=== PATIENT | male | born 1945 | race Caucasian/White ===

== ENCOUNTER 2020-08-01 10:22 | Outpatient (REF) | payer MEDICARE, SELFPAY ==
[2020-08-01 13:44] LABS: MANUAL DIFF FLAG NO
[2020-08-01 13:46] LABS: Basophils Percent Auto 0.2 % (0-2); Eosinophils Absolute Auto 0.1 X10*3/uL (0.0-0.4); Eosinophils Percent Auto 0.9 % (0-4); Hematocrit 42.2 % (42-52); Hemoglobin 13.5 g/dl (14.0-18.0); Imm Gran Abs Auto 0.03 X10*3/uL (0.00-0.03); Imm Gran Pct Auto 0.3 % (0.0-0.4); Lymphocytes Absolute Auto 1.3 X10*3/uL (1.2-4.9); Lymphocytes Percent Auto 12.7 % (20-40); Mean Corpuscular Hemoglobin 31.1 pg (27.0-33.0); Mean Corpuscular Volume 97.2 fL (80-98); Mean Platelet Volume 10.2 fL (9.4-12.4); Monocytes Absolute Auto 0.9 X10*3/uL (0.1-1.2); Monocytes Percent Auto 8.9 % (2-11); Neutrophils Absolute Auto 8.1 X10*3/uL (2.0-8.3); Platelet Count 266 X10*3/uL (160-400); Red Blood Count 4.34 X10*6/uL (4.60-5.80); Red Cell Distribution Width 13.9 % (11.0-16.0); White Blood Count 10.5 X10*3/uL (4.8-10.8)
[2020-08-01 14:50] LABS: Alanine Aminotransferase 21 U/L (0-40); Albumin Level 4.2 g/dL (3.5-5.0); Alkaline Phosphatase 142 U/L (39-117); Anion Gap 14 (12-20); Aspartate Amino Transferase 23 U/L (5-37); Bilirubin Total 0.4 mg/dL (0.0-1.0); Blood Urea Nitrogen 20 mg/dL (9-16); Calcium 9.2 mg/dL (8.4-10.2); Carbon Dioxide 30 mmol/L (22-29); Chloride 103 mmol/L (96-108); Estimated Glomerular Filt Rate > 60; Glucose Random 63 mg/dL (60-115); Magnesium 2.2 mg/dL (1.6-2.6); Sodium 142 mmol/L (135-145); Total Protein 6.8 g/dL (6.5-8.0)
[2020-08-01 15:18] LABS: Estimated Average Glucose 103 mg/dL; Hemoglobin A1c % 5.2 %
== END 2020-08-01 10:23 | disposition home or self-care (01) ==
LOC: HO.10HDLR 10:22
PROVIDERS: PCP Internal Medicine; Visit Provider Internal Medicine
DX: G40.909 Epilepsy, unspecified, not intractable, without status epilepticus (principal); I25.10 Atherosclerotic heart disease of native coronary artery without angina pectoris; K21.9 Gastro-esophageal reflux disease without esophagitis; R73.03 Prediabetes
CPT/HCPCS: 36415; 80053; 80185; 83036; 83735; 85025

== ENCOUNTER 2020-09-28 10:55 | Outpatient (REF) | payer MEDICARE, SELFPAY | END 2020-09-28 10:56 | disposition home or self-care (01) | LOC: HO.LAB 10:55 | PROVIDERS: PCP Internal Medicine; Visit Provider Internal Medicine | DX: Z20.828 Contact with and (suspected) exposure to other viral communicable diseases (principal) | CPT/HCPCS: C9803; U0003 ==

== ENCOUNTER 2020-10-03 11:01 | Emergency (ER) | payer MEDICARE, SELFPAY ==
--- NOTE | 2020-10-03 | XR_ITS ---
EXAMINATION: XR CHEST CLINICAL INFORMATION: Cough and weakness. COMPARISON: Chest 02/11/2019 TECHNIQUE: Frontal view of the chest was obtained. FINDINGS: The lungs are well-expanded and clear of acute pneumonic process. Heart size and pulmonary vascularity is normal. There is mild spondylosis of dorsal spine. No lytic process. XR/XR chest 1V IMPRESSION: No acute cardiopulmonary process seen.
--- NOTE | 2020-10-03 | ECG_ITS ---
Test Reason : WEAKNESS Blood Pressure : / mmHG Vent. Rate : 105 BPM Atrial Rate : 105 BPM P-R Int : 140 ms QRS Dur : 080 ms QT Int : 324 ms P-R-T Axes : 057 042 098 degrees QTc Int : 428 ms Sinus tachycardia Septal infarct (cited on or before 07-JAN-2019) Nonspecific ST and T wave abnormality Abnormal ECG When compared with ECG of 11-FEB-2019 11:43, Vent. rate has increased BY 45 BPM Referred By: Generic ED Physician Electronically Signed By:TRU DEXTER
[2020-10-03 11:27] VITALS: BP 159/86; PULSE 108; RESP 18; TEMP 37.3; O2SAT 96; BMI 22.8
[2020-10-03] MEDS: Acetaminophen 325 MG TABLET 650 MG PO (11:57)
[2020-10-03 13:33] LABS: Basophils Percent Auto 0.1 % (0-2); Hemoglobin 13.4 g/dl (14.0-18.0); Imm Gran Abs Auto 0.03 X10*3/uL (0.00-0.03); Imm Gran Pct Auto 0.3 % (0.0-0.4); Lymphocytes Absolute Auto 0.5 X10*3/uL (1.2-4.9); Lymphocytes Percent Auto 5.1 % (20-40); MANUAL DIFF FLAG SCAN; Mean Corpuscular HGB Conc 34.4 g/dl (31.0-36.0); Mean Corpuscular Hemoglobin 31.2 pg (27.0-33.0); Mean Corpuscular Volume 90.9 fL (80-98); Mean Platelet Volume 9.5 fL (9.4-12.4); Monocytes Absolute Auto 0.7 X10*3/uL (0.1-1.2); Monocytes Percent Auto 6.9 % (2-11); Neutrophils Absolute Auto 8.7 X10*3/uL (2.0-8.3); Neutrophils Percent Auto 87.6 % (45-73); Platelet Count 203 X10*3/uL (160-400); Red Blood Count 4.29 X10*6/uL (4.60-5.80); Red Cell Distribution Width 13.2 % (11.0-16.0); SCAN SMEAR FLAG 1
[2020-10-03 13:58] LABS: SLIDE REVIEW VERIFIED
[2020-10-03 14:05] LABS: Alanine Aminotransferase 95 U/L (0-40); Alkaline Phosphatase 148 U/L (39-117); Anion Gap 16 (12-20); Aspartate Amino Transferase 95 U/L (5-37); Bilirubin Direct 0.2 mg/dL (0.0-0.5); Bilirubin Total 0.4 mg/dL (0.0-1.0); Blood Urea Nitrogen 15 mg/dL (9-16); C Reactive Protein 20.86 mg/dL (< or = 0.50); Calcium 8.4 mg/dL (8.4-10.2); Carbon Dioxide 26 mmol/L (22-29); Chloride 97 mmol/L (96-108); Creatinine Clr Calc Pharmacy 73.1; Estimated Glomerular Filt Rate > 60; Glucose Random 97 mg/dL (60-115); Lactate Dehydrogenase 236 U/L (118-273); Magnesium 1.9 mg/dL (1.6-2.6); Potassium 4.5 mmol/l (3.3-5.1); Sodium 134 mmol/L (135-145); Total Protein 6.9 g/dL (6.5-8.0)
[2020-10-03 14:26] LABS: Ferritin 244 ng/mL (20-250)
[2020-10-03 14:31] LABS: Procalcitonin 0.16 ng/mL
--- NOTE | 2020-10-03 15:21 | PC.NURSE ---
ambulated the pt, sating at 94% on room air with hr ranging from 110-115
--- NOTE | 2020-10-03 15:22 | ED_ITS ---
HPI - URI/Sore Throat General Chief Complaint: Weakness Stated Complaint: dehydrated,fever +covid Time Seen by Provider: 10/03/20 13:05 Source: patient Mode of arrival: ambulatory History of Present Illness HPI Narrative: 75-year-old male with a past medical history of epilepsy, mi s/p stent, COVID-19 positive on 09/19, presenting to the ED complaining of continued COVID-19 symptoms including nausea, headache, chills, generalized fatigue /weakness, and decreased p.o. intake. Reports mild dry cough. Denies shortness of breath, chest pain, abdominal pain, diarrhea, recent travel, sick contacts, LE edema MD elicited complaint: cough Related Data Previous Rx's Medication Instructions Recorded albuterol sulfate 5 mg INHALATION Q4H PRN #30 ea 10/03/20 azithromycin See Rx Instructions .ROUTE 10/03/20 .COMPLEX #6 tab Allergies Allergy/AdvReac Type Severity Reaction Status Date / Time penicillin V [From Pen-Vee K] Allergy Mild HIVES Unverified 06/23/20 16:33 Review of Systems Review of Systems: Constitutional: No Weight loss, No Fever, + Chills, No Night Sweats, + Fatigue, + Malaise ENT/Mouth: No sore throat, No Rhinorrhea Cardiovascular: No Chest Pain, No SOB, No Dyspnea on Exertion, No Orthopnea, No Edema, No Palpitations Respiratory: + Cough, No Sputum, No Wheezing, No Smoke Exposure, No Dyspnea Gastrointestinal: + Nausea, No Vomiting, No Diarrhea, No Constipation, No Abdominal pain Musculoskeletal: No joint pain, + Myalgias, No Joint Swelling Skin: No Skin Lesions, No rash Neuro: +generalized weakness, No Numbness, No Paresthesias, + Headache Yes all other systems are reviewed and are negative [facility] Past Medical History Attestation statement: The following information was validated with the patient. Medical History (Updated 10/03/20 @ 15:33 by CÉSAR Sifuentes) Epilepsy H/O acute myocardial infarction Surgical History (Updated 10/03/20 @ 11:30 by Nano Rome RN) H/O heart artery stent Social History Social History Advance Directives: No Advance Directives Information Provided: Yes Physical Exam Vital Signs: Vital Signs: Last Vital Signs Temp 99.2 F 10/03/20 11:27 Pulse 108 H 10/03/20 11:27 Resp 18 10/03/20 11:27 BP 159/86 H 10/03/20 11:27 Pulse Ox 96 10/03/20 11:27 Body Mass Index 22.8 Const: General: cooperative and healthy appearing Robbin entation/consciousness: patient oriented x3 Limitations: no limitations HENMT: Head: Yes normal to inspection Ears: hearing grossly normal bilaterally General nose exam: Normal external nose present Face and sinus: Yes normal facial exam Eyes: General: appearance normal, both eyes and all related structures EOM: EOMs intact bilaterally Neck: Neck: Yes normal visual inspection and Yes no meningeal signs Resp: Effort & Inspection: normal respiratory effort Auscultation: clear to auscultation bilaterally, no rales, no rhonchi and no wheezes Cardio: Rate: regular rate Heart sounds: S1 normal heart sound present and S2 normal heart sound present GI: Inspection: Yes normal to inspection Palpation (GI): Soft to palpation, nontender, no guarding and not rigid Skin: Rashes: no rashes Wounds: no wounds Neuro: General: patient oriented x3 and no meningeal signs Gait exam (Neur o): Normal gait present Extrem: Other: no LE edema or calf ttp General: Yes normal to inspection Course Course Course Narrative: * AST/ALT Elevated, CRP elevated, labs otherwise unremarkable * Chest x-ray unremarkable * 1522- patient ambulated in the ED with pulse ox maintaining saturation >94% on RA > plan to DC home with Zithromax and close follow-up. Strict return pre cautions and worrisome signs and symptoms discussed. Patient feels safe for discharge home MDM - URI/Sore Throat MDM Narrative Medical decision making narrative: 75-year-old male with a past medical history of epilepsy, mi s/p stent, COVID-19 positive on 09/19, presenting to the ED complaining of continued COVID-19 symptoms including nausea, headache, chills, generalized fatigue/weakness, and decreased p.o. intake. On exam low-grade temp 99.2?, tachycardic likely from fever, NAD/nontoxic appearing, lungs CTA, satting 96% on RA in no respiratory distress. Likely continue COVID-19 symptoms. Rule out dehydration vs metabolic abnormalities. No concern for bacterial etiology Plan: EKG, labs, CXR, ambulation with pulse ox, reassess Lab Data Result diagrams: 10/03/20 13:06 10/03/20 13:06 Labs: Lab Results 10/03/20 10/03/20 10/03/20 Range/Units 13:06 13:06 13:25 WBC 10.0 (4.8-10.8) X10*3/uL RBC 4.29 L (4.60-5.80) X10*6/uL Hgb 13.4 L (14.0-18.0) g/dl Hct 39.0 L (42-52) % MCV 90.9 (80-98) fL MCH 31.2 (27.0-33.0) pg MCHC 34.4 (31.0-36.0) g/dl RDW 13.2 (11.0-16.0) % Plt Count 203 (160-400) X10*3/uL MPV 9.5 (9.4-12.4) fL Immature Gran % (Auto) 0.3 (0.0-0.4) % Neut % (Auto) 87.6 H (45-73) % Lymph % (Auto) 5.1 L (20-40) % [place] % (Auto) 6.9 (2-11) % Eos % (Auto) 0.0 (0-4) % Baso % (Auto) 0.1 (0-2) % Lymph # (Auto) 0.5 L (1.2-4.9) X10*3/uL [place] # (Auto) 0.7 (0.1-1.2) X10*3/uL Eos # (Auto) 0.0 (0.0-0.4) X10*3/uL Baso # (Auto) 0.0 (0.0-0.2) X10*3/uL Abs Immat Gran (auto) 0.03 (0.00-0.03) X10*3/uL Absolute Neuts (auto) 8.7 H (2.0-8.3) X10*3/uL Absolute Nucleated RBC 0.000 (0.0-0.012) X10*3/uL Nucleated RBC % (auto) 0.0 (0.0-0.2) /100WBC Smear Tech's Comments VERIFIED Sodium 134 L (135-145) mmol/L Potassium 4.5 (3.3-5.1) mmol/l Chloride 97 (96-108) mmol/L Carbon Dioxide 26 (22-29) mmol/L Anion Gap 16 (12-20) BUN 15 (9-16) mg/dL Creatinine 0.84 (0.5-1.4) mg/dL Estim Creat Clear Calc 73.1 Estimated GFR > 60 Random Glucose 97 D (60-115) mg/dL Calcium 8.4 D (8.4-10.2) mg/dL Magnesium 1.9 (1.6-2.6) mg/dL Ferritin 244 (20-250) ng/mL Total Bilirubin 0.4 (0.0-1.0) mg/dL Direct Bilirubin 0.2 (0.0-0.5) mg/dL AST 95 H (5-37) U/L ALT 95 H (0-40) U/L Alkaline Phosphatase 148 H (39-117) U/L Lactate Dehydrogenase 236 (118-273) U/L C-Reactive Protein 20.86 H (< or = 0.50) mg/dL Total Protein 6.9 (6.5-8.0) g/dL Albumin 4.0 (3.5-5.0) g/dL Procalcitonin 0.16 ng/mL Discharge Plan Discharge Clinical Impression: COVID-19 Patient Disposition: Home, Self-Care Instructions: COVID-19 (Coronavirus Disease 2019) (ED) Additional Instructions: YOU HAVE COVID-19 Make sure you are staying hydrated at home YOUR BLOOD WORK AND CHEST X-RAY WERE REASSURING TODAY IN THE ED ALBUTEROL INHALER WILL HELP WITH DIFFICULTY BREATHING, TAKE PRESCRIBED IN ADDITION TAKE AZITHROMYCIN WHICH IS AN ANTIBIOTIC CALL YOUR PRIMARY CARE DOCTOR IF HE DEVELOPS SHORTNESS OF BREATH THAT IS CONSTANT /WORSENING, OR CHEST PAIN OR FEVER UNRESOLVED BY TYLENOL/MOTRIN AT HOME RETURN TO THE ED Prescriptions: New azithromycin 250 mg tablet See Rx Instructions .ROUTE .COMPLEX Qty: 6 RF: 0 albuterol sulfate 2.5 mg/0.5 mL solution for nebulization 5 mg inhalation Q4H PRN (Reason: shortness of breath or wheezing) Qty: 30 RF: 0 Referrals: Jose Simon MD [Primary Care Provider] - 3 days (call)
== END 2020-10-03 15:54 | disposition home or self-care (01) ==
PROVIDERS: Physician Assistant; Emergency Provider Emergency Medicine Emergency Medical Services; PCP Internal Medicine
DX: U07.1 COVID-19 (principal); R50.9 Fever, unspecified; Z79.899 Other long term (current) drug therapy
CPT/HCPCS: 36415; 71045; 80048; 80076; 82728; 83615; 83735; 84145; 85025; 86140; 93005; 99283

== ENCOUNTER → 2020-10-31 08:20 | Outpatient (BNVA) | payer MEDICARE, SELFPAY | PROVIDERS: PCP Internal Medicine; Visit Provider Internal Medicine Cardiovascular Disease | DX: I25.10 Atherosclerotic heart disease of native coronary artery without angina pectoris (principal); I48.0 Paroxysmal atrial fibrillation | CPT/HCPCS: 99212 ==

== ENCOUNTER 2020-11-03 07:20 | Outpatient (REF) | payer MEDICARE, SELFPAY ==
[2020-11-03 08:21] LABS: Cholesterol 172 mg/dL; HDL Cholesterol 81 mg/dL; LDL Cholesterol Calculated 78 mg/dl; Triglycerides 67 mg/dL
== END 2020-11-03 07:21 | disposition home or self-care (01) ==
LOC: HO.LAB 07:20
PROVIDERS: PCP Internal Medicine; Visit Provider Internal Medicine Cardiovascular Disease
DX: I25.10 Atherosclerotic heart disease of native coronary artery without angina pectoris (principal)
CPT/HCPCS: 36415; 80061

== ENCOUNTER 2020-11-07 11:11 | Outpatient (REF) | payer MEDICARE, SELFPAY ==
[2020-11-07 13:59] LABS: MANUAL DIFF FLAG NO
[2020-11-07 14:09] LABS: Basophils Percent Auto 0.3 % (0-2); Eosinophils Absolute Auto 0.1 X10*3/uL (0.0-0.4); Eosinophils Percent Auto 1.2 % (0-4); Hematocrit 40.8 % (42-52); Imm Gran Abs Auto 0.02 X10*3/uL (0.00-0.03); Imm Gran Pct Auto 0.3 % (0.0-0.4); Lymphocytes Percent Auto 26.7 % (20-40); Mean Corpuscular HGB Conc 31.9 g/dl (31.0-36.0); Mean Corpuscular Hemoglobin 30.7 pg (27.0-33.0); Mean Corpuscular Volume 96.5 fL (80-98); Monocytes Absolute Auto 0.8 X10*3/uL (0.1-1.2); Neutrophils Absolute Auto 4.5 X10*3/uL (2.0-8.3); Neutrophils Percent Auto 60.5 % (45-73); Platelet Count 263 X10*3/uL (160-400); Red Blood Count 4.23 X10*6/uL (4.60-5.80); Red Cell Distribution Width 14.4 % (11.0-16.0); White Blood Count 7.4 X10*3/uL (4.8-10.8)
[2020-11-07 14:28] LABS: Alanine Aminotransferase 26 U/L (0-40); Alkaline Phosphatase 124 U/L (39-117); Anion Gap 13 (12-20); Aspartate Amino Transferase 31 U/L (5-37); Bilirubin Total 0.5 mg/dL (0.0-1.0); Blood Urea Nitrogen 16 mg/dL (9-16); Calcium 8.9 mg/dL (8.4-10.2); Carbon Dioxide 31 mmol/L (22-29); Chloride 104 mmol/L (96-108); Estimated Glomerular Filt Rate > 60; Glucose Random 74 mg/dL (60-115); Potassium 4.9 mmol/L (3.3-5.1); Sodium 143 mmol/L (135-145); Total Protein 6.8 g/dL (6.5-8.0)
== END 2020-11-07 11:12 | disposition home or self-care (01) ==
LOC: HO.10HDL 11:11
PROVIDERS: Visit Provider Internal Medicine
DX: D64.9 Anemia, unspecified (principal); R79.89 Other specified abnormal findings of blood chemistry; Z86.16 Personal history of COVID-19
CPT/HCPCS: 36415; 80053; 85025

== ENCOUNTER 2020-12-06 08:14 | Outpatient (REF) | payer MEDICARE, SELFPAY ==
[2020-12-06 09:56] LABS: Prothrombin Time 100.6 SEC (10.8-13.0)
[2020-12-06 09:57] LABS: Cholesterol 160 mg/dL; HDL Cholesterol 68 mg/dL; LDL Cholesterol Calculated 72 mg/dl; Triglycerides 103 mg/dL
[2020-12-06 10:08] LABS: INTERNATIONAL NORM RATIO 8.3 (0.9-1.1)
== END 2020-12-06 08:15 | disposition home or self-care (01) ==
LOC: HO.LAB 08:14
PROVIDERS: PCP Internal Medicine; Visit Provider Internal Medicine Cardiovascular Disease
DX: I25.10 Atherosclerotic heart disease of native coronary artery without angina pectoris (principal); I48.0 Paroxysmal atrial fibrillation
CPT/HCPCS: 36415; 80061; 85610

== ENCOUNTER 2020-12-08 09:21 | Outpatient (REF) | payer MEDICARE, SELFPAY ==
[2020-12-08 10:04] LABS: INTERNATIONAL NORM RATIO 2.7 (0.9-1.1); Prothrombin Time 31.9 SEC (10.8-13.0)
== END 2020-12-08 09:22 | disposition home or self-care (01) ==
LOC: HO.LAB 09:21
PROVIDERS: PCP Internal Medicine; Visit Provider Internal Medicine Cardiovascular Disease
DX: I48.0 Paroxysmal atrial fibrillation (principal)
CPT/HCPCS: 36415; 85610

== ENCOUNTER → 2020-12-12 13:03 | Outpatient (BNVA) | payer MEDICARE, SELFPAY | PROVIDERS: PCP Internal Medicine; Visit Provider Internal Medicine | DX: I48.0 Paroxysmal atrial fibrillation (principal); Z51.81 Encounter for therapeutic drug level monitoring; Z79.01 Long term (current) use of anticoagulants | CPT/HCPCS: 85610; 99201; 99202 ==

== ENCOUNTER → 2020-12-15 08:23 | Outpatient (BNVA) | payer MEDICARE, SELFPAY | PROVIDERS: PCP Internal Medicine; Visit Provider Internal Medicine | DX: I48.0 Paroxysmal atrial fibrillation (principal); Z51.81 Encounter for therapeutic drug level monitoring; Z79.01 Long term (current) use of anticoagulants | CPT/HCPCS: 85610; 99211 ==

== ENCOUNTER → 2020-12-19 08:11 | Outpatient (BNVA) | payer MEDICARE, SELFPAY | PROVIDERS: PCP Internal Medicine; Visit Provider Internal Medicine | DX: Z79.01 Long term (current) use of anticoagulants (principal) | CPT/HCPCS: 85610; 99211 ==

== ENCOUNTER → 2020-12-26 09:04 | Outpatient (BNVA) | payer MEDICARE, SELFPAY | PROVIDERS: PCP Internal Medicine; Visit Provider Internal Medicine | DX: I48.0 Paroxysmal atrial fibrillation (principal); Z51.81 Encounter for therapeutic drug level monitoring; Z79.01 Long term (current) use of anticoagulants | CPT/HCPCS: 85610; 99211 ==

== ENCOUNTER → 2021-01-09 13:54 | Outpatient (BNVA) | payer MEDICARE, SELFPAY | PROVIDERS: PCP Internal Medicine; Visit Provider Internal Medicine | DX: I48.0 Paroxysmal atrial fibrillation (principal); Z79.01 Long term (current) use of anticoagulants; Z51.81 Encounter for therapeutic drug level monitoring | CPT/HCPCS: 85610; 99211 ==

== ENCOUNTER → 2021-01-16 08:01 | Outpatient (BNVA) | payer MEDICARE, SELFPAY | PROVIDERS: PCP Internal Medicine; Visit Provider Internal Medicine | DX: I48.0 Paroxysmal atrial fibrillation (principal); Z79.01 Long term (current) use of anticoagulants; Z51.81 Encounter for therapeutic drug level monitoring | CPT/HCPCS: 85610; 99211 ==

== ENCOUNTER → 2021-01-30 08:19 | Outpatient (BNVA) | payer MEDICARE, SELFPAY | PROVIDERS: PCP Internal Medicine; Visit Provider Internal Medicine | DX: I48.0 Paroxysmal atrial fibrillation (principal); Z79.01 Long term (current) use of anticoagulants; Z51.81 Encounter for therapeutic drug level monitoring | CPT/HCPCS: 85610; 99211 ==

== ENCOUNTER → 2021-02-13 08:14 | Outpatient (BNVA) | payer MEDICARE, SELFPAY | PROVIDERS: PCP Internal Medicine; Visit Provider Internal Medicine | DX: I48.0 Paroxysmal atrial fibrillation (principal); Z51.81 Encounter for therapeutic drug level monitoring; Z79.01 Long term (current) use of anticoagulants | CPT/HCPCS: 85610; 99211 ==

== ENCOUNTER 2021-02-17 08:01 | Outpatient (REF) | payer MEDICARE, SELFPAY ==
--- NOTE | ~2021-02-17 | XR_ITS ---
EXAMINATION: XR HAND, RIGHT CLINICAL INFORMATION: Arthritis. COMPARISON: None TECHNIQUE: PA, lateral, and oblique views of the right hand. FINDINGS: There is loss of PIP and DIP joint space. The MCP joint space is preserved. No bony erosive changes seen. There is mild periarticular spurring DIP joint second and fifth digit. Minimal spur spurring is also visualized in the PIP joint fifth digit. No acute fracture or subluxation seen. The soft tissues are normal. XR/XR hand RT min 3V IMPRESSION: Mild loss of PIP and DIP joints question early osteoarthritic changes. No visible acute fracture or dislocation seen..
[2021-02-17 08:57] LABS: MANUAL DIFF FLAG NO
[2021-02-17 09:03] LABS: Basophils Percent Auto 0.3 % (0-2); Eosinophils Absolute Auto 0.1 X10*3/uL (0.0-0.4); Eosinophils Percent Auto 1.7 % (0-4); Hematocrit 39.6 % (42-52); Hemoglobin 12.9 g/dl (14.0-18.0); Imm Gran Abs Auto 0.02 X10*3/uL (0.00-0.03); Imm Gran Pct Auto 0.3 % (0.0-0.4); Lymphocytes Absolute Auto 1.7 X10*3/uL (1.2-4.9); Lymphocytes Percent Auto 23.8 % (20-40); Mean Corpuscular HGB Conc 32.6 g/dl (31.0-36.0); Mean Corpuscular Hemoglobin 30.6 pg (27.0-33.0); Mean Corpuscular Volume 94.1 fL (80-98); Mean Platelet Volume 9.8 fL (9.4-12.4); Monocytes Absolute Auto 0.8 X10*3/uL (0.1-1.2); Monocytes Percent Auto 10.6 % (2-11); Neutrophils Absolute Auto 4.5 X10*3/uL (2.0-8.3); Neutrophils Percent Auto 63.3 % (45-73); Platelet Count 243 X10*3/uL (160-400); Red Blood Count 4.21 X10*6/uL (4.60-5.80); Red Cell Distribution Width 13.8 % (11.0-16.0); White Blood Count 7.1 X10*3/uL (4.8-10.8)
[2021-02-17 09:22] LABS: Alanine Aminotransferase 36 U/L (0-40); Albumin Level 4.1 g/dL (3.5-5.0); Alkaline Phosphatase 132 U/L (39-117); Anion Gap 11 (12-20); Aspartate Amino Transferase 35 U/L (5-37); Bilirubin Total 0.3 mg/dL (0.0-1.0); Blood Urea Nitrogen 16 mg/dL (9-16); C Reactive Protein 1.22 mg/dL (< or = 0.50); Calcium 9.3 mg/dL (8.4-10.2); Carbon Dioxide 32 mmol/L (22-29); Chloride 104 mmol/L (96-108); Cholesterol 146 mg/dL; Estimated Glomerular Filt Rate > 60; Glucose Random 98 mg/dL (60-115); HDL Cholesterol 69 mg/dL; Iron 89 mcg/dL (45-160); LDL Cholesterol Calculated 66 mg/dl; Percent Iron Saturation 28 % (15-50); Sodium 142 mmol/L (135-145); Total Iron Binding Capacity 322 mcg/dL (228-428); Total Protein 6.7 g/dL (6.5-8.0); Triglycerides 59 mg/dL; Unsaturated Iron Binding 233 ug/dL
[2021-02-17 09:45] LABS: Prostate Specific Antigen 2.67 ng/mL (<0.05-4.0)
[2021-02-17 09:51] LABS: Phenytoin Dilantin 21.6 ug/mL (10.0-20.0)
== END 2021-02-17 08:02 | disposition home or self-care (01) ==
LOC: HO.LAB 08:01
PROVIDERS: Absent Provider Internal Medicine; PCP Internal Medicine; Visit Provider Internal Medicine
DX: Z12.5 Encounter for screening for malignant neoplasm of prostate (principal); I25.10 Atherosclerotic heart disease of native coronary artery without angina pectoris; I48.0 Paroxysmal atrial fibrillation; E78.00 Pure hypercholesterolemia, unspecified; K21.9 Gastro-esophageal reflux disease without esophagitis; R35.1 Nocturia; L40.50 Arthropathic psoriasis, unspecified; M19.90 Unspecified osteoarthritis, unspecified site
CPT/HCPCS: 36415; 73130; 80053; 80061; 80185; 83540; 84153; 85025; 85610; 86140; 99211

== ENCOUNTER → 2021-02-27 08:35 | Outpatient (BNVA) | payer MEDICARE, SELFPAY | PROVIDERS: PCP Internal Medicine; Visit Provider Internal Medicine | DX: I48.0 Paroxysmal atrial fibrillation (principal); Z51.81 Encounter for therapeutic drug level monitoring; Z79.01 Long term (current) use of anticoagulants | CPT/HCPCS: 85610; 99211 ==

== ENCOUNTER → 2021-03-13 08:20 | Outpatient (BNVA) | payer MEDICARE, SELFPAY | PROVIDERS: PCP Internal Medicine; Visit Provider Internal Medicine | DX: I48.0 Paroxysmal atrial fibrillation (principal); Z51.81 Encounter for therapeutic drug level monitoring; Z79.01 Long term (current) use of anticoagulants | CPT/HCPCS: 85610; 99211 ==

== ENCOUNTER → 2021-04-03 08:18 | Outpatient (BNVA) | payer MEDICARE, SELFPAY | PROVIDERS: PCP Internal Medicine; Visit Provider Internal Medicine | DX: I48.0 Paroxysmal atrial fibrillation (principal); Z51.81 Encounter for therapeutic drug level monitoring; Z79.01 Long term (current) use of anticoagulants | CPT/HCPCS: 85610; 99211 ==

== ENCOUNTER → 2021-05-01 08:16 | Outpatient (BNVA) | payer MEDICARE, SELFPAY | PROVIDERS: PCP Internal Medicine; Visit Provider Internal Medicine | DX: I48.0 Paroxysmal atrial fibrillation (principal); I25.10 Atherosclerotic heart disease of native coronary artery without angina pectoris; Z51.81 Encounter for therapeutic drug level monitoring; Z79.899 Other long term (current) drug therapy | CPT/HCPCS: 85610; 99211; 99212 ==

== ENCOUNTER → 2021-05-08 08:44 | Outpatient (BNVA) | payer MEDICARE, SELFPAY | PROVIDERS: PCP Internal Medicine; Visit Provider Internal Medicine | DX: I48.0 Paroxysmal atrial fibrillation (principal); Z51.81 Encounter for therapeutic drug level monitoring; Z79.01 Long term (current) use of anticoagulants | CPT/HCPCS: 85610; 99211 ==

== ENCOUNTER → 2021-05-22 08:37 | Outpatient (BNVA) | payer MEDICARE, SELFPAY | PROVIDERS: PCP Internal Medicine; Visit Provider Internal Medicine | DX: I48.0 Paroxysmal atrial fibrillation (principal); Z51.81 Encounter for therapeutic drug level monitoring; Z79.01 Long term (current) use of anticoagulants | CPT/HCPCS: 85610; 99211 ==

== ENCOUNTER → 2021-06-05 08:20 | Outpatient (BNVA) | payer MEDICARE, SELFPAY | PROVIDERS: PCP Internal Medicine; Visit Provider Internal Medicine | DX: I48.0 Paroxysmal atrial fibrillation (principal); Z51.81 Encounter for therapeutic drug level monitoring; Z79.01 Long term (current) use of anticoagulants | CPT/HCPCS: 85610; 99211 ==

== ENCOUNTER → 2021-06-16 08:21 | Outpatient (BNVA) | payer MEDICARE, SELFPAY | PROVIDERS: PCP Internal Medicine; Visit Provider Internal Medicine | DX: I48.0 Paroxysmal atrial fibrillation (principal); Z51.81 Encounter for therapeutic drug level monitoring; Z79.01 Long term (current) use of anticoagulants | CPT/HCPCS: 85610; 99211 ==

== ENCOUNTER → 2021-07-03 08:26 | Outpatient (BNVA) | payer MEDICARE, SELFPAY | PROVIDERS: PCP Internal Medicine; Visit Provider Internal Medicine | DX: I48.0 Paroxysmal atrial fibrillation (principal); Z51.81 Encounter for therapeutic drug level monitoring; Z79.01 Long term (current) use of anticoagulants | CPT/HCPCS: 85610; 99211 ==

== ENCOUNTER → 2021-07-18 08:15 | Outpatient (BNVA) | payer MEDICARE, SELFPAY | PROVIDERS: PCP Internal Medicine; Visit Provider Internal Medicine | DX: I48.0 Paroxysmal atrial fibrillation (principal); Z51.81 Encounter for therapeutic drug level monitoring; Z79.01 Long term (current) use of anticoagulants | CPT/HCPCS: 85610; 99211 ==

== ENCOUNTER → 2021-07-20 08:03 | Outpatient (BNVA) | payer MEDICARE, SELFPAY | PROVIDERS: PCP Internal Medicine; Visit Provider Internal Medicine | DX: I48.0 Paroxysmal atrial fibrillation (principal); Z51.81 Encounter for therapeutic drug level monitoring; Z79.01 Long term (current) use of anticoagulants | CPT/HCPCS: 85610; 99211 ==

== ENCOUNTER → 2021-07-31 08:13 | Outpatient (BNVA) | payer MEDICARE, SELFPAY | PROVIDERS: PCP Internal Medicine; Visit Provider Internal Medicine | DX: I48.0 Paroxysmal atrial fibrillation (principal); Z51.81 Encounter for therapeutic drug level monitoring; Z79.01 Long term (current) use of anticoagulants | CPT/HCPCS: 85610; 99211 ==

== ENCOUNTER 2021-08-11 06:59 | Outpatient (REF) | payer MEDICARE, SELFPAY ==
[2021-08-11 07:08] LABS: MANUAL DIFF FLAG NO
[2021-08-11 07:41] LABS: Basophils Percent Auto 0.3 % (0-2); Eosinophils Percent Auto 0.4 % (0-4); Hematocrit 40.6 % (42.0-52.0); Imm Gran Abs Auto 0.02 X10*3/uL (0.00-0.03); Imm Gran Pct Auto 0.3 % (0.0-0.4); Lymphocytes Percent Auto 24.8 % (20-40); Mean Corpuscular Volume 93.8 fL (80.0-98.0); Mean Platelet Volume 9.6 fL (9.4-12.4); Monocytes Absolute Auto 1.1 X10*3/uL (0.1-1.2); Monocytes Percent Auto 13.2 % (2-11); Neutrophils Absolute Auto 4.9 x10*3/uL (2.0-8.3); Platelet Count 265 X10*3/uL (160-400); Red Blood Count 4.33 X10*6/uL (4.60-5.80); Red Cell Distribution Width 14.2 % (11.0-16.0)
[2021-08-11 08:08] LABS: Alanine Aminotransferase 43 U/L (0-40); Alkaline Phosphatase 147 U/L (39-117); Anion Gap 11 (12-20); Aspartate Amino Transferase 52 U/L (5-37); Bilirubin Total 0.4 mg/dL (0.0-1.0); Blood Urea Nitrogen 18 mg/dL (9-16); Calcium 9.2 mg/dL (8.4-10.2); Carbon Dioxide 31 mmol/L (22-29); Chloride 106 mmol/L (96-108); Estimated Glomerular Filt Rate > 60; Glucose Random 102 mg/dL (60-115); Potassium 4.9 mmol/L (3.3-5.1); Sodium 143 mmol/L (135-145); Total Protein 6.8 g/dL (6.5-8.0)
[2021-08-11 08:53] LABS: Phenytoin Dilantin 18.5 ug/mL (10.0-20.0)
== END 2021-08-11 07:00 | disposition home or self-care (01) ==
LOC: HO.LAB 06:59
PROVIDERS: PCP Internal Medicine; Visit Provider Internal Medicine
DX: I48.0 Paroxysmal atrial fibrillation (principal); I25.10 Atherosclerotic heart disease of native coronary artery without angina pectoris; E78.00 Pure hypercholesterolemia, unspecified; K21.9 Gastro-esophageal reflux disease without esophagitis; Z79.899 Other long term (current) drug therapy
CPT/HCPCS: 36415; 80053; 80185; 85025

== ENCOUNTER → 2021-08-21 08:20 | Outpatient (BNVA) | payer MEDICARE, SELFPAY | PROVIDERS: PCP Internal Medicine; Visit Provider Internal Medicine | DX: I48.0 Paroxysmal atrial fibrillation (principal); Z51.81 Encounter for therapeutic drug level monitoring; Z79.01 Long term (current) use of anticoagulants | CPT/HCPCS: 85610; 99211 ==

== ENCOUNTER → 2021-09-04 07:59 | Outpatient (BNVA) | payer MEDICARE, SELFPAY | PROVIDERS: PCP Internal Medicine; Visit Provider Internal Medicine | DX: I48.0 Paroxysmal atrial fibrillation (principal); Z51.81 Encounter for therapeutic drug level monitoring; Z79.01 Long term (current) use of anticoagulants | CPT/HCPCS: 85610; 99211 ==

== ENCOUNTER → 2021-09-18 08:04 | Outpatient (BNVA) | payer MEDICARE, SELFPAY | PROVIDERS: PCP Internal Medicine; Visit Provider Internal Medicine | DX: I48.0 Paroxysmal atrial fibrillation (principal); Z51.81 Encounter for therapeutic drug level monitoring; Z79.01 Long term (current) use of anticoagulants | CPT/HCPCS: 85610; 99211 ==

== ENCOUNTER → 2021-10-02 08:21 | Outpatient (BNVA) | payer MEDICARE, SELFPAY | PROVIDERS: PCP Internal Medicine; Visit Provider Internal Medicine | DX: I48.0 Paroxysmal atrial fibrillation (principal); Z51.81 Encounter for therapeutic drug level monitoring; Z79.01 Long term (current) use of anticoagulants | CPT/HCPCS: 85610; 99211 ==

== ENCOUNTER → 2021-10-16 08:17 | Outpatient (BNVA) | payer MEDICARE, SELFPAY | PROVIDERS: PCP Internal Medicine; Visit Provider Internal Medicine | DX: I48.0 Paroxysmal atrial fibrillation (principal); Z51.81 Encounter for therapeutic drug level monitoring; Z79.01 Long term (current) use of anticoagulants | CPT/HCPCS: 85610; 99211 ==

== ENCOUNTER → 2021-10-20 13:37 | Outpatient (REF) | payer MEDICARE, SELFPAY ==
--- NOTE | 2021-10-20 13:40 | CA_ITS ---
Transthoracic Echocardiogram Patient (Last, First, Middle): Moris Jimenez A Gender: Male Date of : 1945 Age: 76 Procedure Date: 10/20/2021 Procedure Type: Transthoracic Echocardiogram Location: OP Height: 172.72 cm Weight: 68.95 kg BSA: 1.82 m2 Heart Rate: bpm BP: 128 / 66 mmHg Conference Services Director: NATE Referring MD: Lazarus Stewart MD Symptoms: I48.0 - Paroxysmal atrial fibrillation Study Quality: Fair ECG Rhythm: Sinus Conclusions: - The left ventricular systolic function is mildly decreased. The calculated ejection fraction is 48% by biplane method. - The apical septum, mid inferoseptal, and mid anteroseptal segments are akinetic. - There is moderate calcification of the aortic valve. There is mild aortic valve stenosis. - There is mild mitral annular calcification. Findings Left Ventricle Normal left ventricular cavity size. There is normal left ventricular wall thickness. The left ventricular systolic function is mildly decreased. The calculated ejection fraction is 48% by biplane method. There is evidence of regional wall motion abnormalities. Wall Motion Rest Echo Findings The apical septum, mid inferoseptal, and mid anteroseptal segments are akinetic. Atria The left atrium is mildly dilated. The right atrium is normal in size. Aortic Valve There is moderate calcification of the aortic valve. There is mild aortic valve stenosis. The mean gradient is 11 mmHg. The aortic valve area is 1.28 cm2. There is mild aortic valve regurgitation. Dimensionless index 0.6. Stroke volume index 37ml. Mitral Valve The mitral valve appears normal. There is mild mitral annular calcification. There is trace mitral valve regurgitation. There is no mitral valve stenosis. Pulmonic Valve The pulmonic valve was not well visualized. Tricuspid Valve There is mild tricuspid valve regurgitation. The pulmonary artery systolic pressure is normal. Great Vessels The aortic annulus, sinuses of valsalva, and asc aorta are normal in size. Venous The inferior vena cava was not well visualized. The inferior vena cava is normal in size. Pericardium/Pleural There is no evidence of pericardial effusion. Prior Study Comparison No significant change compared to prior study dated: 10/12/2019. Measurements 2D Linear Measurements IVSd: 0.76 0.6-0.9/0.6-1.0 cm LVIDd: 5.30 3.9-5.3/4.2-5.9 cm LVIDd Index: 2.91 2.4-3.2/2.2-3.1 cm/m2 LVIDs: 3.63 2.0-3.6 cm LVPWd: 0.80 0.7-1.1 cm Ao Root: 3.00 2.1-3.5 cm LA Diam: 3.60 2.7-3.8/3.0-4.0 cm LAIDs Index: 1.98 1.5-2.3 cm/m2 LV Mass: 180.32 67-162/88-224 g LV Mass Index: 99.08 43-95/49-115 g/m2 LVOT Diam: 1.70 3.0+(-)1.3 cm 2D Systolic Function EF 4C: 45.80 >55% EF 2C: 50.70 >55% EF BiP: 47.50 >55% Mitral Valve MV Pk E: 0.66 MV PK A: 0.94 MV Decel Time: 277.00 E/A: 0.70 E'Lateral: 8.59 E'Medial: 7.29 E/E' Med: 9.10 E/E' Lat: 7.70 PHT: 81.00 MVA PHT: 2.72 Decel [place]: 2.38 Aortic Valve AoV Pk Jasper: 2.08 AoV Mn [place]asper: 1.56 AoV VTI: 0.52 AoV Pk Grad: 17.00 Aov Mn Grad: 11.00 LEYDI Cont.VTI: 1.28 AI Pk [place]asper: 3.14 AI [place]: 1.54 LVOT LVOT Pk [place]asper: 1.24 LVOT Mn [place]: 0.84 LVOT VTI: 0.30 LVOT Pk Grad: 6.00 LVOT Mn Grad: 3.00 LVOT Diam: 1.70 LVOT Area: 2.27 Diastolic Function MV Pk E: 0.66 MV Pk A: 0.94 E/A: 0.70 E'Medial: 7.29 E/E' Med: 9.10 E' Laterial: 8.59 E/E' Lat: 7.70 Right Ventricle TAPSE (mm): 28.20 TVS' Jasper: 15.90 Tricuspid Valve TR Pk Jasper: 2.67 TR Pk Grad: 29.00 RA Press: 3.00 RVSP: 32.00 Great Vessels Aorta Ao Root-2D: 3.00 2.0-3.7 cm Ao Asc: 3.40 2.1-3.4 cm Ao Arch: 3.00 Updated in Other Vendor System with Status of Final Hernesto Costa MD electronically signed on 10/22/2021 12:29:32 PM with status of Final
== END ==
LOC: HO.CARD 13:37
PROVIDERS: PCP Internal Medicine; Visit Provider Internal Medicine Cardiovascular Disease
DX: I48.0 Paroxysmal atrial fibrillation (principal)
CPT/HCPCS: 93306

== ENCOUNTER → 2021-10-23 11:00 | Outpatient (BNVA) | payer MEDICARE, SELFPAY | PROVIDERS: PCP Internal Medicine; Referring Provider Internal Medicine; Visit Provider Internal Medicine Cardiovascular Disease | DX: I48.0 Paroxysmal atrial fibrillation (principal); I25.10 Atherosclerotic heart disease of native coronary artery without angina pectoris | CPT/HCPCS: 93005; 99212 ==

== ENCOUNTER → 2021-11-06 08:07 | Outpatient (BNVA) | payer MEDICARE, SELFPAY | PROVIDERS: PCP Internal Medicine; Visit Provider Internal Medicine | DX: I48.0 Paroxysmal atrial fibrillation (principal); Z51.81 Encounter for therapeutic drug level monitoring; Z79.01 Long term (current) use of anticoagulants | CPT/HCPCS: 85610; 99211 ==

== ENCOUNTER → 2021-11-13 07:43 | Outpatient (REF) | payer MEDICARE, SELFPAY ==
--- NOTE | 2021-11-13 08:08 | HM_ITS ---
Total monitoring time 2 days and 22 hours. Underlying rhythm is sinus. Minimum heart rate 55/Min. Maximum 101/min. Average 68/Min. About 20 short supraventricular episodes noted, that appear to be atrial fibrillation. Longest episode is 1 minute and 32 seconds. Fastest 184/Min. Otherwise, minimal supraventricular burden at less than 1%. No patient events. MTDD
== END ==
LOC: HO.CARD 07:43
PROVIDERS: PCP Internal Medicine; Visit Provider Internal Medicine Cardiovascular Disease
DX: I48.0 Paroxysmal atrial fibrillation (principal)
CPT/HCPCS: 93242

== ENCOUNTER 2021-11-20 10:00 | Outpatient (REF) | payer MEDICARE, SELFPAY ==
[2021-11-20 13:55] LABS: MANUAL DIFF FLAG NO
[2021-11-20 14:01] LABS: Basophils Percent Auto 0.2 % (0-2); Eosinophils Percent Auto 0.2 % (0-4); Hematocrit 38.6 % (42.0-52.0); Hemoglobin 12.4 g/dl (14.0-18.0); Imm Gran Abs Auto 0.03 X10*3/uL (0.00-0.03); Imm Gran Pct Auto 0.3 % (0.0-0.4); Lymphocytes Absolute Auto 1.7 X10*3/uL (1.2-4.9); Lymphocytes Percent Auto 18.1 % (20-40); Mean Corpuscular HGB Conc 32.1 g/dl (31.0-36.0); Mean Corpuscular Volume 93.2 fL (80.0-98.0); Mean Platelet Volume 10.3 fL (9.4-12.4); Monocytes Absolute Auto 0.9 X10*3/uL (0.1-1.2); Neutrophils Absolute Auto 6.6 x10*3/uL (2.0-8.3); Neutrophils Percent Auto 71.2 % (45-73); Platelet Count 246 X10*3/uL (160-400); Red Blood Count 4.14 X10*6/uL (4.60-5.80); White Blood Count 9.2 X10*3/uL (4.8-10.8)
[2021-11-20 14:14] LABS: Alanine Aminotransferase 57 U/L (0-40); Alkaline Phosphatase 142 U/L (39-117); Anion Gap 10 (12-20); Aspartate Amino Transferase 63 U/L (5-37); Bilirubin Total 0.3 mg/dL (0.0-1.0); Blood Urea Nitrogen 16 mg/dL (9-16); Carbon Dioxide 31 mmol/L (22-29); Chloride 105 mmol/L (96-108); Estimated Glomerular Filt Rate > 60; Glucose Random 91 mg/dL (60-115); Iron 51 mcg/dL (45-160); Percent Iron Saturation 15 % (15-50); Potassium 4.4 mmol/L (3.3-5.1); Sodium 142 mmol/L (135-145); Total Iron Binding Capacity 342 mcg/dL (228-428); Total Protein 6.7 g/dL (6.5-8.0); Unsaturated Iron Binding 291 ug/dL
[2021-11-20 14:34] LABS: INTERNATIONAL NORM RATIO 3.6 (0.9-1.1); Prothrombin Time 42.5 SEC (9.9-13.0)
== END 2021-11-20 10:01 | disposition home or self-care (01) ==
LOC: HO.10HDL 10:00
PROVIDERS: Visit Provider Internal Medicine
DX: I48.0 Paroxysmal atrial fibrillation (principal); N40.0 Benign prostatic hyperplasia without lower urinary tract symptoms; D64.9 Anemia, unspecified; R79.89 Other specified abnormal findings of blood chemistry
CPT/HCPCS: 36415; 80053; 83540; 85025; 85610

== ENCOUNTER → 2021-12-04 09:00 | Outpatient (BNVA) | payer MEDICARE, SELFPAY | PROVIDERS: PCP Internal Medicine; Visit Provider Internal Medicine | DX: I48.0 Paroxysmal atrial fibrillation (principal); I25.10 Atherosclerotic heart disease of native coronary artery without angina pectoris; I35.0 Nonrheumatic aortic (valve) stenosis; Z51.81 Encounter for therapeutic drug level monitoring; Z79.01 Long term (current) use of anticoagulants | CPT/HCPCS: 85610; 99211; 99212 ==

== ENCOUNTER → 2021-12-18 08:04 | Outpatient (BNVA) | payer MEDICARE, SELFPAY | PROVIDERS: PCP Internal Medicine; Visit Provider Internal Medicine | DX: I48.0 Paroxysmal atrial fibrillation (principal); Z51.81 Encounter for therapeutic drug level monitoring; Z79.01 Long term (current) use of anticoagulants | CPT/HCPCS: 85610; 99211 ==

== ENCOUNTER → 2022-01-15 08:02 | Outpatient (BNVA) | payer MEDICARE, SELFPAY | PROVIDERS: PCP Internal Medicine; Visit Provider Internal Medicine | DX: I48.0 Paroxysmal atrial fibrillation (principal); Z51.81 Encounter for therapeutic drug level monitoring; Z79.01 Long term (current) use of anticoagulants | CPT/HCPCS: 85610; 99211 ==

== ENCOUNTER → 2022-01-31 14:56 | Outpatient (BNVA) | payer MEDICARE, SELFPAY | PROVIDERS: PCP Internal Medicine; Visit Provider Internal Medicine | DX: I48.0 Paroxysmal atrial fibrillation (principal); Z79.01 Long term (current) use of anticoagulants; Z51.81 Encounter for therapeutic drug level monitoring | CPT/HCPCS: 85610; 99211 ==

== ENCOUNTER 2022-02-12 10:51 | Outpatient (REF) | payer MEDICARE, SELFPAY ==
[2022-02-12 13:12] LABS: MANUAL DIFF FLAG NO
[2022-02-12 13:19] LABS: Basophils Percent Auto 0.3 % (0-2); Eosinophils Percent Auto 0.2 % (0-4); Hematocrit 37.5 % (42.0-52.0); Hemoglobin 11.8 g/dl (14.0-18.0); Imm Gran Abs Auto 0.03 X10*3/uL (0.00-0.03); Imm Gran Pct Auto 0.3 % (0.0-0.4); Lymphocytes Absolute Auto 1.5 X10*3/uL (1.2-4.9); Lymphocytes Percent Auto 16.7 % (20-40); Mean Corpuscular HGB Conc 31.5 g/dl (31.0-36.0); Mean Corpuscular Hemoglobin 29.2 pg (27.0-33.0); Mean Corpuscular Volume 92.8 fL (80.0-98.0); Mean Platelet Volume 10.4 fL (9.4-12.4); Monocytes Absolute Auto 0.9 X10*3/uL (0.1-1.2); Monocytes Percent Auto 10.1 % (2-11); Neutrophils Absolute Auto 6.4 x10*3/uL (2.0-8.3); Neutrophils Percent Auto 72.4 % (45-73); Platelet Count 260 X10*3/uL (160-400); Red Blood Count 4.04 X10*6/uL (4.60-5.80); Red Cell Distribution Width 14.9 % (11.0-16.0); White Blood Count 8.9 X10*3/uL (4.8-10.8)
[2022-02-12 13:45] LABS: Alanine Aminotransferase 21 U/L (0-40); Albumin Level 3.8 g/dL (3.5-5.0); Alkaline Phosphatase 142 U/L (39-117); Anion Gap 9 (12-20); Aspartate Amino Transferase 27 U/L (5-37); Bilirubin Total 0.2 mg/dL (0.0-1.0); Blood Urea Nitrogen 20 mg/dL (9-16); Carbon Dioxide 30 mmol/L (22-29); Chloride 106 mmol/L (96-108); Estimated Glomerular Filt Rate > 60; Glucose Random 88 mg/dL (60-115); Sodium 140 mmol/L (135-145); Total Protein 6.5 g/dL (6.5-8.0)
[2022-02-12 14:01] LABS: Free T4 (Free Thyroxine) 0.83 ng/dL (0.71-1.85); Thyroid Stimulating Hormone 1.65 uIU/mL (0.32-4.0)
[2022-02-12 14:06] LABS: INTERNATIONAL NORM RATIO 2.3 (0.9-1.1)
[2022-02-12 14:13] LABS: Vitamin B12 337 pg/mL (200-900)
== END 2022-02-12 10:52 | disposition home or self-care (01) ==
LOC: HO.10HDL 10:51
PROVIDERS: Visit Provider Internal Medicine
DX: I48.0 Paroxysmal atrial fibrillation (principal); R53.83 Other fatigue; D64.9 Anemia, unspecified
CPT/HCPCS: 36415; 80053; 82607; 84439; 84443; 85025; 85610

== ENCOUNTER → 2022-02-14 15:28 | Outpatient (BNVA) | payer MEDICARE, SELFPAY | PROVIDERS: PCP Internal Medicine; Visit Provider Internal Medicine | DX: I48.0 Paroxysmal atrial fibrillation (principal); Z79.01 Long term (current) use of anticoagulants; Z51.81 Encounter for therapeutic drug level monitoring | CPT/HCPCS: 85610; 99211 ==

== ENCOUNTER → 2022-02-19 08:16 | Outpatient (BNVA) | payer MEDICARE, SELFPAY | PROVIDERS: PCP Internal Medicine; Visit Provider Internal Medicine | DX: I48.0 Paroxysmal atrial fibrillation (principal); Z79.01 Long term (current) use of anticoagulants; Z51.81 Encounter for therapeutic drug level monitoring | CPT/HCPCS: 85610; 99211 ==

== ENCOUNTER → 2022-03-12 08:21 | Outpatient (BNVA) | payer MEDICARE, SELFPAY | PROVIDERS: PCP Internal Medicine; Visit Provider Internal Medicine | DX: I48.0 Paroxysmal atrial fibrillation (principal); Z79.01 Long term (current) use of anticoagulants; Z51.81 Encounter for therapeutic drug level monitoring | CPT/HCPCS: 85610; 99211 ==

== ENCOUNTER → 2022-03-19 08:00 | Outpatient (BNVA) | payer MEDICARE, SELFPAY | PROVIDERS: PCP Internal Medicine; Visit Provider Internal Medicine | DX: I48.0 Paroxysmal atrial fibrillation (principal); Z79.01 Long term (current) use of anticoagulants; Z51.81 Encounter for therapeutic drug level monitoring | CPT/HCPCS: 85610; 99211 ==

== ENCOUNTER → 2022-03-26 09:37 | Outpatient (BNVA) | payer MEDICARE, SELFPAY | PROVIDERS: PCP Internal Medicine; Visit Provider Internal Medicine | DX: I48.0 Paroxysmal atrial fibrillation (principal); Z79.01 Long term (current) use of anticoagulants; Z51.81 Encounter for therapeutic drug level monitoring | CPT/HCPCS: 85610; 99211 ==

== ENCOUNTER → 2022-04-02 08:17 | Outpatient (BNVA) | payer MEDICARE, SELFPAY | PROVIDERS: PCP Internal Medicine; Visit Provider Internal Medicine | DX: I48.0 Paroxysmal atrial fibrillation (principal); Z79.01 Long term (current) use of anticoagulants; Z51.81 Encounter for therapeutic drug level monitoring | CPT/HCPCS: 85610; 99211 ==

== ENCOUNTER → 2022-04-16 08:17 | Outpatient (BNVA) | payer MEDICARE, SELFPAY | PROVIDERS: PCP Internal Medicine; Visit Provider Internal Medicine | DX: I48.0 Paroxysmal atrial fibrillation (principal); Z79.01 Long term (current) use of anticoagulants; Z51.81 Encounter for therapeutic drug level monitoring | CPT/HCPCS: 85610; 99211 ==

== ENCOUNTER 2022-04-23 13:55 | Outpatient (REF) | payer MEDICARE, SELFPAY ==
[2022-04-23 14:03] LABS: MANUAL DIFF FLAG NO
[2022-04-23 14:29] LABS: Basophils Percent Auto 0.2 % (0-2); Hematocrit 37.6 % (42.0-52.0); Hemoglobin 12.1 g/dl (14.0-18.0); Imm Gran Abs Auto 0.06 X10*3/uL (0.00-0.03); Imm Gran Pct Auto 0.6 % (0.0-0.4); Lymphocytes Absolute Auto 1.4 X10*3/uL (1.2-4.9); Lymphocytes Percent Auto 14.2 % (20-40); Mean Corpuscular HGB Conc 32.2 g/dl (31.0-36.0); Mean Corpuscular Hemoglobin 29.9 pg (27.0-33.0); Mean Corpuscular Volume 92.8 fL (80.0-98.0); Mean Platelet Volume 9.4 fL (9.4-12.4); Monocytes Absolute Auto 0.8 X10*3/uL (0.1-1.2); Monocytes Percent Auto 8.4 % (2-11); Neutrophils Absolute Auto 7.6 x10*3/uL (2.0-8.3); Neutrophils Percent Auto 76.6 % (45-73); Platelet Count 275 X10*3/uL (160-400); Red Blood Count 4.05 X10*6/uL (4.60-5.80); Red Cell Distribution Width 15.5 % (11.0-16.0); White Blood Count 9.9 X10*3/uL (4.8-10.8)
[2022-04-23 14:43] LABS: Anion Gap 11 (12-20); Blood Urea Nitrogen 18 mg/dL (9-16); Calcium 8.5 mg/dL (8.4-10.2); Carbon Dioxide 30 mmol/L (22-29); Chloride 107 mmol/L (96-108); Estimated Glomerular Filt Rate > 60; Glucose Random 105 mg/dL (60-115); Iron 133 mcg/dL (45-160); Percent Iron Saturation 49 % (15-50); Potassium 4.9 mmol/L (3.3-5.1); Sodium 143 mmol/L (135-145); Total Iron Binding Capacity 273 mcg/dL (228-428); Unsaturated Iron Binding 140 ug/dL
== END 2022-04-23 13:56 | disposition home or self-care (01) ==
LOC: HO.LAB 13:55
PROVIDERS: PCP Internal Medicine; Visit Provider Internal Medicine
DX: I48.0 Paroxysmal atrial fibrillation (principal); D64.9 Anemia, unspecified
CPT/HCPCS: 36415; 80048; 83540; 85025

== ENCOUNTER → 2022-04-30 08:03 | Outpatient (BNVA) | payer MEDICARE, SELFPAY | PROVIDERS: PCP Internal Medicine; Visit Provider Internal Medicine | DX: I48.0 Paroxysmal atrial fibrillation (principal); Z79.01 Long term (current) use of anticoagulants; Z51.81 Encounter for therapeutic drug level monitoring | CPT/HCPCS: 85610; 99211 ==

== ENCOUNTER → 2022-05-14 08:13 | Outpatient (BNVA) | payer MEDICARE, SELFPAY | PROVIDERS: PCP Internal Medicine; Visit Provider Internal Medicine | DX: I48.0 Paroxysmal atrial fibrillation (principal); Z79.01 Long term (current) use of anticoagulants; Z51.81 Encounter for therapeutic drug level monitoring | CPT/HCPCS: 85610; 99211 ==

== ENCOUNTER → 2022-05-28 08:01 | Outpatient (BNVA) | payer MEDICARE, SELFPAY | PROVIDERS: PCP Internal Medicine; Visit Provider Internal Medicine | DX: I48.0 Paroxysmal atrial fibrillation (principal); Z79.01 Long term (current) use of anticoagulants; Z51.81 Encounter for therapeutic drug level monitoring | CPT/HCPCS: 85610; 99211 ==

== ENCOUNTER 2022-05-28 08:19 | Outpatient (REF) | payer MEDICARE, SELFPAY ==
[2022-05-28 09:23] LABS: Alanine Aminotransferase 30 U/L (0-40); Alkaline Phosphatase 145 U/L (39-117); Aspartate Amino Transferase 33 U/L (5-37); Bilirubin Direct 0.2 mg/dL (0.0-0.5); Bilirubin Total 0.3 mg/dL (0.0-1.0); Cholesterol 131 mg/dL; HDL Cholesterol 62 mg/dL; LDL Cholesterol Calculated 57 mg/dl; Total Protein 6.6 g/dL (6.5-8.0); Triglycerides 61 mg/dL
== END 2022-05-28 08:20 | disposition home or self-care (01) ==
LOC: HO.LAB 08:19
PROVIDERS: PCP Internal Medicine; Visit Provider Internal Medicine
DX: Z12.5 Encounter for screening for malignant neoplasm of prostate (principal); E78.00 Pure hypercholesterolemia, unspecified; I25.10 Atherosclerotic heart disease of native coronary artery without angina pectoris; N40.0 Benign prostatic hyperplasia without lower urinary tract symptoms; D64.9 Anemia, unspecified; I48.0 Paroxysmal atrial fibrillation; Z51.81 Encounter for therapeutic drug level monitoring; Z79.01 Long term (current) use of anticoagulants
CPT/HCPCS: 36415; 80061; 80076; 84153; 84154

== ENCOUNTER → 2022-06-04 14:49 | Outpatient (BNVA) | payer MEDICARE, SELFPAY | PROVIDERS: PCP Internal Medicine; Referring Provider Internal Medicine; Visit Provider Internal Medicine Cardiovascular Disease | DX: I48.0 Paroxysmal atrial fibrillation (principal); I25.10 Atherosclerotic heart disease of native coronary artery without angina pectoris; I35.0 Nonrheumatic aortic (valve) stenosis; I25.2 Old myocardial infarction; Z95.5 Presence of coronary angioplasty implant and graft | CPT/HCPCS: 99212 ==

== ENCOUNTER → 2022-06-18 08:17 | Outpatient (BNVA) | payer MEDICARE, SELFPAY | PROVIDERS: PCP Internal Medicine; Visit Provider Internal Medicine | DX: I48.0 Paroxysmal atrial fibrillation (principal); Z79.01 Long term (current) use of anticoagulants; Z51.81 Encounter for therapeutic drug level monitoring | CPT/HCPCS: 85610; 99211 ==

== ENCOUNTER → 2022-07-10 08:01 | Outpatient (BNVA) | payer MEDICARE, SELFPAY | PROVIDERS: PCP Internal Medicine; Visit Provider Internal Medicine | DX: I48.0 Paroxysmal atrial fibrillation (principal); Z79.01 Long term (current) use of anticoagulants; Z51.81 Encounter for therapeutic drug level monitoring | CPT/HCPCS: 85610; 99211 ==

== ENCOUNTER → 2022-07-13 08:15 | Outpatient (BNVA) | payer MEDICARE, SELFPAY | PROVIDERS: PCP Internal Medicine; Visit Provider Internal Medicine | DX: I48.0 Paroxysmal atrial fibrillation (principal); Z79.01 Long term (current) use of anticoagulants; Z51.81 Encounter for therapeutic drug level monitoring | CPT/HCPCS: 85610; 99211 ==

== ENCOUNTER → 2022-07-23 08:28 | Outpatient (BNVA) | payer MEDICARE, SELFPAY | PROVIDERS: PCP Internal Medicine; Visit Provider Internal Medicine | DX: I48.0 Paroxysmal atrial fibrillation (principal); Z79.01 Long term (current) use of anticoagulants; Z51.81 Encounter for therapeutic drug level monitoring | CPT/HCPCS: 85610; 99211 ==

== ENCOUNTER → 2022-07-30 08:22 | Outpatient (BNVA) | payer MEDICARE, SELFPAY | PROVIDERS: PCP Internal Medicine; Visit Provider Internal Medicine | DX: I48.0 Paroxysmal atrial fibrillation (principal); Z79.01 Long term (current) use of anticoagulants; Z51.81 Encounter for therapeutic drug level monitoring | CPT/HCPCS: 85610; 99211 ==

== ENCOUNTER → 2022-08-10 10:21 | Outpatient (REF) | payer MEDICARE, SELFPAY ==
--- NOTE | 2022-08-10 10:26 | CA_ITS ---
Transthoracic Echocardiogram Patient (Last, First, Middle): Moris Jimenez A Gender: Male Date of : 1945 Age: 76 Procedure Date: 08/10/2022 Procedure Type: Transthoracic Echocardiogram Location: OP Height: 170.18 cm Weight: 68.95 kg BSA: 1.80 m2 Heart Rate: 68 bpm BP: 120 / 58 mmHg Value Stream Coach: DAYDAY Referring MD: Lazarus Stewart MD Symptoms: I35.0 - Nonrheumatic aortic (valve) stenosis Study Quality: Adequate w contrast ECG Rhythm: Sinus Conclusions: - The left ventricular systolic function is mildly decreased. The visually estimated ejection fraction is between 45-50%. - The apical septum, mid inferoseptal, and mid anteroseptal segments are akinetic. - Evidence suggests grade II (moderate) diastolic dysfunction. - The left atrium is moderately dilated. - There is mild aortic valve stenosis. - There is mild mitral annular calcification. Findings Procedure Information Contrast agent, definity, is being given per protocol without apparent complications. Left Ventricle Normal left ventricular cavity size. There is normal left ventricular wall thickness. The left ventricular systolic function is mildly decreased. The visually estimated ejection fraction is between 45-50%. E/E prime ratio is between 8 and 15 consistent with indeterminate filling pressures. Evidence suggests grade II (moderate) diastolic dysfunction. Wall Motion Rest Echo Findings The apical septum, mid inferoseptal, and mid anteroseptal segments are akinetic. Right Ventricle Normal right ventricular cavity size and systolic function. Atria The left atrium is moderately dilated. The right atrium is normal in size. Aortic Valve There is mild calcification of the aortic valve. There is mild aortic valve stenosis. There is mild aortic valve regurgitation. Mitral Valve There is mild mitral annular calcification. There is trace mitral valve regurgitation. There is no mitral valve stenosis. Pulmonic Valve The pulmonic valve is likely normal. Tricuspid Valve There is mild tricuspid valve regurgitation. There is no evidence of pulmonary hypertension. Great Vessels The asc aorta is normal in size. Venous The inferior vena cava is normal in size and collapses greater than 50% with inspiration. Pericardium/Pleural There is no evidence of pericardial effusion. Prior Study Comparison No significant change compared to prior study dated: 10/20/2021. Measurements 2D Linear Measurements IVSd: 0.84 0.6-0.9/0.6-1.0 cm LVIDd: 5.34 3.9-5.3/4.2-5.9 cm LVIDd Index: 2.97 2.4-3.2/2.2-3.1 cm/m2 LVIDs: 4.03 2.0-3.6 cm LVPWd: 0.97 0.7-1.1 cm LA Diam: 3.90 2.7-3.8/3.0-4.0 cm LAIDs Index: 2.17 1.5-2.3 cm/m2 LV Mass: 222.74 67-162/88-224 g LV Mass Index: 123.74 43-95/49-115 g/m2 LVOT Diam: 2.00 3.0+(-)1.3 cm 2D Systolic Function EF 4C: 55.90 >55% EF 2C: 47.30 >55% EF BiP: 51.20 >55% Mitral Valve MV Pk E: 0.88 MV PK A: 0.48 MV Decel Time: 182.00 E/A: 1.80 E'Lateral: 7.40 E'Medial: 7.07 E/E' Med: 12.50 E/E' Lat: 11.90 PHT: 53.00 MVA PHT: 4.15 Decel [place]: 4.85 Aortic Valve AoV Pk [place]asper: 2.26 AoV Mn [place]: 1.50 AoV VTI: 0.49 AoV Pk Grad: 20.00 Aov Mn Grad: 11.00 LEYDI Cont.VTI: 1.58 AI Pk [place]: 3.97 AI [place]: 2.52 LVOT LVOT Pk [place]: 1.11 LVOT Mn [place]: 0.71 LVOT VTI: 0.25 LVOT Pk Grad: 5.00 LVOT Mn Grad: 3.00 LVOT Diam: 2.00 LVOT Area: 3.14 Diastolic Function MV Pk E: 0.88 MV Pk A: 0.48 E/A: 1.80 E'Medial: 7.07 E/E' Med: 12.50 E' Laterial: 7.40 E/E' Lat: 11.90 Right Ventricle TAPSE (mm): 24.90 TVS' [place]asper: 10.70 Tricuspid Valve TR Pk [place]asper: 2.80 TR Pk Grad: 31.00 RA Press: 3.00 RVSP: 34.00 Great Vessels Aorta Sinus of Valsalva: 2.80 2.0-3.5 cm Ao Asc: 3.40 2.1-3.4 cm Pulmonary Veins Pulm Vein S/D 1.30 Pulmonary Valve PV Pk Jasper: 0.88 Peak PV Grad: 3.00 Updated in Other Vendor System with Status of Final Hernesto Costa MD electronically signed on 08/11/2022 2:24:49 PM with status of Final
== END ==
LOC: HO.CARD 10:21
PROVIDERS: PCP Internal Medicine; Visit Provider Internal Medicine Cardiovascular Disease
DX: I35.0 Nonrheumatic aortic (valve) stenosis (principal)
CPT/HCPCS: 93306; Q9957

== ENCOUNTER → 2022-08-13 08:05 | Outpatient (BNVA) | payer MEDICARE, SELFPAY | PROVIDERS: PCP Internal Medicine; Visit Provider Internal Medicine | DX: I48.0 Paroxysmal atrial fibrillation (principal); Z79.01 Long term (current) use of anticoagulants; Z51.81 Encounter for therapeutic drug level monitoring | CPT/HCPCS: 85610; 99211 ==

== ENCOUNTER 2022-08-20 10:15 | Outpatient (REF) | payer MEDICARE, SELFPAY ==
[2022-08-20 10:43] LABS: MANUAL DIFF FLAG NO
[2022-08-20 10:56] LABS: Basophils Percent Auto 0.2 % (0-2); Hematocrit 39.9 % (42.0-52.0); Imm Gran Abs Auto 0.03 X10*3/uL (0.00-0.03); Imm Gran Pct Auto 0.4 % (0.0-0.4); Lymphocytes Absolute Auto 1.3 X10*3/uL (1.2-4.9); Lymphocytes Percent Auto 15.3 % (20-40); Mean Corpuscular HGB Conc 32.6 g/dl (31.0-36.0); Mean Corpuscular Hemoglobin 30.6 pg (27.0-33.0); Mean Corpuscular Volume 93.9 fL (80.0-98.0); Mean Platelet Volume 9.4 fL (9.4-12.4); Monocytes Absolute Auto 0.7 X10*3/uL (0.1-1.2); Monocytes Percent Auto 7.9 % (2-11); Neutrophils Absolute Auto 6.4 x10*3/uL (2.0-8.3); Neutrophils Percent Auto 76.2 % (45-73); Platelet Count 270 X10*3/uL (160-400); Red Blood Count 4.25 X10*6/uL (4.60-5.80); Red Cell Distribution Width 13.9 % (11.0-16.0); White Blood Count 8.4 X10*3/uL (4.8-10.8)
[2022-08-20 11:41] LABS: Alanine Aminotransferase 38 U/L (0-40); Alkaline Phosphatase 168 U/L (39-117); Anion Gap 14 (12-20); Aspartate Amino Transferase 38 U/L (5-37); Bilirubin Total 0.2 mg/dL (0.0-1.0); Blood Urea Nitrogen 14 mg/dL (9-16); Calcium 8.9 mg/dL (8.4-10.2); Carbon Dioxide 29 mmol/L (22-29); Chloride 104 mmol/L (96-108); Estimated Glomerular Filt Rate > 60; Glucose Random 115 mg/dL (60-115); Iron 134 mcg/dL (45-160); Percent Iron Saturation 51 % (15-50); Potassium 4.6 mmol/L (3.3-5.1); Sodium 142 mmol/L (135-145); Total Iron Binding Capacity 261 mcg/dL (228-428); Total Protein 6.6 g/dL (6.5-8.0); Unsaturated Iron Binding 127 ug/dL
== END 2022-08-20 10:16 | disposition home or self-care (01) ==
LOC: HO.10HDL 10:15
PROVIDERS: Visit Provider Internal Medicine
DX: I48.0 Paroxysmal atrial fibrillation (principal); I25.10 Atherosclerotic heart disease of native coronary artery without angina pectoris; I10 Essential (primary) hypertension; D64.9 Anemia, unspecified
CPT/HCPCS: 36415; 80053; 83540; 85025

== ENCOUNTER → 2022-08-27 08:07 | Outpatient (BNVA) | payer MEDICARE, SELFPAY | PROVIDERS: PCP Internal Medicine; Visit Provider Internal Medicine | DX: I48.0 Paroxysmal atrial fibrillation (principal); Z79.01 Long term (current) use of anticoagulants; Z51.81 Encounter for therapeutic drug level monitoring | CPT/HCPCS: 85610; 99211 ==

== ENCOUNTER → 2022-09-17 08:06 | Outpatient (BNVA) | payer MEDICARE, SELFPAY | PROVIDERS: PCP Internal Medicine; Visit Provider Internal Medicine | DX: I48.0 Paroxysmal atrial fibrillation (principal); Z79.01 Long term (current) use of anticoagulants; Z51.81 Encounter for therapeutic drug level monitoring | CPT/HCPCS: 85610; 99211 ==

== ENCOUNTER 2022-10-02 09:35 | Outpatient (REF) | payer MEDICARE, SELFPAY ==
--- NOTE | ~2022-10-02 | US_ITS ---
EXAMINATION: US EXTRACRANIAL CAROTID DUPLEX, BILATERAL CLINICAL INFORMATION: Left bruit COMPARISON: None TECHNIQUE: Real-time ultrasound and Doppler techniques (integrating B-mode 2-D vascular images, Doppler spectral analysis and color-flow Doppler imaging) were utilized to interrogate the extracranial carotid arteries, the vertebral arteries and proximal subclavian arteries bilaterally. The degree of stenosis is determined by criteria similar to NASCET. FINDINGS: Right Side: 1. There is mild atherosclerotic plaque seen in the bifurcation/proximal ICA region. 2. The common carotid artery PSV proximally is 155 cm/s and distally 92 cm/s. 3. The proximal internal carotid artery velocities are 64 cm/s systolic and 12 cm/s diastolic. 4. The proximal external carotid artery PSV is 120 cm/s. 5. The vertebral artery shows antegrade flow. 6. The subclavian artery waveforms are normal. Left Side: 1. There is mild atherosclerotic plaque seen in the bifurcation/proximal ICA region. 2. The common carotid artery PSV proximally is 174 cm/s and distally 89 cm/s. 3. The proximal internal carotid artery velocities are 61 cm/s systolic and 16 cm/s diastolic. 4. The proximal external carotid artery PSV is 111 cm/s. 5. The vertebral artery shows antegrade flow. 6. The subclavian artery waveforms are normal. US/US carotid duplex BI IMPRESSION: 1. RIGHT: Minimal, non-hemodynamically significant stenosis of the proximal right internal carotid artery corresponding to a 0-49% stenosis by velocity criteria. 2. LEFT: Minimal, non-hemodynamically significant stenosis of the proximal left internal carotid artery corresponding to a 0-49% stenosis by velocity criteria.
== END 2022-10-02 09:36 | disposition home or self-care (01) ==
LOC: HO.US 09:35
PROVIDERS: Visit Provider Internal Medicine
DX: R09.89 Other specified symptoms and signs involving the circulatory and respiratory systems (principal)
CPT/HCPCS: 93880

== ENCOUNTER → 2022-10-15 07:59 | Outpatient (BNVA) | payer MEDICARE, SELFPAY | PROVIDERS: PCP Internal Medicine; Visit Provider Internal Medicine | DX: I48.0 Paroxysmal atrial fibrillation (principal); Z79.01 Long term (current) use of anticoagulants; Z51.81 Encounter for therapeutic drug level monitoring | CPT/HCPCS: 85610; 99211 ==

== ENCOUNTER → 2022-11-12 08:03 | Outpatient (BNVA) | payer MEDICARE, SELFPAY | PROVIDERS: PCP Internal Medicine; Visit Provider Internal Medicine | DX: I48.0 Paroxysmal atrial fibrillation (principal); Z79.01 Long term (current) use of anticoagulants; Z51.81 Encounter for therapeutic drug level monitoring | CPT/HCPCS: 85610; 99211 ==

== ENCOUNTER 2022-11-19 10:01 | Outpatient (REF) | payer MEDICARE, SELFPAY ==
[2022-11-19 13:22] LABS: MANUAL DIFF FLAG NO
[2022-11-19 13:29] LABS: Basophils Percent Auto 0.3 % (0-2); Hematocrit 41.2 % (42.0-52.0); Hemoglobin 13.4 g/dl (14.0-18.0); Imm Gran Abs Auto 0.04 X10*3/uL (0.00-0.03); Imm Gran Pct Auto 0.4 % (0.0-0.4); Lymphocytes Absolute Auto 1.4 X10*3/uL (1.2-4.9); Mean Corpuscular HGB Conc 32.5 g/dl (31.0-36.0); Mean Corpuscular Hemoglobin 30.4 pg (27.0-33.0); Mean Corpuscular Volume 93.4 fL (80.0-98.0); Mean Platelet Volume 9.8 fL (9.4-12.4); Monocytes Absolute Auto 0.8 X10*3/uL (0.1-1.2); Monocytes Percent Auto 9.3 % (2-11); Neutrophils Absolute Auto 6.6 x10*3/uL (2.0-8.3); Platelet Count 316 X10*3/uL (160-400); Red Blood Count 4.41 X10*6/uL (4.60-5.80); Red Cell Distribution Width 13.5 % (11.0-16.0); White Blood Count 8.9 X10*3/uL (4.8-10.8)
[2022-11-19 13:39] LABS: Alanine Aminotransferase 50 U/L (0-40); Albumin Level 3.9 g/dL (3.5-5.0); Alkaline Phosphatase 171 U/L (39-117); Anion Gap 14 (12-20); Aspartate Amino Transferase 49 U/L (5-37); Bilirubin Total 0.4 mg/dL (0.0-1.0); Blood Urea Nitrogen 14 mg/dL (9-16); Calcium 8.9 mg/dL (8.4-10.2); Carbon Dioxide 29 mmol/L (22-29); Chloride 104 mmol/L (96-108); Estimated Glomerular Filt Rate > 60; Glucose Random 90 mg/dL (60-115); Magnesium 2.1 mg/dL (1.6-2.6); Phenytoin Dilantin 21.6 ug/mL (10.0-20.0); Sodium 142 mmol/L (135-145); Total Protein 6.5 g/dL (6.5-8.0)
== END 2022-11-19 10:02 | disposition home or self-care (01) ==
LOC: HO.10HDL 10:01
PROVIDERS: Visit Provider Internal Medicine
DX: I48.0 Paroxysmal atrial fibrillation (principal); D64.9 Anemia, unspecified; I10 Essential (primary) hypertension
CPT/HCPCS: 36415; 80053; 80185; 83735; 85025

== ENCOUNTER → 2022-12-03 08:07 | Outpatient (BNVA) | payer MEDICARE, SELFPAY | PROVIDERS: PCP Internal Medicine; Visit Provider Internal Medicine | DX: I48.0 Paroxysmal atrial fibrillation (principal); Z79.01 Long term (current) use of anticoagulants; Z51.81 Encounter for therapeutic drug level monitoring | CPT/HCPCS: 85610; 99211 ==

== ENCOUNTER → 2022-12-31 08:05 | Outpatient (BNVA) | payer MEDICARE, SELFPAY | PROVIDERS: PCP Internal Medicine; Visit Provider Internal Medicine | DX: I48.0 Paroxysmal atrial fibrillation (principal); Z79.01 Long term (current) use of anticoagulants; Z51.81 Encounter for therapeutic drug level monitoring | CPT/HCPCS: 85610; 99211 ==

== ENCOUNTER → 2023-01-28 07:58 | Outpatient (BNVA) | payer MEDICARE, SELFPAY | PROVIDERS: PCP Internal Medicine; Visit Provider Internal Medicine | DX: I48.0 Paroxysmal atrial fibrillation (principal); Z79.01 Long term (current) use of anticoagulants; Z51.81 Encounter for therapeutic drug level monitoring | CPT/HCPCS: 85610; 99211 ==

== ENCOUNTER 2023-02-18 09:46 | Outpatient (REF) | payer MEDICARE, SELFPAY ==
[2023-02-18 10:37] LABS: MANUAL DIFF FLAG NO
[2023-02-18 10:47] LABS: Basophils Percent Auto 0.3 % (0-2); Eosinophils Percent Auto 0.1 % (0-4); Hemoglobin 12.7 g/dl (14.0-18.0); Imm Gran Abs Auto 0.03 X10*3/uL (0.00-0.03); Imm Gran Pct Auto 0.4 % (0.0-0.4); Lymphocytes Absolute Auto 1.3 X10*3/uL (1.2-4.9); Lymphocytes Percent Auto 17.5 % (20-40); Mean Corpuscular HGB Conc 33.4 g/dl (31.0-36.0); Mean Corpuscular Hemoglobin 30.5 pg (27.0-33.0); Mean Corpuscular Volume 91.3 fL (80.0-98.0); Mean Platelet Volume 9.6 fL (9.4-12.4); Monocytes Absolute Auto 0.8 X10*3/uL (0.1-1.2); Monocytes Percent Auto 10.5 % (2-11); Neutrophils Absolute Auto 5.4 x10*3/uL (2.0-8.3); Neutrophils Percent Auto 71.2 % (45-73); Platelet Count 254 X10*3/uL (160-400); Red Blood Count 4.16 X10*6/uL (4.60-5.80); Red Cell Distribution Width 14.4 % (11.0-16.0); White Blood Count 7.6 X10*3/uL (4.8-10.8)
[2023-02-18 11:38] LABS: Alanine Aminotransferase 35 U/L (0-40); Albumin Level 3.8 g/dL (3.5-5.0); Alkaline Phosphatase 155 U/L (39-117); Anion Gap 13 (12-20); Aspartate Amino Transferase 38 U/L (5-37); Bilirubin Total 0.2 mg/dL (0.0-1.0); Blood Urea Nitrogen 17 mg/dL (9-16); Calcium 8.8 mg/dL (8.4-10.2); Carbon Dioxide 27 mmol/L (22-29); Chloride 106 mmol/L (96-108); Estimated Glomerular Filt Rate > 60; Glucose Random 84 mg/dL (60-115); Potassium 4.8 mmol/L (3.3-5.1); Sodium 141 mmol/L (135-145); Total Protein 6.3 g/dL (6.5-8.0)
== END 2023-02-18 09:47 | disposition home or self-care (01) ==
LOC: HO.10HDL 09:46
PROVIDERS: Visit Provider Internal Medicine
DX: D64.9 Anemia, unspecified (principal); I25.10 Atherosclerotic heart disease of native coronary artery without angina pectoris; I48.0 Paroxysmal atrial fibrillation; K21.9 Gastro-esophageal reflux disease without esophagitis
CPT/HCPCS: 36415; 80053; 85025

== ENCOUNTER → 2023-02-25 08:03 | Outpatient (BNVA) | payer MEDICARE, SELFPAY | PROVIDERS: PCP Internal Medicine; Visit Provider Internal Medicine | DX: I48.0 Paroxysmal atrial fibrillation (principal); Z79.01 Long term (current) use of anticoagulants; Z51.81 Encounter for therapeutic drug level monitoring | CPT/HCPCS: 85610; 99211 ==

== ENCOUNTER → 2023-03-25 08:01 | Outpatient (BNVA) | payer MEDICARE, SELFPAY | PROVIDERS: PCP Internal Medicine; Visit Provider Internal Medicine | DX: I48.0 Paroxysmal atrial fibrillation (principal); Z79.01 Long term (current) use of anticoagulants; Z51.81 Encounter for therapeutic drug level monitoring | CPT/HCPCS: 85610; 99211 ==

== ENCOUNTER 2023-04-22 08:01 | Outpatient (AMB) | payer MEDICARE, SELFPAY ==
--- NOTE | 2023-04-22 08:05 | MHC.OFFVISCO ---
Intake Intake Visit Reasons: Anticoagulation Allergies penicillin V [From Pen-Vee K] Allergy (Mild, Verified 04/22/23 08:02) HIVES Medication List - Last Reconciled 04/22/23 by Maura Bean RN acetaminophen 500 mg PO Q6H atorvastatin 80 mg PO DAILY [COQ10 100MG PO DAILY PO] ezetimibe 10 mg PO DAILY ferrous sulfate 324 mg PO DAILY metoprolol succinate ER 25 mg (1/2 x 50 mg) PO BID 90 days multivitamin 1 tab PO DAILY omeprazole 20 mg PO BID phenytoin sodium extended 100 mg PO vit A,C and G-wsiref-lgbdmlol 300 mcg-200 mg-27 mg-2 mg (Ocuvite with Lutein) 1 tab PO DAILY warfarin 5 mg See Protocol PO DAILY Nursing Note INR: 2.9- in therapeutic range Medications and supplements reviewed- no changes No changes in health, diet, medications, or supplements, Denies any signs and symptoms of bleeding or bruising or clotting. 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
[2023-04-22 08:07] LABS: Prothrombin Time Whole Bld POC 35.3 sec (11.1-13.5); ~PT, ~INR - Anti Coag Clinic 2.9 (0.9-1.1)
== END 2023-04-22 08:09 | disposition home or self-care (01) ==
LOC: HO.ACS 08:01
PROVIDERS: PCP Internal Medicine; Visit Provider Internal Medicine
DX: Z79.01 Long term (current) use of anticoagulants (principal)

== ENCOUNTER → 2023-04-22 08:01 | Outpatient (BNVA) | payer MEDICARE, SELFPAY | PROVIDERS: PCP Internal Medicine; Visit Provider Internal Medicine | DX: I48.0 Paroxysmal atrial fibrillation (principal); Z79.01 Long term (current) use of anticoagulants; Z51.81 Encounter for therapeutic drug level monitoring | CPT/HCPCS: 85610; 99211 ==

== ENCOUNTER 2023-05-20 08:05 | Outpatient (AMB) | payer MEDICARE, SELFPAY ==
[2023-05-20 08:10] LABS: Prothrombin Time Whole Bld POC 19.4 sec (11.1-13.5); ~PT, ~INR - Anti Coag Clinic 1.6 (0.9-1.1)
--- NOTE | 2023-05-20 08:13 | MHC.OFFVISCO ---
Intake Intake Visit Reasons: Anticoagulation Allergies penicillin V [From Suman-Velinden K] Allergy (Mild, Verified 05/20/23 08:06) HIVES Medication List - Last Reconciled 05/20/23 by Loretta Neville RN acetaminophen 500 mg PO Q6H atorvastatin 80 mg PO DAILY clindamycin HCl 300 mg PO Q12H [COQ10 100MG PO DAILY PO] ezetimibe 10 mg PO DAILY ferrous sulfate 324 mg PO DAILY metoprolol succinate ER 25 mg (1/2 x 50 mg) PO BID 90 days multivitamin 1 tab PO DAILY omeprazole 20 mg PO BID phenytoin sodium extended 100 mg PO vit A,C and X-lotngj-swhaurdv 300 mcg-200 mg-27 mg-2 mg (Ocuvite with Lutein) 1 tab PO DAILY warfarin 5 mg See Protocol PO DAILY Nursing Note INR: 1.6 FOR EXTRACTIONSe Medications and supplements reviewed No changes in health, diet, medications, or supplements, Denies any signs and symptoms of bleeding or bruising or clotting. Bleeding, bruising, clotting discussed Nutritional guidance given Dose: 4 DAY HOLD OF WARFARIN RESUME 5MG X 2 DAYS/ THEN 2.5MG X 5DAYS F/U INR: 05/27/23 AVOID GREENS UNTIL SATURDAY, EAT ORANGE AND REDS, NO MICHELLE FOODS OR FLUIDS X 3 -4 DAYS, HAVE ROOM TEMP OR COLD X 3 DAYS, COLD WET COMPRESSS TO AREA IF BLEEDING, HOLD NO SWISH OF COLD WATER TO AREA IF BLEEDING Patient verbalizes understanding of instructions given Coding Level of Care Code Est Patient Level 1 Diagnoses Current use of anticoagulant therapy Z79.01 Assessment & Plan Assessment & Plan (1) Current use of anticoagulant therapy: Code(s): Z79.01 - custodial (current) use of anticoagulants Category: Medical
== END 2023-05-20 08:18 | disposition home or self-care (01) ==
LOC: HO.ACS 08:05
PROVIDERS: PCP Internal Medicine; Visit Provider Internal Medicine
DX: Z79.01 Long term (current) use of anticoagulants (principal)

== ENCOUNTER → 2023-05-20 08:05 | Outpatient (BNVA) | payer MEDICARE, SELFPAY | PROVIDERS: PCP Internal Medicine; Visit Provider Internal Medicine | DX: I48.0 Paroxysmal atrial fibrillation (principal); Z79.01 Long term (current) use of anticoagulants; Z51.81 Encounter for therapeutic drug level monitoring | CPT/HCPCS: 85610; 99211 ==

== ENCOUNTER 2023-05-27 08:23 | Outpatient (AMB) | payer MEDICARE, SELFPAY ==
[2023-05-27 08:40] LABS: Prothrombin Time Whole Bld POC 27.1 sec (11.1-13.5); ~PT, ~INR - Anti Coag Clinic 2.3 (0.9-1.1)
--- NOTE | 2023-05-27 08:49 | MHC.OFFVISCO ---
Intake Intake Visit Reasons: Anticoagulation Allergies penicillin V [From Pen-Velinden K] Allergy (Mild, Verified 05/27/23 08:31) HIVES Medication List - Last Reconciled 05/27/23 by Loretta Neville RN acetaminophen 500 mg PO Q6H atorvastatin 80 mg PO DAILY clarithromycin 500 mg PO DAILY clindamycin HCl 300 mg PO Q12H [COQ10 100MG PO DAILY PO] ezetimibe 10 mg PO DAILY ferrous sulfate 324 mg PO DAILY metoprolol succinate ER 25 mg (1/2 x 50 mg) PO BID 90 days multivitamin 1 tab PO DAILY omeprazole 20 mg PO BID phenytoin sodium extended 100 mg PO vit A,C and O-xsuvli-ughkidcq 300 mcg-200 mg-27 mg-2 mg (Ocuvite with Lutein) 1 tab PO DAILY warfarin 5 mg See Protocol PO DAILY Nursing Note INR: 2.3 in therapeutic range Medications and supplements reviewed PT WAS TO HAVE DENTAL EXTRACTION 05/21/23 BUT DID NOT HAVE HIS DAY OF ANTBX - DNETIS T CANCELD THE EXTRACTION, HE MAY HAVE IT IN 2 WEEKS, HE WAS OFF WARFARIN X 4 DAYS - PRIOR TO THAT HE HAD BEEN ON CLARITHROMYACIN ABOUT 2 WEEKS AGO AND NOW INR THERAPEUTIC HE RESUME HIS USUAL DOSE BUT TOOK 5 MG ONLY 1 DAY. Denies any signs and symptoms of bleeding or bruising or clotting. 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
== END 2023-05-27 08:53 | disposition home or self-care (01) ==
LOC: HO.ACS 08:23
PROVIDERS: PCP Internal Medicine; Visit Provider Internal Medicine
DX: Z79.01 Long term (current) use of anticoagulants (principal)

== ENCOUNTER → 2023-05-27 08:23 | Outpatient (BNVA) | payer MEDICARE, SELFPAY | PROVIDERS: PCP Internal Medicine; Visit Provider Internal Medicine | DX: I48.0 Paroxysmal atrial fibrillation (principal); Z79.01 Long term (current) use of anticoagulants; Z51.81 Encounter for therapeutic drug level monitoring | CPT/HCPCS: 85610; 99211 ==

== ENCOUNTER 2023-06-03 10:07 | Outpatient (REF) | payer MEDICARE, SELFPAY ==
[2023-06-03 10:41] LABS: MANUAL DIFF FLAG NO
[2023-06-03 10:48] LABS: Basophils Percent Auto 0.3 % (0-2); Eosinophils Percent Auto 0.2 % (0-4); Hematocrit 40.8 % (42.0-52.0); Hemoglobin 13.1 g/dl (14.0-18.0); Imm Gran Abs Auto 0.03 X10*3/uL (0.00-0.03); Imm Gran Pct Auto 0.3 % (0.0-0.4); Lymphocytes Absolute Auto 1.3 X10*3/uL (1.2-4.9); Lymphocytes Percent Auto 15.1 % (20-40); Mean Corpuscular HGB Conc 32.1 g/dl (31.0-36.0); Mean Corpuscular Hemoglobin 30.3 pg (27.0-33.0); Mean Corpuscular Volume 94.4 fL (80.0-98.0); Mean Platelet Volume 9.4 fL (9.4-12.4); Monocytes Absolute Auto 0.8 X10*3/uL (0.1-1.2); Monocytes Percent Auto 9.3 % (2-11); Neutrophils Absolute Auto 6.5 x10*3/uL (2.0-8.3); Neutrophils Percent Auto 74.8 % (45-73); Platelet Count 276 X10*3/uL (160-400); Red Blood Count 4.32 X10*6/uL (4.60-5.80); Red Cell Distribution Width 14.4 % (11.0-16.0); White Blood Count 8.7 X10*3/uL (4.8-10.8)
[2023-06-03 11:27] LABS: Erythrocyte Sedimentation Rate 34 MM/HR (0-15)
[2023-06-03 12:12] LABS: Alanine Aminotransferase 44 U/L (0-40); Albumin Level 4.1 g/dL (3.5-5.0); Alkaline Phosphatase 170 U/L (39-117); Anion Gap 10 (12-20); Aspartate Amino Transferase 47 U/L (5-37); Bilirubin Total 0.3 mg/dL (0.0-1.0); Blood Urea Nitrogen 19 mg/dL (9-16); C Reactive Protein 1.95 mg/dL (< or = 0.50); Calcium 9.7 mg/dL (8.4-10.2); Carbon Dioxide 31 mmol/L (22-29); Chloride 105 mmol/L (96-108); Estimated Glomerular Filt Rate > 60; Glucose Random 96 mg/dL (60-115); Potassium 4.8 mmol/L (3.3-5.1); Sodium 141 mmol/L (135-145); Total Protein 7.5 g/dL (6.5-8.0)
[2023-06-03 12:35] LABS: Free T4 (Free Thyroxine) 0.86 ng/dL (0.71-1.85)
[2023-06-03 12:38] LABS: Vitamin B12 419 pg/mL (200-900)
== END 2023-06-03 10:08 | disposition home or self-care (01) ==
LOC: HO.10HDL 10:07
PROVIDERS: Visit Provider Internal Medicine
DX: I48.0 Paroxysmal atrial fibrillation (principal); R56.9 Unspecified convulsions; I10 Essential (primary) hypertension; K21.9 Gastro-esophageal reflux disease without esophagitis; D64.9 Anemia, unspecified; I25.10 Atherosclerotic heart disease of native coronary artery without angina pectoris; I35.0 Nonrheumatic aortic (valve) stenosis; Z79.899 Other long term (current) drug therapy; Z79.01 Long term (current) use of anticoagulants
CPT/HCPCS: 36415; 80053; 82550; 82607; 84439; 85025; 85652; 86140; 93005; 99212

== ENCOUNTER 2023-06-03 14:44 | Outpatient (AMB) | payer MEDICARE, SELFPAY ==
--- NOTE | 2023-06-03 15:02 | MHC.OFFVIS ---
Intake Vital Signs 06/03/23 15:03 Height 5 ft 8 in Weight 155 lb 10.342 oz BMI 23.7 BP 132/80 Blood Pressure Location Lt brachial Pulse 70 Pulse Source Monitor Intake Visit Reasons: 1 yr s/p echo Intake Note: 1 year follow up with EKG, after recent echo. 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 Required: No Accompanied by: Self / Same As Patient Allergies penicillin V [From Pen-Vee K] Allergy (Mild, Verified 06/03/23 15:05) HIVES Medication List - Last Reconciled 06/03/23 by Lazarus Stewart MD acetaminophen 500 mg PO Q6H atorvastatin 80 mg PO DAILY [COQ10 100MG PO DAILY PO] ezetimibe 10 mg PO DAILY metoprolol succinate ER 25 mg (1/2 x 50 mg) PO BID 90 days multivitamin 1 tab PO DAILY omeprazole 20 mg PO BID phenytoin sodium extended 100 mg PO BID vit A,C and J-fmudhj-ezrtmwre 300 mcg-200 mg-27 mg-2 mg (Ocuvite with Lutein) 1 tab PO DAILY warfarin 5 mg See Protocol PO DAILY HPI HPI Comments History of Present Illness Details Moris comes for follow-up. He said he intermittently gets symptoms of rapid heart rate going up to 150 beats per minute. When he gets fast heart rate he does get chest pressure associated with it. The no clear trigger factors. Symptoms last for 10 minutes and happen about once a month. He is not really bothered by the symptoms. With exertion he does not get symptoms of chest discomfort. Her complains of bilateral leg fatigue with walking. He had seen your office this morning in you are requesting lower extremity duplex which is appropriate. He denies any other heart failure symptoms. No lightheadedness, syncope. [facility] Medical History Aortic stenosis CAD (coronary artery disease) Epilepsy H/O acute myocardial infarction Paroxysmal atrial fibrillation Surgical History Stented coronary artery Family History Father Diabetes Arthritis Mother No problems noted. Social History Alcohol intake: current Alcohol intake frequency: 0-2 drinks per day Alcohol type: beer Patient Tobacco Use Status: Never used Tobacco Review of Systems Const Denies weakness ENT Denies dizziness Card Denies chest pain, Denies chest pain with activity, Denies syncope, Denies rapid heart rate, Denies pedal edema, Denies edema, Denies leg edema, Denies lightheadedness, Denies palpitations, Denies dyspnea, Denies dyspnea on exertion and Denies orthopnea Resp Denies cough, Denies dyspnea and Denies dyspnea on exertion GI Denies hematochezia and Denies change in stool character Musc Denies abnormal gait, Denies muscle cramps, Denies muscle weakness, Denies numbness, Denies radiating pain into limb and Denies tingling Neuro Denies abnormal gait, Denies dizziness, Denies syncope, Denies numbness, Denies tingling and Denies weakness Endo Denies palpitations Physical Exam Vital Signs: Last Vital Signs Pulse 70 06/03/23 15:03 BP 132/80 06/03/23 15:03 BMI result Body Mass Index 23.7 Const General: cooperative, comfortable, no acute distress, alert and awake Nutritional Appearance: average body habitus Orientation/consciousness: patient oriented x3 Limitations: no limitations Neck Neck: Yes trachea midline, Yes supple and Yes no JVD Resp Effort & Inspection: normal respiratory effort Auscultation: clear to auscultation bilaterally Cardio Jugular venous distension: no JVD Palpation: normal PMI Rate: regular rate Rhythm: regular rhythm Heart sounds: S1 normal heart sound present, S2 normal heart sound present, no click, no gallops, Murmur heart sound present systolic and no rubs GI Auscultation: normal bowel sounds Skin General skin exam: no rashes or lesions noted and ecchymosis Neuro General: patient oriented x3 and no focal motor deficits Extrem General: Yes no clubbing, cyanosis or edema Psych Appearance: grossly normal Office Procedures EKG Details: EKG shows normal sinus rhythm with septal infarct 05352-[id number], Complete Assessment & Plan Assessment & Plan (1) CAD (coronary artery disease): Code(s): I25.10 - Atherosclerotic heart disease of [place] coronary artery without angina pectoris Plan: CAD with drug-eluting stent to the LAD, with no recurrent symptoms suggestive angina except for when he is in rapid atrial fibrillation. The symptoms are not bothersome. Advised to call me with any exertional symptoms that may require further workup. Echocardiogram shows mild LV systolic dysfunction with infarcted area in the distal LAD territory. Continue warfarin therapy and avoid aspirin therapy due to prior GI bleeding and to reduce bleeding risk. Continue high-intensity statin therapy with ezetimibe. Target goal LDL closer to 60 mg/dL. Continue metoprolol therapy. (2) Paroxysmal atrial fibrillation: Code(s): I48.0 - Paroxysmal atrial fibrillation Plan: Paroxysmal atrial fibrillation with intermittent episode lasting for about 10 minutes once every month. No clear trigger factors. Advised to call me if there is any worsening symptoms that may require antiarrhythmic drug support. Continue metoprolol therapy avoidance of stimulants was discussed. Continue full oral anticoagulation, currently on warfarin therapy. Target INR between 2 and 3. (3) Aortic stenosis: Comment: Mild by echocardiogram, October 2021 Code(s): I35.0 - Nonrheumatic aortic (valve) stenosis Plan: Mild aortic stenosis. No symptoms related to it. No interventions required except for aggressive medical therapy as above. Continue aggressive risk factor modification. Follow-up echocardiogram in 1 year's time. Will follow up in the clinic in 1 year's time. Thank you for allowing me to partake in his care Coding Level of Care Code Est Pt Level 4 (04332) Diagnoses CAD (coronary artery disease) I25.10 Paroxysmal atrial fibrillation I48.0 Aortic stenosis I35.0 CPT Codes EKG - CPT: 36810-[id number], Complete ([id number])
[2023-06-03 15:03] VITALS: BP 132/80; PULSE 70; BMI 23.7
== END 2023-06-03 15:21 | disposition home or self-care (01) ==
PROVIDERS: PCP Internal Medicine; Referring Provider Internal Medicine; Visit Provider Internal Medicine Cardiovascular Disease
DX: I25.10 Atherosclerotic heart disease of native coronary artery without angina pectoris (principal); I48.0 Paroxysmal atrial fibrillation; I35.0 Nonrheumatic aortic (valve) stenosis
CPT/HCPCS: 93010; 99214

== ENCOUNTER 2023-06-17 08:02 | Outpatient (AMB) | payer MEDICARE, SELFPAY ==
[2023-06-17 08:09] LABS: Prothrombin Time Whole Bld POC 26.1 sec (11.1-13.5); ~PT, ~INR - Anti Coag Clinic 2.2 (0.9-1.1)
--- NOTE | 2023-06-17 08:14 | MHC.OFFVISCO ---
Intake Intake Visit Reasons: Anticoagulation Allergies penicillin V [From Pen-Vee K] Allergy (Mild, Verified 06/17/23 08:03) HIVES Medication List - Last Reconciled 06/17/23 by Loretta Neville RN acetaminophen 500 mg PO Q6H atorvastatin 80 mg PO DAILY [COQ10 100MG PO DAILY PO] ezetimibe 10 mg PO DAILY metoprolol succinate ER 25 mg (1/2 x 50 mg) PO BID 90 days multivitamin 1 tab PO DAILY omeprazole 20 mg PO BID phenytoin sodium extended 100 mg PO BID vit A,C and O-wzcmgv-oxouhibh 300 mcg-200 mg-27 mg-2 mg (Ocuvite with Lutein) 1 tab PO DAILY warfarin 5 mg See Protocol PO DAILY Nursing Note INR: 2.2 in therapeutic range- s/p dental extraction ,pt following extraction instructions, no complications, took booster dose of 5mg x 2 days thenr resume d 2.5mg daily Medications and supplements reviewed No changes in health, diet, medications, or supplements, Denies any signs and symptoms of bleeding or bruising or clotting. Bleeding, bruising, clotting discussed Nutritional guidance given Dose: 2.5mg daily F/U INR: 1 month Patient verbalizes understanding of instructions given Anti-Coag Initial Assessment Social Hx Patient Tobacco Use Status: Never used Tobacco alcohol intake: current Alcohol intake frequency: 0-2 drinks per day Coding Level of Care Code Est Patient Level 1 Diagnoses Current use of anticoagulant therapy Z79.01 Assessment & Plan Assessment & Plan (1) Current use of anticoagulant therapy: Code(s): Z79.01 - correction (current) use of anticoagulants Category: Medical
== END 2023-06-17 08:16 | disposition home or self-care (01) ==
LOC: HO.ACS 08:02
PROVIDERS: PCP Internal Medicine; Visit Provider Internal Medicine
DX: Z79.01 Long term (current) use of anticoagulants (principal)

== ENCOUNTER → 2023-06-17 08:02 | Outpatient (BNVA) | payer MEDICARE, SELFPAY | PROVIDERS: PCP Internal Medicine; Visit Provider Internal Medicine | DX: I48.0 Paroxysmal atrial fibrillation (principal); Z79.01 Long term (current) use of anticoagulants; Z51.81 Encounter for therapeutic drug level monitoring | CPT/HCPCS: 85610; 99211 ==

== ENCOUNTER 2023-07-01 13:34 | Outpatient (REF) | payer MEDICARE, SELFPAY ==
--- NOTE | ~2023-07-01 | US_ITS ---
EXAMINATION: Left lower extremity arterial duplex CLINICAL INFORMATION: Peripheral vascular disease COMPARISON: None TECHNIQUE: Duplex Doppler techniques with wave form analysis and measurement of velocities in the common femoral, profunda femoral, superficial femoral, popliteal, tibial and peroneal arteries was performed. The study was performed only at rest. FINDINGS: Common femoral artery: 91.1 cm/s, Multiphasic Profunda femoris artery: 60.5 cm/s, biphasic Superficial femoral artery (proximal): 92.6 cm/s, Multiphasic Superficial femoral artery (mid): 86.2 cm/s, biphasic Superficial femoral artery (distal): 99.7 cm/s, Multiphasic Popliteal artery: 58.5 cm/s, Multiphasic Anterior tibial artery: 66.8 cm/s, biphasic Mid posterior tibial artery: 88 cm/s, biphasic Peroneal artery: 65.2 cm/s, Multiphasic Dorsalis pedis artery: 52 cm/s, biphasic US/US arterial duplex LE IMPRESSION: Normal left lower extremity arterial duplex.
== END 2023-07-01 13:35 | disposition home or self-care (01) ==
LOC: HO.US 13:34
PROVIDERS: Visit Provider Internal Medicine
DX: I73.9 Peripheral vascular disease, unspecified (principal)
CPT/HCPCS: 93926

== ENCOUNTER 2023-07-22 08:02 | Outpatient (AMB) | payer MEDICARE, SELFPAY ==
[2023-07-22 08:12] LABS: Prothrombin Time Whole Bld POC 34.4 sec (11.1-13.5); ~PT, ~INR - Anti Coag Clinic 2.9 (0.9-1.1)
--- NOTE | 2023-07-22 08:20 | MHC.OFFVISCO ---
Intake Intake Visit Reasons: Anticoagulation Allergies penicillin V [From Suman-Velinden K] Allergy (Mild, Verified 07/22/23 08:04) HIVES Medication List - Last Reconciled 07/22/23 by Loretta Neville RN acetaminophen 500 mg PO Q6H atorvastatin 80 mg PO DAILY clindamycin HCl 300 mg PO BID [COQ10 100MG PO DAILY PO] ezetimibe 10 mg PO DAILY metoprolol succinate ER 25 mg (1/2 x 50 mg) PO BID 90 days multivitamin 1 tab PO DAILY omeprazole 20 mg PO BID phenytoin sodium extended 100 mg PO BID vit A,C and C-edbuxd-glbzthnj 300 mcg-200 mg-27 mg-2 mg (Ocuvite with Lutein) 1 tab PO DAILY warfarin 5 mg See Protocol PO DAILY Nursing Note INR: 2.9 in therapeutic range has not been taking his coq 10 due t cost- he notices that his legs feel weaker and tiered , some his labs were out of range in May that may be r/t choleterol med, enc to discus with pcp Medications and supplements reviewed No changes in health, diet, medications, or supplements, Denies any signs and symptoms of bleeding or bruising or clotting. 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
== END 2023-07-22 08:22 | disposition home or self-care (01) ==
LOC: HO.ACS 08:02
PROVIDERS: PCP Internal Medicine; Visit Provider Internal Medicine
DX: Z79.01 Long term (current) use of anticoagulants (principal)

== ENCOUNTER → 2023-07-22 08:02 | Outpatient (BNVA) | payer MEDICARE, SELFPAY | PROVIDERS: PCP Internal Medicine; Visit Provider Internal Medicine | DX: I48.0 Paroxysmal atrial fibrillation (principal); Z79.01 Long term (current) use of anticoagulants; Z51.81 Encounter for therapeutic drug level monitoring | CPT/HCPCS: 85610; 99211 ==

== ENCOUNTER 2023-07-23 16:24 | Outpatient (REF) | payer MEDICARE, SELFPAY ==
[2023-07-23 16:38] LABS: MANUAL DIFF FLAG NO
[2023-07-23 16:59] LABS: Basophils Percent Auto 0.2 % (0-2); Eosinophils Absolute Auto 0.1 X10*3/uL (0.0-0.4); Eosinophils Percent Auto 0.5 % (0-4); Hematocrit 38.3 % (42.0-52.0); Hemoglobin 12.7 g/dl (14.0-18.0); Imm Gran Abs Auto 0.05 X10*3/uL (0.00-0.03); Imm Gran Pct Auto 0.4 % (0.0-0.4); Lymphocytes Absolute Auto 2.1 X10*3/uL (1.2-4.9); Lymphocytes Percent Auto 17.8 % (20-40); Mean Corpuscular HGB Conc 33.2 g/dl (31.0-36.0); Mean Corpuscular Hemoglobin 30.8 pg (27.0-33.0); Mean Corpuscular Volume 92.7 fL (80.0-98.0); Mean Platelet Volume 9.4 fL (9.4-12.4); Monocytes Absolute Auto 1.2 X10*3/uL (0.1-1.2); Monocytes Percent Auto 10.3 % (2-11); Neutrophils Absolute Auto 8.4 x10*3/uL (2.0-8.3); Neutrophils Percent Auto 70.8 % (45-73); Platelet Count 271 X10*3/uL (160-400); Red Blood Count 4.13 X10*6/uL (4.60-5.80); Red Cell Distribution Width 14.1 % (11.0-16.0); White Blood Count 11.8 X10*3/uL (4.8-10.8)
[2023-07-23 17:50] LABS: Erythrocyte Sedimentation Rate 31 MM/HR (0-15)
[2023-07-23 18:07] LABS: Alanine Aminotransferase 41 U/L (0-40); Alkaline Phosphatase 168 U/L (39-117); Anion Gap 16 (12-20); Aspartate Amino Transferase 41 U/L (5-37); Bilirubin Total 0.2 mg/dL (0.0-1.0); Blood Urea Nitrogen 16 mg/dL (9-16); C Reactive Protein 1.63 mg/dL (< or = 0.50); Carbon Dioxide 28 mmol/L (22-29); Chloride 104 mmol/L (96-108); Estimated Glomerular Filt Rate > 60; Glucose Random 83 mg/dL (60-115); Potassium 4.7 mmol/L (3.3-5.1); Sodium 143 mmol/L (135-145); Total Protein 7.2 g/dL (6.5-8.0)
== END 2023-07-23 16:25 | disposition home or self-care (01) ==
LOC: HO.LAB 16:24
PROVIDERS: PCP Internal Medicine; Visit Provider Internal Medicine
DX: I48.0 Paroxysmal atrial fibrillation (principal); I25.10 Atherosclerotic heart disease of native coronary artery without angina pectoris; M79.10 Myalgia, unspecified site; Z87.39 Personal history of other diseases of the musculoskeletal system and connective tissue
CPT/HCPCS: 36415; 80053; 82550; 85025; 85652; 86140

== ENCOUNTER → 2023-08-26 08:20 | Outpatient (BNVA) | payer MEDICARE, SELFPAY | PROVIDERS: PCP Internal Medicine; Visit Provider Internal Medicine | DX: I48.0 Paroxysmal atrial fibrillation (principal); Z79.01 Long term (current) use of anticoagulants; Z51.81 Encounter for therapeutic drug level monitoring | CPT/HCPCS: 85610; 99211 ==

== ENCOUNTER 2023-09-09 08:11 | Outpatient (AMB) | payer MEDICARE, SELFPAY ==
[2023-09-09 08:18] LABS: Prothrombin Time Whole Bld POC 35.1 sec (11.1-13.5); ~PT, ~INR - Anti Coag Clinic 2.9 (0.9-1.1)
--- NOTE | 2023-09-09 08:24 | MHC.OFFVISCO ---
Intake Intake Visit Reasons: Anticoagulation Allergies penicillin V [From Pen-Velinden K] Allergy (Mild, Verified 09/09/23 08:19) HIVES Medication List - Last Reconciled 09/09/23 by Loretta Neville RN acetaminophen 500 mg PO Q6H atorvastatin 40 orally daily; [COQ10 100MG PO DAILY PO] ezetimibe 10 mg PO DAILY metoprolol succinate ER 25 mg (1/2 x 50 mg) PO BID 90 days multivitamin 1 tab PO DAILY omeprazole 20 mg PO BID phenytoin sodium extended 100 mg PO BID vit A,C and O-koajzv-dylsiwik 300 mcg-200 mg-27 mg-2 mg (Ocuvite with Lutein) 1 tab PO DAILY warfarin 5 mg See Protocol PO DAILY Nursing Note INR: 2.9 in therapeutic range Medications and supplements reviewed No changes in health, diet, medications, or supplements, Denies any signs and symptoms of bleeding or bruising or clotting. Bleeding, bruising, clotting discussed Nutritional guidance given Dose: 2.5MG DAILY F/U INR: 1 MONTH Patient verbalizes understanding of instructions given Anti-Coag Initial Assessment Social Hx Patient Tobacco Use Status: Never used Tobacco alcohol intake: current Alcohol intake frequency: 0-2 drinks per day Coding Level of Care Code Est Patient Level 1 Diagnoses Current use of anticoagulant therapy Z79.01 Assessment & Plan Assessment & Plan (1) Current use of anticoagulant therapy: Code(s): Z79.01 - [facility] (current) use of anticoagulants Category: Medical
== END 2023-09-09 08:30 | disposition home or self-care (01) ==
LOC: HO.ACS 08:11
PROVIDERS: PCP Internal Medicine; Visit Provider Internal Medicine
DX: Z79.01 Long term (current) use of anticoagulants (principal)

== ENCOUNTER → 2023-09-09 08:11 | Outpatient (BNVA) | payer MEDICARE, SELFPAY | PROVIDERS: PCP Internal Medicine; Visit Provider Internal Medicine | DX: I48.0 Paroxysmal atrial fibrillation (principal); Z79.01 Long term (current) use of anticoagulants; Z51.81 Encounter for therapeutic drug level monitoring | CPT/HCPCS: 85610; 99211 ==

== ENCOUNTER 2023-09-23 08:55 | Outpatient (REF) | payer MEDICARE, SELFPAY ==
[2023-09-23 10:07] LABS: C Reactive Protein 2.98 mg/dL (< or = 0.50); Cholesterol 140 mg/dL (<200); HDL Cholesterol 67 mg/dL (>40); LDL Cholesterol Calculated 56 mg/dL (<100); Triglycerides 86 mg/dL (<150)
== END 2023-09-23 08:56 | disposition home or self-care (01) ==
LOC: HO.LAB 08:55
PROVIDERS: PCP Internal Medicine; Visit Provider Internal Medicine
DX: I25.10 Atherosclerotic heart disease of native coronary artery without angina pectoris (principal); I10 Essential (primary) hypertension; E78.00 Pure hypercholesterolemia, unspecified
CPT/HCPCS: 36415; 80061; 86140

== ENCOUNTER 2023-10-10 08:02 | Outpatient (AMB) | payer MEDICARE, SELFPAY ==
--- NOTE | 2023-10-10 08:21 | MHC.OFFVISCO ---
Intake Intake Visit Reasons: Anticoagulation Allergies penicillin V [From Pen-Velinden K] Allergy (Mild, Verified 10/10/23 08:10) HIVES Medication List - Last Reconciled 10/10/23 by Pat Bowers RN acetaminophen 500 mg PO Q6H atorvastatin 40 orally daily; [COQ10 100MG PO DAILY PO] ezetimibe 10 mg PO DAILY metoprolol succinate ER 25 mg (1/2 x 50 mg) PO BID 90 days multivitamin 1 tab PO DAILY omeprazole 20 mg PO BID phenytoin sodium extended 100 mg PO BID vit A,C and O-pybdby-ghatpmey 300 mcg-200 mg-27 mg-2 mg (Ocuvite with Lutein) 1 tab PO DAILY warfarin 5 mg See Protocol PO DAILY Nursing Note NO CP,SOB,DIET/MED CHANGES,FALLS OR SX OF BLEEDING. CONTINUE PRESENT DOSE AND FOLLOW-UP IN 4 WEEKS. GOOD UNDERSTANDING OF DOSING INSTR. 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
== END 2023-10-10 08:22 | disposition home or self-care (01) ==
LOC: HO.ACS 08:02
PROVIDERS: PCP Internal Medicine; Visit Provider Internal Medicine
DX: Z79.01 Long term (current) use of anticoagulants (principal)

== ENCOUNTER → 2023-10-10 08:02 | Outpatient (BNVA) | payer MEDICARE, SELFPAY | PROVIDERS: PCP Internal Medicine; Visit Provider Internal Medicine | DX: I48.0 Paroxysmal atrial fibrillation (principal); Z79.01 Long term (current) use of anticoagulants; Z51.81 Encounter for therapeutic drug level monitoring | CPT/HCPCS: 85610; 99211 ==

== ENCOUNTER 2023-11-11 08:02 | Outpatient (AMB) | payer MEDICARE, SELFPAY ==
--- NOTE | 2023-11-11 08:11 | MHC.OFFVISCO ---
Intake Intake Visit Reasons: Anticoagulation Allergies penicillin V [From Pen-Vee K] Allergy (Mild, Verified 11/11/23 08:07) HIVES Medication List - Last Reconciled 11/11/23 by Maura Bean RN acetaminophen 500 mg PO Q6H atorvastatin 40 orally daily; [COQ10 100MG PO DAILY PO] ezetimibe 10 mg PO DAILY metoprolol succinate ER 25 mg (1/2 x 50 mg) PO BID 90 days multivitamin 1 tab PO DAILY omeprazole 20 mg PO BID phenytoin sodium extended 100 mg PO BID vit A,C and E-gzxvhl-icijmsqk 300 mcg-200 mg-27 mg-2 mg (Ocuvite with Lutein) 1 tab PO DAILY warfarin 5 mg See Protocol PO DAILY Nursing Note INR 1.5-?? out of therapeutic range of 2-3 pt states may have missed a dose Medications and supplements reviewed Patient status: no c.o- may have missed a dose Medications or supplements: no changes Diet: same Denies any signs and symptoms of bleeding or clotting or unusual bruising Bleeding, bruising, clotting discussed Nutritional guidance given: no greens for 2-3 days Dose: 5mg today and tomm then cont reg dosing 2.5mg x 7 F/U INR Date : pt req 1 week? - day off saturday Patient verbalizing understanding of instructions given. pcp office dr bermudez called with low inr/dosing and f/u appt. spoke to zhen at 0815, aware of poss missed dose Anti-Coag Initial Assessment Social Hx Patient Tobacco Use Status: Never used Tobacco alcohol intake: current Alcohol intake frequency: 0-2 drinks per day Coding Level of Care Code Est Patient Level 1 Diagnoses Current use of anticoagulant therapy Z79.01 Assessment & Plan Assessment & Plan (1) Current use of anticoagulant therapy: Code(s): Z79.01 - prison (current) use of anticoagulants Category: Medical
[2023-11-11 08:12] LABS: Prothrombin Time Whole Bld POC 18.3 sec (11.1-13.5); ~PT, ~INR - Anti Coag Clinic 1.5 (0.9-1.1)
== END 2023-11-11 08:21 | disposition home or self-care (01) ==
LOC: HO.ACS 08:02
PROVIDERS: PCP Internal Medicine; Visit Provider Internal Medicine
DX: Z79.01 Long term (current) use of anticoagulants (principal)

== ENCOUNTER → 2023-11-11 08:02 | Outpatient (BNVA) | payer MEDICARE, SELFPAY | PROVIDERS: PCP Internal Medicine; Visit Provider Internal Medicine | DX: I48.0 Paroxysmal atrial fibrillation (principal); Z51.81 Encounter for therapeutic drug level monitoring; Z79.01 Long term (current) use of anticoagulants | CPT/HCPCS: 85610; 99211 ==

== ENCOUNTER 2023-11-18 09:31 | Outpatient (REF) | payer MEDICARE, SELFPAY ==
--- NOTE | ~2023-11-18 | XR_ITS ---
EXAMINATION: XR KNEE, RIGHT CLINICAL INFORMATION: Knee pain Bilateral knee pain COMPARISON: Same-day left knee TECHNIQUE: Four views of the right knee. FINDINGS: No fracture. Trace joint effusion. There is mild lateral patellar tilt with associated narrowing of the joint space. Chondrocalcinosis is seen in the medial and lateral joint compartments. Arterial calcification is also seen.. Quadriceps enthesopathy is seen. XR/XR knee RT 4V IMPRESSION: IMPRESSION: 1. Mild osteoarthritis. 2. Chondrocalcinosis.
--- NOTE | ~2023-11-18 | XR_ITS ---
EXAMINATION: XR KNEE, LEFT CLINICAL INFORMATION: Knee pain Bilateral knee pain COMPARISON: Same-day right knee TECHNIQUE: Four views of the left knee. FINDINGS: No fracture. Trace joint effusion. There is mild lateral patellar tilt with associated narrowing of the joint space. There is moderate narrowing of the medial joint space. Chondrocalcinosis is seen in the lateral joint space. Extensive arterial calcification is noted. Quadriceps enthesopathy is seen. XR/XR knee LT 4V IMPRESSION: 1. Moderate osteoarthritis. 2. Chondrocalcinosis.
== END 2023-11-18 09:32 | disposition home or self-care (01) ==
LOC: HO.XRAY 09:31
PROVIDERS: Absent Provider Internal Medicine; PCP Internal Medicine; Visit Provider Internal Medicine
DX: M25.561 Pain in right knee (principal); M25.562 Pain in left knee; I48.0 Paroxysmal atrial fibrillation; Z51.81 Encounter for therapeutic drug level monitoring; Z79.01 Long term (current) use of anticoagulants
CPT/HCPCS: 73564; 85610; 99211

== ENCOUNTER 2023-11-18 09:31 | Outpatient (AMB) | payer MEDICARE, SELFPAY ==
[2023-11-18 10:10] LABS: Prothrombin Time Whole Bld POC 28.1 sec (11.1-13.5); ~PT, ~INR - Anti Coag Clinic 2.3 (0.9-1.1)
--- NOTE | 2023-11-18 10:16 | MHC.OFFVISCO ---
Intake Intake Visit Reasons: Anticoagulation Allergies penicillin V [From Pen-Vee K] Allergy (Mild, Verified 11/11/23 08:07) HIVES Nursing Note INR: 2.3 in therapeutic range Medications and supplements reviewed Fighting URI - sounds similar to RSV - constant need to clear throat and cough at night 3 weeks in to it- seeing PCP today, enc to call [facility] with any med changes. Denies any signs and symptoms of bleeding or bruising or clotting. 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
== END 2023-11-18 10:19 | disposition home or self-care (01) ==
LOC: HO.ACS 09:31
PROVIDERS: PCP Internal Medicine; Visit Provider Internal Medicine
DX: Z79.01 Long term (current) use of anticoagulants (principal)

== ENCOUNTER 2023-12-02 08:00 | Outpatient (AMB) | payer MEDICARE, SELFPAY ==
[2023-12-02 08:10] LABS: Prothrombin Time Whole Bld POC 24.1 sec (11.1-13.5)
--- NOTE | 2023-12-02 08:12 | MHC.OFFVISCO ---
Intake Intake Visit Reasons: Anticoagulation Allergies penicillin V [From Pen-Vee K] Allergy (Mild, Verified 12/02/23 08:03) HIVES Medication List - Last Reconciled 12/02/23 by Daily Lopez RN acetaminophen 500 mg PO Q6H atorvastatin 40 orally daily; [COQ10 100MG PO DAILY PO] ezetimibe 10 mg PO DAILY metoprolol succinate ER 25 mg (1/2 x 50 mg) PO BID 90 days multivitamin 1 tab PO DAILY omeprazole 20 mg PO BID phenytoin sodium extended 100 mg PO BID vit A,C and A-wknqmx-lxjnkqnx 300 mcg-200 mg-27 mg-2 mg (Ocuvite with Lutein) 1 tab PO DAILY warfarin 5 mg See Protocol PO DAILY Nursing Note Amb to [facility] feeling well except sts knees and other joints really bothering me Medications and supplements reviewed, sts he takes tylenol arthritis almost every day- enco to F/U with PCP for rheumatology referral and add extra greens if increase in tylenol No other changes in health, diet, medications, or supplements Denies any unusual signs and symptoms of bruising, bleeding Denies any new Chest pain, SOB, or clotting INR: 2.0 just in therapeutic range Nutritional guidance given: no green today then balance greens and reds in diet Dose: continue usual dosing;2.5mg daily F/U INR: 2 weeks Patient verbalizes understanding of instructions given with accurate read back/ teach back of dosing Anti-Coag Initial Assessment Social Hx Patient Tobacco Use Status: Never used Tobacco alcohol intake: current Alcohol intake frequency: 0-2 drinks per day Coding Level of Care Code Est Patient Level 1 Diagnoses Current use of anticoagulant therapy Z79.01 Time Spent (min) 15 Assessment & Plan Assessment & Plan (1) Current use of anticoagulant therapy: Code(s): 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
== END 2023-12-02 08:18 | disposition home or self-care (01) ==
LOC: HO.ACS 08:00
PROVIDERS: PCP Internal Medicine; Visit Provider Internal Medicine
DX: Z79.01 Long term (current) use of anticoagulants (principal)

== ENCOUNTER → 2023-12-02 08:00 | Outpatient (BNVA) | payer MEDICARE, SELFPAY | PROVIDERS: PCP Internal Medicine; Visit Provider Internal Medicine | DX: I48.0 Paroxysmal atrial fibrillation (principal); Z79.01 Long term (current) use of anticoagulants; Z51.81 Encounter for therapeutic drug level monitoring | CPT/HCPCS: 85610; 99211 ==

== ENCOUNTER 2023-12-16 08:25 | Outpatient (AMB) | payer MEDICARE, SELFPAY ==
[2023-12-16 08:52] LABS: Prothrombin Time Whole Bld POC 35.3 sec (11.1-13.5); ~PT, ~INR - Anti Coag Clinic 2.9 (0.9-1.1)
--- NOTE | 2023-12-16 08:55 | MHC.OFFVISCO ---
Intake Intake Visit Reasons: Anticoagulation Allergies penicillin V [From Pen-Vee K] Allergy (Mild, Verified 12/16/23 08:43) HIVES Nursing Note INR: 2.9 in therapeutic range of 2-3 Medications and supplements reviewed, no changes No changes in health, diet, medications, or supplements, considering taking Voltaren for arthritis knee pain which can raise the INR. Pt instructed to be sure to have extra greens when he uses this cream Denies any signs and symptoms of bleeding or bruising or clotting. Bleeding, bruising, clotting discussed Nutritional guidance given to balance greens and reds and as above Dose: cont same dose of 2.5mg daily F/U INR: 2 weeks Patient verbalizes understanding of instructions given Anti-Coag Initial Assessment Social Hx Patient Tobacco Use Status: Never used Tobacco alcohol intake: current Alcohol intake frequency: 0-2 drinks per day Coding Level of Care Code Est Patient Level 1 Diagnoses Current use of anticoagulant therapy Z79.01 Assessment & Plan Assessment & Plan (1) Current use of anticoagulant therapy: Code(s): Z79.01 - assisted (current) use of anticoagulants Category: Medical
== END 2023-12-16 08:59 | disposition home or self-care (01) ==
LOC: HO.ACS 08:25
PROVIDERS: PCP Internal Medicine; Visit Provider Internal Medicine
DX: Z79.01 Long term (current) use of anticoagulants (principal)

== ENCOUNTER → 2023-12-16 08:25 | Outpatient (BNVA) | payer MEDICARE, SELFPAY | PROVIDERS: PCP Internal Medicine; Visit Provider Internal Medicine | DX: I48.0 Paroxysmal atrial fibrillation (principal); Z79.01 Long term (current) use of anticoagulants; Z51.81 Encounter for therapeutic drug level monitoring | CPT/HCPCS: 85610; 99211 ==

== ENCOUNTER 2023-12-30 08:08 | Outpatient (AMB) | payer MEDICARE, SELFPAY ==
[2023-12-30 08:16] LABS: Prothrombin Time Whole Bld POC 26.7 sec (11.1-13.5); ~PT, ~INR - Anti Coag Clinic 2.2 (0.9-1.1)
--- NOTE | 2023-12-30 08:23 | MHC.OFFVISCO ---
Intake Intake Visit Reasons: Anticoagulation Allergies penicillin V [From Pen-Velinden K] Allergy (Mild, Verified 12/30/23 08:10) HIVES Medication List - Last Reconciled 12/30/23 by Daily See, JOSE acetaminophen 500 mg PO Q6H atorvastatin 40 orally daily; [COQ10 100MG PO DAILY PO] ezetimibe 10 mg PO DAILY metoprolol succinate ER 25 mg (1/2 x 50 mg) PO BID 90 days multivitamin 1 tab PO DAILY omeprazole 20 mg PO BID phenytoin sodium extended 100 mg PO BID vit A,C and L-mlroar-kqasravv 300 mcg-200 mg-27 mg-2 mg (Ocuvite with Lutein) 1 tab PO DAILY warfarin 5 mg See Protocol PO DAILY Nursing Note INR: 2.2 in therapeutic range of 2-3 Medications and supplements reviewed: no changes No changes in health, diet, medications, or supplements, Denies any signs and symptoms of bleeding or bruising or clotting. 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
== END 2023-12-30 08:35 | disposition home or self-care (01) ==
LOC: HO.ACS 08:08
PROVIDERS: PCP Internal Medicine; Visit Provider Internal Medicine
DX: Z79.01 Long term (current) use of anticoagulants (principal)

== ENCOUNTER → 2023-12-30 08:08 | Outpatient (BNVA) | payer MEDICARE, SELFPAY | PROVIDERS: PCP Internal Medicine; Visit Provider Internal Medicine | DX: I48.0 Paroxysmal atrial fibrillation (principal); Z79.01 Long term (current) use of anticoagulants; Z51.81 Encounter for therapeutic drug level monitoring | CPT/HCPCS: 85610; 99211 ==

== ENCOUNTER 2024-01-10 08:22 | Outpatient (AMB) | payer MEDICARE, SELFPAY ==
--- NOTE | 2024-01-10 08:31 | A.OFFVIS_ITS ---
Intake Vital Signs 01/10/24 08:32 Height 5 ft 8 in Weight 160 lb 11.472 oz BMI 24.4 BP 104/60 Blood Pressure Location Rt brachial Position Sitting Pulse 73 Pulse Source Pulse Oximeter Temp 97 F Temp Source Skin Pulse Oximetry (%) 95 Oxygen Delivery Method Room Air Intake Visit Reasons: elev crp Intake Note: New patient, externally referred, presents today for elevated CRP. Formerly seeing us years back . Food And Drug Inspector Required: No Accompanied by: Self / Same As Patient Allergies penicillin V [From Pen-Vee K] Allergy (Mild, Verified 01/10/24 08:34) HIVES HPI HPI Comments History of Present Illness Details Mr. Subramanian 78-year-old male presents today for evaluation of elevated CRP. He was referred by his primary care provider this referral is based on labs dated 09/23/2023. Has a PMH of hypercholesteremia, elevated liver enzymes, cardiomyopathy. The patient reports that over 8 years ago he was on a regimen of methotrexate and prednisone for 4 year for psoriasis and psoriatic arthritis. He has had good remission until about a year ago when the pain and swelling returned. He has soreness knees, shoulders, and bilateral thumbs which is swollen at this visit. He says at that time he had skin psoriasis and psoriatic nails. He says his PCP reduced his statin from 80 mg to 40 mg in an attempt to address his pains but that did not help. He received his 2nd shingles shot 2 weeks ago. He denies for uveitis, GI and urinary concerns. He complains about not being able to hold things tightly and so they fall out of his hands. --Saw Dr. Overton [facility] Medical History Aortic stenosis CAD (coronary artery disease) Epilepsy H/O acute myocardial infarction Paroxysmal atrial fibrillation Surgical History Stented coronary artery Family History (Updated 01/10/24 @ 08:37 by BELL Cannon) Father Diabetes Arthritis Mother No problems noted. Daughter Arthritis Social History Alcohol intake: current Alcohol intake frequency: 0-2 drinks per day Alcohol type: beer Patient Tobacco Use Status: Never used Tobacco Review of Systems Const All systems reviewed & are unremarkable except as noted in HPI and below Physical Exam Vital Signs: Last Vital Signs Temp 97 F 01/10/24 08:32 Pulse 73 01/10/24 08:32 BP 104/60 01/10/24 08:32 Pulse Ox 95 01/10/24 08:32 Oxygen Delivery Method Room Air 01/10/24 08:32 BMI result Body Mass Index 24.4 APPEARANCE: Patient in no acute distress EYES no redness, normal EARS:? External ear normal. NOSE/SINUS:? Airflow through both nares, no nasal discharge, no bleeding THROAT:? Dry mucosa moist, no ulcerations NECK:? No thyromegaly or masses, no adenopathy, trachea midline. HEART:? Regular rhythm, S1-S2 heard, no murmurs, rubs or gallops. LUNG:? Clear to percussion and auscultation EXTREMITIES:? No edema, no calf tenderness, normal peripheral pulses. NEURO:? Oriented and alert x3.? No focal weakness.? Reflexes symmetric.? Gait normal. SKIN:? Scattered patches of psoriasis on upper back and lower extremities. Psoriatic nails with pitting. No objective signs of Raynaud's phenomenon. JOINT EXAM: Cervical Spine:.? Full range of motion without pain; no tenderness. Thoracic Spine:.? No scoliosis.? No tenderness on palpation. Lumbar Spine:.? Alignment normal.? Full range of motion without pain, no tenderness. Chest Wall:.? No tenderness, swelling, increased warmth or erythema. Hands:.? Bilateral thumbs with tenderness, swelling, increased warmth or erythema. Able to make a full fist but has decreased account review specialist strength. Heberden nodes across DIPs. Enlarged bilateral 3rd and 4th PIPs Wrists:.? Normal pain-free range of motion without tenderness, swelling, increased warmth or erythema. Elbows:. Normal pain-free range of motion without tenderness, swelling, increa sed warmth or erythema. Shoulders:.?? Full range of motion without pain. No tenderness, weakness, swelling, increased warmth or erythema. Mild discomfort to left with overhead rate Hip bursa:.? No tenderness. Knees:.?? Normal pain-free range of motion without tenderness, swelling, increased warmth or erythema.? There is no effusion or crepitation. Ankles:.? Normal pain-free range of motion without tenderness, swelling, increased warmth or erythema. Feet:.? Normal pain-free range of motion without tenderness, swelling, increased warmth or erythema. Tender points:? No tenderness to digital palpation at the occiput, trapezius, second rib, lateral epicondyle, knees, greater trochanter and gluteal area bilaterally. ? Results Reviewed Results Reviewed: Sed rate 06/03/2023 34 07/23/2023 30 07/23/2023 - chronically elevated AST/ALT most recent AST 41 ALT 41 CRP 07/23/2023 1.63 09/23/2023 2.98 No GENOVEVA No available image CTD labs Assessment & Plan Assessment & Plan (1) Inflammatory arthritis: Code(s): M19.90 - Unspecified osteoarthritis, unspecified site Plan #Inflammatory arthritis possible psoriasis/psoriatic arthritis: Mr. Jimenez presents as having psoriasis and psoriatic arthritis. On PE he has scattered patches of psoriasis to his upper back and bilateral lower legs. He has swelling and tenderness to bilateral thumbs and Heberden nodes across all DIPs. And He can not remember if methotrexate was effective but he does know that prednisone helped with his joint pain and swelling. I will obtain updated labs and a set of hand x-rays. I will give him a course of prednisone for acute pain and consider to start a DMARD. I will not use methotrexate or other medications that can affect liver enzymes because his baseline AST that ALT are persistently elevated. It will likely be a bio DMARD given the available orals will affect his liver. I demonstrated to him Alethea and he is on board with that plan. #Long-term use: I will obtain labs for TB and hep before starting medication. We will monitor CBC for cytopenia while on immunosuppressives. I explained to patient to hold medication in the event of infections, fevers, surgery and nonhealing wound. I spent 35 minutes reviewing history, evaluating patient, and documenting Follow-up in 4 weeks Orders: Orders Complete Blood Count Auto Diff Today M19.90 - Unspecified osteoarthritis, unspecified site Comprehensive Met. Panel Today M19.90 - Unspecified osteoarthritis, unspecified site Creatine Kinase Total Today M19.90 - Unspecified osteoarthritis, unspecified site Anti Extractable Nuclear Ag Today M19.90 - Unspecified osteoarthritis, unspecified site Immunoglobulins,IgG IgA IgM Today M19.90 - Unspecified osteoarthritis, unspecified site Immunofixation Pnl, Serum Today - Unspecified osteoarthritis, unspecified site Hepatitis A,B,C Profile Today - Unspecified osteoarthritis, unspecified site Protein Electrophoresis, Serum Today - Unspecified osteoarthritis, unspecified site Cyclic Citrullinated Peptide Today - Unspecified osteoarthritis, unspecified site Rheumatoid Factor Today - Unspecified osteoarthritis, unspecified site XR hand LT min 3V Today - Unspecified osteoarthritis, unspecified site, M79.89 - Other specified soft tissue disorders C Reactive Protein Today - Unspecified osteoarthritis, unspecified site GENOVEVA Reflex Titer and Pattern Today - Unspecified osteoarthritis, unspecified site Anti DNA DS Antibody Today - Unspecified osteoarthritis, unspecified site Sjogren's Antibodies Today - Unspecified osteoarthritis, unspecified site T Spot TB Today - Unspecified osteoarthritis, unspecified site Uric Acid Today - Unspecified osteoarthritis, unspecified site Aldolase Today - Unspecified osteoarthritis, unspecified site Erythrocyte Sedimentation Rate Today - Unspecified osteoarthritis, unspecified site Vitamin D 25-OH (D2 and D3) Today E55.9 - Vitamin D deficiency, unspecified, - Unspecified osteoarthritis, unspecified site, M79.89 - Other specified soft tissue disorders XR hand RT min 3V Today - Unspecified osteoarthritis, unspecified site, M79.89 - Other specified soft tissue disorders Medications: New prednisone orally daily; 3 tablets per day x 7 days 2 tablets per day x 7 days 1 tablet per day x 7 days 45 tabs 0RF - Unspecified osteoarthritis, unspecified site Coding Level of Care Code New Pt Level 4 (24716) Diagnoses Inflammatory arthritis
[2024-01-10 08:32] VITALS: BP 104/60; PULSE 73; TEMP 36.1; O2SAT 95; BMI 24.4
== END 2024-01-10 09:09 | disposition home or self-care (01) ==
PROVIDERS: PCP Internal Medicine; Visit Provider Nurse Practitioner Family
DX: M19.90 Unspecified osteoarthritis, unspecified site (principal)
CPT/HCPCS: 99204

== ENCOUNTER 2024-01-10 08:22 | Outpatient (REF) | payer MEDICARE, SELFPAY ==
--- NOTE | ~2024-01-10 | XR_ITS ---
EXAMINATION: XR HAND, BILATERAL CLINICAL INFORMATION: Osteoarthritis, pain. COMPARISON: Right hand radiographs 12/18/2020. TECHNIQUE: 3 views of each hand. FINDINGS: RIGHT HAND: Subtle cortical irregularity of the ulnar styloid and a small cyst or erosion and adjacent soft tissue swelling may indicate an inflammatory arthropathy. This is new or progressed from previous study. Moderate arthrosis of the triscaphoid articulation and 1st CMC joint has progressed. There is narrowing of the 1st MCP joint and throughout the interphalangeal joints, particularly the 5th DIP joint. Small cysts or erosions at the radial aspect of the 3rd proximal phalanx at the PIP joint. This is similar to previous. No definite active erosions. No acute fracture or malalignment. LEFT HAND: There is an erosion at the ulnar aspect of the ulnar styloid and adjacent soft tissue swelling suggesting an inflammatory arthropathy. Severe 1st CMC joint osteoarthritis and mild narrowing of the triscaphoid articulation. Narrowing of the MCP joints and osteoarthritis throughout the interphalangeal joints with narrowing and dorsal osteophytes, prominent at the 2nd and 3rd DIP joints and 3rd PIP joint. No active erosions of the phalanges. No suspicious soft tissue calcifications. No fracture or malalignment. XR/XR hand LT min 3V IMPRESSION: Arthritic changes of both hands as described, most severe at the left 1st CMC joint. Subtle erosions along the ulnar styloid bilaterally and soft tissue swelling suggest an inflammatory arthropathy such as rheumatoid arthritis.
--- NOTE | ~2024-01-10 | XR_ITS ---
EXAMINATION: XR HAND, BILATERAL CLINICAL INFORMATION: Osteoarthritis, pain. COMPARISON: Right hand radiographs 12/18/2020. TECHNIQUE: 3 views of each hand. FINDINGS: RIGHT HAND: Subtle cortical irregularity of the ulnar styloid and a small cyst or erosion and adjacent soft tissue swelling may indicate an inflammatory arthropathy. This is new or progressed from previous study. Moderate arthrosis of the triscaphoid articulation and 1st CMC joint has progressed. There is narrowing of the 1st MCP joint and throughout the interphalangeal joints, particularly the 5th DIP joint. Small cysts or erosions at the radial aspect of the 3rd proximal phalanx at the PIP joint. This is similar to previous. No definite active erosions. No acute fracture or malalignment. LEFT HAND: There is an erosion at the ulnar aspect of the ulnar styloid and adjacent soft tissue swelling suggesting an inflammatory arthropathy. Severe 1st CMC joint osteoarthritis and mild narrowing of the triscaphoid articulation. Narrowing of the MCP joints and osteoarthritis throughout the interphalangeal joints with narrowing and dorsal osteophytes, prominent at the 2nd and 3rd DIP joints and 3rd PIP joint. No active erosions of the phalanges. No suspicious soft tissue calcifications. No fracture or malalignment. XR/XR hand RT min 3V IMPRESSION: Arthritic changes of both hands as described, most severe at the left 1st CMC joint. Subtle erosions along the ulnar styloid bilaterally and soft tissue swelling suggest an inflammatory arthropathy such as rheumatoid arthritis.
[2024-01-10 16:37] LABS: MANUAL DIFF FLAG NO
[2024-01-10 17:21] LABS: Basophils Percent Auto 0.3 % (0-2); Eosinophils Percent Auto 0.4 % (0-4); Hematocrit 36.1 % (42.0-52.0); Hemoglobin 11.8 g/dl (14.0-18.0); Imm Gran Abs Auto 0.04 X10*3/uL (0.00-0.03); Imm Gran Pct Auto 0.4 % (0.0-0.4); Lymphocytes Absolute Auto 1.8 X10*3/uL (1.2-4.9); Mean Corpuscular HGB Conc 32.7 g/dl (31.0-36.0); Mean Corpuscular Hemoglobin 29.6 pg (27.0-33.0); Mean Corpuscular Volume 90.5 fL (80.0-98.0); Mean Platelet Volume 9.6 fL (9.4-12.4); Monocytes Absolute Auto 0.9 X10*3/uL (0.1-1.2); Monocytes Percent Auto 9.1 % (2-11); Neutrophils Absolute Auto 7.1 x10*3/uL (2.0-8.3); Neutrophils Percent Auto 71.8 % (45-73); Platelet Count 260 X10*3/uL (160-400); Red Blood Count 3.99 X10*6/uL (4.60-5.80); White Blood Count 9.9 X10*3/uL (4.8-10.8)
[2024-01-10 17:53] LABS: Rheumatoid Factor < 13.0 IU/mL (<15.0)
[2024-01-10 17:58] LABS: Alanine Aminotransferase 36 U/L (0-40); Alkaline Phosphatase 143 U/L (39-117); Anion Gap 12 (12-20); Aspartate Amino Transferase 40 U/L (5-37); Bilirubin Total 0.3 mg/dL (0.0-1.0); Blood Urea Nitrogen 20 mg/dL (9-16); C Reactive Protein 3.57 mg/dL (< or = 0.50); Carbon Dioxide 28 mmol/L (22-29); Chloride 106 mmol/L (96-108); Estimated Glomerular Filt Rate > 60; Glucose Random 84 mg/dL (60-115); Potassium 4.1 mmol/L (3.3-5.1); Sodium 142 mmol/L (135-145); Total Protein 7.4 g/dL (6.5-8.0); Uric Acid 6.5 mg/dL (3.4-7.0)
[2024-01-10 18:17] LABS: Erythrocyte Sedimentation Rate 33 MM/HR (0-15)
[2024-01-11 09:39] LABS: HBS Num1 0.11 mIU/mL (0-7.99); HBc Num1 0.11 S/CO (0.00-0.79); HBsAGNum1 4.93 S/CO (0.00-0.99); Hepatitis A Antibody IgM 0.14 Index (0-0.79); Hepatitis B Core Antibody Nonreactive (Nonreactive); ~Hepatitis A Antibody IgM Nonreactive (Nonreactive); ~Hepatitis B Surface Antibody NONREACTIVE (Nonreactive); ~Hepatitis C Antibody Nonreactive (Nonreactive)
[2024-01-11 12:39] LABS: HBsAGNum2 Nonreactive; HBsAGNum3 Nonreactive; Hepatitis B Surface Antigen NEGATIVE (Negative)
[2024-01-12 09:28] LABS: Anti Nuclear Antibody Screen NEGATIVE (NEGATIVE)
[2024-01-12 21:49] LABS: TS Negative Control Passed; TS Panel A 0; TS Panel B 0; TS Positive Control Passed; TSpotTB Negative (Negative)
[2024-01-13 10:03] LABS: Prot Elec - Albumin 3.7 g/dL (3.8-4.8); Prot Elec - Alpha1 0.4 g/dL (0.2-0.3); Prot Elec - Beta 1 0.4 g/dL (0.4-0.6); Prot Elec - Beta 2 0.4 g/dL (0.2-0.5); Prot Elec - Gamma 0.9 g/dL (0.8-1.7); Prot Elec - Total Protein 6.8 g/dL (6.1-8.1)
[2024-01-14 11:58] LABS: Vitamin D 25-OH, D2 <4 ng/mL; Vitamin D 25-OH, D3 23 ng/mL; Vitamin D 25-OH, Total 23 ng/mL (30-100)
[2024-01-14 12:43] LABS: Cyclic Citrullinated Peptide <16 UNITS
[2024-01-14 19:12] LABS: IgA 230 mg/dL (70-320); IgG 1057 mg/dL (600-1540); IgM 10 mg/dL (50-300)
[2024-01-15 20:09] LABS: Anti DNA DS Antibody <1 IU/mL; Antibody to SS-A Antigen <1.0 NEG AI (<1.0 NEG); Antibody to SS-B Antigen <1.0 NEG AI (<1.0 NEG); SM/Ribonucleoprotein Ab <1.0 NEG AI (<1.0 NEG); Smith Protein <1.0 NEG AI (<1.0 NEG)
== END 2024-01-10 08:23 | disposition home or self-care (01) ==
LOC: HO.LAB 08:22
PROVIDERS: PCP Internal Medicine; Visit Provider Nurse Practitioner Family
DX: M19.90 Unspecified osteoarthritis, unspecified site (principal); M79.89 Other specified soft tissue disorders; E55.9 Vitamin D deficiency, unspecified; Z79.899 Other long term (current) drug therapy
CPT/HCPCS: 36415; 73130; 80053; 82085; 82306; 82550; 82784; 84165; 84550; 85025; 85652; 86038; 86140; 86200; 86225; 86235; 86334; 86431; 86481; 86704; 86706; 86709; 86803; 87340; 99202

== ENCOUNTER 2024-01-13 08:05 | Outpatient (AMB) | payer MEDICARE, SELFPAY ==
[2024-01-13 08:13] LABS: Prothrombin Time Whole Bld POC 28.7 sec (11.1-13.5); ~PT, ~INR - Anti Coag Clinic 2.4 (0.9-1.1)
--- NOTE | 2024-01-13 08:13 | MHC.OFFVISCO ---
Intake Intake Visit Reasons: Anticoagulation Allergies penicillin V [From Suman-Clarisse K] Allergy (Mild, Verified 01/13/24 08:07) HIVES Medication List - Last Reconciled 01/13/24 by Loretta Neville RN acetaminophen 500 mg PO Q6H atorvastatin 40 orally daily; [COQ10 100MG PO DAILY PO] ezetimibe 10 mg PO DAILY metoprolol succinate ER 25 mg (1/2 x 50 mg) PO BID 90 days multivitamin 1 tab PO DAILY omeprazole 20 mg PO BID phenytoin sodium extended 100 mg PO BID prednisone orally daily; 3 tablets per day x 7 days 2 tablets per day x 7 days 1 tablet per day x 7 days vit A,C and H-[id number]-arkdukxx 300 mcg-200 mg-27 mg-2 mg (Ocuvite with Lutein) 1 tab PO DAILY warfarin 5 mg See Protocol PO DAILY Nursing Note INR: 2.4 in therapeutic range Medications and supplements reviewed No changes in health, diet, medications, or supplements, Denies any signs and symptoms of bleeding or bruising or clotting. 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
== END 2024-01-13 08:20 | disposition home or self-care (01) ==
LOC: HO.ACS 08:05
PROVIDERS: PCP Internal Medicine; Visit Provider Internal Medicine
DX: Z79.01 Long term (current) use of anticoagulants (principal)

== ENCOUNTER → 2024-01-13 08:05 | Outpatient (BNVA) | payer MEDICARE, SELFPAY | PROVIDERS: PCP Internal Medicine; Visit Provider Internal Medicine | DX: I48.0 Paroxysmal atrial fibrillation (principal); Z79.01 Long term (current) use of anticoagulants; Z51.81 Encounter for therapeutic drug level monitoring | CPT/HCPCS: 85610; 99211 ==

== ENCOUNTER 2024-02-10 08:00 | Outpatient (AMB) | payer MEDICARE, SELFPAY ==
[2024-02-10 08:22] LABS: Prothrombin Time Whole Bld POC 23.6 sec (11.1-13.5)
--- NOTE | 2024-02-10 08:27 | MHC.OFFVISCO ---
Intake Intake Visit Reasons: Anticoagulation Allergies penicillin V [From Suman-Clarisse K] Allergy (Mild, Verified 02/10/24 08:16) HIVES Medication List - Last Reconciled 02/10/24 by Loretta Neville RN acetaminophen 500 mg PO Q6H atorvastatin 40 orally daily; [COQ10 100MG PO DAILY PO] ezetimibe 10 mg PO DAILY metoprolol succinate ER 25 mg (1/2 x 50 mg) PO BID 90 days multivitamin 1 tab PO DAILY omeprazole 20 mg PO BID phenytoin sodium extended 100 mg PO BID prednisone orally daily; 3 tablets per day x 7 days 2 tablets per day x 7 days 1 tablet per day x 7 days vit A,C and B-kqfxad-kvukiecz 300 mcg-200 mg-27 mg-2 mg (Ocuvite with Lutein) 1 tab PO DAILY warfarin 5 mg See Protocol PO DAILY Nursing Note INR: 2.0 in therapeutic range Medications and supplements reviewed CURRENTLY HAS COLD/FLU TYPE SYMPTOMS- SEEING PCP TODAY - ENC TO CALL [facility] WITH ANY MED CHANGES MERRY Denies any signs and symptoms of bleeding or bruising or clotting. Bleeding, bruising, clotting discussed Nutritional guidance given - REVIEW FOOD LIST WEEKLY, AVOID [place] TODAY Dose: KEEP SAMD 2.5MG DAILY F/U INR: 4 WEEKS UNLESS HE HAS MED CHANGES THAT REQUIRE SOONER F/U INR Patient verbalizes understanding of instructions given Anti-Coag Initial Assessment Social Hx Patient Tobacco Use Status: Never used Tobacco alcohol intake: current Alcohol intake frequency: 0-2 drinks per day Coding Level of Care Code Est Patient Level 1 Diagnoses Current use of anticoagulant therapy Z79.01 Assessment & Plan Assessment & Plan (1) Current use of anticoagulant therapy: Code(s): Z79.01 - care home (current) use of anticoagulants Category: Medical
== END 2024-02-10 08:30 | disposition home or self-care (01) ==
LOC: HO.ACS 08:00
PROVIDERS: PCP Internal Medicine; Visit Provider Internal Medicine
DX: Z79.01 Long term (current) use of anticoagulants (principal)

== ENCOUNTER 2024-02-10 11:15 | Inpatient (IN) | payer MEDICARE, SELFPAY ==
[2024-02-10] VITALS (13 sets, daily range): BP systolic 98–142; BP diastolic 64–82; PULSE 76–156; RESP 12–22; TEMP 36.8–37.4; O2SAT 92–95; BMI 22.8; BMI 23.5
--- NOTE | ~2024-02-10 | XR_ITS ---
EXAMINATION: XR CHEST CLINICAL INFORMATION: Hypoxia COMPARISON: Previous chest x-ray 02/10/2024 TECHNIQUE: Frontal view of the chest was obtained. FINDINGS: The lung volumes are low. The cardiac silhouette is slightly prominent and there is prominence of the central bronchovascular markings. Some of these changes may be due to low lung volumes. The lungs are otherwise clear. No pleural effusion or pneumothorax. Degenerative changes of the spine. XR/XR chest 1V IMPRESSION: Prominent cardiac silhouette and increased central bronchovascular markings. Some of these changes may be due to low lung volumes. Differential would include mild pulmonary edema and airways disease. Clinical correlation recommended.
--- NOTE | ~2024-02-10 | XR_ITS ---
EXAMINATION: XR CHEST 2 VIEWS CLINICAL INFORMATION: Shortness of breath. COMPARISON: Chest radiograph dated 10/03/2020. TECHNIQUE: Frontal and lateral views of the chest were obtained. FINDINGS: The heart, great vessels, pulmonary vasculature and mediastinum are normal. The lungs show no focal infiltrate, effusion or pneumothorax. There is no acute osseous abnormality. XR/XR chest 2V IMPRESSION: No active cardiopulmonary disease.
--- NOTE | 2024-02-10 11:27 | ED_ITS ---
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 Related Data Home Medications ?Medication ?Instructions ?Recorded ?Confirmed COQ10 100MG PO DAILY PO 12/12/20 02/10/24 multivitamin 1 tab PO DAILY 12/12/20 02/10/24 vit A 300 mcg-C 200 mg-E 27 1 tab PO DAILY 12/12/20 02/10/24 mg-lutein 2 mg and minerals tablet (Ocuvite with Lutein) omeprazole 20 mg capsule,delayed 20 mg PO BID 10/23/21 02/10/24 release acetaminophen 500 mg capsule 500 mg PO Q6H 06/18/22 02/10/24 phenytoin sodium extended 100 mg 100 mg PO BID 06/03/23 02/10/24 capsule atorvastatin 80 mg tablet See Rx Instructions PO DAILY 09/09/23 02/10/24 Previous Rx's ?Medication ?Instructions ?Recorded warfarin 5 mg tablet 5 mg PO DAILY #50 tabs 08/14/21 ezetimibe 10 mg tablet 10 mg PO DAILY #90 tabs 04/30/22 metoprolol succinate 50 mg 25 mg (1/2 x 50 mg) PO BID 90 days 01/01/24 tablet,extended release 24 hr #90 tabs prednisone 5 mg tablet See Rx Instructions PO DAILY #45 01/10/24 tabs Allergies Allergy/AdvReac Type Severity Reaction Status Date / Time penicillin V [From Pen-Vee K] Allergy Mild HIVES Verified 02/10/24 11:27 Review of Systems 2 Review of Systems: Pertinent positives and negatives as stated in HPI [facility] Past Medical History Source: nursing notes reviewed Medical History Hypovitaminosis D Bilateral hand swelling Inflammatory arthritis Aortic stenosis CAD (coronary artery disease) Paroxysmal atrial fibrillation Epilepsy H/O acute myocardial infarction Surgical History Stented coronary artery Family History Family History Father Diabetes Arthritis Mother No problems noted. Daughter Arthritis Social History Social History Alcohol intake: current Alcohol intake frequency: 0-2 drinks per day Alcohol type: beer Patient Tobacco Use Status: Never used Tobacco Smoked in Last 30 Days: No Use of substances other than those prescribed or required for medical reasons: No Advance Directives: No Advance Directives Information Provided: Yes Do you have a plan to hurt others: No Plan Physical Exam ED Vital Signs: Vital Signs - 24 hr 02/10/24 11:24 02/10/24 12:15 02/10/24 12:23 Temperature 98.7 F Pulse Rate 78 156 H 133 H Respiratory Rate 18 18 Blood Pressure 114/76 124/76 121/75 Pulse Oximetry 94 Oxygen Delivery Method Room Air Room Air 02/10/24 12:37 02/10/24 13:39 Temperature Pulse Rate 143 H 124 H Respiratory Rate 20 Blood Pressure 115/64 98/69 Pulse Oximetry 95 Oxygen Delivery Method Room Air BMI result Body Mass Index 22.8 VITAL SIGNS: Reviewed. GENERAL: Well developed, well nourished, in no acute distress. HEAD: Normocephalic/atraumatic EYES: PERRLA, EOMI EARS: Ext canals without abnormality NOSE: Nares patent bilateral OROPHARYNX: no oral lesions noted, posterior pharynx clear NECK: Supple, no adenopathy LUNGS: Normal breath sounds. No adventitious sounds or accessory muscle use. SpO2<94> CARDIOVASCULAR: Regular rate and rhythm without noted murmurs, no JVD or lower extremity edema. ABDOMEN: Soft, non-tender, non-distended with bowel sounds. MUSCULOSKELETAL: No tenderness, deformities, or effusions noted on gross inspection. EXTREMITIES: No cyanosis, clubbing or edema. SKIN: Inspection of the skin reveals no rashes NEUROLOGIC: Alert and oriented x 4. Strength and sensation to light touch were grossly intact x 4. Course Course Course Narrative: RME performed by Noemy Eugene PA-C. Patient is a 78 year old assigned male at presenting to the emergency department with a history of atrial fib on metoprolol and coumadin. Patient states that today he was seen for a routine visit when he was found to have an abnormal EKG. Patient's EKG showed atrial flutter with rapid RVR at 150. Detailed physical exam and review of systems are deferred to the mid level clinician. Labs, imaging, and swabs ordered. Charge nurse made aware of patient. Medications Administered Discontinued Medications Generic Name Dose Route Start Last Admin Trade Name Sonia PRN Reason Stop Dose Admin Sodium Chloride 500 mls @ 999 mls/hr 02/10/24 14:45 02/10/24 15:13 Ns IV 02/10/24 15:15 999 mls/hr .Q31M SHARYN Administration Metoprolol Tartrate 5 mg 02/10/24 12:19 02/10/24 12:23 Metoprolol Tartrate 5 Mg/5 Ml Vial IVPUSH 02/10/24 12:20 5 mg ONCE ONE Administration Protocol Metoprolol Tartrate 5 mg 02/10/24 12:30 02/10/24 12:40 Metoprolol Tartrate 5 Mg/5 Ml Vial IVPUSH 02/10/24 12:31 5 mg ONCE ONE Administration Protocol Metoprolol Tartrate 25 mg 02/10/24 12:30 02/10/24 12:37 Metoprolol Tartrate 25 Mg Tablet PO 02/10/24 12:31 25 mg ONCE ONE Administration Protocol Metoprolol Tartrate 5 mg 02/10/24 13:25 02/10/24 13:40 Metoprolol Tartrate 5 Mg/5 Ml Vial IVPUSH 02/10/24 13:26 5 mg ONCE ONE Administration Protocol Medical Decision Making Medical Decision Making MDM Narrative: 1210: 78-year-old male with history and clinical presentation, DDX: Patient with atrial fibrillation/RVR and will rule out possible viral illness/electrolyte derangements or volume status. INTERVENTION: IV and p.o. Lopressor, labs, EKG 1307: I discussed case with cardiology who agrees with discharge as long as patient's condition is under control. 1231: still 120's-140's will give additional 5mg loprssor and 25mg PO I reviewed all investigations and hematologic indices are chronically stable without leukocytosis there is a normocytic anemia no thrombocytopenia. INR here in the emergency room demonstrates subtherapeutic levels at 1.6. Chemistry indices are grossly within normal limits without CHANTELL or electrolyte/acute liver enzyme derangements, I sensitivity troponin is detectable but likely reflective of patient's atrial fibrillation with RVR. Urinalysis negative for UTI but there is presence of blood, felt to be prostatic but patient will be directed for further evaluation in the outpatient setting. Viral testing negative for influenza/RSV/COVID-19. Patient's heart rate continues to improve but then will increase into the 120s and 130s, he is received a total of 15 mg of Lopressor and will proceed with Cardizem as long as blood pressure is within normal limits, at this point, patient will require admission for in intractable atrial fibrillation with RVR, subtherapeutic INR so will not proceed with electric cardioversion. 1437: I discussed with the inpatient hospitalist who accepts admission. 1522: I withheld the 10 mg of Cardizem at this time as patient's heart rate is 70s to low 100s with stable blood pressure. Differential Diagnosis Differential Diagnoses: The differential diagnosis associated with the presentation includes Please see the discussion above Admission/Observation Consideration of admission/observation: Escalation of care including admission/observation considered Please see the discussion above Consult Healthcare Provider Management of the patient was discussed with: Hospitalist and Medical Attendant Please see the discussion above Lab Data MDM Lab Attestation statement: I reviewed the patient's lab results. Please see the discussion above 02/10/24 12:08 02/10/24 12:08 Labs: Lab Results 02/10/24 Range/Units 12:08 WBC 9.1 (4.8-10.8) X10*3/uL RBC 4.38 L (4.60-5.80) X10*6/uL Hgb 13.4 L (14.0-18.0) g/dl Hct 39.4 L (42.0-52.0) % MCV 90.0 (80.0-98.0) fL MCH 30.6 (27.0-33.0) pg MCHC 34.0 (31.0-36.0) g/dl RDW 15.1 (11.0-16.0) % Plt Count 219 (160-400) X10*3/uL MPV 9.8 (9.4-12.4) fL Immature Gran % (Auto) 0.4 (0.0-0.4) % Neut % (Auto) 76.5 H (45-73) % Lymph % (Auto) 12.5 L (20-40) % [place] % (Auto) 10.2 (2-11) % Eos % (Auto) 0.1 (0-4) % Baso % (Auto) 0.3 (0-2) % Lymph # (Auto) 1.1 L (1.2-4.9) X10*3/uL [place] # (Auto) 0.9 (0.1-1.2) X10*3/uL Eos # (Auto) 0.0 (0.0-0.4) X10*3/uL Baso # (Auto) 0.0 (0.0-0.2) X10*3/uL Abs Immat Gran (auto) 0.04 H (0.00-0.03) X10*3/uL Absolute Neuts (auto) 6.9 (2.0-8.3) x10*3/uL Absolute Nucleated RBC 0.000 (0.0-0.012) X10*3/uL Nucleated RBC % (auto) 0.0 (0.0-0.2) /100WBC PT 19.0 H (11.1-13.3) SEC INR 1.6 H (0.9-1.1) APTT 36.0 (26.0-36.8) SEC Sodium 140 (135-145) mmol/L Potassium 4.3 (3.3-5.1) mmol/L Chloride 101 (96-108) mmol/L Carbon Dioxide 26 (22-29) mmol/L Anion Gap 17 (12-20) BUN 14 (9-16) mg/dL Creatinine 1.12 (0.5-1.4) mg/dL Estim Creat Clear Calc 52.3 Estimated GFR > 60 Random Glucose 88 (60-115) mg/dL Calcium 9.7 D (8.4-10.2) mg/dL Magnesium 2.0 (1.6-2.6) mg/dL Total Bilirubin 0.3 (0.0-1.0) mg/dL AST 49 H (5-37) U/L ALT 36 (0-40) U/L Alkaline Phosphatase 116 (39-117) U/L Troponin I High Sens 16.1 (<3.5-35.0) ng/L Total Protein 7.7 (6.5-8.0) g/dL Albumin 4.1 (3.5-5.0) g/dL Urine Color Yellow Urine Appearance Clear Urine pH 5.5 (5.0-9.0) Ur Specific [place] 1.010 (1.005-1.025) Urine Protein 30 (1+) H (Neg-Trace) mg/dL Urine Glucose (UA) Negative (Negative) mg/dL Urine Ketones Negative (Negative) mg/dL Urine Blood Large (3+) H (Negative) Urine Nitrite Negative (Negative) Ur Leukocyte Esterase Negative (Negative) Urine RBC 6-10 H (0-2) /HPF Urine WBC 0-5 (0-5) /HPF Ur Squamous Epith Cells 0-2 (0-2) /HPF Urine Bacteria None Seen (None Seen) Hyaline Casts 0-2 (0-2) /LPF Influenza Type A (PCR) NEGATIVE (Negative) Influenza Type B (PCR) NEGATIVE (Negative) RSV RNA Qual (PCR) NEGATIVE (Negative) SARS-CoV-2 RNA (RT-PCR) NEGATIVE (Negative) Independent Interpretation I performed an independent interpretation of an: EKG Interpretation: 1136: Atrial fibrillation with RVR, HR-151, no STEMI, QRS within normal limits. 1319: Atrial flutter, HR-129, no STEMI, QRS/QTC is within normal limits. Radiology Impression Discussion of test interpretation with radiology: I have reviewed the radiologist's reading. Radiologist Impression: Please see the discussion above External Record Review External record reviewed: Outpatient record and Prior outpatient labs Critical Care Time Critical Care Time Critical Care Time: Yes Total Critical Care Time: 60 Attestation: I personally attest to this time spent taking care of the patient. Discharge Plan Discharge Clinical Impression: Atrial fibrillation with RVR, Subtherapeutic international normalized ratio (INR) Patient Disposition: Admitted As Inpatient
--- NOTE | 2024-02-10 11:28 | ECG_ITS ---
Test Reason : ABNORMAL EKG/ATRIAL FLUTTER Blood Pressure : / mmHG Vent. Rate : 151 BPM Atrial Rate : 000 BPM P-R Int : 000 ms QRS Dur : 094 ms QT Int : 318 ms P-R-T Axes : 000 018 237 degrees QTc Int : 504 ms Atrial fibrillation with rapid ventricular response Minimal voltage criteria for LVH, may be normal variant ( Nitesh product ) Septal infarct (cited on or before 07-JAN-2019) ST & T wave abnormality, consider lateral ischemia Abnormal ECG When compared with ECG of 03-OCT-2020 12:26, Atrial fibrillation has replaced Sinus rhythm Nonspecific T wave abnormality now evident in Inferior leads Referred By: Noemy Eugene Electronically Signed By:Hadley Kirk
[2024-02-10] MEDS: Metoprolol Tartrate 5 MG/5 ML VIAL IVPUSH ×3 (12:23→13:40)
[2024-02-10 12:25] LABS: MANUAL DIFF FLAG NO
[2024-02-10 12:27] LABS: Basophils Percent Auto 0.3 % (0-2); Eosinophils Percent Auto 0.1 % (0-4); Hematocrit 39.4 % (42.0-52.0); Hemoglobin 13.4 g/dl (14.0-18.0); Imm Gran Abs Auto 0.04 X10*3/uL (0.00-0.03); Imm Gran Pct Auto 0.4 % (0.0-0.4); Lymphocytes Absolute Auto 1.1 X10*3/uL (1.2-4.9); Lymphocytes Percent Auto 12.5 % (20-40); Mean Corpuscular Hemoglobin 30.6 pg (27.0-33.0); Mean Platelet Volume 9.8 fL (9.4-12.4); Monocytes Absolute Auto 0.9 X10*3/uL (0.1-1.2); Monocytes Percent Auto 10.2 % (2-11); Neutrophils Absolute Auto 6.9 x10*3/uL (2.0-8.3); Neutrophils Percent Auto 76.5 % (45-73); Platelet Count 219 X10*3/uL (160-400); Red Blood Count 4.38 X10*6/uL (4.60-5.80); Red Cell Distribution Width 15.1 % (11.0-16.0); White Blood Count 9.1 X10*3/uL (4.8-10.8)
[2024-02-10 12:28] LABS: Appearance Urine Clear; Color Urine Yellow; Glucose Urine UA Negative (Negative); Leukocyte Esterase Urine Negative (Negative); Nitrite Urine Negative (Negative); PH 5.5 (5.0-9.0); UMIC TRIGGER UACC YES; Urine Blood Large (3+) (Negative); Urine Ketones Negative (Negative); Urine Protein 30 (1+) mg/dL (Neg-Trace)
[2024-02-10 12:32] LABS: Bacteria Urine None Seen (None Seen); Hyaline Casts Urine 0-2 /LPF (0-2); Squamous Epithelial Cell Urine 0-2 /HPF (0-2); WBC Urine 0-5 /HPF (0-5)
[2024-02-10 12:35] LABS: INTERNATIONAL NORM RATIO 1.6 (0.9-1.1)
[2024-02-10] MEDS: Metoprolol Tartrate 25 MG TABLET PO (12:37)
[2024-02-10 12:44] LABS: Alanine Aminotransferase 36 U/L (0-40); Albumin Level 4.1 g/dL (3.5-5.0); Alkaline Phosphatase 116 U/L (39-117); Anion Gap 17 (12-20); Aspartate Amino Transferase 49 U/L (5-37); Bilirubin Total 0.3 mg/dL (0.0-1.0); Blood Urea Nitrogen 14 mg/dL (9-16); Calcium 9.7 mg/dL (8.4-10.2); Carbon Dioxide 26 mmol/L (22-29); Chloride 101 mmol/L (96-108); Creatinine Clr Calc Pharmacy 52.3; Estimated Glomerular Filt Rate > 60; Glucose Random 88 mg/dL (60-115); Potassium 4.3 mmol/L (3.3-5.1); Sodium 140 mmol/L (135-145); Total Protein 7.7 g/dL (6.5-8.0)
--- NOTE | 2024-02-10 12:46 | PC.NURSE ---
pt a&ox4, afib w RVR, other vss, 20G PIV R AC. pt denies any chest pain/sob. HR initially 150s, 5mg metoprolol given IV w rate decrease to 120-140s. additional 5mg metoprolol given IV w 25mg metoprolol PO w rate decrease to 110-130. bp WNL.
[2024-02-10 12:53] LABS: Troponin-I High Sensitivity 16.1 ng/L (<3.5-35.0)
--- NOTE | 2024-02-10 13:04 | ECG_ITS ---
Test Reason : PALPITATIONS Blood Pressure : / mmHG Vent. Rate : 129 BPM Atrial Rate : 258 BPM P-R Int : 000 ms QRS Dur : 096 ms QT Int : 314 ms P-R-T Axes : 266 026 244 degrees QTc Int : 460 ms Atrial flutter with 2:1 A-V conduction ST depression, consider subendocardial injury Septal infarct Nonspecific T wave abnormality Abnormal ECG When compared to the previous EKG of Aflutter has replaced afib Referred By: Pat Monique Electronically Signed By:Hadley Kirk
[2024-02-10 13:10] LABS: Influenza A PCR NEGATIVE (Negative); Influenza B PCR NEGATIVE (Negative); Resp Syncy Virus RNA Qual PCR NEGATIVE (Negative); SARS COV2 PCR INHOUSE NEGATIVE (Negative)
--- NOTE | 2024-02-10 15:00 | PM.IMHP ---
History of Present Illness Date of Service: 02/10/24 Chief Complaint: palpitations 70-year-old man presented to the ER with complaints of palpitations over the last several days. He denied any recent illness, travel, fever, chills, shortness breath, nausea, vomiting, diarrhea. He did report some chest discomfort with palpitations, he reported that he was digging a hole in his yard yesterday to plan to tree and his heart rate went up to 187 but did improve. He reports that he feels that his heart rate goes up and down when this happens periodically. He is compliant with all of his medications. In the ER, All of his labs are within acceptable limits, heart rate ranging from 120-150. Given 3 IV doses of metoprolol, 125 mg oral dose and a dose of IV diltiazem. Patient converted to normal sinus rhythm and goes back and forth into AFib. Review of Systems Review of Systems: Denies any recent fever chills or decrease in appetite respiratory denies any shortness of breath or cough cardiovascular denied chest pain gastrointestinal denies any dysphagia abdominal pain nausea vomiting or diarrhea genitourinary denies any dysuria frequency or hematuria musculoskeletal denies any joint pain or swelling neuropsych denies any weakness or seizures all other systems reviewed are negative FOR[facility]LY [facility] Medical History Hypovitaminosis D Bilateral hand swelling Inflammatory arthritis Aortic stenosis CAD (coronary artery disease) Paroxysmal atrial fibrillation Epilepsy H/O acute myocardial infarction Family History Father Diabetes Arthritis Mother No problems noted. Daughter Arthritis Surgical History Stented coronary artery Social History Alcohol intake: current Alcohol intake frequency: 0-2 drinks per day Alcohol type: beer Patient Tobacco Use Status: Never used Tobacco Smoked in Last 30 Days: No Use of substances other than those prescribed or required for medical reasons: No Advance Directives: No Advance Directives Information Provided: Yes Do you have a plan to hurt others: No Plan Nutrition Risks: No Nutritional Risk Meds Allergies Allergy/AdvReac Type Severity Reaction Status Date / Time penicillin V [From Pen-Vee K] Allergy Mild HIVES Verified 02/10/24 11:27 Active Medications: Current Medications Sodium Chloride (Ns) 500 mls @ 999 mls/hr IV .Q31M SHARYN Stop: 02/10/24 15:15 Home Medications ?Medication ?Instructions ?Recorded ?Confirmed ?Last Taken ?Type COQ10 100MG PO DAILY 1 cap PO DAILY 12/12/20 02/10/24 02/10/24 History multivitamin 1 tab PO DAILY 12/12/20 02/10/24 02/10/24 History omeprazole 20 mg capsule,delayed 20 mg PO BID 10/23/21 02/10/24 02/10/24 History release phenytoin sodium extended 100 mg 200 mg PO BID 06/03/23 02/10/24 02/10/24 History capsule atorvastatin 80 mg tablet 40 mg PO BEDTIME 09/09/23 02/10/24 02/09/24 History warfarin 5 mg tablet 2.5 mg PO DAILY@1800 02/10/24 02/10/24 02/09/24 History Physical Exam Vital Signs and Narrative: Vital Signs: Last Vital Signs Temp 98.7 F 02/10/24 11:24 Pulse 124 H 02/10/24 13:39 Resp 20 02/10/24 13:39 BP 98/69 02/10/24 13:39 Pulse Ox 95 02/10/24 13:39 O2 Del Method Room Air 02/10/24 13:39 BMI result Body Mass Index 22.8 Appearing in no acute distress head is normocephalic atraumatic eyes pupils are PERRLA sclera is anicteric mouth throat mucous membranes are intact and moist neck is supple no lymphadenopathy, no JVD noted lung sounds are clear to auscultation heart regular rate rhythm, clear S1, S2 positive bowel sounds, abdomen is soft, nontender neuro patient is alert x3, no focal deficits Results Labs 02/10/24 15:47 02/10/24 12:08 Labs: Laboratory Results - last 24 hr 02/10/24 12:08 MCV 90.0 MCH 30.6 MCHC 34.0 RDW 15.1 Plt Count 219 MPV 9.8 Immature Gran % (Auto) 0.4 Neut % (Auto) 76.5 H Lymph % (Auto) 12.5 L [place] % (Auto) 10.2 Eos % (Auto) 0.1 Baso % (Auto) 0.3 Lymph # (Auto) 1.1 L [place] # (Auto) 0.9 Eos # (Auto) 0.0 Baso # (Auto) 0.0 Abs Immat Gran (auto) 0.04 H Absolute Neuts (auto) 6.9 Absolute Nucleated RBC 0.000 Nucleated RBC % (auto) 0.0 PT 19.0 H INR 1.6 H APTT 36.0 Anion Gap 17 Estim Creat Clear Calc 52.3 Estimated GFR > 60 Random Glucose 88 Calcium 9.7 D Magnesium 2.0 Total Bilirubin 0.3 AST 49 H ALT 36 Alkaline Phosphatase 116 Troponin I High Sens 16.1 Total Protein 7.7 Albumin 4.1 Urine Color Yellow Urine Appearance Clear Urine pH 5.5 Ur Specific [place] 1.010 Urine Protein 30 (1+) H Urine Glucose (UA) Negative Urine Ketones Negative Urine Blood Large (3+) H Urine Nitrite Negative Ur Leukocyte Esterase Negative Urine RBC 6-10 H Urine WBC 0-5 Ur Squamous Epith Cells 0-2 Urine Bacteria None Seen Hyaline Casts 0-2 Influenza Type A (PCR) NEGATIVE Influenza Type B (PCR) NEGATIVE RSV RNA Qual (PCR) NEGATIVE SARS-CoV-2 RNA (RT-PCR) NEGATIVE Assessment and Plan (1) Subtherapeutic international normalized ratio (INR): Status: Acute (2) Atrial fibrillation with RVR: Status: Acute Plan 70-year-old man admitted with atrial fibrillation with rapid ventricular response Paroxysmal atrial fibrillation with rapid ventricular response Patient symptomatic feeling heart rate go up and down Received multiple doses of IV metoprolol in the ER in 1 dose of oral metoprolol Cardiology consultation pending Echocardiogram monitor on telemetry Continue warfarin, check PT INR daily continue metoprolol Coronary artery disease Continue aspirin and statin GERD Continue PPI DVT prophylaxis with Lovenox Full code Patient will likely require 48 hours of admission for treatment of paroxysmal atrial fibrillation with rapid ventricular response necessitating IV medications and specialty consultation. Quality Stroke Does the patient have a stroke diagnosis?: No VTE Prior VTE?: No VTE Risk Level:: Medical - moderate - high VTE Device Contraindication: Treatment Not Indicated VTE Drug Contraindication: N/A - Med Ordered
[2024-02-10] MEDS: 0.9 % Sodium Chloride 500 ML 999 ML IV (15:13)
[2024-02-10 15:52] LABS: Hematocrit 38.2 % (42.0-52.0); Hemoglobin 12.9 g/dl (14.0-18.0); Mean Corpuscular HGB Conc 33.8 g/dl (31.0-36.0); Mean Corpuscular Hemoglobin 30.6 pg (27.0-33.0); Mean Corpuscular Volume 90.5 fL (80.0-98.0); Mean Platelet Volume 9.1 fL (9.4-12.4); Platelet Count 195 X10*3/uL (160-400); Red Blood Count 4.22 X10*6/uL (4.60-5.80); Red Cell Distribution Width 15.2 % (11.0-16.0); White Blood Count 10.3 X10*3/uL (4.8-10.8)
[2024-02-10 15:54] LABS: Thyroid Stimulating Hormone 2.21 uIU/mL (0.32-4.0)
[2024-02-10 16:02] LABS: INTERNATIONAL NORM RATIO 1.8 (0.9-1.1); Prothrombin Time 22.1 SEC (11.1-13.3)
[2024-02-10 16:05] LABS: Partial Thromboplastin Time 35.8 SEC (26.0-36.8)
--- NOTE | 2024-02-10 16:19 | PHA.MEDREC ---
Pharmacy Consult ? Medication Reconciliation Pharmacy has completed the medication reconciliation. Patient confirmed medicaitons. Una Melendrez, NaD
--- NOTE | 2024-02-10 16:37 | PC.NURSE ---
pharmacy contacted for outstanding Lovenox.
[2024-02-10] MEDS: Enoxaparin Sodium 80 MG/0.8 ML SYRINGE 70 MG SUBCUT (17:10)
[2024-02-10] MEDS: Omeprazole 20 MG CAPSULE.DR PO (18:03)
[2024-02-10] MEDS: Warfarin Sodium 2.5 MG TABLET PO (18:40)
[2024-02-10] MEDS: dilTIAZem HCL 125 MG in 0.9 % Sodium Chloride 100 ML 10 MG IVCONT (19:08)
--- NOTE | 2024-02-10 19:11 | PC.NURSE ---
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 pt HR had been stable in 70s with very short increases to 140s on exertion and quickly returning to 70s. diltiazem drip started per MAR at 10mg/hr, Ml Cabrera aware.
--- NOTE | 2024-02-10 19:45 | PC.NURSE ---
HR 130-140 - diltiazem titrated up to 15mg/hr.
[2024-02-10] MEDS: Metoprolol Succinate ER 25 MG TAB.ER.24H PO (20:58)
[2024-02-10] MEDS: Atorvastatin Calcium 40 MG TABLET PO (20:59)
[2024-02-10] MEDS: Phenytoin Sodium Extended 100 MG CAPSULE 200 MG PO (20:59)
[2024-02-10] MEDS: 0.9 % Sodium Chloride Flush 3 ML SYRINGE IVFLUSH (21:30)
[2024-02-10] MEDS: guaiFENesin LA 600 MG TAB.ER.12H PO (21:52)
[2024-02-11] VITALS (13 sets, daily range): BP systolic 93–144; BP diastolic 50–80; PULSE 118–141; RESP 16–20; TEMP 36.8–38.6; O2SAT 88–97
[2024-02-11] MEDS: dilTIAZem HCL 125 MG in 0.9 % Sodium Chloride 100 ML 15 MG IVCONT ×3 (02:20→19:47)
[2024-02-11] MEDS: Omeprazole 20 MG CAPSULE.DR PO ×2 (06:05→16:04)
--- NOTE | 2024-02-11 07:00 | CA_ITS ---
Transthoracic Echocardiogram Patient (Last, First, Middle): Moris Jimenez A Gender: Male Date of : 1945 Age: 78 Procedure Date: 02/11/2024 Procedure Type: Transthoracic [place] [facility] [place]: 172.72 cm Weight: 69.85 kg BSA: 1.83 m2 Heart Rate: bpm BP: 109 / 80 mmHg Platform Material Handler Manager: RUTH ANN Referring MD: Ml Cabrera NP Symptoms: afib rvr Study Quality: Adequate w/Contrast ECG Rhythm: Atrial Fibrillation w/RVR Conclusions: - The mid inferoseptal and mid anteroseptal segments are akinetic. - Mildly increased right ventricular cavity size. There is normal right ventricular systolic function. - There is mild aortic valve stenosis. The peak aortic velocity is 2.03 m/s. The mean gradient is 11 mmHg. There is mild aortic valve regurgitation. Aortic valve is moderate to severely calcified. Findings Procedure Information Contrast agent, definity, is being given per protocol without apparent complications. Left Ventricle Normal left ventricular cavity size. There is normal left ventricular wall thickness. The left ventricular systolic function is borderline reduced. The visually estimated ejection fraction is between 45-50%. There is evidence of regional wall motion abnormalities. Diastolic function is indeterminate on the basis of available data. Wall Motion Rest Echo Findings The mid inferoseptal and mid anteroseptal segments are akinetic. Right Ventricle Mildly increased right ventricular cavity size. There is normal right ventricular systolic function. Atria The left atrium is normal in size. The right atrium is mildly dilated. Aortic Valve There is mild aortic valve stenosis. The peak aortic velocity is 2.03 m/s. The mean gradient is 11 mmHg. There is mild aortic valve regurgitation. Aortic valve is moderate to severely calcified. Mitral Valve The mitral valve appears normal. There is mild mitral annular calcification. There is no mitral valve regurgitation. There is no mitral valve stenosis. Pulmonic Valve The pulmonic valve is likely normal. Tricuspid Valve Normal tricuspid valve structure. There is trace tricuspid valve regurgitation. Normal right atrial pressure. There is no evidence of pulmonary hypertension. Great Vessels All visible segments of the aorta are normal in size. Venous The inferior vena cava is normal in size and collapses greater than 50% with inspiration. Pericardium/Pleural There is no evidence of pericardial effusion. Prior Study Comparison No significant change compared to prior study dated: 08/10/2022. Measurements 2D Linear Measurements IVSd: 0.87 0.6-0.9/0.6-1.0 cm LVIDd: 4.34 3.9-5.3/4.2-5.9 cm LVIDd Index: 2.37 2.4-3.2/2.2-3.1 cm/m2 LVIDs: 2.83 2.0-3.6 cm LVPWd: 1.02 0.7-1.1 cm LA Diam: 4.00 2.7-3.8/3.0-4.0 cm LAIDs Index: 2.19 1.5-2.3 cm/m2 LV Mass: 166.46 67-162/88-224 g LV Mass Index: 90.96 43-95/49-115 g/m2 LVOT Diam: 1.80 3.0+(-)1.3 cm Mitral Valve MV Pk E: 1.16 MV Decel Time: 135.00 E'Lateral: 11.80 E'Medial: 8.97 E/E' Med: 12.90 E/E' Lat: 9.80 PHT: 40.00 MVA PHT: 5.50 Decel [place]: 8.58 Aortic Valve AoV Pk [place]: 2.03 AoV Mn [place]: 1.53 AoV VTI: 0.34 AoV Pk Grad: 16.00 Aov Mn Grad: 11.00 LEYDI Cont.VTI: 1.92 AI Pk [place]: 4.17 AI [place]: 3.41 LVOT LVOT Pk [place]: 1.50 LVOT Mn [place]: 1.12 LVOT VTI: 0.26 LVOT Pk Grad: 9.00 LVOT Mn Grad: 6.00 LVOT Diam: 1.80 LVOT Area: 2.54 Diastolic Function MV Pk E: 1.16 E'Medial: 8.97 E/E' Med: 12.90 E' Laterial: 11.80 E/E' Lat: 9.80 Right Ventricle TAPSE (mm): 23.20 TVS' [place]: 12.76 Tricuspid Valve TR Pk [place]: 2.06 TR Pk Grad: 17.00 RA Press: 3.00 RVSP: 20.00 Great Vessels Aorta Sinus of Valsalva: 2.80 2.0-3.5 cm Ao Asc: 3.20 2.1-3.4 cm Pulmonary Valve PV Pk [place]: 1.06 Peak PV Grad: 4.00 Updated in Other Vendor System with Status of Final Hadley Kirk MD electronically signed on 02/11/2024 12:10:34 PM with status of Final
[2024-02-11 07:06] LABS: MANUAL DIFF FLAG NO
[2024-02-11 07:25] LABS: Basophils Percent Auto 0.2 % (0-2); Eosinophils Percent Auto 0.2 % (0-4); Hematocrit 38.5 % (42.0-52.0); Imm Gran Abs Auto 0.03 X10*3/uL (0.00-0.03); Imm Gran Pct Auto 0.3 % (0.0-0.4); Lymphocytes Percent Auto 10.9 % (20-40); Mean Corpuscular HGB Conc 33.8 g/dl (31.0-36.0); Mean Corpuscular Hemoglobin 30.3 pg (27.0-33.0); Mean Corpuscular Volume 89.7 fL (80.0-98.0); Mean Platelet Volume 9.2 fL (9.4-12.4); Monocytes Percent Auto 11.3 % (2-11); Neutrophils Absolute Auto 7.1 x10*3/uL (2.0-8.3); Neutrophils Percent Auto 77.1 % (45-73); Platelet Count 216 X10*3/uL (160-400); Red Blood Count 4.29 X10*6/uL (4.60-5.80); Red Cell Distribution Width 14.9 % (11.0-16.0); White Blood Count 9.2 X10*3/uL (4.8-10.8)
[2024-02-11 07:29] LABS: Alanine Aminotransferase 50 U/L (0-40); Albumin Level 3.6 g/dL (3.5-5.0); Alkaline Phosphatase 105 U/L (39-117); Anion Gap 17 (12-20); Aspartate Amino Transferase 70 U/L (5-37); Bilirubin Total 0.3 mg/dL (0.0-1.0); Blood Urea Nitrogen 15 mg/dL (9-16); Calcium 9.3 mg/dL (8.4-10.2); Carbon Dioxide 24 mmol/L (22-29); Chloride 101 mmol/L (96-108); Creatinine Clr Calc Pharmacy 60.1; Estimated Glomerular Filt Rate > 60; Glucose Random 81 mg/dL (60-115); Potassium 4.3 mmol/L (3.3-5.1); Sodium 138 mmol/L (135-145); Total Protein 6.9 g/dL (6.5-8.0)
[2024-02-11 07:39] LABS: INTERNATIONAL NORM RATIO 2.3 (0.9-1.1); Prothrombin Time 28.5 SEC (11.1-13.3)
[2024-02-11] MEDS: 0.9 % Sodium Chloride Flush 3 ML SYRINGE IVFLUSH ×2 (08:58→20:45)
[2024-02-11] MEDS: Phenytoin Sodium Extended 100 MG CAPSULE 200 MG PO ×2 (08:58→20:43)
[2024-02-11] MEDS: Multivitamin TABLET 1 TAB PO (08:58)
[2024-02-11] MEDS: Ezetimibe 10 MG TABLET PO (08:58)
[2024-02-11] MEDS: Metoprolol Succinate ER 25 MG TAB.ER.24H PO (08:58)
[2024-02-11] MEDS: guaiFENesin LA 600 MG TAB.ER.12H PO (09:04)
--- NOTE | 2024-02-11 09:33 | MHC.CM.PN ---
Addendum entered by Maura Rouse 02/14/24 14:12: HCP WAS COMPLETED AND IS NOW ON FILE Original Note: IMM 02/11/24, Pt. lives with , is independent, no DME, his car is in the lot. HCP form to be completed here, naming his and daughter. DC plan is home, self care, CM will follow for DC needs.
--- NOTE | 2024-02-11 15:17 | HO.PM.IMPN ---
Subjective Subjective Date of Service: 02/11/24 Review of Systems Follow up afib rvr department head pain, sometimes has discomfort when heart is racing fast no chest pain or nausea Physical Exam Vital Signs: Vital Signs: Last Vital Signs Temp 98.9 F 02/11/24 11:06 Pulse 138 H 02/11/24 14:27 Resp 20 02/11/24 11:06 BP 144/72 H 02/11/24 14:27 Pulse Ox 94 02/11/24 11:06 O2 Del Method Nasal Cannula 02/11/24 11:06 O2 Flow Rate 2 02/11/24 11:06 BMI result Body Mass Index 23.5 Appearing in no acute distress lung sounds are clear to auscultation heart IRIR positive bowel sounds, abdomen is soft, nontender neuro patient is alert x3, no focal deficits Objective Data Active Medications Acetaminophen (Acetaminophen 325 Mg Tablet) 650 mg PO Q6H PRN PRN Reason: Pain, Mild (Pain Scale 1-3) Atorvastatin Calcium (Atorvastatin Calcium 40 Mg Tablet) 40 mg PO BEDTIME [facility] Last Admin: 02/10/24 20:59 Dose: 40 mg Documented By: AVERY Ezetimibe (Ezetimibe 10 Mg Tablet) 10 mg PO DAILY [facility] Last Admin: 02/11/24 08:58 Dose: 10 mg Documented By: PAM Enoxaparin Sodium (Enoxaparin Sodium 40 Mg/0.4 Ml Syringe) 40 mg SUBCUT Q24H [facility] Guaifenesin (Guaifenesin La 600 Mg Tab.Er.12h) 600 mg PO BID PRN PRN Reason: Cough Last Admin: 02/11/24 09:04 Dose: 600 mg Documented By: PAM Diltiazem HCl 125 mg/ Sodium (Chloride) 125 mls @ 0 mls/hr IVCONT .Q0M [facility]; Protocol Last Admin: 02/11/24 11:05 Dose: 15 mg/hr, 15 mls/hr Documented By: PAM Metoprolol Succinate (Metoprolol Succinate Er 25 Mg Tab.Er.24h) 25 mg PO BID [facility]; Protocol Last Admin: 02/11/24 08:58 Dose: 25 mg Documented By: PAM Multivitamins/Vitamin C (Multivitamin Tablet) 1 tab PO DAILY [facility] Last Admin: 02/11/24 08:58 Dose: 1 tab Documented By: PAM Omeprazole (Omeprazole 20 Mg Capsule.) 20 mg PO BID@0630,1630 [facility] Last Admin: 02/11/24 06:05 Dose: 20 mg Documented By: OLVIN Ondansetron HCl (Ondansetron Hcl 4 Mg/2 Ml Vial) 4 mg IVPUSH Q8H PRN PRN Reason: Nausea and Vomiting Phenytoin Sodium (Phenytoin Sodium Extended 100 Mg Capsule) 200 mg PO BID [facility] Last Admin: 02/11/24 08:58 Dose: 200 mg Documented By: PAM Sodium Chloride (0.9 % Sodium Chloride Flush 3 Ml Syringe) 3 ml IVFLUSH QSHIFT [facility] Last Admin: 02/11/24 08:58 Dose: 3 ml Documented By: PAM Warfarin Sodium (Warfarin Sodium 2.5 Mg Tablet) 2.5 mg PO DAILY@1800 [facility] Last Admin: 02/10/24 18:40 Dose: 2.5 mg Documented By: LARISSAL Labs 02/11/24 06:39 02/11/24 06:39 Labs: Laboratory Results - last 24 hr 02/10/24 02/10/24 02/11/24 12:08 15:47 06:39 MCV 90.5 89.7 MCH 30.6 30.3 MCHC 33.8 33.8 RDW 15.2 14.9 Plt Count 195 216 MPV 9.1 L 9.2 L Immature Gran % (Auto) 0.3 Neut % (Auto) 77.1 H Lymph % (Auto) 10.9 L [place] % (Auto) 11.3 H Eos % (Auto) 0.2 Baso % (Auto) 0.2 Lymph # (Auto) 1.0 L [place] # (Auto) 1.0 Eos # (Auto) 0.0 Baso # (Auto) 0.0 Abs Immat Gran (auto) 0.03 Absolute Neuts (auto) 7.1 Absolute Nucleated RBC 0.000 0.000 Nucleated RBC % (auto) 0.0 0.0 PT 22.1 H 28.5 H D INR 1.8 H 2.3 H APTT 35.8 Anion Gap 17 Estim Creat Clear Calc 60.1 Estimated GFR > 60 Random Glucose 81 Calcium 9.3 Total Bilirubin 0.3 AST 70 H ALT 50 H Alkaline Phosphatase 105 Total Protein 6.9 Albumin 3.6 TSH 2.21 Assessment and Plan (1) Atrial fibrillation with RVR: Status: Acute Plan 70-year-old man admitted with atrial fibrillation with rapid ventricular response Paroxysmal atrial fibrillation with rapid ventricular response Patient symptomatic feeling heart rate go up and down Cardiology consultation pending Echocardiogram monitor on telemetry Continue warfarin, check PT INR daily continue metoprolol Alcohol withdrawal becoming tremulous unsure how much he drinks, according to RN may be 3-4 drinks per day will start phenobarbitol protocol folic acid, thiamine IV fluids Coronary artery disease Continue aspirin and statin GERD Continue PPI DVT prophylaxis with Lovenox Full code continue hospitals stay for treatment of paroxysmal atrial fibrillation with rapid ventricular response necessitating IV medications and specialty consultation. Quality Stroke Does the patient have a stroke diagnosis?: No VTE Prior VTE?: No VTE Risk Level:: Medical - moderate - high VTE Device Contraindication: Treatment Not Indicated VTE Drug Contraindication: N/A - Med Ordered
[2024-02-11 15:21] LABS: INTERNATIONAL NORM RATIO 2.4 (0.9-1.1); Prothrombin Time 29.7 SEC (11.1-13.3)
[2024-02-11] MEDS: Acetaminophen 325 MG TABLET 650 MG PO (16:04)
[2024-02-11] MEDS: Enoxaparin Sodium 40 MG/0.4 ML SYRINGE SUBCUT (18:18)
[2024-02-11] MEDS: Metoprolol Tartrate 25 MG TABLET PO ×2 (18:19→20:42)
[2024-02-11] MEDS: Thiamine HCL 100 MG TABLET PO (18:19)
[2024-02-11] MEDS: Folic Acid 1 MG TABLET PO (18:19)
[2024-02-11] MEDS: 0.9 % Sodium Chloride 1,000 ML 100 ML IVCONT (18:25)
[2024-02-11] MEDS: Warfarin Sodium 2.5 MG TABLET PO (18:44)
--- NOTE | 2024-02-11 20:14 | PC.NURSE ---
pt afib in 140s. BP 133/80. denies any changes or symptoms. alert and oriented x 4. MD aware. No further orders provided to this nurse. Cardiology consult pending. Call valencia in reach. Pt reports being comfortable. Plan of care ongoing
[2024-02-11] MEDS: Atorvastatin Calcium 40 MG TABLET PO (20:43)
[2024-02-11] MEDS: guaiFENesin DM 100/10/5 ML 5 ML SYRUP PO (22:49)
[2024-02-12] VITALS (8 sets, daily range): BP systolic 97–124; BP diastolic 59–75; PULSE 98–143; RESP 16–22; TEMP 36.8–37.3; O2SAT 95–97
[2024-02-12] MEDS: Omeprazole 20 MG CAPSULE.DR PO ×2 (05:25→17:33)
[2024-02-12] MEDS: dilTIAZem HCL 125 MG in 0.9 % Sodium Chloride 100 ML 15 MG IVCONT (05:27)
[2024-02-12] MEDS: 0.9 % Sodium Chloride 1,000 ML 100 ML IVCONT (05:29)
--- NOTE | 2024-02-12 06:29 | PM.EVENT ---
Event Note Date of Service: 02/12/24 Event Note: Nurse reported patient requiring supplemental oxygen. Minimal wheezing. Will obtain chest x-ray and VBG Time Spent With Patient Time: Total time managing care of this patient today ____ minutes.
--- NOTE | 2024-02-12 07:46 | P.PNIM_ITS ---
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 has discomfort when heart is racing fast no chest pain or nausea Physical Exam 2 Vital Signs: Vital Signs: Last Vital Signs Temp 99.2 F 02/12/24 07:05 Pulse 143 H 02/12/24 07:05 Resp 22 H 02/12/24 07:05 BP 105/75 02/12/24 07:05 Pulse Ox 97 02/12/24 07:05 O2 Del Method Nasal Cannula 02/12/24 07:05 O2 Flow Rate 4 02/12/24 07:05 BMI result Body Mass Index 23.5 Appearing in no acute distress lung sounds are clear to auscultation heart IRIR positive bowel sounds, abdomen is soft, nontender neuro patient is alert x3, no focal deficits Objective Data Active Medications Acetaminophen (Acetaminophen 325 Mg Tablet) 650 mg PO Q6H PRN PRN Reason: Pain, Mild (Pain Scale 1-3) Last Admin: 02/11/24 16:04 Dose: 650 mg Documented By: PAM Atorvastatin Calcium (Atorvastatin Calcium 40 Mg Tablet) 40 mg PO BEDTIME [facility] Last Admin: 02/11/24 20:43 Dose: 40 mg Documented By: WOODROW Ezetimibe (Ezetimibe 10 Mg Tablet) 10 mg PO DAILY [facility] Last Admin: 02/11/24 08:58 Dose: 10 mg Documented By: PAM Enoxaparin Sodium (Enoxaparin Sodium 40 Mg/0.4 Ml Syringe) 40 mg SUBCUT Q24H [facility] Last Admin: 02/11/24 18:18 Dose: 40 mg Documented By: PAM Folic Acid (Folic Acid 1 Mg Tablet) 1 mg PO DAILY [facility] Last Admin: 02/11/24 18:19 Dose: 1 mg Documented By: PAM Guaifenesin (Guaifenesin La 600 Mg Tab.Er.12h) 600 mg PO BID PRN PRN Reason: Cough Last Admin: 02/11/24 09:04 Dose: 600 mg Documented By: PAM Guaifenesin/Dextromethorphan (Guaifenesin Dm 100/10/5 Ml 5 Ml Syrup) 5 ml PO Q6H PRN PRN Reason: Cough Last Admin: 02/11/24 22:49 Dose: 5 ml Documented By: WOODROW Diltiazem HCl 125 mg/ Sodium (Chloride) 125 mls @ 0 mls/hr IVCONT .Q0M [facility]; Protocol Last Admin: 02/12/24 05:27 Dose: 15 mg/hr, 15 mls/hr Documented By: WOODROW Sodium Chloride (Ns) 1,000 mls @ 100 mls/hr IVCONT .Q10H [facility] Last Admin: 02/12/24 05:29 Dose: 100 mls/hr Documented By: WOODROW Metoprolol Tartrate (Metoprolol Tartrate 25 Mg Tablet) 25 mg PO BID [facility]; Protocol Last Admin: 02/11/24 20:42 Dose: 25 mg Documented By: WOODROW Multivitamins/Vitamin C (Multivitamin Tablet) 1 tab PO DAILY [facility] Last Admin: 02/11/24 08:58 Dose: 1 tab Documented By: PAM Omeprazole (Omeprazole 20 Mg Capsule.Dr) 20 mg PO BID@0630,1630 [facility] Last Admin: 02/12/24 05:25 Dose: 20 mg Documented By: WOODROW Ondansetron HCl (Ondansetron Hcl 4 Mg/2 Ml Vial) 4 mg IVPUSH Q8H PRN PRN Reason: Nausea and Vomiting Pharmacy Consult (Consult Rx Etoh Phenob Im/Po) 1 each MISCELLANE ONCE PRN; Protocol PRN Reason: Consult order Phenobarbital (Phenobarbital 15 Mg Tablet) 45 mg PO BID [facility] Stop: 02/13/24 21:01 Phenobarbital (Phenobarbital 30 Mg Tablet) 30 mg PO BID [facility] Stop: 02/15/24 21:01 Phenobarbital (Phenobarbital 15 Mg Tablet) 15 mg PO DAILY [facility] Stop: 02/17/24 09:01 Phenytoin Sodium (Phenytoin Sodium Extended 100 Mg Capsule) 200 mg PO BID [facility] Last Admin: 02/11/24 20:43 Dose: 200 mg Documented By: WOODROW Sodium Chloride (0.9 % Sodium Chloride Flush 3 Ml Syringe) 3 ml IVFLUSH QSHIFT [facility] Last Admin: 02/11/24 20:45 Dose: 3 ml Documented By: WOODROW Thiamine HCl (Thiamine Hcl 100 Mg Tablet) 100 mg PO DAILY [facility] Last Admin: 02/11/24 18:19 Dose: 100 mg Documented By: PAM Warfarin Sodium (Warfarin Sodium 2.5 Mg Tablet) 2.5 mg PO DAILY@1800 [facility] Last Admin: 02/11/24 18:44 Dose: 2.5 mg Documented By: PAM Labs 02/11/24 06:39 02/11/24 06:39 Labs: Laboratory Results - last 24 hr 02/11/24 02/11/24 06:39 15:07 PT 28.5 H D 29.7 H INR 2.3 H 2.4 H Assessment and Plan (1) Atrial fibrillation with RVR: Status: Acute Plan 70-year-old man admitted with atrial fibrillation with rapid ventricular response Paroxysmal atrial fibrillation with rapid ventricular response HR still high, maxed out on cardizem drip Echocardiogram Continue warfarin, check PT INR daily metoprolol increased to 50 mg BID Cardiology consultation> stop IV cardizem, continue metoprolol, if hr not controlled may need POLI cardioversion Alcohol withdrawal, unlikely no tremors unsure how much he drinks, according to RN may be 3-4 drinks per day, but patient insists maybe only one per day stop phenobarbitol protocol as patient declined and does not appear to be in active withdrawal folic acid, thiamine IV fluids Coronary artery disease Continue aspirin and statin GERD Continue PPI DVT prophylaxis with Lovenox Attending Dr. Ramos Full code continue hospitals stay for treatment of paroxysmal atrial fibrillation with rapid ventricular response necessitating IV medications and specialty consultation. Quality Stroke Does the patient have a stroke diagnosis?: No VTE Prior VTE?: No VTE Risk Level:: Medical - moderate - high VTE Device Contraindication: Treatment Not Indicated VTE Drug Contraindication: N/A - Med Ordered
[2024-02-12] MEDS: Thiamine HCL 100 MG TABLET PO (08:22)
[2024-02-12] MEDS: Phenytoin Sodium Extended 100 MG CAPSULE 200 MG PO ×2 (08:22→20:16)
[2024-02-12] MEDS: Metoprolol Tartrate 50 MG TABLET PO ×2 (08:23→20:15)
[2024-02-12] MEDS: Ezetimibe 10 MG TABLET PO (08:23)
[2024-02-12] MEDS: Multivitamin TABLET 1 TAB PO (08:23)
[2024-02-12] MEDS: Folic Acid 1 MG TABLET PO (08:23)
[2024-02-12 08:52] LABS: VBG HCO3 28 mmol/L (22-26); VBG pCO2 44 mmHg; VBG pO2 35 mmHg
[2024-02-12 08:55] LABS: Venous Blood Gas Refer to POC result
[2024-02-12 09:07] LABS: Prothrombin Time 24.9 SEC (11.1-13.3)
--- NOTE | 2024-02-12 11:07 | MHC.CM.PN ---
Pt is not yet medically cleared for DC. He is awaiting cardiology consult. DC plan is home, self care.
--- NOTE | 2024-02-12 11:39 | MHC.RECOVRN ---
Addendum entered by Madeline Acharya 02/12/24 11:44: Educated pt on effect alcohol has on afib, as well. Original Note: Met with pt in 467 after consult placed to Addiction Medicine for alcohol use. Pt had presented to the ED after abnormal EKG and chest discomfort, hx of afib. Upon evaluation, pt admitted for Afib with RVR. Pt sitting in chair, awake, alert, easily engages in conversation, appears comfortable. Pt states I think something was lost in translation. Pt reports he has 1 drink daily, either a glass of wine or a [place] [employer] after work. 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 Pt denies hx treatment for alcohol use, denies hx of withdrawal. Pt states I don't even know what withdrawal would feel like. Pt reports he lives with his of 27 years who hates alcohol. Pt denies concerns with his alcohol use, reports does not have concerns regarding his alcohol use. Pt is not currently experiencing withdrawal. Pt accepting of resources as well as t/w contact information if he ever feels like he needs support. Pt denies questions or concerns for t/w. Discussed with Larisa Coley APRN.
--- NOTE | 2024-02-12 11:50 | PM.CNCAR ---
History of Present Illness History of Present Illness Date of Service: 02/12/24 Requesting physician: Ml Cabrera Chief complaint: Atrial flutter Narrative: 78-year-old gentleman who has background history of coronary artery disease and mild aortic valve stenosis. He has paroxysmal atrial fibrillation and has been on Coumadin for anticoagulation. He was taking 25 mg b.i.d. of metoprolol succinate at home. He is presenting with palpitations and was noticed to be in atrial flutter. He is saying that his heart rate has been fast 4 weeks. He noticed his heart to be fast up to 140 beats per minute on most days but improved on some days in between. He is denying any chest discomfort shortness of breath. On admission he was started on diltiazem drip with no significant improvement in heart rate. Metoprolol at a higher dose was added back. His heart rate this morning was somewhat better controlled and he was off diltiazem drip. Currently heart rates as per chart are 141 beats per minute. EKGs reviewed and was showing atrial flutter. His INRs admission has been subtherapeutic at 1.6, 1.8 and has been therapeutic since yesterday at 2.3 and 2.4. [facility] Past Medical History Medical History Hypovitaminosis D Bilateral hand swelling Inflammatory arthritis Aortic stenosis CAD (coronary artery disease) Paroxysmal atrial fibrillation Epilepsy H/O acute myocardial infarction Family History Family History Father Diabetes Arthritis Mother No problems noted. Daughter Arthritis Surgical History Surgical History Stented coronary artery Social History Social History Household Members: Spouse Housing: House Do you presently have visiting nurse or other home services: No Alcohol intake: current Alcohol intake frequency: 0-2 drinks per day Alcohol type: beer Patient Tobacco Use Status: Never used Tobacco service: No Meds Allergies Allergy/AdvReac Type Severity Reaction Status Date / Time penicillin V [From Pen-Vee K] Allergy Mild HIVES Verified 02/10/24 11:27 Active Medications: Current Medications Acetaminophen (Acetaminophen 325 Mg Tablet) 650 mg PO Q6H PRN PRN Reason: Pain, Mild (Pain Scale 1-3) Last Admin: 02/11/24 16:04 Dose: 650 mg Atorvastatin Calcium (Atorvastatin Calcium 40 Mg Tablet) 40 mg PO BEDTIME [facility] Last Admin: 02/11/24 20:43 Dose: 40 mg Digoxin (Digoxin 0.5 Mg/2 Ml Ampul) 0.25 mg IVPUSH Q6H [facility] Stop: 02/13/24 00:01 Ezetimibe (Ezetimibe 10 Mg Tablet) 10 mg PO DAILY [facility] Last Admin: 02/12/24 08:23 Dose: 10 mg Enoxaparin Sodium (Enoxaparin Sodium 40 Mg/0.4 Ml Syringe) 40 mg SUBCUT Q24H [facility] Last Admin: 02/11/24 18:18 Dose: 40 mg Folic Acid (Folic Acid 1 Mg Tablet) 1 mg PO DAILY [facility] Last Admin: 02/12/24 08:23 Dose: 1 mg Guaifenesin (Guaifenesin La 600 Mg Tab.Er.12h) 600 mg PO BID PRN PRN Reason: Cough Last Admin: 02/11/24 09:04 Dose: 600 mg Guaifenesin/Dextromethorphan (Guaifenesin Dm 100/10/5 Ml 5 Ml Syrup) 5 ml PO Q6H PRN PRN Reason: Cough Last Admin: 02/11/24 22:49 Dose: 5 ml Sodium Chloride (Ns) 1,000 mls @ 100 mls/hr IVCONT .Q10H [facility] Last Admin: 02/12/24 05:29 Dose: 100 mls/hr Metoprolol Tartrate (Metoprolol Tartrate 50 Mg Tablet) 50 mg PO BID [facility]; Protocol Last Admin: 02/12/24 08:23 Dose: 50 mg Multivitamins/Vitamin C (Multivitamin Tablet) 1 tab PO DAILY [facility] Last Admin: 02/12/24 08:23 Dose: 1 tab Omeprazole (Omeprazole 20 Mg Capsule.Dr) 20 mg PO BID@0630,1630 [facility] Last Admin: 02/12/24 05:25 Dose: 20 mg Ondansetron HCl (Ondansetron Hcl 4 Mg/2 Ml Vial) 4 mg IVPUSH Q8H PRN PRN Reason: Nausea and Vomiting Pharmacy Consult (Consult Rx Etoh Phenob Im/Po) 1 each MISCELLANE ONCE PRN; Protocol PRN Reason: Consult order Phenytoin Sodium (Phenytoin Sodium Extended 100 Mg Capsule) 200 mg PO BID [facility] Last Admin: 02/12/24 08:22 Dose: 200 mg Sodium Chloride (0.9 % Sodium Chloride Flush 3 Ml Syringe) 3 ml IVFLUSH QSHIFT [facility] Last Admin: 02/12/24 08:24 Dose: Not Given Thiamine HCl (Thiamine Hcl 100 Mg Tablet) 100 mg PO DAILY [facility] Last Admin: 02/12/24 08:22 Dose: 100 mg Warfarin Sodium (Warfarin Sodium 2.5 Mg Tablet) 2.5 mg PO DAILY@1800 [facility] Last Admin: 02/11/24 18:44 Dose: 2.5 mg Home Medications ?Medication ?Instructions ?Recorded ?Confirmed ?Last Taken ?Type COQ10 100MG PO DAILY 1 cap PO DAILY 12/12/20 02/10/24 02/10/24 History multivitamin 1 tab PO DAILY 12/12/20 02/10/24 02/10/24 History omeprazole 20 mg capsule,delayed 20 mg PO BID 10/23/21 02/10/24 02/10/24 History release phenytoin sodium extended 100 mg 200 mg PO BID 06/03/23 02/10/24 02/10/24 History capsule atorvastatin 80 mg tablet 40 mg PO BEDTIME 09/09/23 02/10/24 02/09/24 History warfarin 5 mg tablet 2.5 mg PO DAILY@1800 02/10/24 02/10/24 02/09/24 History Physical Exam Vital Signs: Vital Signs: Last Vital Signs Temp 98.3 F 02/12/24 11:29 Pulse 141 H 02/12/24 11:29 Resp 20 02/12/24 11:29 BP 97/62 02/12/24 11:29 Pulse Ox 96 02/12/24 11:29 O2 Del Method Room Air 02/12/24 11:29 O2 Flow Rate 4 02/12/24 07:05 BMI result Body Mass Index 23.5 GENERAL APPEARANCE: in no acute distress, pleasant. NECK: no carotid bruit, no jugular venous distention. SKIN: no suspicious lesions, warm and dry. HEART: Systolic murmur aortic area, regular rate and rhythm. Tachycardic. LUNGS: clear to auscultation bilaterally. ABDOMEN: soft, nontender. EXTREMITIES: no edema. PERIPHERAL PULSES: equal. NEUROLOGIC: No gross deficits, AAO X 3 Objective Labs and Meds 02/11/24 06:39 02/11/24 06:39 Lab results: Laboratory Results - last 24 hr 02/11/24 02/12/24 02/12/24 15:07 08:42 08:45 PT 29.7 H 24.9 H INR 2.4 H 2.0 H VBG pH 7.40 VBG pCO2 44 VBG pO2 35 VBG HCO3 28 H VBG O2 Saturation 64.0 VBG Base Excess 3.0 Imaging Radiologist's impression: Impressions Chest X-Ray 02/12/24 07:13 IMPRESSION: Prominent cardiac silhouette and increased central bronchovascular markings. Some of these changes may be due to low lung volumes. Differential would include mild pulmonary edema and airways disease. Clinical correlation recommended. Assessment and Plan (1) Atrial flutter: Status: Acute Plan Pleasant 78-year-old gentleman with background history of coronary artery disease and atrial fibrillation presenting for palpitations and atrial flutter. Heart rate control is poor. Usually diltiazem does not work very well with atrial flutter and he was maxed out at 15 milligram/hour with significant tachycardia previously. Stop the diltiazem. Continue metoprolol succinate. Load with digoxin. I have discussed with him that we will try to rate control him and if this strategy works then he can go home and potentially get cardioversion in the coming weeks. On the other hand if he struggled to control his heart rate then he will need POLI cardioversion given the fact that he was subtherapeutic on admission. I am not sure why he has not on Eliquis or Xarelto-maybe he has some insurance issues. We will follow along with you. Thank you for allowing me to participate in the care of your patient. Please feel free to contact me if you have any questions. Procedures Date of Service Date of Service: 02/12/24
[2024-02-12] MEDS: Digoxin 0.5 MG/2 ML AMPUL 0.25 MG IVPUSH ×2 (12:01→17:33)
[2024-02-12] MEDS: Warfarin Sodium 2.5 MG TABLET PO (17:33)
[2024-02-12] MEDS: Enoxaparin Sodium 40 MG/0.4 ML SYRINGE SUBCUT (17:35)
[2024-02-12] MEDS: guaiFENesin DM 100/10/5 ML 5 ML SYRUP PO (17:39)
[2024-02-12] MEDS: Acetaminophen 325 MG TABLET 650 MG PO (20:15)
[2024-02-12] MEDS: Atorvastatin Calcium 40 MG TABLET PO (20:15)
[2024-02-12] MEDS: 0.9 % Sodium Chloride Flush 3 ML SYRINGE IVFLUSH (20:17)
[2024-02-13] VITALS: BP 116/73; PULSE 75; RESP 18; TEMP 36.7; O2SAT 96
[2024-02-13] MEDS: Digoxin 0.5 MG/2 ML AMPUL 0.25 MG IVPUSH (00:02)
[2024-02-13 04:00] VITALS: BP 103/57; PULSE 78; RESP 20; TEMP 36.3; O2SAT 97
[2024-02-13 06:17] LABS: INTERNATIONAL NORM RATIO 2.4 (0.9-1.1); Prothrombin Time 29.8 SEC (11.1-13.3)
[2024-02-13 07:45] VITALS: BP 109/67; PULSE 85; RESP 20; TEMP 36; O2SAT 96
[2024-02-13] MEDS: Metoprolol Tartrate 50 MG TABLET PO (08:24)
[2024-02-13] MEDS: Ezetimibe 10 MG TABLET PO (08:25)
[2024-02-13] MEDS: Folic Acid 1 MG TABLET PO (08:25)
[2024-02-13] MEDS: Phenytoin Sodium Extended 100 MG CAPSULE 200 MG PO ×2 (08:25→21:25)
[2024-02-13] MEDS: Multivitamin TABLET 1 TAB PO (08:25)
[2024-02-13] MEDS: Thiamine HCL 100 MG TABLET PO (08:25)
[2024-02-13] MEDS: guaiFENesin DM 100/10/5 ML 5 ML SYRUP PO (08:30)
[2024-02-13] MEDS: 0.9 % Sodium Chloride Flush 3 ML SYRINGE IVFLUSH ×3 (10:30→21:26)
[2024-02-13 12:00] VITALS: BP 110/68; PULSE 76; RESP 18; TEMP 36.9; O2SAT 96
--- NOTE | 2024-02-13 12:35 | P.PNIM_ITS ---
Subjective Subjective Date of Service: 02/13/24 Interval History: seen and examined this morning follow up for atrial fibrillation HR improving, has some palpitations Review of Systems Review of Systems: Yes all other systems are reviewed and are negative Constitutional Constitutional: Denies chills and Denies fever(s) Cardiovascular Cardiovascular: Denies chest pain, Denies palpitations and Denies dyspnea Respiratory Respiratory: Denies cough and Denies dyspnea Endocrine Endocrine: Denies palpitations Physical Exam 2 Vital Signs: Vital Signs: Last Vital Signs Temp 98.4 F 02/13/24 12:00 Pulse 76 02/13/24 12:00 Resp 18 02/13/24 12:00 BP 110/68 02/13/24 12:00 Pulse Ox 96 02/13/24 12:00 O2 Del Method Nasal Cannula 02/13/24 12:00 O2 Flow Rate 2 02/13/24 12:00 BMI result Body Mass Index 23.5 Const: General: cooperative, alert and awake Nutritional Appearance: a verage body habitus Orientation/consciousness: patient oriented x3 Resp: Effort & Inspection: normal respiratory effort, able to speak in complete sentences, no respiratory distress and no use of accessory muscles Cardio: Rate: tachycardic GI: Inspection: No distended Palpation (GI): Soft to palpation and nontender Neuro: General: patient oriented x3, moves all extremities and CN's II-XI intact bilaterally Extrem: General: Yes no pedal edema Objective Data Active Medications Acetaminophen (Acetaminophen 325 Mg Tablet) 650 mg PO Q6H PRN PRN Reason: Pain, Mild (Pain Scale 1-3) Last Admin: 02/12/24 20:15 Dose: 650 mg Documented By: BROCK Atorvastatin Calcium (Atorvastatin Calcium 40 Mg Tablet) 40 mg PO BEDTIME [facility] Last Admin: 02/12/24 20:15 Dose: 40 mg Documented By: BROCK Digoxin (Digoxin 0.125 Mg Tablet) 0.125 mg PO Q48H [facility] Ezetimibe (Ezetimibe 10 Mg Tablet) 10 mg PO DAILY [facility] Last Admin: 02/13/24 08:25 Dose: 10 mg Documented By: MARTHA Enoxaparin Sodium (Enoxaparin Sodium 40 Mg/0.4 Ml Syringe) 40 mg SUBCUT Q24H [facility] Last Admin: 02/12/24 17:35 Dose: 40 mg Documented By: LUIS ARMANDO Folic Acid (Folic Acid 1 Mg Tablet) 1 mg PO DAILY [facility] Last Admin: 02/13/24 08:25 Dose: 1 mg Documented By: MARTHA Guaifenesin (Guaifenesin La 600 Mg Tab.Er.12h) 600 mg PO BID PRN PRN Reason: Cough Last Admin: 02/11/24 09:04 Dose: 600 mg Documented By: PAM Guaifenesin/Dextromethorphan (Guaifenesin Dm 100/10/5 Ml 5 Ml Syrup) 5 ml PO Q6H PRN PRN Reason: Cough Last Admin: 02/13/24 08:30 Dose: 5 ml Documented By: MARTHA Metoprolol Succinate (Metoprolol Succinate Er 100 Mg Tab.Er.24h) 100 mg PO DAILY [facility]; Protocol Multivitamins/Vitamin C (Multivitamin Tablet) 1 tab PO DAILY [facility] Last Admin: 02/13/24 08:25 Dose: 1 tab Documented By: MARTHA Omeprazole (Omeprazole 20 Mg Capsule.Dr) 20 mg PO BID@0630,1630 [facility] Last Admin: 02/13/24 06:44 Dose: Not Given Documented By: BROCK Non-Admin Reason: NPO Ondansetron HCl (Ondansetron Hcl 4 Mg/2 Ml Vial) 4 mg IVPUSH Q8H PRN PRN Reason: Nausea and Vomiting Pharmacy Consult (Consult Rx Etoh Phenob Im/Po) 1 each MISCELLANE ONCE PRN; Protocol PRN Reason: Consult order Phenytoin Sodium (Phenytoin Sodium Extended 100 Mg Capsule) 200 mg PO BID [facility] Last Admin: 02/13/24 08:25 Dose: 200 mg Documented By: MARTHA Sodium Chloride (0.9 % Sodium Chloride Flush 3 Ml Syringe) 3 ml IVFLUSH QSHIFT [facility] Last Admin: 02/13/24 10:30 Dose: 3 ml Documented By: MARTHA Thiamine HCl (Thiamine Hcl 100 Mg Tablet) 100 mg PO DAILY [facility] Last Admin: 02/13/24 08:25 Dose: 100 mg Documented By: MARTHA Warfarin Sodium (Warfarin Sodium 2.5 Mg Tablet) 2.5 mg PO DAILY@1800 [facility] Last Admin: 02/12/24 17:33 Dose: 2.5 mg Documented By: LUIS ARMANDO Labs 02/11/24 06:39 02/11/24 06:39 Labs: Laboratory Results - last 24 hr 02/13/24 05:43 PT 29.8 H INR 2.4 H Assessment and Plan (1) Atrial flutter: Status: Acute Plan This is a 70-year-old male admitted with atrial fibrillation with rapid ventricular response Paroxysmal atrial fibrillation with rapid ventricular response cardizem drip stopped, lopressor dose increased, loaded with digoxin, HR improving planned for possible CV, but heart rate improving therefore will hold off Echocardiogram - EF 45-50%, mild aortic valve stenosis mid inferoseptal and mid anteroseptal segments are akinetic, diastolic function indeterminate Continue warfarin, check PT INR daily; INR 2.4 Alcohol withdrawal, unlikely no tremors unsure how much he drinks, according to RN may be 3-4 drinks per day, but patient insists maybe only one per day stop phenobarbitol protocol as patient declined and does not appear to be in active withdrawal folic acid, thiamine IV fluids Coronary artery disease Continue aspirin and statin mild transaminitis outpatient follow up GERD Continue PPI DVT prophylaxis: coumadin Attending Dr. Ramos Full code continue hospitals stay for treatment of paroxysmal atrial fibrillation with rapid ventricular response necessitating IV medications and specialty consultation. Quality Stroke Does the patient have a stroke diagnosis?: No VTE Prior VTE?: No VTE Risk Level:: Medical - moderate - high VTE Device Contraindication: Treatment Not Indicated VTE Drug Contraindication: N/A - Med Ordered
[2024-02-13] MEDS: Digoxin 0.125 MG TABLET PO (13:38)
--- NOTE | 2024-02-13 14:14 | PM.PNCARD ---
Subjective Subjective Date of Service: 02/13/24 Interval history: Seen examined at bedside. Feeling good. Heart rate is better controlled after digoxin load. Physical Exam Vital Signs: Last Vital Signs Temp 98.4 F 02/13/24 12:00 Pulse 76 02/13/24 12:00 Resp 18 02/13/24 12:00 BP 110/68 02/13/24 12:00 Pulse Ox 96 02/13/24 12:00 O2 Del Method Room Air 02/13/24 12:00 O2 Flow Rate 2 02/13/24 07:45 BMI result Body Mass Index 23.5 GENERAL APPEARANCE: in no acute distress, pleasant. NECK: no carotid bruit, no jugular venous distention. SKIN: no suspicious lesions, warm and dry. HEART: Systolic murmur aortic area, irregular rate and rhythm. LUNGS: clear to auscultation bilaterally. ABDOMEN: soft, nontender. EXTREMITIES: no edema. PERIPHERAL PULSES: equal. NEUROLOGIC: No gross deficits, AAO X 3 Objective Labs and Meds 02/11/24 06:39 02/11/24 06:39 Lab results: Laboratory Results - last 24 hr 02/13/24 05:43 PT 29.8 H INR 2.4 H Progress Note: A&P Assessment and plan (1) Atrial fibrillation with RVR: Status: Acute (2) Atrial flutter: Status: Acute Plan [age] year gentleman who has background of atrial fibrillation and mild aortic valve stenosis got admitted with palpitations and atrial flutter. He was subtherapeutic on admission but INR is improved. We discussed in detail about option of cardioversion versus rate control. I gave him the option of doing POLI cardioversion versus waiting for few weeks and if the INRs stays therapeutic to cardiovert without POLI. He is more in favor of just doing cardioversion as outpatient. Clinically he has no symptoms currently and heart rates are better controlled. Not in heart failure. Change metoprolol to Toprol-XL 100 mg daily. Digoxin 125 mcg every other day. Ambulation in the hallway to check heart rate response to exercise and if heart rates below 120s with ambulation he can be discharged home tomorrow. We will arrange outpatient follow-up and potential cardioversion over the next 4-6 weeks if INR stays stable. It appears he can not take NOACs due to interaction with phenytoin. Thank you for allowing me to participate in the care of your patient. Please feel free to contact me if you have any questions. Time Spent With Patient Time: Total time managing care of this patient today ____ minutes. Progress Note: Quality Stroke Does the patient have a stroke diagnosis?: No Procedures Date of Service Date of Service: 02/13/24
[2024-02-13 16:00] VITALS: BP 117/71; PULSE 98; RESP 18; TEMP 36.8; O2SAT 92
[2024-02-13] MEDS: Warfarin Sodium 2.5 MG TABLET PO (18:00)
[2024-02-13] MEDS: Omeprazole 20 MG CAPSULE.DR PO (18:00)
[2024-02-13 19:23] VITALS: BP 130/80; PULSE 100; RESP 19; TEMP 37.4; O2SAT 97
[2024-02-13] MEDS: Atorvastatin Calcium 40 MG TABLET PO (21:25)
[2024-02-14] VITALS (13 sets, daily range): BP systolic 108–143; BP diastolic 55–73; PULSE 68–110; RESP 16–20; TEMP 36.6–37.2; O2SAT 95–100
--- NOTE | 2024-02-14 | ECG_ITS ---
Test Reason : S/P POLI CARDIOVERSION Blood Pressure : / mmHG Vent. Rate : 068 BPM Atrial Rate : 068 BPM P-R Int : 162 ms QRS Dur : 092 ms QT Int : 410 ms P-R-T Axes : 060 026 122 degrees QTc Int : 435 ms Normal sinus rhythm Nonspecific ST and T wave abnormality Abnormal ECG When compared with ECG of 10-FEB-2024 13:19, Sinus rhythm has replaced Atrial flutter Vent. rate has decreased BY [address] no longer depressed in Inferior leads ST less depressed in Lateral leads Nonspecific T wave abnormality has replaced inverted T waves in Lateral leads Referred By: Hadley Kirk Electronically Signed By:Hadley Kirk
[2024-02-14] MEDS: Omeprazole 20 MG CAPSULE.DR PO ×2 (06:43→15:41)
[2024-02-14 06:53] LABS: INTERNATIONAL NORM RATIO 3.4 (0.9-1.1); Prothrombin Time 41.9 SEC (11.1-13.3)
--- NOTE | 2024-02-14 07:00 | CA_ITS ---
Transesophageal Echocardiogram Patient (Last, First, Middle): Moris Jimenez A Gender: Male Date of : 1945 Age: 78 Procedure Date: 02/14/2024 Procedure Type: Transesophageal Echocardiogram Location: [facility] Height: 172.72 cm Weight: 69.85 kg BSA: 1.83 m2 Heart Rate: bpm [employer]: TO Referring MD: Hadley Kirk MD Symptoms: Afib Conclusion: ??? Normal left ventricular cavity size. The left ventricular systolic function is mildly decreased. The visually estimated ejection fraction is between 40-45%. Diastolic function is indeterminate on the basis of available data. ??? There is no evidence of a thrombus in the left atrial appendage. Left atrium is dilated. Findings Procedure Information Consent was obtained prior to the procedure. The probe was passed with no difficulty. This was a technically good study. Left Ventricle Normal left ventricular cavity size. The left ventricular systolic function is mildly decreased. The visually estimated ejection fraction is between 40 45%. Diastolic function is indeterminate on the basis of available data. Right Ventricle Normal right ventricular cavity size and systolic function. Atria There is no evidence of a thrombus in the left atrial appendage. Left atrium is dilated. Aortic Valve There is a normal trileaflet aortic valve. There is moderate calcification of the aortic valve. There is trace (trivial) aortic valve regurgitation. Mitral Valve The mitral valve appears normal. There is trace mitral valve regurgitation. There is no mitral valve stenosis. Pulmonic Valve The pulmonic valve was not well visualized. Tricuspid Valve Normal tricuspid valve structure. There is mild to moderate tricuspid valve regurgitation. Pericardium/Pleural There is no evidence of pericardial effusion. Updated by Hadley Kirk on 03:18 PM with Status of Final Hadley Kirk MD electronically signed on 02/14/2024 3:18:44 PM with status of Final
[2024-02-14] MEDS: Metoprolol Succinate ER 100 MG TAB.ER.24H PO (08:34)
[2024-02-14] MEDS: Phenytoin Sodium Extended 100 MG CAPSULE 200 MG PO (08:34)
[2024-02-14] MEDS: 0.9 % Sodium Chloride Flush 3 ML SYRINGE IVFLUSH ×3 (08:34→21:19)
[2024-02-14] MEDS: Amiodarone HCL 200 MG TABLET 400 MG PO ×2 (09:37→21:18)
--- NOTE | 2024-02-14 11:10 | PM.PNCARD ---
Subjective Subjective Date of Service: 02/14/24 Interval history: Seen examined at bedside. Difficult to control atrial fibrillation. Plan is POLI cardioversion today. Physical Exam Vital Signs: Last Vital Signs Temp 97.8 F 02/14/24 07:59 Pulse 100 02/14/24 07:59 Resp 18 02/14/24 07:59 BP 119/69 02/14/24 07:59 Pulse Ox 96 02/14/24 07:59 O2 Del Method Room Air 02/14/24 07:59 O2 Flow Rate 2 02/13/24 07:45 BMI result Body Mass Index 23.5 GENERAL APPEARANCE: in no acute distress, pleasant. NECK: no carotid bruit, no jugular venous distention. SKIN: no suspicious lesions, warm and dry. HEART: Systolic murmur aortic area, irregular rate and rhythm. LUNGS: clear to auscultation bilaterally. ABDOMEN: soft, nontender. EXTREMITIES: no edema. PERIPHERAL PULSES: equal. NEUROLOGIC: No gross deficits, AAO X 3 Objective Labs and Meds 02/11/24 06:39 02/11/24 06:39 Lab results: Laboratory Results - last 24 hr 02/14/24 06:19 PT 41.9 H D INR 3.4 H Progress Note: A&P Assessment and plan (1) Atrial flutter: Status: Acute (2) Atrial fibrillation with RVR: Status: Acute Plan [age] year gentleman presenting for palpitations and atrial flutter initially. He has reverted to atrial fibrillation since then. He has known history of AFib and has been on Coumadin. He has been on chronic phenytoin therapy and that is why apixaban or Xarelto was not used. We try to rate control him but he had significant tachycardia with ambulation and heart rates were up to 150s. Continue Toprol-XL. Started amiodarone 400 mg twice a day. There is interaction between amiodarone and phenytoin and phenytoin dose has been half to 200 mg twice a day his last seizure was 25 years ago. Continue Coumadin. Can consider Neurology input to stop Phenytoin and change to Keppra because then he can take Eliquis which will be easy to manage with amiodarone. NPO. For POLI cardioversion later today. Thank you for allowing me to participate in the care of your patient. Please feel free to contact me if you have any questions. Time Spent With Patient Time: Total time managing care of this patient today ____ minutes. Progress Note: Quality Stroke Does the patient have a stroke diagnosis?: No Procedures Date of Service Date of Service: 02/14/24
--- NOTE | 2024-02-14 12:00 | HO.ANESPROP2 ---
HPI - Anesthesia Eval Consult details Narrative: 78 yo M admitted with Afib. Will have POLI/CV today. Mild . EF 45-50%. PMFSH Active Problems Active Problems: All Active Problems Atrial flutter (Acute) Subtherapeutic international normalized ratio (INR) (Acute) Atrial fibrillation with RVR (Acute) Hypovitaminosis D (Acute) Bilateral hand swelling (Acute) Inflammatory arthritis (Acute) Aortic stenosis (Acute) Current use of anticoagulant therapy (Acute) group home current use of anticoagulants with INR goal of 2.0-3.0 (Acute) CAD (coronary artery disease) (Acute) Paroxysmal atrial fibrillation (Acute) COVID-19 (Acute) Past Medical History Medical History Hypovitaminosis D Bilateral hand swelling Inflammatory arthritis Aortic stenosis CAD (coronary artery disease) Paroxysmal atrial fibrillation Epilepsy H/O acute myocardial infarction Family History Family History Father Diabetes Arthritis Mother No problems noted. Daughter Arthritis Family history of problems with anesthesia: No Surgical History Surgical History Stented coronary artery History of Problems with Anesthesia: No Social History Social History Household Members: Spouse Housing: House Do you presently have visiting nurse or other home services: No Alcohol intake: current Alcohol intake frequency: holidays/special occasions only Alcohol type: beer Patient Tobacco Use Status: Never used Tobacco Second Hand Smoke Exposure: No service: No Meds Allergies Allergy/AdvReac Type Severity Reaction Status Date / Time penicillin V [From Pen-Vee K] Allergy Mild HIVES Verified 02/10/24 11:27 Active Medications: Current Medications Acetaminophen (Acetaminophen 325 Mg Tablet) 650 mg PO Q6H PRN PRN Reason: Pain, Mild (Pain Scale 1-3) Last Admin: 02/12/24 20:15 Dose: 650 mg Amiodarone HCl (Amiodarone Hcl 200 Mg Tablet) 400 mg PO BID [facility] Last Admin: 02/14/24 09:37 Dose: 400 mg Atorvastatin Calcium (Atorvastatin Calcium 40 Mg Tablet) 40 mg PO BEDTIME [facility] Last Admin: 02/13/24 21:25 Dose: 40 mg Ezetimibe (Ezetimibe 10 Mg Tablet) 10 mg PO DAILY [facility] Last Admin: 02/14/24 08:42 Dose: Not Given Folic Acid (Folic Acid 1 Mg Tablet) 1 mg PO DAILY [facility] Last Admin: 02/14/24 08:42 Dose: Not Given Guaifenesin (Guaifenesin La 600 Mg Tab.Er.12h) 600 mg PO BID PRN PRN Reason: Cough Last Admin: 02/11/24 09:04 Dose: 600 mg Guaifenesin/Dextromethorphan (Guaifenesin Dm 100/10/5 Ml 5 Ml Syrup) 5 ml PO Q6H PRN PRN Reason: Cough Last Admin: 02/13/24 08:30 Dose: 5 ml Metoprolol Succinate (Metoprolol Succinate Er 100 Mg Tab.Er.24h) 100 mg PO DAILY [facility]; Protocol Last Admin: 02/14/24 08:34 Dose: 100 mg Multivitamins/Vitamin C (Multivitamin Tablet) 1 tab PO DAILY [facility] Last Admin: 02/14/24 08:42 Dose: Not Given Omeprazole (Omeprazole 20 Mg Capsule.Dr) 20 mg PO BID@0630,1630 [facility] Last Admin: 02/14/24 06:43 Dose: 20 mg Ondansetron HCl (Ondansetron Hcl 4 Mg/2 Ml Vial) 4 mg IVPUSH Q8H PRN PRN Reason: Nausea and Vomiting Pharmacy Consult (Consult Rx Etoh Phenob Im/Po) 1 each MISCELLANE ONCE PRN; Protocol PRN Reason: Consult order Phenytoin Sodium (Phenytoin Sodium Extended 100 Mg Capsule) 100 mg PO BID [facility] Last Admin: 02/14/24 09:40 Dose: Not Given Sodium Chloride (0.9 % Sodium Chloride Flush 3 Ml Syringe) 3 ml IVFLUSH QSHIFT [facility] Last Admin: 02/14/24 08:34 Dose: 3 ml Thiamine HCl (Thiamine Hcl 100 Mg Tablet) 100 mg PO DAILY [facility] Last Admin: 02/14/24 08:42 Dose: Not Given Warfarin Sodium (Warfarin Sodium 2.5 Mg Tablet) 2.5 mg PO DAILY@1800 [facility] Last Admin: 02/13/24 18:00 Dose: 2.5 mg Home Medications ?Medication ?Instructions ?Recorded ?Confirmed ?Last Taken ?Type COQ10 100MG PO DAILY 1 cap PO DAILY 12/12/20 02/10/24 02/10/24 History multivitamin 1 tab PO DAILY 12/12/20 02/10/24 02/10/24 History omeprazole 20 mg capsule,delayed 20 mg PO BID 10/23/21 02/10/24 02/10/24 History release phenytoin sodium extended 100 mg 200 mg PO BID 06/03/23 02/10/24 02/10/24 History capsule atorvastatin 80 mg tablet 40 mg PO BEDTIME 09/09/23 02/10/24 02/09/24 History warfarin 5 mg tablet 2.5 mg PO DAILY@1800 02/10/24 02/10/24 02/09/24 History Exam Exam Date and Time: February 14, [id number] Height,Weight and Vital Signs: Height 5 ft 8 in Weight 70.2 kg Last Vital Signs Temp 99.0 F 02/14/24 11:28 Pulse 110 H 02/14/24 11:28 Resp 16 02/14/24 11:28 BP 116/66 02/14/24 11:28 Pulse Ox 95 02/14/24 11:28 O2 Del Method Room Air 02/14/24 11:28 O2 Flow Rate 2 02/13/24 07:45 Pertinent Lab Results Pertinent Lab Results: Laboratory Tests 02/10/24 02/10/24 02/11/24 12:08 15:47 06:39 WBC 9.1 10.3 9.2 RBC 4.38 L 4.22 L 4.29 L Hgb 13.4 L 12.9 L 13.0 L Hct 39.4 L 38.2 L 38.5 L MCV 90.0 90.5 89.7 MCH 30.6 30.6 30.3 MCHC 34.0 33.8 33.8 RDW 15.1 15.2 14.9 Plt Count 219 195 216 MPV 9.8 9.1 L 9.2 L Immature Gran % (Auto) 0.4 0.3 Neut % (Auto) 76.5 H 77.1 H Lymph % (Auto) 12.5 L 10.9 L Lyman % (Auto) 10.2 11.3 H Eos % (Auto) 0.1 0.2 Baso % (Auto) 0.3 0.2 Lymph # (Auto) 1.1 L 1.0 L Lyman # (Auto) 0.9 1.0 Eos # (Auto) 0.0 0.0 Baso # (Auto) 0.0 0.0 Abs Immat Gran (auto) 0.04 H 0.03 Absolute Neuts (auto) 6.9 7.1 Absolute Nucleated RBC 0.000 0.000 0.000 Nucleated RBC % (auto) 0.0 0.0 0.0 PT 19.0 H 22.1 H 28.5 H D INR 1.6 H 1.8 H 2.3 H APTT 36.0 35.8 VBG pH VBG pCO2 VBG pO2 VBG HCO3 VBG O2 Saturation VBG Base Excess Sodium 140 138 Potassium 4.3 4.3 Chloride 101 101 Carbon Dioxide 26 24 Anion Gap 17 17 BUN 14 15 Creatinine 1.12 0.98 Estim Creat Clear Calc 52.3 60.1 Estimated GFR > 60 > 60 Random Glucose 88 81 Calcium 9.7 D 9.3 Magnesium 2.0 Total Bilirubin 0.3 0.3 AST 49 H 70 H ALT 36 50 H Alkaline Phosphatase 116 105 Troponin I High Sens 16.1 Total Protein 7.7 6.9 Albumin 4.1 3.6 TSH 2.21 Urine Color Yellow Urine Appearance Clear Urine pH 5.5 Ur Specific [place] 1.010 Urine Protein 30 (1+) H Urine Glucose (UA) Negative Urine Ketones Negative Urine Blood Large (3+) H Urine Nitrite Negative Ur Leukocyte Esterase Negative Urine RBC 6-10 H Urine WBC 0-5 Ur Squamous Epith Cells 0-2 Urine Bacteria None Seen Hyaline Casts 0-2 Influenza Type A (PCR) NEGATIVE Influenza Type B (PCR) NEGATIVE RSV RNA Qual (PCR) NEGATIVE SARS-CoV-2 RNA (RT-PCR) NEGATIVE 02/11/24 02/12/24 02/12/24 15:07 08:42 08:45 WBC RBC Hgb Hct MCV MCH MCHC RDW Plt Count MPV Immature Gran % (Auto) Neut % (Auto) Lymph % (Auto) Lyman % (Auto) Eos % (Auto) Baso % (Auto) Lymph # (Auto) Lyman # (Auto) Eos # (Auto) Baso # (Auto) Abs Immat Gran (auto) Absolute Neuts (auto) Absolute Nucleated RBC Nucleated RBC % (auto) PT 29.7 H 24.9 H INR 2.4 H 2.0 H APTT VBG pH 7.40 VBG pCO2 44 VBG pO2 35 VBG HCO3 28 H VBG O2 Saturation 64.0 VBG Base Excess 3.0 Sodium Potassium Chloride Carbon Dioxide Anion Gap BUN Creatinine Estim Creat Clear Calc Estimated GFR Random Glucose Calcium Magnesium Total Bilirubin AST ALT Alkaline Phosphatase Troponin I High Sens Total Protein Albumin TSH Urine Color Urine Appearance Urine pH Ur Specific [place] Urine Protein Urine Glucose (UA) Urine Ketones Urine Blood Urine Nitrite Ur Leukocyte Esterase Urine RBC Urine WBC Ur Squamous Epith Cells Urine Bacteria Hyaline Casts Influenza Type A (PCR) Influenza Type B (PCR) RSV RNA Qual (PCR) SARS-CoV-2 RNA (RT-PCR) 02/13/24 02/14/24 05:43 06:19 WBC RBC Hgb Hct MCV MCH MCHC RDW Plt Count MPV Immature Gran % (Auto) Neut % (Auto) Lymph % (Auto) Lyman % (Auto) Eos % (Auto) Baso % (Auto) Lymph # (Auto) Lyman # (Auto) Eos # (Auto) Baso # (Auto) Abs Immat Gran (auto) Absolute Neuts (auto) Absolute Nucleated RBC Nucleated RBC % (auto) PT 29.8 H 41.9 H D INR 2.4 H 3.4 H APTT VBG pH VBG pCO2 VBG pO2 VBG HCO3 VBG O2 Saturation VBG Base Excess Sodium Potassium Chloride Carbon Dioxide Anion Gap BUN Creatinine Estim Creat Clear Calc Estimated GFR Random Glucose Calcium Magnesium Total Bilirubin AST ALT Alkaline Phosphatase Troponin I High Sens Total Protein Albumin TSH Urine Color Urine Appearance Urine pH Ur Specific [place] Urine Protein Urine Glucose (UA) Urine Ketones Urine Blood Urine Nitrite Ur Leukocyte Esterase Urine RBC Urine WBC Ur Squamous Epith Cells Urine Bacteria Hyaline Casts Influenza Type A (PCR) Influenza Type B (PCR) RSV RNA Qual (PCR) SARS-CoV-2 RNA (RT-PCR) Airway Mallampati Class: I TM Dist: >3cm Neck ROM: Full Partial: Upper Heart: S1S2 Lungs: CTAB Assessment and Plan Assessment Anesthesia Assessment: Anesthesia Plan Discussed and Chart Reviewed Final Anesthetic Review Family History of Problems with Anesthesia: No History of Problems with Anesthesia: No NPO: Yes ASA Class: III Final Preanesthetic Review: No Changes in Pt Med Stat, Meds/Allgs Chart Reviewed, Consent Obtained/Reviewed and Anes Risks/Benef Reviewed Patient Risk: Intermediate Procedure Risk: Intermediate Anesthetic Plan Anesthetic Plan: MAC: and Agree w/ Assess. and Plan Disposition: Standard PACU
--- NOTE | 2024-02-14 13:04 | MHC.SHP ---
Pre-Procedural Eval Section A - 24 Hr Update-Section A only Date of Service: 02/14/24 The patient is an INPATIENT: Yes The patient has been examined within 24 hours of the surgical procedure. The History & Physical has been completed within 30 days and I have reviewed it.: Yes Section B - Complete if H&P > 30 days Chief Complaint: Atrial flutter Allergies: Allergies Allergy/AdvReac Type Severity Reaction Status Date / Time penicillin V [From Pen-Vee K] Allergy Mild HIVES Verified 02/10/24 11:27 Plan Diagnosis/Plan: Unchanged I have reviewed the history and physical and performed a pertinent physical examination on my patient. No changes have occurred unless specified. Time Spent With Patient Time: Total time managing care of this patient today ____ minutes.
--- NOTE | 2024-02-14 14:04 | P.PNIM_ITS ---
Subjective Subjective Date of Service: 02/14/24 Interval History: Seen and examined this morning Follow-up for atrial fibrillation, heart rate variable, up to 140s this morning Patient asymptomatic plan for cardioversion today Review of Systems Review of Systems: Yes all other systems are reviewed and are negative Cardiovascular Cardiovascular: Denies palpitations Endocrine Endocrine: Denies palpitations Physical Exam 2 Vital Signs: Vital Signs: Last Vital Signs Temp 97.9 F 02/14/24 13:46 Pulse 72 02/14/24 13:46 Resp 16 02/14/24 13:46 BP 108/55 L 02/14/24 13:46 Pulse Ox 99 02/14/24 13:46 O2 Del Method Room Air 02/14/24 13:46 O2 Flow Rate 2 02/13/24 07:45 BMI result Body Mass Index 23.5 Const: General: cooperative, alert and awake Nutritional Appearance: a verage body habitus Orientation/consciousness: patient oriented x3 Resp: Effort & Inspection: normal respiratory effort, able to speak in complete sentences, no respiratory distress and no use of accessory muscles Cardio: Rate: tachycardic GI: Inspection: No distended Palpation (GI): Soft to palpation and nontender Neuro: General: patient oriented x3, moves all extremities and CN's II-XI intact bilaterally Extrem: General: Yes no pedal edema Objective Data Active Medications Acetaminophen (Acetaminophen 325 Mg Tablet) 650 mg PO Q6H PRN PRN Reason: Pain, Mild (Pain Scale 1-3) Last Admin: 02/12/24 20:15 Dose: 650 mg Documented By: BROCK Amiodarone HCl (Amiodarone Hcl 200 Mg Tablet) 400 mg PO BID [facility] Last Admin: 02/14/24 09:37 Dose: 400 mg Documented By: LALO Atorvastatin Calcium (Atorvastatin Calcium 40 Mg Tablet) 40 mg PO BEDTIME [facility] Last Admin: 02/13/24 21:25 Dose: 40 mg Documented By: BARON Ezetimibe (Ezetimibe 10 Mg Tablet) 10 mg PO DAILY [facility] Last Admin: 02/14/24 08:42 Dose: Not Given Documented By: LALO Non-Admin Reason: Physician Held Med Folic Acid (Folic Acid 1 Mg Tablet) 1 mg PO DAILY [facility] Last Admin: 02/14/24 08:42 Dose: Not Given Documented By: LALO Non-Admin Reason: Physician Held Med Guaifenesin (Guaifenesin La 600 Mg Tab.Er.12h) 600 mg PO BID PRN PRN Reason: Cough Last Admin: 02/11/24 09:04 Dose: 600 mg Documented By: PAM Guaifenesin/Dextromethorphan (Guaifenesin Dm 100/10/5 Ml 5 Ml Syrup) 5 ml PO Q6H PRN PRN Reason: Cough Last Admin: 02/13/24 08:30 Dose: 5 ml Documented By: MARTHA Metoprolol Succinate (Metoprolol Succinate Er 100 Mg Tab.Er.24h) 100 mg PO DAILY [facility]; Protocol Last Admin: 02/14/24 08:34 Dose: 100 mg Documented By: LALO Multivitamins/Vitamin C (Multivitamin Tablet) 1 tab PO DAILY [facility] Last Admin: 02/14/24 08:42 Dose: Not Given Documented By: LALO Non-Admin Reason: Physician Held Med Omeprazole (Omeprazole 20 Mg Capsule.Dr) 20 mg PO BID@0630,1630 [facility] Last Admin: 02/14/24 06:43 Dose: 20 mg Documented By: BARON Ondansetron HCl (Ondansetron Hcl 4 Mg/2 Ml Vial) 4 mg IVPUSH Q8H PRN PRN Reason: Nausea and Vomiting Pharmacy Consult (Consult Rx Etoh Phenob Im/Po) 1 each MISCELLANE ONCE PRN; Protocol PRN Reason: Consult order Phenytoin Sodium (Phenytoin Sodium Extended 100 Mg Capsule) 100 mg PO BID [facility] Last Admin: 02/14/24 09:40 Dose: Not Given Documented By: LALO Non-Admin Reason: previously admis 200mg per order Sodium Chloride (0.9 % Sodium Chloride Flush 3 Ml Syringe) 3 ml IVFLUSH QSHIFT [facility] Last Admin: 02/14/24 08:34 Dose: 3 ml Documented By: LALO Thiamine HCl (Thiamine Hcl 100 Mg Tablet) 100 mg PO DAILY [facility] Last Admin: 02/14/24 08:42 Dose: Not Given Documented By: LALO Non-Admin Reason: Physician Held Med Warfarin Sodium (Warfarin Sodium 2.5 Mg Tablet) 2.5 mg PO DAILY@1800 [facility] Last Admin: 02/13/24 18:00 Dose: 2.5 mg Documented By: MARTHA Labs 02/11/24 06:39 02/11/24 06:39 Labs: Laboratory Results - last 24 hr 02/14/24 06:19 PT 41.9 H D INR 3.4 H Assessment and Plan (1) Atrial fibrillation with RVR: Status: Acute Plan This is a 70-year-old male admitted with atrial fibrillation with rapid ventricular response Paroxysmal atrial fibrillation with rapid ventricular response difficult to control HR cardizem drip stopped, lopressor dose increased, loaded with digoxin, HR initially improved but then became tachycardic with ambulation and again overnight plan for CV today Echocardiogram - EF 45-50%, mild aortic valve stenosis mid inferoseptal and mid anteroseptal segments are akinetic, diastolic function indeterminate Continue warfarin, check PT INR daily; INR 3.4, hold coumadin today Started on amiodarone 400 mg twice daily - there is an interaction between amiodarone and phenytoin, dose of phenytoin decreased for this reason. Recommend possible change from phenytoin to Keppra - Current anticoagulation with Coumadin as above. If changed off phenytoin could switch anticoagulation to Eliquis Neurology consult pending to discuss medication changes Alcohol withdrawal, unlikely no tremors unsure how much he drinks, according to RN may be 3-4 drinks per day, but patient insists maybe only one per day stop phenobarbitol protocol as patient declined and does not appear to be in active withdrawal folic acid, thiamine IV fluids Coronary artery disease Continue aspirin and statin mild transaminitis outpatient follow up GERD Continue PPI DVT prophylaxis: coumadin Attending Dr. Ramos Full code continue hospitals stay for treatment of paroxysmal atrial fibrillation with rapid ventricular response necessitating IV medications and specialty consultation. Quality Stroke Does the patient have a stroke diagnosis?: No VTE Prior VTE?: No VTE Risk Level:: Medical - moderate - high VTE Device Contraindication: Treatment Not Indicated VTE Drug Contraindication: N/A - Med Ordered
--- NOTE | 2024-02-14 14:04 | HO.CARDIVERS ---
Cardioversion Procedure Note Cardioversion Date of Procedure: 02/14/24 Ordering Provider: Hadley Kirk Performing Provider: Hadley Kirk Indication for Procedure: Afib with RVR Performed with Transesophageal Echo: Yes POLI findings (if POLI Performed): No JOANNA clot History: 78 male with atrial fib with RVR. Difficult to rate control. Consent: Verbal and Written consent was obtained from the patient before starting. The patient was made aware of the risk of skin burn, arrhythmia, failure and stroke. Procedure: After consent obtained, defib pads were attached and the patient was sedated by the anesthesia team. Once adequate sedation achieved, single synchronized shock of 200 J was given. The patient converted to sinus rhythm. Complications: None Recommendations: c/w amiodarone and coumadin. would see if phenytoin can be changed to keppra. In that case stop coumadin and start Eliquis.
--- NOTE | 2024-02-14 14:13 | MHC.CM.PN ---
PER MD ROUNDS, PT NOT READY TO DC, PLAN FOR CARDIOVERSION TODAY DCP REMAINS HOME WITH NO SERVICES VIA SELF TRANSPORT
[2024-02-14] MEDS: Atorvastatin Calcium 40 MG TABLET PO (21:18)
[2024-02-14] MEDS: guaiFENesin DM 100/10/5 ML 5 ML SYRUP PO (21:19)
[2024-02-15 04:00] VITALS: BP 117/59; PULSE 66; RESP 18; TEMP 36.4; O2SAT 92
[2024-02-15] MEDS: Omeprazole 20 MG CAPSULE.DR PO ×2 (06:09→18:06)
[2024-02-15 07:00] LABS: Hematocrit 35.2 % (42.0-52.0); Hemoglobin 11.7 g/dl (14.0-18.0); Mean Corpuscular HGB Conc 33.2 g/dl (31.0-36.0); Mean Corpuscular Hemoglobin 30.1 pg (27.0-33.0); Mean Corpuscular Volume 90.5 fL (80.0-98.0); Mean Platelet Volume 11.2 fL (9.4-12.4); Platelet Count 190 X10*3/uL (160-400); Red Blood Count 3.89 X10*6/uL (4.60-5.80); Red Cell Distribution Width 14.6 % (11.0-16.0); White Blood Count 9.6 X10*3/uL (4.8-10.8)
[2024-02-15 07:05] LABS: INTERNATIONAL NORM RATIO 3.1 (0.9-1.1); Prothrombin Time 38.1 SEC (11.1-13.3)
--- NOTE | 2024-02-15 07:25 | PM.NEUROCN ---
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 Now he was diagnosed with the atrial flutter and was going to be put on mi at around, which is interaction with Dilantin. This consultation was requested for alternate drug. He did not have any seizure. Review of Systems Review of Systems: No seizure-like activity [facility] Past Medical History Medical History Hypovitaminosis D Bilateral hand swelling Inflammatory arthritis Aortic stenosis CAD (coronary artery disease) Paroxysmal atrial fibrillation Epilepsy H/O acute myocardial infarction Family History Family History Father Diabetes Arthritis Mother No problems noted. Daughter Arthritis Surgical History Surgical History Stented coronary artery Social History Social History Household Members: Spouse Housing: House Do you presently have visiting nurse or other home services: No Alcohol intake: current Alcohol intake frequency: holidays/special occasions only Alcohol type: beer Patient Tobacco Use Status: Never used Tobacco Second Hand Smoke Exposure: No service: No Meds Allergies Allergy/AdvReac Type Severity Reaction Status Date / Time penicillin V [From Pen-Vee K] Allergy Mild HIVES Verified 02/10/24 11:27 Active Medications: Current Medications Acetaminophen (Acetaminophen 325 Mg Tablet) 650 mg PO Q6H PRN PRN Reason: Pain, Mild (Pain Scale 1-3) Last Admin: 02/12/24 20:15 Dose: 650 mg Amiodarone HCl (Amiodarone Hcl 200 Mg Tablet) 400 mg PO BID [facility] Last Admin: 02/14/24 21:18 Dose: 400 mg Atorvastatin Calcium (Atorvastatin Calcium 40 Mg Tablet) 40 mg PO BEDTIME [facility] Last Admin: 02/14/24 21:18 Dose: 40 mg Ezetimibe (Ezetimibe 10 Mg Tablet) 10 mg PO DAILY [facility] Last Admin: 02/14/24 08:42 Dose: Not Given Folic Acid (Folic Acid 1 Mg Tablet) 1 mg PO DAILY [facility] Last Admin: 02/14/24 08:42 Dose: Not Given Guaifenesin (Guaifenesin La 600 Mg Tab.Er.12h) 600 mg PO BID PRN PRN Reason: Cough Last Admin: 02/11/24 09:04 Dose: 600 mg Guaifenesin/Dextromethorphan (Guaifenesin Dm 100/10/5 Ml 5 Ml Syrup) 5 ml PO Q6H PRN PRN Reason: Cough Last Admin: 02/14/24 21:19 Dose: 5 ml Metoprolol Succinate (Metoprolol Succinate Er 100 Mg Tab.Er.24h) 100 mg PO DAILY [facility]; Protocol Last Admin: 02/14/24 08:34 Dose: 100 mg Multivitamins/Vitamin C (Multivitamin Tablet) 1 tab PO DAILY [facility] Last Admin: 02/14/24 08:42 Dose: Not Given Omeprazole (Omeprazole 20 Mg Capsule.Dr) 20 mg PO BID@0630,1630 [facility] Last Admin: 02/15/24 06:09 Dose: 20 mg Ondansetron HCl (Ondansetron Hcl 4 Mg/2 Ml Vial) 4 mg IVPUSH Q8H PRN PRN Reason: Nausea and Vomiting Pharmacy Consult (Consult Rx Etoh Phenob Im/Po) 1 each MISCELLANE ONCE PRN; Protocol PRN Reason: Consult order Phenytoin Sodium (Phenytoin Sodium Extended 100 Mg Capsule) 100 mg PO BID [facility] Last Admin: 02/14/24 21:11 Dose: Not Given Sodium Chloride (0.9 % Sodium Chloride Flush 3 Ml Syringe) 3 ml IVFLUSH QSHIFT [facility] Last Admin: 02/14/24 21:19 Dose: 3 ml Thiamine HCl (Thiamine Hcl 100 Mg Tablet) 100 mg PO DAILY [facility] Last Admin: 02/14/24 08:42 Dose: Not Given Warfarin Sodium (Warfarin Sodium 2.5 Mg Tablet) 2.5 mg PO DAILY@1800 [facility] Last Admin: 02/13/24 18:00 Dose: 2.5 mg Home Medications ?Medication ?Instructions ?Recorded ?Confirmed ?Last Taken ?Type COQ10 100MG PO DAILY 1 cap PO DAILY 12/12/20 02/10/24 02/10/24 History multivitamin 1 tab PO DAILY 12/12/20 02/10/24 02/10/24 History omeprazole 20 mg capsule,delayed 20 mg PO BID 10/23/21 02/10/24 02/10/24 History release phenytoin sodium extended 100 mg 200 mg PO BID 06/03/23 02/10/24 02/10/24 History capsule atorvastatin 80 mg tablet 40 mg PO BEDTIME 09/09/23 02/10/24 02/09/24 History warfarin 5 mg tablet 2.5 mg PO DAILY@1800 02/10/24 02/10/24 02/09/24 History Physical Exam Vital Signs: Vital Signs: Last Vital Signs Temp 97.5 F 02/15/24 04:00 Pulse 66 02/15/24 04:00 Resp 18 02/15/24 04:00 BP 117/59 L 02/15/24 04:00 Pulse Ox 92 02/15/24 04:00 O2 Del Method Room Air 02/15/24 04:00 O2 Flow Rate 2 02/13/24 04:00 BMI result Body Mass Index 23.5 Neuro: Other: He is alert and awake with normal spontaneity of speech fluency comprehension and affect. There is no nystagmus or significant tremor. Affect is normal. Results Labs 02/15/24 06:31 02/11/24 06:39 Labs: Short CBC 02/15/24 Range/Units 06:31 WBC 9.6 (4.8-10.8) X10*3/uL Hgb 11.7 L (14.0-18.0) g/dl Hct 35.2 L (42.0-52.0) % Plt Count 190 (160-400) X10*3/uL Assessment and Plan (1) History of seizure: Status: Acute 78 years old man who had 1 seizure in 1970s and since then he has been taking Dilantin. He has not stopped the medicine because of the rules about driving as he did not want to stop driving. 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 His Dilantin level is on toxic side specially for his age group, which would result in complications. My recommendation is to discontinue Dilantin and start him on levetiracetam 500 mg twice a day. Procedures Date of Service Date of Service: 02/15/24
[2024-02-15 07:46] VITALS: BP 119/60; PULSE 64; RESP 18; TEMP 36.2; O2SAT 92
[2024-02-15 08:25] VITALS: BP 119/60; PULSE 76
[2024-02-15] MEDS: Thiamine HCL 100 MG TABLET PO (08:25)
[2024-02-15] MEDS: Ezetimibe 10 MG TABLET PO (08:25)
[2024-02-15] MEDS: Multivitamin TABLET 1 TAB PO (08:25)
[2024-02-15] MEDS: Metoprolol Succinate ER 100 MG TAB.ER.24H PO (08:25)
[2024-02-15] MEDS: Folic Acid 1 MG TABLET PO (08:25)
[2024-02-15] MEDS: Amiodarone HCL 200 MG TABLET 400 MG PO ×2 (08:25→21:04)
[2024-02-15] MEDS: 0.9 % Sodium Chloride Flush 3 ML SYRINGE IVFLUSH ×2 (08:27→21:05)
--- NOTE | 2024-02-15 09:14 | HO.POSTANES ---
Post Anesthesia Evaluation Post Anesthesia Evaluation Date of Service: 02/15/24 Vital Signs: Vital Signs Temp Pulse Resp BP Pulse Ox O2 Del Method 02/15/24 08:25 76 119/60 02/15/24 07:46 97.2 F 64 18 119/60 92 Room Air 02/15/24 04:00 97.5 F 66 18 117/59 L 92 Room Air 02/14/24 23:46 98.6 F 72 18 127/60 98 Room Air Anesthesia: TIVA Mental Status: Awake Pain Control: Satisfactory Nausea/Vomiting: None Hydration: Adequate Anesthesia-Related Issues: No Anes. Related Issues
--- NOTE | 2024-02-15 10:51 | PM.DS ---
DS: Providers Provider Date of admission: 02/10/24 15:08 Primary care physician: Jose Simon MD Consults: 02/11/24 15:14 Consult to Cardiology Routine Consulting Provider: [facility] Cardiovascular Services Reason for consultation: afib rvr 02/11/24 16:23 Addiction Medicine Routine Consulting Provider: [facility] Reason for consultation: etoh 02/14/24 14:03 Consult to Neurology Routine Consulting Provider: [facility] Reason for consultation: on phenytoin for h/o seizure; med interactions ?change meds; see cards note Has provider been notified: No DS: Diagnosis Discharge Diagnosis (1) History of seizure: Status: Acute Physical Exam Vital Signs: Vital Signs: Last Vital Signs Temp 97.2 F 02/15/24 07:46 Pulse 76 02/15/24 08:25 Resp 18 02/15/24 07:46 BP 119/60 02/15/24 08:25 Pulse Ox 92 02/15/24 07:46 O2 Del Method Room Air 02/15/24 07:46 O2 Flow Rate 2 02/13/24 04:00 BMI result Body Mass Index 23.5 DS: Data Data Completed and Pending Labs on day of discharge: Laboratory Results - last 24 hr 02/15/24 06:31 WBC 9.6 RBC 3.89 L Hgb 11.7 L Hct 35.2 L MCV 90.5 MCH 30.1 MCHC 33.2 RDW 14.6 Plt Count 190 MPV 11.2 Absolute Nucleated RBC 0.000 Nucleated RBC % (auto) 0.0 PT 38.1 H INR 3.1 H Discharge Plan Discharge Referrals: Jose Simon MD [Primary Care Provider] - 1 Week Discharge Medications: No Action ezetimibe 10 mg tablet 10 mg PO DAILY Qty: 90 3RF metoprolol succinate 50 mg tablet extended release 24 hr 25 mg PO BID 90 Days Qty: 90 3RF warfarin 5 mg tablet 2.5 mg PO DAILY@1800 Protocol: Dose Management Condition: Saturday (Week One) Dose/Route: 2.5 mg Instruction: 0.5 x 5 mg tablets Condition: Saturday Dose/Route: 2.5 mg Instruction: 0.5 x 5 mg tablets Condition: Saturday Dose/Route: 2.5 mg Instruction: 0.5 x 5 mg tablets Condition: Saturday Dose/Route: 2.5 mg Instruction: 0.5 x 5 mg tablets Condition: Dose/Route: 2.5 mg Instruction: 0.5 x 5 mg tablets Condition: Saturday Dose/Route: 2.5 mg Instruction: 0.5 x 5 mg tablets Condition: Saturday Dose/Route: 2.5 mg Instruction: 0.5 x 5 mg tablets Condition: Saturday (Week Two) Dose/Route: 2.5 mg Instruction: 0.5 x 5 mg tablets Condition: Saturday Dose/Route: 2.5 mg Instruction: 0.5 x 5 mg tablets Condition: Saturday Dose/Route: 2.5 mg Instruction: 0.5 x 5 mg tablets Condition: Saturday Dose/Route: 2.5 mg Instruction: 0.5 x 5 mg tablets Condition: Dose/Route: 2.5 mg Instruction: 0.5 x 5 mg tablets Condition: Saturday Dose/Route: 2.5 mg Instruction: 0.5 x 5 mg tablets Condition: Saturday Dose/Route: 2.5 mg Instruction: 0.5 x 5 mg tablets Protocol Text: Adjustment Start Date: Saturday02/10/24 INR Value: 2.0 INR Date: 02/10/24 Recheck Date: 03/09/24 Additional Instructions: REVIEW FOOD LIST WEEKLY, AVOID [place] TODAY, CALL WITH ANY MEDICATION CHANGES MERRY, ASK MD OR PHARMACIST ABOUT CORICIDIN TO HELP WITH COLD FLU ALLERGY SYMPTOMS omeprazole 20 mg capsule,delayed release(DR/EC) 20 mg PO BID atorvastatin 80 mg tablet 40 mg PO BEDTIME Patient Comments: pt states his dose decreased to 40mf daily COQ10 100MG PO DAILY 1 cap PO DAILY multivitamin Tablet 1 tab PO DAILY phenytoin sodium extended 100 mg capsule 200 mg PO BID Print Language: Danish
[2024-02-15] MEDS: levETIRAcetam 500 MG TABLET PO ×2 (11:03→21:04)
--- NOTE | 2024-02-15 11:03 | PM.PNCARD ---
Subjective Subjective Date of Service: 02/15/24 Interval history: Seen and examined at bedside. Status post cardioversion. Physical Exam Vital Signs: Last Vital Signs Temp 97.2 F 02/15/24 07:46 Pulse 76 02/15/24 08:25 Resp 18 02/15/24 07:46 BP 119/60 02/15/24 08:25 Pulse Ox 92 02/15/24 07:46 O2 Del Method Room Air 02/15/24 07:46 O2 Flow Rate 2 02/13/24 04:00 BMI result Body Mass Index 23.5 GENERAL APPEARANCE: in no acute distress, pleasant. NECK: no carotid bruit, no jugular venous distention. SKIN: no suspicious lesions, warm and dry. HEART: Systolic murmur aortic area, regular rate and rhythm. LUNGS: clear to auscultation bilaterally. ABDOMEN: soft, nontender. EXTREMITIES: no edema. PERIPHERAL PULSES: equal. NEUROLOGIC: No gross deficits, AAO X 3 Objective Labs and Meds 02/15/24 06:31 02/11/24 06:39 Lab results: Laboratory Results - last 24 hr 02/15/24 06:31 WBC 9.6 RBC 3.89 L Hgb 11.7 L Hct 35.2 L MCV 90.5 MCH 30.1 MCHC 33.2 RDW 14.6 Plt Count 190 MPV 11.2 Absolute Nucleated RBC 0.000 Nucleated RBC % (auto) 0.0 PT 38.1 H INR 3.1 H Progress Note: A&P Assessment and plan (1) Atrial fibrillation with RVR: Status: Acute (2) Atrial flutter: Status: Acute Plan Pleasant 78 year gentleman who presented with atrial flutter and later developed atrial fibrillation. He was difficult to rate control and we decided to do POLI cardioversion. He was successfully cardioverted and was started on amiodarone. He previously was taking phenytoin for approximately 20 years for seizure prevention. Phenytoin has interaction with novel anticoagulants and due to that reason he has not been on Eliquis or Xarelto. We will refill amiodarone and fluctuation of INR we decided to put him on apixaban and after discussion with neurology his phenytoin has been discontinued and he has been changed to Keppra. His getting off Coumadin and phenytoin. He will be on Keppra and Eliquis. On amiodarone 400 mg twice a day for next 14 days and then transitioned to 200 mg daily. Overall clinically stable. Thank you for allowing me to participate in the care of your patient. Please feel free to contact me if you have any questions. Time Spent With Patient Time: Total time managing care of this patient today ____ minutes. Progress Note: Quality Stroke Does the patient have a stroke diagnosis?: No Procedures Date of Service Date of Service: 02/15/24
--- NOTE | 2024-02-15 11:14 | HO.PM.IMPN ---
Subjective Subjective Date of Service: 02/15/24 Interval History: Seen and examined this morning Follow-up for atrial fibrillation, s/p cardioversion 02/13 Patient asymptomatic, no complaints, remains in NSR wants to go home. INR elevated 3.1 Review of Systems Review of Systems: Yes all other systems are reviewed and are negative Cardiovascular Cardiovascular: Denies palpitations Endocrine Endocrine: Denies palpitations Physical Exam Vital Signs: Vital Signs: Last Vital Signs Temp 97.2 F 02/15/24 07:46 Pulse 76 02/15/24 08:25 Resp 18 02/15/24 07:46 BP 119/60 02/15/24 08:25 Pulse Ox 92 02/15/24 07:46 O2 Del Method Room Air 02/15/24 07:46 O2 Flow Rate 2 02/13/24 04:00 BMI result Body Mass Index 23.5 Constitutional - Awake and Alert, No apparent distress Eyes - PERRLA, EOMI Cardiovascular - S1S2, RRR, No edema Respiratory - Normal lung expansion, Normal respiratory effort, No respiratory distress, CTA bilaterally Extremities - no calf tenderness bilaterally, no swelling Skin - Warm/Dry Neurological - Alert & oriented x3 Psychological - Appropriate affect Objective Data Active Medications Acetaminophen (Acetaminophen 325 Mg Tablet) 650 mg PO Q6H PRN PRN Reason: Pain, Mild (Pain Scale 1-3) Last Admin: 02/12/24 20:15 Dose: 650 mg Documented By: BROCK Amiodarone HCl (Amiodarone Hcl 200 Mg Tablet) 400 mg PO BID [facility] Last Admin: 02/15/24 08:25 Dose: 400 mg Documented By: LUIS ARMANDO Apixaban (Apixaban 5 Mg Tablet) 5 mg PO BID [facility] Atorvastatin Calcium (Atorvastatin Calcium 40 Mg Tablet) 40 mg PO BEDTIME [facility] Last Admin: 02/14/24 21:18 Dose: 40 mg Documented By: MARGARITA Ezetimibe (Ezetimibe 10 Mg Tablet) 10 mg PO DAILY [facility] Last Admin: 02/15/24 08:25 Dose: 10 mg Documented By: LUIS ARMANDO Folic Acid (Folic Acid 1 Mg Tablet) 1 mg PO DAILY [facility] Last Admin: 02/15/24 08:25 Dose: 1 mg Documented By: LUIS ARMANDO Guaifenesin (Guaifenesin La 600 Mg Tab.Er.12h) 600 mg PO BID PRN PRN Reason: Cough Last Admin: 02/11/24 09:04 Dose: 600 mg Documented By: PAM Guaifenesin/Dextromethorphan (Guaifenesin Dm 100/10/5 Ml 5 Ml Syrup) 5 ml PO Q6H PRN PRN Reason: Cough Last Admin: 02/14/24 21:19 Dose: 5 ml Documented By: MARGARITA Levetiracetam (Levetiracetam 500 Mg Tablet) 500 mg PO BID [facility] Last Admin: 02/15/24 11:03 Dose: 500 mg Documented By: LUIS ARMANDO Metoprolol Succinate (Metoprolol Succinate Er 100 Mg Tab.Er.24h) 100 mg PO DAILY [facility]; Protocol Last Admin: 02/15/24 08:25 Dose: 100 mg Documented By: LUIS ARMANDO Multivitamins/Vitamin C (Multivitamin Tablet) 1 tab PO DAILY [facility] Last Admin: 02/15/24 08:25 Dose: 1 tab Documented By: LUIS ARMANDO Omeprazole (Omeprazole 20 Mg Capsule.Dr) 20 mg PO BID@0630,1630 [facility] Last Admin: 02/15/24 06:09 Dose: 20 mg Documented By: OLVIN Ondansetron HCl (Ondansetron Hcl 4 Mg/2 Ml Vial) 4 mg IVPUSH Q8H PRN PRN Reason: Nausea and Vomiting Pharmacy Consult (Consult Rx Etoh Phenob Im/Po) 1 each MISCELLANE ONCE PRN; Protocol PRN Reason: Consult order Sodium Chloride (0.9 % Sodium Chloride Flush 3 Ml Syringe) 3 ml IVFLUSH QSHIFT [facility] Last Admin: 02/15/24 08:27 Dose: 3 ml Documented By: LUIS ARMANDO Thiamine HCl (Thiamine Hcl 100 Mg Tablet) 100 mg PO DAILY [facility] Last Admin: 02/15/24 08:25 Dose: 100 mg Documented By: LUIS ARMANDO Labs 02/15/24 06:31 02/11/24 06:39 Labs: Laboratory Results - last 24 hr 02/15/24 06:31 MCV 90.5 MCH 30.1 MCHC 33.2 RDW 14.6 Plt Count 190 MPV 11.2 Absolute Nucleated RBC 0.000 Nucleated RBC % (auto) 0.0 PT 38.1 H INR 3.1 H Assessment and Plan (1) Atrial fibrillation with RVR: Status: Acute Plan This is a 70-year-old male admitted with atrial fibrillation with rapid ventricular response Paroxysmal atrial fibrillation with rapid ventricular response difficult to control HR cardizem drip stopped, lopressor dose increased, loaded with digoxin, HR initially improved but then became tachycardic with ambulation and again overnight s/p cardioversion 02/13 Echocardiogram - EF 45-50%, mild aortic valve stenosis mid inferoseptal and mid anteroseptal segments are akinetic, diastolic function indeterminate Changed to keppra from phenytoin. DC coumadin. INR 3.1. Per cards/pharmacy, initiate eliquis 02/14 pm. Recheck INR am Started on amiodarone 400 mg twice daily (phenytoin changed to keppra) Alcohol withdrawal, unlikely no tremors unsure how much he drinks, according to RN may be 3-4 drinks per day, but patient insists maybe only one per day stop phenobarbitol protocol as patient declined and does not appear to be in active withdrawal folic acid, thiamine IV fluids Unspecified seizure disorder per pt one time seizure in the 70s without recurrence, had been maintained on phenytoin Per neuro/cards dc phenytoin (level toxic anyway given pt age), initiate keppra 500mg bid Coronary artery disease Continue aspirin and statin mild transaminitis outpatient follow up GERD Continue PPI DVT prophylaxis: eliquis Full code Dispo- plan for dc tomorrow after initiating eliquis this evening and recheck inr am continue hospitals stay for treatment of paroxysmal atrial fibrillation with rapid ventricular response necessitating IV medications s/p cardioversion and specialty consultation. Quality Stroke Does the patient have a stroke diagnosis?: No VTE Prior VTE?: No VTE Risk Level:: Medical - moderate - high VTE Device Contraindication: Treatment Not Indicated VTE Drug Contraindication: N/A - Med Ordered
[2024-02-15 11:27] VITALS: BP 130/61; PULSE 64; RESP 20; TEMP 36.1; O2SAT 96
[2024-02-15 15:26] VITALS: BP 115/60; PULSE 57; RESP 17; TEMP 36.3; O2SAT 98
[2024-02-15] MEDS: guaiFENesin DM 100/10/5 ML 5 ML SYRUP PO (18:07)
[2024-02-15 19:08] VITALS: BP 113/58; PULSE 69; RESP 18; TEMP 36.6; O2SAT 96
[2024-02-15] MEDS: Atorvastatin Calcium 40 MG TABLET PO (21:05)
[2024-02-15] MEDS: Apixaban 5 MG TABLET PO (21:05)
[2024-02-15] MEDS: guaiFENesin LA 600 MG TAB.ER.12H PO (21:08)
[2024-02-16] VITALS: BP 159/67; PULSE 65; RESP 20; TEMP 37.1; O2SAT 95
[2024-02-16 03:56] VITALS: BP 110/55; PULSE 70; RESP 20; TEMP 36.7; O2SAT 96
[2024-02-16] MEDS: Omeprazole 20 MG CAPSULE.DR PO (05:42)
[2024-02-16] MEDS: guaiFENesin DM 100/10/5 ML 5 ML SYRUP PO (05:44)
[2024-02-16 07:03] LABS: INTERNATIONAL NORM RATIO 2.8 (0.9-1.1); Prothrombin Time 33.8 SEC (11.1-13.3)
--- NOTE | 2024-02-16 07:13 | PM.DS ---
DS: Providers Provider Date of Service: 02/16/24 Date of admission: 02/10/24 15:08 Date of discharge: 02/16/24 Primary care physician: Jose Simon MD Admitting clinician: Ml Cabrera Attending physician on admission: Drake Solo Consults: 02/11/24 15:14 Consult to Cardiology Routine Consulting Provider: [facility] [place] Cardiovascular Services Reason for consultation: afib rvr 02/11/24 16:23 Addiction Medicine Routine Consulting Provider: Addiction Covering Reason for consultation: etoh 02/14/24 14:03 Consult to Neurology Routine Consulting Provider: [facility] Reason for consultation: on phenytoin for h/o seizure; med interactions ?change meds; see cards note Has provider been notified: No [facility] Discharging clinician: Terri Andres DS: Diagnosis Discharge Diagnosis (1) Atrial fibrillation with RVR: Status: Acute DS: Summary Hospital Course Hospital Course: HPI on admission by Ml Cabrera, DIRECTOR NICU: 70-year-old man presented to the ER with complaints of palpitations over the last several days. He denied any recent illness, travel, fever, chills, shortness breath, nausea, vomiting, diarrhea. He did report some chest discomfort with palpitations, he reported that he was digging a hole in his yard yesterday to plan to tree and his heart rate went up to 187 but did improve. He reports that he feels that his heart rate goes up and down when this happens periodically. He is compliant with all of his medications. In the ER, All of his labs are within acceptable limits, heart rate ranging from 120-150. Given 3 IV doses of metoprolol, 125 mg oral dose and a dose of IV diltiazem. Patient converted to normal sinus rhythm and goes back and forth into AFib. Hospital course: Pt admitted to [facility] for atrial fibrillation with rvr. Initially rate difficult to control requiring IV diltiazem, digoxin load with improvement in HR. However, did develop recurrent tachycardia. Followed by cardiology with echo showing EF 45-50%, mild aortic valve stenosis mid inferoseptal and mid anteroseptal segments are akinetic, diastolic function indeterminate. He was ultimately cardioverted on 02/13 maintaining nsr post procedure. He was evaluated by neurology recommending discontinuing dilantin and adding keppra 500mg bid to avoid medication conflict. He was loaded with amiodorone and his coumadin was switched to eliquis. He was monitored for an additional night as inr was elevated at 3.1 but improved to 2.8 on day of discharge. He will be discharged on eliquis 5mg BID for AC, continue toprol 25mg BID. He will also be discharged on amiodorone 400mg BID x2 weeks and advised to change to 200mg daily after that. He shoudl discontinue coumadin and phenytoin and continue on keppra 500mg bid. Follow up with cardiology and pcp. Course by problem: Paroxysmal atrial fibrillation with rapid ventricular response difficult to control HR cardizem drip stopped, lopressor dose increased, loaded with digoxin, HR initially improved but then became tachycardic with ambulation and again overnight s/p cardioversion 02/13 Echocardiogram - EF 45-50%, mild aortic valve stenosis mid inferoseptal and mid anteroseptal segments are akinetic, diastolic function indeterminate Changed to keppra from phenytoin. DC coumadin. INR 3.1 02/14. Per cards/pharmacy, eliquis initiated, INR 2.8 on day of discharge Loaded with amiodarone 400 mg twice daily. Continue amiodorone 400mg BID x 2 weeks, then amiodorone 200mg daily follow up with outpt cardiology Alcohol withdrawal, unlikely no tremors unsure how much he drinks, according to RN may be 3-4 drinks per day, but patient insists maybe only one per day stop phenobarbitol protocol as patient declined and does not appear to be in active withdrawal folic acid, thiamine IV fluids Unspecified seizure disorder per pt one time seizure in the 70s without recurrence, had been maintained on phenytoin Per neuro/cards dc phenytoin (level toxic anyway given pt age), initiate keppra 500mg bid Coronary artery disease Continue aspirin and statin mild transaminitis outpatient follow up GERD Continue PPI DVT prophylaxis: eliquis Status at Discharge Functional status at discharge: independent ambulation Overall status at discharge: patient is progressing back to baseline Time Attestation Discharge Coordination Time (in mins): 42 Quality: Safe Use of Opioids Does Pt have an Active Cancer Diagnosis on the Problem List?: No Quality: Stroke Does the patient have a stroke diagnosis?: No Physical Exam Vital Signs: Vital Signs: Last Vital Signs Temp 98.1 F 02/16/24 03:56 Pulse 70 02/16/24 03:56 Resp 20 02/16/24 03:56 BP 110/55 L 02/16/24 03:56 Pulse Ox 96 02/16/24 03:56 O2 Del Method Room Air 02/16/24 03:56 O2 Flow Rate 2 02/13/24 04:00 Oxygen Flow Rate 96 02/15/24 11:37 BMI result Body Mass Index 23.5 Constitutional - Awake and Alert, No apparent distress Eyes - PERRLA, EOMI Cardiovascular - S1S2, RRR, No edema Respiratory - Normal lung expansion, Normal respiratory effort, No respiratory distress, CTA bilaterally Extremities - no calf tenderness bilaterally, no swelling Skin - Warm/Dry Neurological - Alert & oriented x3 Psychological - Appropriate affect DS: Data Data Completed and Pending Labs on day of discharge: Laboratory Results - last 24 hr 02/16/24 06:12 PT 33.8 H INR 2.8 H Discharge Plan Discharge Anticipated Discharge Date/Time: 02/16/24 07:14 Patient Disposition: Home, Self-Care Discharge Diagnosis: afib rvr Referrals: Jose Simon MD [Primary Care Provider] - 1 Week Hadley Kirk MD [Physician] - 1 Week Discharge Medications: New Eliquis 5 mg Tablet 5 mg PO BID Qty: 180 0RF levetiracetam 500 mg Tablet 500 mg PO BID Qty: 180 0RF amiodarone 200 mg Tablet 400 mg PO BID Qty: 28 0RF Rx Instructions: Take 400mg twice daily x 2 weeks, then switch to 200mg daily amiodarone 200 mg tablet 200 mg PO DAILY Qty: 90 0RF Rx Instructions: Initiate after completing 400mg twice daily x 2 weeks Continued ezetimibe 10 mg tablet 10 mg PO DAILY Qty: 90 3RF metoprolol succinate 50 mg tablet extended release 24 hr 25 mg PO BID 90 Days Qty: 90 3RF omeprazole 20 mg capsule,delayed release(DR/EC) 20 mg PO BID atorvastatin 80 mg tablet 40 mg PO BEDTIME Patient Comments: pt states his dose decreased to 40mf daily COQ10 100MG PO DAILY 1 cap PO DAILY multivitamin Tablet 1 tab PO DAILY Discontinued warfarin 5 mg tablet 2.5 mg PO DAILY@1800 Protocol: Dose Management Condition: Saturday (Week One) Dose/Route: 2.5 mg Instruction: 0.5 x 5 mg tablets Condition: Saturday Dose/Route: 2.5 mg Instruction: 0.5 x 5 mg tablets Condition: Saturday Dose/Route: 2.5 mg Instruction: 0.5 x 5 mg tablets Condition: Saturday Dose/Route: 2.5 mg Instruction: 0.5 x 5 mg tablets Condition: Dose/Route: 2.5 mg Instruction: 0.5 x 5 mg tablets Condition: Saturday Dose/Route: 2.5 mg Instruction: 0.5 x 5 mg tablets Condition: Saturday Dose/Route: 2.5 mg Instruction: 0.5 x 5 mg tablets Condition: Saturday (Week Two) Dose/Route: 2.5 mg Instruction: 0.5 x 5 mg tablets Condition: Saturday Dose/Route: 2.5 mg Instruction: 0.5 x 5 mg tablets Condition: Saturday Dose/Route: 2.5 mg Instruction: 0.5 x 5 mg tablets Condition: Saturday Dose/Route: 2.5 mg Instruction: 0.5 x 5 mg tablets Condition: Dose/Route: 2.5 mg Instruction: 0.5 x 5 mg tablets Condition: Saturday Dose/Route: 2.5 mg Instruction: 0.5 x 5 mg tablets Condition: Saturday Dose/Route: 2.5 mg Instruction: 0.5 x 5 mg tablets Protocol Text: Adjustment Start Date: Saturday02/10/24 INR Value: 2.0 INR Date: 02/10/24 Recheck Date: 03/09/24 Additional Instructions: REVIEW FOOD LIST WEEKLY, AVOID [place] TODAY, CALL WITH ANY MEDICATION CHANGES MERRY, ASK MD OR PHARMACIST ABOUT CORICIDIN TO HELP WITH COLD FLU ALLERGY SYMPTOMS phenytoin sodium extended 100 mg capsule 200 mg PO BID Discharge Orders: Discharge Order (Routine); Ordered 02/16/24 Ordered By: Terri Andres Diet: Advance to usual diet Activity on Discharge: As tolerated Stand Alone Forms: Patient Portal Discharge page Print Language: Micronesian Care Plan Goals: Treat atrial fibrillation Prevent seizures Health Concerns: Atrial fibrillation with rapid ventricular rate Plan of Treatment: Atrial fibrillation -underwent cardioversion restoring normal sinus rhythm -Continue amiodorone 400mg twice daily x 14 days, then 200mg daily for maintenance to prevent recurrent atrial fibrillation -Continue eliquis 5mg twice daily in place of coumadin for anticoagulation STOP- coumadin and phenytoin History of seizures -take keppra 500mg twice daily per neurology Follow up with cardiology and pcp Assessment: See above. See discharge summary Patient Instructions: Levetiracetam (By mouth), Apixaban (By mouth) Discharge Date/Time: 02/16/24 11:56
[2024-02-16 08:00] VITALS: BP 129/63; PULSE 68; RESP 18; TEMP 37.1; O2SAT 96
[2024-02-16 08:59] VITALS: BP 129/63; PULSE 68
[2024-02-16] MEDS: Metoprolol Succinate ER 100 MG TAB.ER.24H PO (08:59)
[2024-02-16] MEDS: Amiodarone HCL 200 MG TABLET 400 MG PO (08:59)
[2024-02-16] MEDS: levETIRAcetam 500 MG TABLET PO (08:59)
[2024-02-16] MEDS: Thiamine HCL 100 MG TABLET PO (09:00)
[2024-02-16] MEDS: Multivitamin TABLET 1 TAB PO (09:00)
[2024-02-16] MEDS: Ezetimibe 10 MG TABLET PO (09:00)
[2024-02-16] MEDS: Folic Acid 1 MG TABLET PO (09:00)
[2024-02-16] MEDS: Apixaban 5 MG TABLET PO (09:00)
[2024-02-16] MEDS: 0.9 % Sodium Chloride Flush 3 ML SYRINGE IVFLUSH (09:01)
--- NOTE | 2024-02-16 09:57 | MHC.CM.PN ---
Addendum entered by Maura Rouse 02/16/24 15:50: CM RECEIVED ANOTHER CALL FROM PTS STATING THE COUPONS WERE NOT WORKING FOR THE ELIQUIS CM CALLED THE PHARMACIST AT [facility], HE INDICATED THE SYSTEM WAS SAYING THE PT HAD ALREADY USED ONE AND THEY CAN ONLY USE ONE PER LIFETIME. THE PHARMACIST INDICATED THEY WOULD LIKELY BE ABLE TO RESOLVE THIS ISSUE, HOWEVER THE ELIQUIS CUSTOMER SERVICE WAS CLOSED SO THEY WOULD HAVE TO CALL TOMORROW FOR TODAY, THE PHARMACIST INDICATED HE WOULD PROVIDE A PARTIAL RX UNTIL THEY ARE ABLE TO RESOLVE THE COUPON ISSUE. Addendum entered by Maura Rouse 02/16/24 13:28: PT AND RETURNED TO FLOOR AFTER DC REPORTING THEY WERE UNABLE TO FILL PTS ELIQUIS RX THEY WERE PROVIDED WITH THE 30-DAY COUPON PRIOR TO DC, HOWEVER THE PHARMACY RAN IT AND TOLD THEM IT WAS ALREADY USED THEY ALSO REPORTED [facility]IR [facility] HAD NO ELIQUIS 5MG IN STOCK AND WHEN THEY WENT TO [facility], THEY ONLY HAD PART OF THE RX, THEY REPORT BEING CONCERNED THE COUPON WILL ONLY COVER THE INITIAL PART AND THEY WILL HAVE TO PAY COST WHEN THEY RADIOGRAPHIC TECHNOLOGIST THE REST CM CALLED [facility] IN [place], THEY ARE ALSO COMPLETELY OUT OF THIS MED/DOSE CM CALLED [facility], THEY SAID IT WAS POSSIBLE THE [facility] LOCATION MAY BE ABLE TO FILL THE RX, HOWEVER THEY ALSO CLARIFIED THEY WOULD NOT CHARGE THE PT SEPARATELY ONCE THE REST OF THE RX WAS AVAILABLE, THE PHARMACIST STATED THEY WOULD WAIT UNTIL THE PT HAD THE ENTIRETY OF THE RX AND RUN IT THEN, SO THE COUPON WOULD COVER ALL OF IT. [facility] AGAIN MET WITH PT AND HIS AND PROVIDED THE INFORMATION OBTAINED FROM THE [facility] PHARMACIST THEY INDICATED THEY WOULD GO BACK THERE AND GET WHAT WAS AVAILABLE TODAY CM PROVIDED TWO NEW 30-DAY COUPONS Addendum entered by Maura Rouse 02/16/24 10:49: [facility] MET WITH PT TO DISCUSS DC HE REPORTS FEELING WELL AND READY TO GO AND HIS WILL BE PROVIDING TRANSPORT Original Note: PT TO DC HOME TODAY WITH NO SERVICES VIA PRIVATE TRANSPORT
--- NOTE | 2024-02-17 08:19 | HO.POSTANES ---
Post Anesthesia Evaluation Post Anesthesia Evaluation Date of Service: 02/17/24 Anesthesia: TIVA Mental Status: Awake Pain Control: Satisfactory Nausea/Vomiting: None Hydration: Adequate Anesthesia-Related Issues: No Anes. Related Issues
== END 2024-02-16 11:56 | disposition home or self-care (01) | DRG 310 ==
LOC: HO.ED 13:21 → HO.EDOVER 15:14 → HO.IMC 20:03
PROVIDERS: Internal Medicine Cardiovascular Disease; Physician Assistant Medical; Student in an Organized Health Care Education/Training Program; Admitting Provider Nurse Practitioner Acute Care; Emergency Provider Student in an Organized Health Care Education/Training Program; PCP Internal Medicine; Visit Provider Physician Assistant
PROC: 5A2204Z Restoration of Cardiac Rhythm, Single (ICD-10-PCS; CPT 93312; principal; 2024-02-14 12:00)
PROC: 5A2204Z Restoration of Cardiac Rhythm, Single (ICD-10-PCS; 2024-02-14 12:00)
DX: I48.0 Paroxysmal atrial fibrillation (principal); R79.1 Abnormal coagulation profile; I25.10 Atherosclerotic heart disease of native coronary artery without angina pectoris; I48.92 Unspecified atrial flutter; K21.9 Gastro-esophageal reflux disease without esophagitis; I35.0 Nonrheumatic aortic (valve) stenosis; G40.909 Epilepsy, unspecified, not intractable, without status epilepticus; Z20.822 Contact with and (suspected) exposure to COVID-19; Z95.1 Presence of aortocoronary bypass graft; Z79.01 Long term (current) use of anticoagulants; Z79.899 Other long term (current) drug therapy
CPT/HCPCS: 0241U; 36415; 71045; 71046; 80053; 81001; 82803; 83735; 84443; 84484; 85025; 85027; 85610; 85730; 92950; 92960; 93005; 93306; 99211; 99285; J1160; J1650; J2560; J2704; Q9957

== ENCOUNTER → 2024-02-10 11:28 | Outpatient (BNV) | payer MEDICARE, SELFPAY | PROVIDERS: PCP Internal Medicine; Visit Provider Internal Medicine Cardiovascular Disease | DX: I48.92 Unspecified atrial flutter (principal) | CPT/HCPCS: 93010 ==

== ENCOUNTER 2024-02-10 15:08 | Outpatient (BNV) | payer MEDICARE, SELFPAY | END 2024-02-14 07:00 | PROVIDERS: Admitting Provider Nurse Practitioner Acute Care; Emergency Provider Student in an Organized Health Care Education/Training Program; PCP Internal Medicine; Visit Provider Internal Medicine Cardiovascular Disease | DX: I48.91 Unspecified atrial fibrillation (principal); I35.8 Other nonrheumatic aortic valve disorders; I36.1 Nonrheumatic tricuspid (valve) insufficiency | CPT/HCPCS: 93010; 93312 ==

== ENCOUNTER 2024-02-10 15:08 | Outpatient (BNV) | payer MEDICARE, SELFPAY | END 2024-02-11 07:00 | PROVIDERS: Admitting Provider Nurse Practitioner Acute Care; Emergency Provider Student in an Organized Health Care Education/Training Program; PCP Internal Medicine; Visit Provider Internal Medicine Cardiovascular Disease | DX: I35.2 Nonrheumatic aortic (valve) stenosis with insufficiency (principal); I35.8 Other nonrheumatic aortic valve disorders; I34.81 Nonrheumatic mitral (valve) annulus calcification | CPT/HCPCS: 93306 ==

== ENCOUNTER → 2024-02-10 15:08 | Outpatient (BNV) | payer MEDICARE, SELFPAY | PROVIDERS: Admitting Provider Nurse Practitioner Acute Care; Emergency Provider Student in an Organized Health Care Education/Training Program; PCP Internal Medicine; Visit Provider Nurse Practitioner Acute Care | DX: I48.91 Unspecified atrial fibrillation (principal) | CPT/HCPCS: 99223; 99232; 99239 ==

== ENCOUNTER → 2024-02-10 15:08 | Outpatient (BNV) | payer MEDICARE, SELFPAY | PROVIDERS: Admitting Provider Nurse Practitioner Acute Care; Emergency Provider Student in an Organized Health Care Education/Training Program; PCP Internal Medicine; Visit Provider Psychiatry & Neurology Neurology | DX: T42.0X5A Adverse effect of hydantoin derivatives, initial encounter (principal) | CPT/HCPCS: 99221 ==

== ENCOUNTER → 2024-02-10 15:08 | Outpatient (BNV) | payer MEDICARE, SELFPAY | PROVIDERS: Admitting Provider Nurse Practitioner Acute Care; Emergency Provider Student in an Organized Health Care Education/Training Program; PCP Internal Medicine; Visit Provider Internal Medicine Cardiovascular Disease | DX: I48.92 Unspecified atrial flutter (principal); I48.91 Unspecified atrial fibrillation | CPT/HCPCS: 92960; 99223; 99233 ==

== ENCOUNTER 2024-03-04 13:44 | Outpatient (AMB) | payer MEDICARE, SELFPAY ==
--- NOTE | 2024-03-04 13:47 | MHC.OFFVIS ---
Vital Signs 03/04/24 13:52 Height 5 ft 8 in Weight 158 lb 15.253 oz BMI 24.2 BP 120/66 Blood Pressure Location Lt brachial Position Sitting Pulse 63 Pulse Oximetry (%) 96 Intake Visit Reasons: PsO/PsA Intake Note: Established patient, last seen 01/10/24, presents today for Pso/PsA follow up. Patient reports recent Cardioversion at [facility] [place], early February. Allergies penicillin V [From Pen-Vee K] Allergy (Mild, Verified 03/04/24 13:53) HIVES HPI Comments Details: Mr. Subramanian 78-year-old male returns for follow-up of evaluation of elevated CRP to review diagnostics and determine treatment plan for Pso/PsA. His hands were improved on the course of prednisone given at last visit. He was recently hopes hospitalized for respiratory hypoxia. 01/10/2024 Initial visit: Mr. Subramanian 78-year-old male presents today for evaluation of elevated CRP. He was referred by his primary care provider this referral is based on labs dated 09/23/2023. Has a PMH of hypercholesteremia, elevated liver enzymes, cardiomyopathy. The patient reports that over 8 years ago he was on a regimen of methotrexate and prednisone for 4 year for psoriasis and psoriatic arthritis. He has had good remission until about a year ago when the pain and swelling returned. He has soreness knees, shoulders, and bilateral thumbs which is swollen at this visit. He says at that time he had skin psoriasis and psoriatic nails. He says his PCP reduced his statin from 80 mg to 40 mg in an attempt to address his pains but that did not help. He received his 2nd shingles shot 2 weeks ago. He denies for uveitis, GI and urinary concerns. He complains about not being able to hold things tightly and so they fall out of his hands. Recent Hosp for recurring AFIB. Hand swelling and knee pain resolved with prednisone. --Saw Dr. Overton [facility] Medical History (Updated 03/04/24 @ 14:22 by BAY Wan) Psoriatic arthritis Hypovitaminosis D Bilateral hand swelling Inflammatory arthritis Aortic stenosis CAD (coronary artery disease) Paroxysmal atrial fibrillation Epilepsy H/O acute myocardial infarction Surgical History Stented coronary artery Family History Father Diabetes Arthritis Mother No problems noted. Daughter Arthritis Social History Household Members: Spouse Housing: House Do you presently have visiting nurse or other home services: No Alcohol intake: current Alcohol intake frequency: holidays/special occasions only Alcohol type: beer Patient Tobacco Use Status: Never used Tobacco Second Hand Smoke Exposure: No service: No Review of Systems Const All systems reviewed & are unremarkable except as noted in HPI and below Physical Exam Vital Signs: Last Vital Signs Pulse 63 03/04/24 13:52 BP 120/66 03/04/24 13:52 Pulse Ox 96 03/04/24 13:52 BMI result Body Mass Index 24.2 APPEARANCE: Patient in no acute distress EYES no redness, normal EARS:? External ear normal. NOSE/SINUS:? Airflow through both nares, no nasal discharge, no bleeding THROAT:? Dry mucosa, no ulcerations NECK:? No thyromegaly or masses, no adenopathy, trachea midline. HEART:? Regular rhythm, S1-S2 heard, no murmurs, rubs or gallops. LUNG:? Clear to percussion and auscultation EXTREMITIES:? No edema, no calf tenderness, normal peripheral pulses. NEURO:? Oriented and alert x3.? No focal weakness.? Reflexes symmetric.? Gait normal. SKIN:? Scattered patches of psoriasis on upper back and lower extremities. Psoriatic nails with pitting. No objective signs of Raynaud's phenomenon. JOINT EXAM: Cervical Spine:.? Full range of motion without pain; no tenderness. Thoracic Spine:.? No scoliosis.? No tenderness on palpation. Lumbar Spine:.? Alignment normal.? Full range of motion without pain, no tenderness. Chest Wall:.? No tenderness, swelling, increased warmth or erythema. Hands:.? Bilateral thumbs with tenderness, swelling, increased warmth or erythema. 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 [place]berden nodes across DIPs. Enlarged bilateral 3rd and 4th PIPs Wrists:.? Normal pain-free range of motion without tenderness, swelling, increased warmth or erythema. Elbows:. Normal pain-free range of motion without tenderness, swelling, increased warmth or erythema. Shoulders:.?? Full range of motion without pain. No tenderness, weakness, swelling, increased warmth or erythema. Mild discomfort to left with overhead rate Hip bursa:.? No tenderness. Knees:.?? Normal pain-free range of motion without tenderness, swelling, increased warmth or erythema.? There is no effusion or crepitation. Ankles:.? Normal pain-free range of motion without tenderness, swelling, increased warmth or erythema. Feet:.? Normal pain-free range of motion without tenderness, swelling, increased warmth or erythema. Tender points:? No tenderness to digital palpation at the occiput, trapezius, second rib, lateral epicondyle, knees, greater trochanter and gluteal area bilaterally. ? Results Reviewed Results Reviewed: Sed rate 06/03/2023 34 07/23/2023 30 07/23/2023 - chronically elevated AST/ALT most recent AST 41 ALT 41 CRP 07/23/2023 1.63 09/23/2023 2.98 No GENOVEVA No available image CTD labs 01/10/2024 RBC 3.99, HGB 11.8, HCT 36.1, ESR 33 Creatinine 1.09 GFR greater than 60 Uric acid 6.5 (7.0 ) Calcium 9.0 AST 40, ALT 36, Alk-phos 143 CK 240 CRP 3.57 Vitamin-D 23 (30) IgG 1057 IgA 230, IgM 10 LESLYE no monoclonal protein Hep panel, TB negative Negative GENOVEVA, RF, CCP CLINICAL INFORMATION: Hypoxia COMPARISON: Previous chest x-ray 02/10/2024 TECHNIQUE: Frontal view of the chest was obtained. FINDINGS: The lung volumes are low. The cardiac silhouette is slightly prominent and there is prominence of the central bronchovascular markings. Some of these changes may be due to low lung volumes. The lungs are otherwise clear. No pleural effusion or pneumothorax. Degenerative changes of the spine. XR/XR chest 1V IMPRESSION: Prominent cardiac silhouette and increased central bronchovascular markings. Some of these changes may be due to low lung volumes. Differential would include mild pulmonary edema and airways disease. Clinical correlation recommended. RIGHT HAND: Subtle cortical irregularity of the ulnar styloid and a small cyst or erosion and adjacent soft tissue swelling may indicate an inflammatory arthropathy. This is new or progressed from previous study. Moderate arthrosis of the triscaphoid articulation and 1st CMC joint has progressed. There is narrowing of the 1st MCP joint and throughout the interphalangeal joints, particularly the 5th DIP joint. Small cysts or erosions at the radial aspect of the 3rd proximal phalanx at the PIP joint. This is similar to previous. No definite active erosions. No acute fracture or malalignment. LEFT HAND: There is an erosion at the ulnar aspect of the ulnar styloid and adjacent soft tissue swelling suggesting an inflammatory arthropathy. Severe 1st CMC joint osteoarthritis and mild narrowing of the triscaphoid articulation. Narrowing of the MCP joints and osteoarthritis throughout the interphalangeal joints with narrowing and dorsal osteophytes, prominent at the 2nd and 3rd DIP joints and 3rd PIP joint. No active erosions of the phalanges. No suspicious soft tissue calcifications. No fracture or malalignment. XR/XR hand RT min 3V IMPRESSION: Arthritic changes of both hands as described, most severe at the left 1st CMC joint. Subtle erosions along the ulnar styloid bilaterally and soft tissue swelling suggest an inflammatory arthropathy such as rheumatoid arthritis. Bilateral knee pain COMPARISON: Same-day right knee TECHNIQUE: Four views of the left knee. FINDINGS: No fracture. Trace joint effusion. There is mild lateral patellar tilt with associated narrowing of the joint space. There is moderate narrowing of the medial joint space. Chondrocalcinosis is seen in the lateral joint space. Extensive arterial calcification is noted. Quadriceps enthesopathy is seen. XR/XR knee LT 4V IMPRESSION: 1. Moderate osteoarthritis. 2. Chondrocalcinosis. Assessment & Plan Assessment & Plan (1) Inflammatory arthritis: Code(s): M19.90 - Unspecified osteoarthritis, unspecified site Category: Medical (2) Psoriatic arthritis: Code(s): L40.50 - Arthropathic psoriasis, unspecified Category: Medical (3) Bilateral hand swelling: Code(s): M79.89 - Other specified soft tissue disorders Category: Medical Plan #Inflammatory arthritis possible psoriasis/psoriatic arthritis: Mr. Jimenez presents as having psoriasis and psoriatic arthritis. On PE he has scattered patches of psoriasis to his upper back and bilateral lower legs. X-rays show some erosions in the IP joints of his hands and identified features of inflammatory arthritis. Prednisone has helped to reduce the swelling and tenderness to bilateral thumbs and [place]berden nodes across all DIPs. I will not use methotrexate or other medications that can affect liver enzymes because his baseline AST that ALT are persistently elevated. I will start him on Humira 40 mg every other week. I will also continue for course of prednisone 5 mg until next visit. #Long-term use: TB and hep are good to start Humira. We will monitor CBC for cytopenia while on immunosuppressives. I explained to patient to hold medication in the event of infections, fevers, surgery and nonhealing wound. I spent 20 minutes reviewing chart, evaluating patient, and documenting Follow-up in 8 weeks Medications: New adalimumab (Humira(CF) Pen) 40 mg (0.4 mL) subcut Q2W 2 ea 2RF L40.50 - Arthropathic psoriasis, unspecified prednisone 5 mg PO DAILY 90 tabs 0RF M79.89 - Other specified soft tissue disorders, M19.90 - Unspecified osteoarthritis, unspecified site Coding Level of Care Code Est Pt Level 3 (54985) Complex EM visit Add On G2211 Diagnoses Inflammatory arthritis M19.90 Psoriatic arthritis L40.50 Bilateral hand swelling M79.89
[2024-03-04 13:52] VITALS: BP 120/66; PULSE 63; O2SAT 96; BMI 24.2
== END 2024-03-04 14:33 | disposition home or self-care (01) ==
PROVIDERS: PCP Internal Medicine; Visit Provider Nurse Practitioner Family
DX: M19.90 Unspecified osteoarthritis, unspecified site (principal); L40.50 Arthropathic psoriasis, unspecified; M79.89 Other specified soft tissue disorders
CPT/HCPCS: 99213; G2211

== ENCOUNTER → 2024-03-04 13:44 | Outpatient (BNVA) | payer MEDICARE, SELFPAY | PROVIDERS: PCP Internal Medicine; Visit Provider Nurse Practitioner Family | DX: L40.50 Arthropathic psoriasis, unspecified (principal); M19.90 Unspecified osteoarthritis, unspecified site; R79.82 Elevated C-reactive protein (CRP) | CPT/HCPCS: 99212 ==

== ENCOUNTER 2024-03-11 07:36 | Outpatient (REF) | payer MEDICARE, SELFPAY ==
[2024-03-11 07:47] LABS: MANUAL DIFF FLAG NO
[2024-03-11 08:21] LABS: Basophils Percent Auto 0.3 % (0-2); Eosinophils Absolute Auto 0.1 X10*3/uL (0.0-0.4); Eosinophils Percent Auto 0.8 % (0-4); Hematocrit 39.1 % (42.0-52.0); Hemoglobin 12.5 g/dl (14.0-18.0); Imm Gran Abs Auto 0.04 X10*3/uL (0.00-0.03); Imm Gran Pct Auto 0.4 % (0.0-0.4); Lymphocytes Absolute Auto 2.5 X10*3/uL (1.2-4.9); Lymphocytes Percent Auto 22.4 % (20-40); Mean Corpuscular Hemoglobin 29.9 pg (27.0-33.0); Mean Corpuscular Volume 93.5 fL (80.0-98.0); Mean Platelet Volume 10.4 fL (9.4-12.4); Monocytes Absolute Auto 1.1 X10*3/uL (0.1-1.2); Monocytes Percent Auto 9.8 % (2-11); Neutrophils Absolute Auto 7.5 x10*3/uL (2.0-8.3); Neutrophils Percent Auto 66.3 % (45-73); Platelet Count 210 X10*3/uL (160-400); Red Blood Count 4.18 X10*6/uL (4.60-5.80); Red Cell Distribution Width 15.2 % (11.0-16.0); White Blood Count 11.2 X10*3/uL (4.8-10.8)
[2024-03-11 09:03] LABS: Alanine Aminotransferase 44 U/L (0-40); Albumin Level 4.1 g/dL (3.5-5.0); Alkaline Phosphatase 94 U/L (39-117); Anion Gap 13 (12-20); Aspartate Amino Transferase 37 U/L (5-37); Bilirubin Total 0.7 mg/dL (0.0-1.0); Blood Urea Nitrogen 20 mg/dL (9-16); Calcium 9.5 mg/dL (8.4-10.2); Carbon Dioxide 28 mmol/L (22-29); Chloride 107 mmol/L (96-108); Estimated Glomerular Filt Rate 53; Glucose Random 123 mg/dL (60-115); Iron 56 mcg/dL (45-160); Magnesium 2.1 mg/dL (1.6-2.6); Percent Iron Saturation 18 % (15-50); Sodium 143 mmol/L (135-145); Total Iron Binding Capacity 314 mcg/dL (228-428); Total Protein 7.1 g/dL (6.5-8.0); Unsaturated Iron Binding 258 ug/dL
== END 2024-03-11 07:37 | disposition home or self-care (01) ==
LOC: HO.LAB 07:36
PROVIDERS: PCP Internal Medicine; Visit Provider Internal Medicine
DX: I10 Essential (primary) hypertension (principal); G40.909 Epilepsy, unspecified, not intractable, without status epilepticus; D64.9 Anemia, unspecified; K21.9 Gastro-esophageal reflux disease without esophagitis; Z98.890 Other specified postprocedural states
CPT/HCPCS: 36415; 80053; 83540; 83735; 85025

== ENCOUNTER 2024-03-18 14:34 | Outpatient (AMB) | payer MEDICARE, SELFPAY ==
[2024-03-18 15:08] VITALS: BP 120/60; PULSE 53; BMI 24.1
--- NOTE | 2024-03-18 15:08 | MHC.OFFVIS ---
Vital Signs 03/18/24 15:08 Height 5 ft 8 in Weight 158 lb 11.725 oz BMI 24.1 BP 120/60 Blood Pressure Location Lt brachial Position Sitting Pulse 53 Pulse Source Pulse Oximeter Intake Visit Reasons: f/up-cardioversion Allergies penicillin V [From Suman-Clarisse K] Allergy (Mild, Verified 03/04/24 13:53) HIVES Medication List - Last Reconciled 03/18/24 by Arelis Pitt, GERDA amiodarone 200 mg PO DAILY apixaban (Eliquis) 5 mg PO BID atorvastatin 40 mg PO BEDTIME [COQ10 100MG PO DAILY 1 cap PO DAILY] ezetimibe 10 mg PO DAILY levetiracetam 500 mg PO BID metoprolol succinate ER 25 mg (1/2 x 50 mg) PO BID 90 days multivitamin 1 tab PO DAILY omeprazole 20 mg PO BID prednisone 5 mg PO DAILY HPI Comments Details: 78-year-old male presents today for a follow-up. He was recently cardioverted on 02/14/[address] Kirk. He reports since being home he feels an occasional faster heart rate and tired. No dizziness, syncope, prolonged palpitations, chest pains, or shortness of breath. He has had no bleeding issues with Eliquis. He had some recent medications changes due to interactions. He has had no seizure activity. [facility] Medical History (Updated 03/04/24 @ 14:22 by Roz Medina [facility]) Psoriatic arthritis Hypovitaminosis D Bilateral hand swelling Inflammatory arthritis Aortic stenosis CAD (coronary artery disease) Paroxysmal atrial fibrillation Epilepsy H/O acute myocardial infarction Surgical History Stented coronary artery Family History Father Diabetes Arthritis Mother No problems noted. Daughter Arthritis Social History Household Members: Spouse Housing: House Do you presently have visiting nurse or other home services: No Alcohol intake: current Alcohol intake frequency: holidays/special occasions only Alcohol type: beer Patient Tobacco Use Status: Never used Tobacco Second Hand Smoke Exposure: No service: No Review of Systems Const Denies weakness ENT Denies dizziness Card Denies chest pain, Denies chest pain with activity, Denies syncope, Denies rapid heart rate, Denies pedal edema, Denies edema, Denies leg edema, Denies lightheadedness, Denies palpitations, Denies dyspnea, Denies dyspnea on exertion and Denies orthopnea Resp Denies cough, Denies dyspnea and Denies dyspnea on exertion GI Denies hematochezia and Denies change in stool character Musc Denies abnormal gait, Denies muscle cramps, Denies muscle weakness, Denies numbness, Denies radiating pain into limb and Denies tingling Neuro Denies abnormal gait, Denies dizziness, Denies syncope, Denies numbness, Denies tingling and Denies weakness Endo Denies palpitations Physical Exam Vital Signs: Last Vital Signs Pulse 53 03/18/24 15:08 BP 120/60 03/18/24 15:08 BMI result Body Mass Index 24.1 Office Procedures EKG Details: EKG today. Sinus Bradycardia. Rightward axis. Septal Infarct, age undetermined. Rate 54 bpm. QRS 92ms. QTc 477ms [id number], Complete Assessment & Plan Assessment & Plan (1) Paroxysmal atrial fibrillation: Code(s): I48.0 - Paroxysmal atrial fibrillation Category: Medical Plan Successful cardioversion on 02/14/[address] Kirk while in-patient. He is bradycardic today. Heart rate shade from 55 bpm to 70 bpm while walking around the office. He is on Eliquis for anticoagulation. He reports it is very expensive and wondering if there is an alterative. Will check with his insurance. Will get a 3 day holter to assess rate and rhythm. Due for an echo on 05/25. Orders: Orders ECG 3 day holter monitor 03/18/24 Arelis Pitt NP I48.0 - Paroxysmal atrial fibrillation Medications: Changed From levetiracetam 500 mg PO BID 180 tabs 0RF To levetiracetam 500 mg PO BID CÉSAR Purdy Coding Level of Care Code Est Pt Level 3 (69855) Diagnoses Paroxysmal atrial fibrillation I48.0 CPT Codes EKG - CPT: 93994-[id number], Complete ([id number])
== END 2024-03-18 15:46 | disposition home or self-care (01) ==
PROVIDERS: PCP Internal Medicine; Visit Provider Nurse Practitioner
DX: I48.0 Paroxysmal atrial fibrillation (principal)
CPT/HCPCS: 93010; 99213

== ENCOUNTER → 2024-03-18 14:34 | Outpatient (BNVA) | payer MEDICARE, SELFPAY | PROVIDERS: PCP Internal Medicine; Visit Provider Nurse Practitioner | DX: I48.0 Paroxysmal atrial fibrillation (principal); Z95.5 Presence of coronary angioplasty implant and graft | CPT/HCPCS: 93005; 99212 ==

== ENCOUNTER → 2024-03-27 10:20 | Outpatient (REF) | payer MEDICARE, SELFPAY ==
--- NOTE | 2024-03-27 10:26 | HM_ITS ---
* Total monitoring time 3 days. * Underlying rhythm is sinus with an average ventricular rate of 61/Min. About 55% of the time, rate < 60/Min. * Evidence of atrial fibrillation with rapid ventricular response noted. Maximum rate 148/min. Longest episode about 27 minutes. Overall burden 3.6%. * Rare ventricular ectopy, but could also be aberrant conduction. Longest run of 4 beats, cannot exclude aberrant conduction. * Patient markers used in association with atrial fibrillation, sinus bradycardia, supraventricular ectopy. * Palpitations in patient diary correlates with atrial fibrillation/rapid ventricular rate. Other symptoms like felt funny, felt off, uneven heart rate, slow down, correlates with sinus bradycardia. MTDD
== END ==
LOC: HO.CARD 10:20
PROVIDERS: PCP Internal Medicine; Visit Provider Nurse Practitioner
DX: I48.0 Paroxysmal atrial fibrillation (principal)
CPT/HCPCS: 93242

== ENCOUNTER → 2024-03-27 10:26 | Outpatient (BNV) | payer MEDICARE, SELFPAY | PROVIDERS: PCP Internal Medicine; Visit Provider Internal Medicine | DX: I48.91 Unspecified atrial fibrillation (principal) | CPT/HCPCS: 93244 ==

== ENCOUNTER 2024-06-04 14:29 | Outpatient (AMB) | payer MEDICARE, SELFPAY ==
[2024-06-04 14:43] VITALS: BP 120/74; PULSE 56; BMI 24.1
--- NOTE | 2024-06-04 14:43 | A.OFFVIS_ITS ---
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 He said he is off amiodarone for a couple weeks as he ran out of his medication thought that was completed course. He has not had any prolonged palpitation irregular heartbeat. He said he feels better in sinus rhythm with a symptoms. Denies any anginal symptoms. Noted overall sinus bradycardia but had episodes of atrial fibrillation when he had a Holter monitor post cardioversion. No bleeding issues or neurologic events. Denies any lightheadedness, syncope. No heart failure symptoms. [facility] Medical History (Updated 06/05/24 @ 13:17 by Lazarus Stewart MD) Atrial flutter Psoriatic arthritis Hypovitaminosis D Bilateral hand swelling Inflammatory arthritis Aortic stenosis CAD (coronary artery disease) Paroxysmal atrial fibrillation Epilepsy H/O acute myocardial infarction Surgical History Stented coronary artery Family History Father Diabetes Arthritis Mother No problems noted. Daughter Arthritis Social History Household Members: Spouse Housing: House Do you presently have visiting nurse or other home services: No Alcohol intake: current Alcohol intake frequency: holidays/special occasions only Alcohol type: beer Patient Tobacco Use Status: Never used Tobacco Second Hand Smoke Exposure: No service: No Review of Systems Const Denies chills, Denies fatigue, Denies fever(s), Denies frequent falls, Denies weakness, Denies weight gain and Denies weight loss ENT Denies dizziness Card Denies chest pain, Denies leg edema, Denies lightheadedness, Denies palpitations, Denies dyspnea, Denies dyspnea on exertion, Denies orthopnea and Denies other (loss of consciousness) Resp Denies cough, Denies dyspnea and Denies dyspnea on exertion GI Denies hematochezia and Denies change in stool character Musc Denies abnormal gait, Denies muscle weakness, Denies numbness, Denies radiating pain into limb and Denies tingling Neuro Denies abnormal gait, Denies dizziness, Denies frequent falls, Denies numbness, Denies tingling and Denies weakness Endo Denies fatigue and Denies palpitations Physical Exam Vital Signs: Last Vital Signs Pulse 56 06/04/24 14:43 BP 120/74 06/04/24 14:43 BMI result Body Mass Index 24.1 Const General: cooperative, comfortable, no acute distress, alert and awake Nutritional Appearance: average body habitus Orientation/consciousness: patient oriented x3 Limitations: no limitations Neck Neck: Yes trachea midline, Yes supple and Yes no JVD Resp Effort & Inspection: normal respiratory effort Auscultation: clear to auscultation bilaterally Cardio Jugular venous distension: no JVD Palpation: normal PMI Rate: regular rate Rhythm: regular rhythm Heart sounds: S1 normal heart sound present, S2 normal heart sound present, no click, no gallops, Murmur heart sound present systolic and no rubs GI Auscultation: normal bowel sounds Skin General skin exam: no rashes or lesions noted and ecchymosis Neuro General: patient oriented x3 and no focal motor deficits Extrem General: Yes no clubbing, cyanosis or edema Psych Appearance: grossly normal Office Procedures EKG Details: EKG shows sinus bradycardia nonspecific ST changes [id number], Complete Assessment & Plan Assessment & Plan (1) Paroxysmal atrial fibrillation: Code(s): I48.0 - Paroxysmal atrial fibrillation Category: Medical Plan: Paroxysmal atrial fibrillation this elderly gentleman with much improved symptoms with rhythm control approach. Discussed importance of rhythm control approach. Discussed the need for amiodarone therapy to maintain rhythm. Will restart amiodarone 200 mg daily. Said about a week or so we can discontinue me toprolol therapy and continue only amiodarone given his baseline sinus bradycardia. Continue full oral anticoagulation, currently on Xarelto 20 mg daily. Quarterly renal function test should be pursued. (2) CAD (coronary artery disease): Code(s): I25.10 - Atherosclerotic heart disease of [place] coronary artery without angina pectoris Category: Medical Plan: CAD with remote LAD stenting with no symptoms of angina at current point time. Avoid aspirin therapy given his prior GI bleeding risk. Continue full oral anticoagulation Xarelto. Continue aggressive risk factor modification with aggressive lipid modification with statins and ezetimibe. Target goal LDL closer to 60 mg/dL. Continue aggressive blood pressure control which is currently well optimized encouraged to maintain activity level as tolerated. (3) Aortic stenosis: Comment: Mild by echocardiogram, October 2021 Code(s): I35.0 - Nonrheumatic aortic (valve) stenosis Category: Medical Plan: Aortic stenosis which appears to be mild clinically. Recent echocardiogram sh owed mild LV ejection fraction reduction related to atrial fibrillation. Follow-up echocardiogram in 6 months time. Continue aggressive vascular risk factor modifications above. Will follow up in the clinic in 6 months time, sooner p.r.n.. Thank you for allowing me to partake in his care Orders: Orders CA echo transthoracic complete 6 Months I35.0 - Nonrheumatic aortic (valve) stenosis Medications: New amiodarone 200 mg PO DAILY 90 tabs 2RF Discontinued metoprolol succinate ER Discontinued Reason: Doctor's Order 25 mg (1/2 x 50 mg) PO BID 90 days 90 tabs 3RF Coding Level of Care Code Est Pt Level 4 (31863) Diagnoses Paroxysmal atrial fibrillation I48.0 CAD (coronary artery disease) I25.10 Aortic stenosis I35.0 CPT Codes EKG - CPT: 83678-[id number], Complete ([id number])
== END 2024-06-04 15:32 | disposition home or self-care (01) ==
PROVIDERS: PCP Internal Medicine; Visit Provider Internal Medicine Cardiovascular Disease
DX: I48.0 Paroxysmal atrial fibrillation (principal); I25.10 Atherosclerotic heart disease of native coronary artery without angina pectoris; I35.0 Nonrheumatic aortic (valve) stenosis
CPT/HCPCS: 93010; 99214

== ENCOUNTER → 2024-06-04 14:29 | Outpatient (BNVA) | payer MEDICARE, SELFPAY | PROVIDERS: PCP Internal Medicine; Visit Provider Internal Medicine Cardiovascular Disease | DX: I48.0 Paroxysmal atrial fibrillation (principal); I25.10 Atherosclerotic heart disease of native coronary artery without angina pectoris; I35.0 Nonrheumatic aortic (valve) stenosis; R94.31 Abnormal electrocardiogram [ECG] [EKG]; R00.1 Bradycardia, unspecified | CPT/HCPCS: 93005; 99212 ==

== ENCOUNTER 2024-09-07 07:53 | Outpatient (REF) | payer MEDICARE, SELFPAY ==
[2024-09-07 08:05] LABS: MANUAL DIFF FLAG NO
[2024-09-07 08:26] LABS: Basophils Percent Auto 0.4 % (0-2); Hematocrit 33.5 % (42.0-52.0); Hemoglobin 10.6 g/dl (14.0-18.0); Imm Gran Abs Auto 0.03 X10*3/uL (0.00-0.03); Imm Gran Pct Auto 0.3 % (0.0-0.4); Lymphocytes Absolute Auto 1.8 X10*3/uL (1.2-4.9); Lymphocytes Percent Auto 20.2 % (20-40); Mean Corpuscular HGB Conc 31.6 g/dl (31.0-36.0); Mean Corpuscular Hemoglobin 26.6 pg (27.0-33.0); Mean Platelet Volume 9.6 fL (9.4-12.4); Monocytes Absolute Auto 0.9 X10*3/uL (0.1-1.2); Monocytes Percent Auto 9.3 % (2-11); Neutrophils Absolute Auto 6.4 x10*3/uL (2.0-8.3); Neutrophils Percent Auto 69.8 % (45-73); Platelet Count 273 X10*3/uL (160-400); Red Blood Count 3.99 X10*6/uL (4.60-5.80); Red Cell Distribution Width 15.2 % (11.0-16.0); White Blood Count 9.1 X10*3/uL (4.8-10.8)
[2024-09-07 08:59] LABS: Alanine Aminotransferase 26 U/L (0-40); Alkaline Phosphatase 98 U/L (39-117); Anion Gap 13 (12-20); Aspartate Amino Transferase 34 U/L (5-37); Bilirubin Total 0.5 mg/dL (0.0-1.0); Blood Urea Nitrogen 19 mg/dL (9-16); Calcium 9.4 mg/dL (8.4-10.2); Carbon Dioxide 28 mmol/L (22-29); Chloride 106 mmol/L (96-108); Cholesterol 125 mg/dL (<200); Estimated Glomerular Filt Rate 52; Glucose Fasting 94 mg/dL (60-99); HDL Cholesterol 54 mg/dL (>40); LDL Cholesterol Calculated 52 mg/dL (<100); Magnesium 2.2 mg/dL (1.6-2.6); Potassium 4.6 mmol/L (3.3-5.1); Sodium 142 mmol/L (135-145); Triglycerides 98 mg/dL (<150)
== END 2024-09-07 07:54 | disposition home or self-care (01) ==
LOC: HO.LAB 07:53
PROVIDERS: PCP Internal Medicine; Visit Provider Internal Medicine
DX: D64.9 Anemia, unspecified (principal); E78.00 Pure hypercholesterolemia, unspecified; Z12.5 Encounter for screening for malignant neoplasm of prostate
CPT/HCPCS: 36415; 80053; 80061; 83735; 84153; 85025

== ENCOUNTER 2024-10-12 11:42 | Outpatient (REF) | payer MEDICARE, SELFPAY ==
[2024-10-12 13:38] LABS: Prostate Specific Antigen 6.12 ng/mL (<0.05-4.0); Prostate Specific Antigen Scr 6.25 ng/mL (<0.05-4.0)
== END 2024-10-12 11:43 | disposition home or self-care (01) ==
LOC: HO.10HDL 11:42
PROVIDERS: Visit Provider Internal Medicine
DX: Z12.5 Encounter for screening for malignant neoplasm of prostate (principal); R97.20 Elevated prostate specific antigen [PSA]
CPT/HCPCS: 36415; 84153

== ENCOUNTER 2024-10-19 10:01 | Outpatient (AMB) | payer MEDICARE, SELFPAY ==
[2024-10-19 10:28] LABS: Prothrombin Time Whole Bld POC 47.6 sec (11.1-13.5)
--- NOTE | 2024-10-19 10:33 | MHC.OFFVISCO ---
Intake Intake Visit Reasons: Anticoagulation Veterans Contact Representative Required: No Allergies penicillin V [From Jeny Orozco] Allergy (Mild, Verified 10/19/24 10:11) HIVES Medication List - Last Reconciled 10/19/24 by Daily See, RN amiodarone 200 mg PO DAILY atorvastatin 40 mg PO BEDTIME ezetimibe 10 mg PO DAILY multivitamin 1 tab PO DAILY omeprazole 20 mg PO BID warfarin 5 mg PO DAILY Nursing Note [facility] due to increased costs of DOAC medications. Previous pt of this clinic and last seen February 2025. Meds have changed. NO longer on dilantin which could increase the INR and started on Amiodarone shortly after leaving [facility] for a DOAC last year. This could also increase the INR. Previous dose was 2.5mg Daily. Started Warfarin 5mg 3 days ago (10/16/24) and has taken 3 doses overlapping with Xarelto. INR: 4.0?out of therapeutic range of 203 All meds reviewed. Pt brought his med list. Patient status: pt well. States he had a cardioversion last year but no other changes in med histrory. Diet: usual diet for pt Denies any signs and symptoms of bleeding or clotting or unusual bruising Bleeding, bruising, clotting discussed Nutritional guidance given: to have a serving of greens today. After re-orienting pt to [facility] and [facility] routine, admission packet given to pt and reviewed with him. All questions answered. Dose: will hold dose today then 2.5mg daily F/U INR Date : 3 days, 10/22/24?? Patient verbalizing understanding of instructions given. Anti-Coag Initial Assessment Social Hx Patient Tobacco Use Status: Never used Tobacco alcohol intake: current Alcohol intake frequency: a few times a week Housing: House current occupational exposures/hazards: No Fall risk assessment: No Falls in past year Cardiovascular Hx: CAD, [place] and Arrhythmias (AFIB) Musculoskeletal Hx: Arthritis Blood Disorder Hx: Anemia and Hyperlipidemia GI Hx: Hemorrhoids Neurological Hx: Epilepsy/Seizures (REMOTE HX OF A SEIZURE , OFF DILANTIN) Cancer HX: No Psych. Illness/Depression: No Surgeries: EGD Anti-Coag. Education Record Teaching Recipient: Patient What is the easiest way to learn: Reading, Listening, Demonstration and Education Packet List any additional concerns (family/financial etc.): NONE Significant other who can be involved in Teaching Process when Indicated: Veterans Contact Representative Required: No Readiness To Learn: Excellent Teaching Methods: Discussion, Handout, Protocol and Teach Back Response to Teaching: Verbalize Understanding Re-Education needs: Reinforce Content Education Intervention/Brief Description of Teaching 1. Able to state reason for taking Warfarin: Yes 2. Able to state Pain Management techniques: Yes 3. Able to state action of Warfarin.: Yes Able to state current dose, pill color, how and when Warfarin to be taken: Yes Able to identify signs of bleeding &/or clotting: Yes 4. Able to identify need to keep diet consistent in regard to vitamin K intake: Yes Able to state restriction on alcohol: Yes 5. Able to state need for compliance with PT/INR testing: Yes Describes rationale for carrying ID and wearing Medic Alert bracelet: Yes 6. Able to state that there are drugs that interact with Warfin: Yes 7. Able to state the need to seek medical attention when illness/injury occur.: Yes Describes the need to avoid activities with high risk of injury: Yes 8. Able to state duration of treatment: Yes 9. Demonstrates understanding of notifying all providers of pending dental surgical, or other invasive procedures: Yes 10. Able to state Home Care instructions Questionnaires HAS-BLED Does the patient had uncontrolled Hypertension?: No Does the patient have renal disease?: No Does the patient have liver disease?: No Does the patient have a history of stroke?: No Has the patient had major bleeding or predisposition to bleeding?: Yes Does the patient have labile INRs?: No Is the patient over 65 years of age?: Yes Is the patient on medications that gives them a predisposition to bleeding?: Yes Does the patient use alcohol?: Yes HAS-BLED Score: 4 CHADSVASC Age: 75 or over Gender: Male Does the patient have a history of CHF?: No Does the patient have a history of Hypertension?: No Does the patient have a history of Stroke/TIA/Thromboembolism?: No Does the patient have a history of Vascular Disease (prior MN, PAD or aortic plaque)?: Yes Does the patient have a history of Diabetes?: No CHADS VACS Score: 3 Salome Prediction Score Rsk VTE Active Cancer: No Previous VTE, excluding superficial vein thrombosis: No Reduced mobility: No Already known Thrombophilic Condition: No With-in last month Trauma and/or Surgery: No Elderly 70 year or older: Yes Heart and/or Respiratory Failure: No Acute Myocardial infarction and/or Ischemic Stroke: Yes Acute Infection and/or Rheumatologic Disorder: No Obesity (BMI 30 or greater): No Ongoing Hormonal Treatment: No Score: 2 Salome Score less than 4; Low Risk of VTE Salome Score 4 or greater; High Risk of VTE Coding Level of Care Code Est Patient Level 2 Diagnoses Current use of anticoagulant therapy Z79.01 Results AMB INR Fingerstick AMB INR Fingerstick 4.0 Last Edit by Daily See RN on 10/19/24 10:29 INTERFACE DELAY Assessment & Plan Assessment & Plan (1) Current use of anticoagulant therapy: Code(s): 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
== END 2024-10-19 11:12 | disposition home or self-care (01) ==
LOC: HO.ACS 10:01
PROVIDERS: PCP Internal Medicine; Visit Provider Internal Medicine
DX: Z79.01 Long term (current) use of anticoagulants (principal)

== ENCOUNTER → 2024-10-19 10:01 | Outpatient (BNVA) | payer MEDICARE, SELFPAY | PROVIDERS: PCP Internal Medicine; Visit Provider Internal Medicine | DX: I48.0 Paroxysmal atrial fibrillation (principal); Z79.01 Long term (current) use of anticoagulants; Z51.81 Encounter for therapeutic drug level monitoring | CPT/HCPCS: 85610; 99212 ==

== ENCOUNTER 2024-10-22 08:14 | Outpatient (AMB) | payer MEDICARE, SELFPAY ==
[2024-10-22 08:42] LABS: Prothrombin Time Whole Bld POC 42.7 sec (11.1-13.5); ~PT, ~INR - Anti Coag Clinic 3.6 (0.9-1.1)
--- NOTE | 2024-10-22 09:21 | MHC.OFFVISCO ---
Intake Intake Visit Reasons: Anticoagulation Allergies penicillin V [From Pen-Vee K] Allergy (Mild, Verified 10/22/24 08:38) HIVES Medication List - Last Reconciled 10/22/24 by Daily See RN amiodarone 200 mg PO DAILY atorvastatin 40 mg PO BEDTIME ezetimibe 10 mg PO DAILY multivitamin 1 tab PO DAILY omeprazole 20 mg PO BID warfarin 5 mg See Protocol PO DAILY Nursing Note INR: 3.6??out of therapeutic range of 2-3 Medications and supplements reviewed Patient status: feels well Medications or supplements: no changes Diet: usual diet for pt Denies any signs and symptoms of bleeding or clotting or unusual bruising Bleeding, bruising, clotting discussed Nutritional guidance given: to have a serving of greens today. Food list reviewed and pt states he will have cooked asparagus. Dose: hold today's dose of 2.5mg then 2.5mg X 6 days and 1.25mg X [address] Simon's office called to order 2.5mg warfarin tablets. With this strength, he can cut in 1/2 to equal 1.25mg. He may end up on more than 1 day a week of 1.25mg strength. F/U INR Date : 1 week?? Patient verbalizing understanding of instructions with read back given. Anti-Coag Initial Assessment Social Hx Patient Tobacco Use Status: Never used Tobacco alcohol intake: current Alcohol intake frequency: a few times a week Cardiovascular Hx: CAD, [place] and Arrhythmias (AFIB) Musculoskeletal Hx: Arthritis Blood Disorder Hx: Anemia and Hyperlipidemia GI Hx: Hemorrhoids Neurological Hx: Epilepsy/Seizures (REMOTE HX OF A SEIZURE , OFF DILANTIN) Cancer HX: No Psych. Illness/Depression: No Coding Level of Care Code Est Patient Level 1 Diagnoses Current use of anticoagulant therapy Z79.01 Assessment & Plan Assessment & Plan (1) Current use of anticoagulant therapy: Code(s): Z79.01 - [facility] (current) use of anticoagulants Category: Medical Medications: New warfarin 2.5 mg See Protocol PO DAILY
== END 2024-10-22 15:19 | disposition home or self-care (01) ==
LOC: HO.ACS 08:14
PROVIDERS: PCP Internal Medicine; Visit Provider Internal Medicine
DX: Z79.01 Long term (current) use of anticoagulants (principal)

== ENCOUNTER → 2024-10-22 08:14 | Outpatient (BNVA) | payer MEDICARE, SELFPAY | PROVIDERS: PCP Internal Medicine; Visit Provider Internal Medicine | DX: I48.0 Paroxysmal atrial fibrillation (principal); Z79.01 Long term (current) use of anticoagulants; Z51.81 Encounter for therapeutic drug level monitoring | CPT/HCPCS: 85610; 99211 ==

== ENCOUNTER 2024-10-29 08:27 | Outpatient (AMB) | payer MEDICARE, SELFPAY ==
[2024-10-29 08:36] LABS: Prothrombin Time Whole Bld POC 42.2 sec (11.1-13.5); ~PT, ~INR - Anti Coag Clinic 3.5 (0.9-1.1)
--- NOTE | 2024-10-29 08:48 | MHC.OFFVISCO ---
Intake Intake Visit Reasons: Anticoagulation Allergies penicillin V [From Pen-Vee K] Allergy (Mild, Verified 10/29/24 08:30) HIVES Medication List - Last Reconciled 10/29/24 by Daily See RN amiodarone 200 mg PO DAILY atorvastatin 40 mg PO BEDTIME ezetimibe 10 mg PO DAILY multivitamin 1 tab PO DAILY omeprazole 20 mg PO BID warfarin 5 mg See Protocol PO DAILY warfarin 2.5 mg See Protocol PO DAILY Nursing Note INR: 3.5 out of therapeutic range of 2-3 Trying to find the right dose for pt. Since he came off warfarin and on Xarelto February 2024, he was taken off Dilantin and now that he is back on warfarin, his dose is less. Medications and supplements reviewed Patient status: feels well Medications or supplements: no changes Diet: usual diet Denies any signs and symptoms of bleeding or clotting or unusual bruising Bleeding, bruising, clotting discussed Nutritional guidance given: to have a serving of greens today. Pt states he will have broccoli. Dose: hold today's dose of 2.5mg then decrease weekly dose to 2.5mg X4 days and 1.25mg X 3 days F/U INR Date : 1 week?? Patient verbalizing understanding of instructions given. Anti-Coag Initial Assessment Social Hx Patient Tobacco Use Status: Never used Tobacco alcohol intake: current Alcohol intake frequency: a few times a week Cardiovascular Hx: CAD, NM and Arrhythmias (AFIB) Musculoskeletal Hx: Arthritis Blood Disorder Hx: Anemia and Hyperlipidemia GI Hx: Hemorrhoids Neurological Hx: Epilepsy/Seizures (REMOTE HX OF A SEIZURE , OFF DILANTIN) Cancer HX: No Psych. Illness/Depression: No Coding Level of Care Code Est Patient Level 1 Diagnoses Current use of anticoagulant therapy Z79.01 Results AMB INR Fingerstick AMB INR Fingerstick 3.5 Last Edit by Daily See RN on 10/29/24 08:43 interface delay Assessment & Plan Assessment & Plan (1) Current use of anticoagulant therapy: Code(s): Z79.01 - faith doctor (current) use of anticoagulants Category: Medical
== END 2024-10-29 08:55 | disposition home or self-care (01) ==
LOC: HO.ACS 08:27
PROVIDERS: PCP Internal Medicine; Visit Provider Internal Medicine
DX: Z79.01 Long term (current) use of anticoagulants (principal)

== ENCOUNTER → 2024-10-29 08:27 | Outpatient (BNVA) | payer MEDICARE, SELFPAY | PROVIDERS: PCP Internal Medicine; Visit Provider Internal Medicine | DX: I48.0 Paroxysmal atrial fibrillation (principal); Z79.01 Long term (current) use of anticoagulants; Z51.81 Encounter for therapeutic drug level monitoring | CPT/HCPCS: 85610; 99211 ==

== ENCOUNTER 2024-11-05 08:27 | Outpatient (AMB) | payer MEDICARE, SELFPAY ==
[2024-11-05 08:56] LABS: Prothrombin Time Whole Bld POC 34.6 sec (11.1-13.5); ~PT, ~INR - Anti Coag Clinic 2.9 (0.9-1.1)
--- NOTE | 2024-11-05 09:09 | MHC.OFFVISCO ---
Intake Intake Visit Reasons: Anticoagulation Allergies penicillin V [From Pen-Vee K] Allergy (Mild, Verified 11/05/24 08:49) HIVES Medication List - Last Reconciled 11/05/24 by Loretta Neville RN amiodarone 200 mg PO DAILY atorvastatin 40 mg PO BEDTIME ezetimibe 10 mg PO DAILY multivitamin 1 tab PO DAILY omeprazole 20 mg PO BID vit C,N-Pi-pslzt-lutein-zeaxan 250-90-40-1 mg (PreserVision AREDS-2) 1 tab PO BID warfarin 2.5 mg See Protocol PO DAILY Nursing Note INR: 2.9 in therapeutic range Medications and supplements reviewed Recently d/c xarelto, and dilattin and started amiodarone, also takes preservions areds, sometimes takes a MVI -that can affect INR too, it was explained that the MVI plus the eye vitamin could have too much of some vitamins, he is going to review them and may stop the regular MVI or decrease the amt Denies any signs and symptoms of bleeding or bruising or clotting. Bleeding, bruising, clotting discussed Nutritional guidance given Dose: keep same dose for now 1.25mg / 2.5mg x 4 days F/U INR: 1 week Patient verbalizes understanding of instructions given with read back Anti-Coag Initial Assessment Social Hx Patient Tobacco Use Status: Never used Tobacco alcohol intake: current Alcohol intake frequency: a few times a week Cardiovascular Hx: CAD, [place] and Arrhythmias (AFIB) Musculoskeletal Hx: Arthritis Blood Disorder Hx: Anemia and Hyperlipidemia GI Hx: Hemorrhoids Neurological Hx: Epilepsy/Seizures (REMOTE HX OF A SEIZURE 1969', OFF DILANTIN) Cancer HX: No Psych. 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
== END 2024-11-05 09:16 | disposition home or self-care (01) ==
LOC: HO.ACS 08:27
PROVIDERS: PCP Internal Medicine; Visit Provider Internal Medicine
DX: Z79.01 Long term (current) use of anticoagulants (principal)

== ENCOUNTER → 2024-11-12 08:34 | Outpatient (BNVA) | payer MEDICARE, SELFPAY | PROVIDERS: PCP Internal Medicine; Visit Provider Internal Medicine | DX: I48.0 Paroxysmal atrial fibrillation (principal); Z79.01 Long term (current) use of anticoagulants; Z51.81 Encounter for therapeutic drug level monitoring | CPT/HCPCS: 85610; 99211 ==

== ENCOUNTER 2024-11-26 08:13 | Outpatient (AMB) | payer MEDICARE, SELFPAY ==
--- NOTE | 2024-11-26 08:32 | MHC.OFFVISCO ---
Intake Intake Visit Reasons: Anticoagulation Allergies penicillin V [From Pen-Vee K] Allergy (Mild, Verified 11/26/24 08:20) HIVES Medication List - Last Reconciled 11/26/24 by Pat Bowers RN amiodarone 200 mg PO DAILY atorvastatin 40 mg PO BEDTIME ezetimibe 10 mg PO DAILY multivitamin 1 tab PO DAILY omeprazole 20 mg PO BID vit C,V-Xe-bsrma-lutein-zeaxan 250-90-40-1 mg (PreserVision AREDS-2) 1 tab PO BID warfarin 2.5 mg See Protocol PO DAILY Nursing Note NO CP,SOB,DIET/MED CHANGES,FALLS OR SX OF BLEEDING. CONTINUE PRESENT DOSE AND FOLLOW-UP IN 3 WEEKS GOOD UNDERSTANDING OF DOSING INSTR. Anti-Coag Initial Assessment Social Hx Patient Tobacco Use Status: Never used Tobacco alcohol intake: current Alcohol intake frequency: a few times a week Cardiovascular Hx: CAD, [place] and Arrhythmias (AFIB) Musculoskeletal Hx: Arthritis Blood Disorder Hx: Anemia and Hyperlipidemia GI Hx: Hemorrhoids Neurological Hx: Epilepsy/Seizures (REMOTE HX OF A SEIZURE , OFF DILANTIN) Cancer HX: No Psych. 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
[2024-11-26 08:34] LABS: Prothrombin Time Whole Bld POC 30.9 sec (11.1-13.5); ~PT, ~INR - Anti Coag Clinic 2.6 (0.9-1.1)
== END 2024-11-26 08:40 | disposition home or self-care (01) ==
LOC: HO.ACS 08:13
PROVIDERS: PCP Internal Medicine; Visit Provider Internal Medicine
DX: Z79.01 Long term (current) use of anticoagulants (principal)

== ENCOUNTER → 2024-11-26 08:13 | Outpatient (BNVA) | payer MEDICARE, SELFPAY | PROVIDERS: PCP Internal Medicine; Visit Provider Internal Medicine | DX: I48.0 Paroxysmal atrial fibrillation (principal); Z79.01 Long term (current) use of anticoagulants; Z51.81 Encounter for therapeutic drug level monitoring | CPT/HCPCS: 85610; 99211 ==

== ENCOUNTER → 2024-11-30 07:36 | Outpatient (REF) | payer MEDICARE, SELFPAY ==
--- NOTE | 2024-11-30 07:39 | CA_ITS ---
Transthoracic Echocardiogram Patient (Last, First, Middle): Moris Jimenez A Gender: Male Date of : 1945 Age: 79 Procedure Date: 11/30/2024 Procedure Type: Transthoracic Echocardiogram Location: OP Height: 175. cm Weight: 73.48 kg BSA: 1.89 m2 Heart Rate: 58 bpm BP: 130 / 80 mmHg Mine Car Dispatcher: RUTH ANN Referring MD: Lazarus Stewart MD Symptoms: I35.0 - Nonrheumatic aortic (valve) stenosis Study Quality: Fair ECG Rhythm: Sinus Conclusions: - The left ventricular systolic function is mildly decreased. The visually estimated ejection fraction is between 45-50%. - The apical inferior, apical septum, mid inferoseptal, and mid anteroseptal segments are akinetic. - There is mild aortic valve stenosis. Findings Left Ventricle Normal left ventricular cavity size. There is normal left ventricular wall thickness. The left ventricular systolic function is mildly decreased. The visually estimated ejection fraction is between 45-50%. Evidence suggests grade II (moderate) diastolic dysfunction. Wall Motion Rest Echo Findings The apical inferior, apical septum, mid inferoseptal, and mid anteroseptal segments are akinetic. Right Ventricle Mildly increased right ventricular cavity size. There is normal right ventricular systolic function. Atria The left atrium is mildly dilated. The right atrium is normal in size. Aortic Valve There is severe calcification of the aortic valve. There is mild aortic valve stenosis. The peak aortic velocity is 2.46 m/s with a calculated peak gradient of 24 mmHg. The mean gradient is 15 mmHg. The aortic valve area is 1.41 cm2. There is trace (trivial) aortic valve regurgitation. Dimensionless index 0.51. Mitral Valve There is mild mitral annular calcification. There is trace mitral valve regurgitation. There is no mitral valve stenosis. Pulmonic Valve The pulmonic valve is likely normal. Tricuspid Valve There is mild tricuspid valve regurgitation. There is no evidence of pulmonary hypertension. Great Vessels The asc aorta and aortic arch are normal in size. Venous The inferior vena cava is normal in size and collapses greater than 50% with inspiration. Pericardium/Pleural There is no evidence of pericardial effusion. Prior Study Comparison No significant change compared to prior study dated: 02/11/2024. Slight progression of aortic valve stenosis. Measurements 2D Linear Measurements IVSd: 0.98 0.6-0.9/0.6-1.0 cm LVIDd: 5.05 3.9-5.3/4.2-5.9 cm LVIDd Index: 2.67 2.4-3.2/2.2-3.1 cm/m2 LVIDs: 3.87 2.0-3.6 cm LVPWd: 1.10 0.7-1.1 cm LA Diam: 4.40 2.7-3.8/3.0-4.0 cm LAIDs Index: 2.33 1.5-2.3 cm/m2 LV Mass: 242.39 67-162/88-224 g LV Mass Index: 128.25 43-95/49-115 g/m2 LVOT Diam: 2.00 3.0+(-)1.3 cm 2D Systolic Function EF 4C: 48.50 >55% EF 2C: 55.90 >55% EF BiP: 52.40 >55% Mitral Valve MV Pk E: 1.02 MV PK A: 0.45 MV Decel Time: 322.00 E/A: 2.30 E'Lateral: 8.16 E'Medial: 5.00 E/E' Med: 20.40 E/E' Lat: 12.50 PHT: 94.00 MVA PHT: 2.34 Decel [place]: 3.16 Aortic Valve AoV Pk Jasper: 2.46 AoV Mn Jasper: 1.82 AoV VTI: 0.64 AoV Pk Grad: 24.00 Aov Mn Grad: 15.00 LEYDI Cont.VTI: 1.41 AI Pk Jasper: 3.77 AI [place]: 2.33 LVOT LVOT Pk Jasper: 1.26 LVOT Mn Jasper: 0.85 LVOT VTI: 0.29 LVOT Pk Grad: 6.00 LVOT Mn Grad: 3.00 LVOT Diam: 2.00 LVOT Area: 3.14 Diastolic Function MV Pk E: 1.02 MV Pk A: 0.45 E/A: 2.30 E'Medial: 5.00 E/E' Med: 20.40 E' Laterial: 8.16 E/E' Lat: 12.50 Right Ventricle TAPSE (mm): 28.20 TVS' Jasper: 12.00 Tricuspid Valve TR Pk Jasper: 2.76 TR Pk Grad: 30.00 RA Press: 3.00 RVSP: 33.00 Great Vessels Aorta Sinus of Valsalva: 3.10 2.0-3.5 cm Ao Asc: 3.20 2.1-3.4 cm Ao Arch: 3.30 Pulmonary Valve PV Pk Jasper: 1.00 Peak PV Grad: 4.00 Updated in Other Vendor System with Status of Final Hernesto Costa MD electronically signed on 11/30/2024 10:53:41 AM with status of Final
== END ==
LOC: HO.CARD 07:36
PROVIDERS: PCP Internal Medicine; Visit Provider Internal Medicine Cardiovascular Disease
DX: I35.0 Nonrheumatic aortic (valve) stenosis (principal)
CPT/HCPCS: 93306

== ENCOUNTER → 2024-11-30 07:39 | Outpatient (BNV) | payer MEDICARE, SELFPAY | PROVIDERS: PCP Internal Medicine; Visit Provider Internal Medicine | DX: I35.2 Nonrheumatic aortic (valve) stenosis with insufficiency (principal); I35.8 Other nonrheumatic aortic valve disorders; I34.81 Nonrheumatic mitral (valve) annulus calcification; I36.1 Nonrheumatic tricuspid (valve) insufficiency | CPT/HCPCS: 93306 ==

== ENCOUNTER 2024-12-17 07:34 | Outpatient (AMB) | payer MEDICARE, SELFPAY ==
--- NOTE | 2024-12-17 07:48 | A.OFFVIS_ITS ---
Intake Visit Reasons: :Elevated PSA Intake Note: New Patient presents for initial visit for elevated psa Urology Medications: none Blood Thinner: none smoker: former; smoked for 4yrs, quit at 21 [facility] Required: No Accompanied by: Self / Same As Patient Allergies penicillin V [From Pen-Vee K] Allergy (Mild, Verified 12/17/24 09:00) HIVES HPI Comments Details: History of Present Illness The patient is a 79-year-old male presenting with elevated Prostate-Specific Antigen (PSA) levels. His PSA has decreased from 7.5 to 6.12 recently. He expresses concern regarding the association of elevated PSA with prostate cancer, benign prostatic hyperplasia, and urinary tract infections. The patient notes a slower urinary stream, without instances of nocturia, and has a history of cardiovascular conditions affecting his treatment options. Current medications include amiodarone, atorvastatin, and warfarin. Urinary Symptoms Review - Slower urinary stream - Nocturia: Absent - No urine incontinence or urgency mentioned Results - Labs: Elevated PSA decreased from 7.5 to 6.12 - Urinalysis: 1+ blood Plan 1. 5 mg has been prescribed to address prostate enlargement, with expectations for reduced PSA over three months. Depending on the PSA trend and ultrasound results, further action, including biopsy, may be warranted. Urine cytology has been ordered to investigate hematuria. Follow-up includes another PSA test prior to the three-month follow-up visit.: Patient was informed and verbally consented to the use of an ambient scribe for clinic note documentation during this visit. Discussion Notes I discussed with the patient the potential causes of elevated PSA, including benign prostatic hyperplasia and prostate cancer, and explained the implications of these conditions. I advised on the commencement of dutasteride to shrink the prostate and discussed its potential benefits and anticipated PSA reduction timeline. The option of a future prostate biopsy was introduced as contingent on the results of PSA follow-up and prostate imaging. We explored the importance of imaging the prostate, kidneys, and bladder to understand the full condition. I explained the risk of biopsy and emphasize non-invasive options first. The patient consented to the outlined plan and opted for medication pickup at [facility]. Patient Instructions - Schedule and complete an ultrasound of the prostate, kidneys, and bladder. - Begin taking dutasteride (Avidart) 0.5 mg as prescribed, monitor for any side effects, and report any concerns. - Ensure bladder is full for the ultrasound procedure. - Perform follow-up urine cytology as instructed. - Complete PSA test two weeks before next follow-up appointment. - Attend follow-up visit in three months for reassessment of PSA levels and discussion of further treatment options if necessary. - Contact the office if there are issues obtaining the medication due to insurance or pharmacy availability. [facility] Medical History Current use of anticoagulant therapy Atrial flutter Psoriatic arthritis Hypovitaminosis D Bilateral hand swelling Inflammatory arthritis Aortic stenosis CAD (coronary artery disease) Paroxysmal atrial fibrillation Epilepsy H/O acute myocardial infarction Surgical History Stented coronary artery Family History Father Diabetes Arthritis Mother No problems noted. Daughter Arthritis Social History Household Members: Spouse Housing: House Do you presently have visiting nurse or other home services: No Alcohol intake: current Alcohol intake frequency: a few times a week Alcohol type: beer Patient Tobacco Use Status: Never used Tobacco Second Hand Smoke Exposure: No service: No Current occupational exposures/hazards: No Review of Systems Const All systems reviewed & are unremarkable except as noted in HPI and below Reports no additional complaints Eyes Reports no additional complaints ENT Reports no additional complaints Card Reports no additional complaints Resp Reports no additional complaints GI Reports no additional complaints Reports as per HPI Musc Reports no additional complaints Skin/Breast Reports system reviewed and no additional complaints, except as documented Neuro Reports no additional complaints Psych Reports no additional complaints Endo Reports no additional complaints Shyam/Lymph Reports no additional complaints Aller/Immun Reports no additional complaints Physical Exam Const General: healthy appearing, no acute distress and well developed Orientation/consciousness: patient oriented x3 HEENT Head: Yes normocephalic and Yes atraumatic Eyes Conjunctivae: conjunctivae normal Neck Neck: Yes normal visual inspection Chest Chest palpation & inspection: normal inspection of the chest Resp Effort & Inspection: normal respiratory effort Other: Prostate Exam: Penis: normal penis Scrotum: scrotum normal Neuro General: patient oriented x3 Extrem General: No pedal edema Psych Appearance: grossly normal Affect: normal affect Results AMB Urinalysis, Automated UA Leukoctes 0 Parish/uL Last Edit by José Luis Hobson on 12/17/24 07:59 UA Nitrite Last Edit by José Luis Pisanojohann on 12/17/24 07:59 UA Urobilinogen 0.2 mg/dL Last Edit by Rafatsarahlinden Pisanojohann on 12/17/24 07:59 UA Protein 15 mg/dL Last Edit by José Luis Hobson on 12/17/24 07:59 UA pH 5.5 Last Edit by Rafatsarahlinden Pisanojohann on 12/17/24 07:59 UA Blood 25 Rigoberto/uL Last Edit by José Luis Hobsno on 12/17/24 07:59 UA Specific [place] 1.025 Last Edit by Rafatsarahlinden Pisanojohann on 12/17/24 07:59 UA Ketone Last Edit by José Luis Hobson on 12/17/24 07:59 UA Bilirubin 0 mg/dL Last Edit by José Luis Hobson on 12/17/24 07:59 UA Glucose 0 mg/dL Last Edit by Niccilinden Pisanojohann on 12/17/24 07:59 AMB INR Fingerstick AMB INR Fingerstick 2.7 Last Edit by Daily See RN on 12/29 09:09 interface delay Results Reviewed Results Reviewed: Laboratory Last Values Urine pH (Auto) 5.5 12/17/24 07:58 Specific [place] (Auto) 1.025 12/17/24 07:58 Urine Protein (Auto) 15 mg/dL 12/17/24 07:58 Glucose (UA)(Auto) 0 mg/dL 12/17/24 07:58 Urine Blood (Auto) 25 Rigoberto/uL 12/17/24 07:58 Urine Bilirubin (Auto) 0 mg/dL 12/17/24 07:58 Urine Urobilinogen (Auto) 0.2 mg/dL 12/17/24 07:58 Leukocyte Esterase (Auto) 0 Parish/uL 12/17/24 07:58 Assessment & Plan Assessment & Plan (1) BPH with elevated PSA and lower urinary tract symptoms: Code(s): N40.1 - Benign prostatic hyperplasia with lower urinary tract symptoms; R97.20 - Elevated prostate specific antigen [PSA] Category: Medical Orders: Orders AMB Urinalysis Automated Today Z13.9 - Encounter for screening, unspecified PSA,Total (Free>4and<10) 3 Months N40.1 - Benign prostatic hyperplasia with lower urinary tract symptoms, R97.20 - Elevated prostate specific antigen [PSA] Urine Cytology Today R31.9 - Hematuria, unspecified US retroperitoneal comp Today N40.1 - Benign prostatic hyperplasia with lower urinary tract symptoms, R97.20 - Elevated prostate specific antigen [PSA] Medications: New dutasteride (Avodart) 0.5 mg PO DAILY 90 caps 3RF Coding Diagnoses BPH with elevated PSA and lower urinary tract symptoms N40.1; R97.20
== END 2024-12-17 08:49 | disposition home or self-care (01) ==
LOC: HO.HUSH 07:35
PROVIDERS: PCP Internal Medicine; Visit Provider Urology
DX: Z13.9 Encounter for screening, unspecified (principal)

== ENCOUNTER 2024-12-17 07:34 | Outpatient (REF) | payer MEDICARE, SELFPAY ==
[2024-12-17 16:57] LABS: Urine Cytology See Pathology rpt
== END 2024-12-17 07:35 | disposition home or self-care (01) ==
LOC: HO.LNP 07:34
PROVIDERS: PCP Internal Medicine; Visit Provider Urology
DX: R31.9 Hematuria, unspecified (principal); N40.1 Benign prostatic hyperplasia with lower urinary tract symptoms; R97.20 Elevated prostate specific antigen [PSA]; I48.0 Paroxysmal atrial fibrillation; Z51.81 Encounter for therapeutic drug level monitoring; Z79.01 Long term (current) use of anticoagulants; Z13.9 Encounter for screening, unspecified; Z87.891 Personal history of nicotine dependence
CPT/HCPCS: 81003; 85610; 88112; 99202; 99211

== ENCOUNTER 2024-12-17 08:53 | Outpatient (AMB) | payer MEDICARE, SELFPAY ==
--- NOTE | 2024-12-17 09:11 | MHC.OFFVISCO ---
Intake Intake Visit Reasons: Anticoagulation Allergies penicillin V [From Pen-Vee K] Allergy (Mild, Verified 12/17/24 09:00) HIVES Medication List - Last Reconciled 12/17/24 by Daily See RN amiodarone 200 mg PO DAILY atorvastatin 40 mg PO BEDTIME dutasteride (Avodart) 0.5 mg PO DAILY ezetimibe 10 mg PO DAILY multivitamin 1 tab PO DAILY omeprazole 20 mg PO BID vit C,F-Zj-xwlow-lutein-zeaxan 250-90-40-1 mg (PreserVision AREDS-2) 1 tab PO BID warfarin 2.5 mg See Protocol PO DAILY Nursing Note INR: 2.7 in therapeutic range of 2-3 Medications and supplements reviewed No changes in health, diet, medications, or supplements, Denies any signs and symptoms of bleeding or bruising or clotting. Bleeding, bruising, clotting discussed Nutritional guidance given Dose: 2.5mg X 4 days and 1.25mg X 3 days (Mon, Wed & Fri) F/U INR: 4 weeks Patient verbalizes understanding of instructions given Anti-Coag Initial Assessment Social Hx Patient Tobacco Use Status: Never used Tobacco alcohol intake: current Alcohol intake frequency: a few times a week Cardiovascular Hx: CAD, [place] and Arrhythmias (AFIB) Musculoskeletal Hx: Arthritis Blood Disorder Hx: Anemia and Hyperlipidemia GI Hx: Hemorrhoids Neurological Hx: Epilepsy/Seizures (REMOTE HX OF A SEIZURE , OFF DILANTIN) Cancer HX: No Psych. Illness/Depression: No Coding Level of Care Code Est Patient Level 1 Diagnoses Current use of anticoagulant therapy Z79.01 Results AMB Urinalysis, Automated UA Leukoctes 0 Parish/uL Last Edit by José Luis Hobson on 12/17/24 07:59 UA Nitrite Last Edit by José Luis Hobson on 12/17/24 07:59 UA Urobilinogen 0.2 mg/dL Last Edit by José Luis Hobson on 12/17/24 07:59 UA Protein 15 mg/dL Last Edit by José Luis Hobson on 12/17/24 07:59 UA pH 5.5 Last Edit by José Luis Hobson on 12/17/24 07:59 UA Blood 25 Rigoberto/uL Last Edit by José Luis Hobson on 12/17/24 07:59 UA Specific [place] 1.025 Last Edit by José Luis Hobson on 12/17/24 07:59 UA Ketone Last Edit by José Luis Hobson on 12/17/24 07:59 UA Bilirubin 0 mg/dL Last Edit by José Luis Hobson on 12/17/24 07:59 UA Glucose 0 mg/dL Last Edit by José Luis Hobson on 12/17/24 07:59 AMB INR Fingerstick AMB INR Fingerstick 2.7 Last Edit by Daily See RN on 12/17/24 09:09 interface delay Assessment & Plan Assessment & Plan (1) Current use of anticoagulant therapy: Code(s): Z79.01 - penitentiary (current) use of anticoagulants Category: Medical
[2024-12-17 09:16] LABS: Prothrombin Time Whole Bld POC 31.9 sec (11.1-13.5); ~PT, ~INR - Anti Coag Clinic 2.7 (0.9-1.1)
== END 2024-12-17 09:13 | disposition home or self-care (01) ==
LOC: HO.ACS 08:53
PROVIDERS: PCP Internal Medicine; Visit Provider Internal Medicine
DX: Z79.01 Long term (current) use of anticoagulants (principal)

== ENCOUNTER 2024-12-24 15:06 | Outpatient (AMB) | payer MEDICARE, SELFPAY ==
[2024-12-24 15:24] VITALS: BP 110/70; PULSE 62; BMI 25.8
--- NOTE | 2024-12-24 15:24 | A.OFFVIS_ITS ---
Vital Signs 12/24/24 15:24 Height 5 ft 8 in Weight 169 lb 12.095 oz BMI 25.8 BP 110/70 Blood Pressure Location Lt brachial Position Sitting Pulse 62 Intake Visit Reasons: 6m follow up Intake Note: 6 month follow-up with ekg c/o leg weakness in the last few week Financial Analysis Consultant Required: No Allergies penicillin V [From Pen-Vee K] Allergy (Mild, Verified 12/17/24 09:00) HIVES Medication List - Last Reconciled 12/24/24 by Lazarus Stewart MD amiodarone 200 mg PO DAILY atorvastatin 40 mg PO BEDTIME dutasteride (Avodart) 0.5 mg PO DAILY ezetimibe 10 mg PO DAILY multivitamin 1 tab PO DAILY omeprazole 20 mg PO BID vit C,W-Lr-ukgfc-lutein-zeaxan 250-90-40-1 mg (PreserVision AREDS-2) 1 tab PO BID warfarin 2.5 mg See Protocol PO DAILY HPI Comments Details: Moris comes for follow-up. Patient denies any clear cardiac symptoms. No recurrent atrial fibrillation on amiodarone. No bleeding issues on warfarin. Denies any anginal symptoms. Echocardiogram showed mild aortic stenosis and mildly reduced LV ejection fraction. Denies orthopnea, PND, leg edema. [facility] Medical History Current use of anticoagulant therapy Atrial flutter Psoriatic arthritis Hypovitaminosis D Bilateral hand swelling Inflammatory arthritis Aortic stenosis CAD (coronary artery disease) Paroxysmal atrial fibrillation Epilepsy H/O acute myocardial infarction Surgical History Stented coronary artery Family History Father Diabetes Arthritis Mother No problems noted. Daughter Arthritis Social History Household Members: Spouse Housing: House Do you presently have visiting nurse or other home services: No Alcohol intake: current Alcohol intake frequency: a few times a week Alcohol type: beer Patient Tobacco Use Status: Never used Tobacco Second Hand Smoke Exposure: No service: No Current occupational exposures/hazards: No Review of Systems Const Denies chills, Denies fatigue, Denies fever(s), Denies frequent falls, Denies weakness, Denies weight gain and Denies weight loss ENT Denies dizziness Card Denies chest pain, Denies leg edema, Denies lightheadedness, Denies palpitations, Denies dyspnea, Denies dyspnea on exertion, Denies orthopnea and Denies other (loss of consciousness) Resp Denies cough, Denies dyspnea and Denies dyspnea on exertion GI Denies hematochezia and Denies change in stool character Musc Denies abnormal gait, Denies muscle weakness, Denies numbness, Denies radiating pain into limb and Denies tingling Neuro Denies abnormal gait, Denies dizziness, Denies frequent falls, Denies numbness, Denies tingling and Denies weakness Endo Denies fatigue and Denies palpitations Physical Exam Vital Signs: Last Vital Signs Pulse 62 12/24/24 15:24 BP 110/70 12/24/24 15:24 BMI result Body Mass Index 25.8 Const General: cooperative, comfortable, no acute distress, alert and awake Nutritional Appearance: average body habitus Orientation/consciousness: patient oriented x3 Limitations: no limitations Neck Neck: Yes trachea midline, Yes supple and Yes no JVD Resp Effort & Inspection: normal respiratory effort Auscultation: clear to auscultation bilaterally Cardio Jugular venous distension: no JVD Palpation: normal PMI Rate: regular rate Rhythm: regular rhythm Heart sounds: S1 normal heart sound present, S2 normal heart sound present, no click, no gallops, Murmur heart sound present systolic and no rubs GI Auscultation: normal bowel sounds Skin General skin exam: no rashes or lesions noted and ecchymosis Neuro General: patient oriented x3 and no focal motor deficits Extrem General: Yes no clubbing, cyanosis or edema Psych Appearance: grossly normal Office Procedures EKG Details: EKG shows normal sinus rhythm nonspecific [place] [address]-[id number], Complete Assessment & Plan Assessment & Plan (1) Paroxysmal atrial fibrillation: Code(s): I48.0 - Paroxysmal atrial fibrillation Category: Medical Plan: Paroxysmal atrial fibrillation with improved symptoms although he says he is doing the same. We discussed about management of rhythm at this point time. Continue pursue rhythm control approach will lower amiodarone to 100 mg daily. Continue monitor EKG every 6 months. Will check for amiodarone toxicity. Continue oral anticoagulation therapy warfarin with target INR between 2 and 3. (2) CAD (coronary artery disease): Code(s): I25.10 - Atherosclerotic heart disease of [place] coronary artery without angina pectoris Category: Medical Plan: CAD with prior anterior WI and stenting. Currently doing well with no symptoms of angina. Continue high-intensity statin therapy along with ezetimibe therapy with target goal LDL less than 70 mg/dL. Blood pressure is well optimized. Continue warfarin therapy and would avoid aspirin therapy to reduce bleeding risk. Will follow up in the clinic in 6 months time, sooner p.r.n.. Thank you for allowing me to partake in his care Coding Level of Care Code Est Pt Level 4 (22630) Complex EM visit Add On G2211 Diagnoses Paroxysmal atrial fibrillation I48.0 CAD (coronary artery disease) I25.10 CPT Codes EKG - CPT: 98349-[id number], Complete ([id number])
== END 2024-12-24 15:44 | disposition home or self-care (01) ==
LOC: HO.HCS 15:06
PROVIDERS: PCP Internal Medicine; Visit Provider Internal Medicine Cardiovascular Disease
DX: I48.0 Paroxysmal atrial fibrillation (principal); I25.10 Atherosclerotic heart disease of native coronary artery without angina pectoris
CPT/HCPCS: 93010; 99214; G2211

== ENCOUNTER → 2024-12-24 15:06 | Outpatient (BNVA) | payer MEDICARE, SELFPAY | PROVIDERS: PCP Internal Medicine; Visit Provider Internal Medicine Cardiovascular Disease | DX: I48.0 Paroxysmal atrial fibrillation (principal); I25.10 Atherosclerotic heart disease of native coronary artery without angina pectoris | CPT/HCPCS: 93005; 99212 ==

== ENCOUNTER 2025-01-14 08:14 | Outpatient (AMB) | payer MEDICARE, SELFPAY ==
--- NOTE | 2025-01-14 08:47 | MHC.OFFVISCO ---
Intake Intake Visit Reasons: Anticoagulation Allergies penicillin V [From Pen-Velinden K] Allergy (Mild, Verified 01/14/25 08:36) HIVES Medication List - Last Reconciled 01/14/25 by Loretta Neville RN amiodarone 200 mg PO DAILY atorvastatin 40 mg PO BEDTIME dutasteride (Avodart) 0.5 mg PO DAILY ezetimibe 10 mg PO DAILY multivitamin 1 tab PO DAILY omeprazole 20 mg PO BID vit C,G-Kq-fwxmc-lutein-zeaxan 250-90-40-1 mg (PreserVision AREDS-2) 1 tab PO BID warfarin 2.5 mg See Protocol PO DAILY Nursing Note INR: 2.2 in therapeutic range Medications and supplements reviewed No changes in health, diet, medications, or supplements, Denies any signs and symptoms of bleeding or bruising or clotting. Bleeding, bruising, clotting discussed Nutritional guidance given Dose: keep same dose F/U INR: 2.5mg x 4 days/ 1.25mg mwf Patient verbalizes understanding of instructions given Anti-Coag Initial Assessment Social Hx Patient Tobacco Use Status: Never used Tobacco alcohol intake: current Alcohol intake frequency: a few times a week Cardiovascular Hx: CAD, [place] and Arrhythmias (AFIB) Musculoskeletal Hx: Arthritis Blood Disorder Hx: Anemia and Hyperlipidemia GI Hx: Hemorrhoids Neurological Hx: Epilepsy/Seizures (REMOTE HX OF A SEIZURE , OFF DILANTIN) Cancer HX: No Psych. Illness/Depression: No Coding Level of Care Code Est Patient Level 1 Diagnoses Current use of anticoagulant therapy Z79.01 Results AMB INR Fingerstick AMB INR Fingerstick 2.2 Last Edit by Loretta Neville RN on 01/14/25 08:43 MANUAL ENTRY Assessment & Plan Assessment & Plan (1) Current use of anticoagulant therapy: Code(s): Z79.01 - halfway (current) use of anticoagulants Category: Medical
[2025-01-14 09:14] LABS: ~PT, ~INR - Anti Coag Clinic 2.2 (0.9-1.1)
== END 2025-01-14 08:51 | disposition home or self-care (01) ==
LOC: HO.ACS 08:14
PROVIDERS: PCP Internal Medicine; Visit Provider Internal Medicine Medical Oncology
DX: Z79.01 Long term (current) use of anticoagulants (principal)

== ENCOUNTER → 2025-01-14 08:14 | Outpatient (BNVA) | payer MEDICARE, SELFPAY | PROVIDERS: PCP Internal Medicine; Visit Provider Internal Medicine Medical Oncology | DX: I48.0 Paroxysmal atrial fibrillation (principal); Z51.81 Encounter for therapeutic drug level monitoring; Z79.01 Long term (current) use of anticoagulants | CPT/HCPCS: 85610; 99211 ==

== ENCOUNTER 2025-02-08 14:50 | Outpatient (AMB) | payer MEDICARE, SELFPAY ==
[2025-02-08 15:00] VITALS: BP 142/70; PULSE 66; RESP 16; TEMP 36.7; O2SAT 99; BMI 25.5
--- NOTE | 2025-02-08 15:00 | A.OFFPC_ITS ---
Vital Signs 02/08/25 15:00 Height 5 ft 8 in Weight 168 lb BMI 25.5 BP 142/70 H Respiration 16 Pulse 66 Pulse Source Pulse Oximeter Temp 98.0 F Temp Source Oral Pulse Oximetry (%) 99 Intake Visit Reasons: Routine Examination Scorer Required: No Accompanied by: Self / Same As Patient Allergies penicillin V [From Pen-Vee K] Allergy (Mild, Verified 02/08/25 15:36) HIVES Medication List - Last Reconciled 02/08/25 by Paxton Childers MD amiodarone 200 mg PO DAILY atorvastatin 40 mg PO BEDTIME dutasteride (Avodart) 0.5 mg PO DAILY multivitamin 1 tab PO DAILY omeprazole 20 mg PO BID vit C,X-Vp-nbknb-lutein-zeaxan 250-90-40-1 mg (PreserVision AREDS-2) 1 tab PO BID warfarin 2.5 mg See Protocol PO DAILY Tobacco use date assessed: 02/08/25 Fall risk assessment: No Falls in past year Last assessed Fall Risk: 02/08/25 Dental Screening Dental Screen Date: 02/08/25 Did you have a dental visit in the last 12 months?: Yes Did you have a dental problem in the last 6 months where you did not have access to dental care?: No Was dental information given to patient?: Patient has dentist [facility] Medical History Current use of anticoagulant therapy Atrial flutter Psoriatic arthritis Hypovitaminosis D Bilateral hand swelling Inflammatory arthritis Aortic stenosis CAD (coronary artery disease) Paroxysmal atrial fibrillation Epilepsy H/O acute myocardial infarction Surgical History History of colonoscopy (~03/17/18) Stented coronary artery Family History Father Diabetes Arthritis Mother No problems noted. Daughter Arthritis Social History Household Members: Spouse Housing: House Do you presently have visiting nurse or other home services: No Alcohol intake: current Alcohol intake frequency: a few times a week Alcohol type: beer Patient Tobacco Use Status: Never used Tobacco e-Cigarette/Vaping Use: Never Used Second Hand Smoke Exposure: No service: No Current occupational status: retired Current occupational exposures/hazards: No Cognitive needs: No Hearing needs: No Vision needs: Yes (Rx glasses) Questionnaire PHQ-9 Over the last 2 weeks, how often have you been bothered by any of the following problems? 1. Little interest or pleasure in doing things: not at all 2. Feeling down, depressed, or hopeless: not at all 3. Trouble falling or staying asleep, or sleeping too much: not at all 4. Feeling tired or having little energy: not at all 5. Poor appetite or overeating: not at all 6. Feeling bad about yourself - or that you are a failure or have let yourself or your family down: not at all 7. Trouble concentrating on things, such as reading the newspaper or watching television: not at all 8. Moving or speaking so slowly that other people could have noticed. Or the opposite - being so fidgety or restless that you have been moving around a lot more than usual: not at all 9. Thoughts that you would be better off or of hurting yourself in some wa y: not at all Total score: 0 Depression Screening Interpretation: Negative Depression Screening Done: Yes Source: Developed by Drs. Mt Guerra, Tameka Cary, Getachew Rey and colleagues, with an educational lissette from [employer]. Thrive Questionnaire Date Thrive assessed: 02/08/25 I am a: Patient What is your living situation today?: I have a steady place to live Within the past 12 months, did the food you bought not last and you didn't have the money to get more?: Never true Within the past 12 months, did you worry whether your food would run out before you got money to buy more?: Never true Do you have trouble paying for medicines?: No Do you have trouble getting transportation to medical appointments?: No Do you have trouble paying your heating and electricity bill?: No Do you have trouble taking care of your child, family member or friend?: No Do you have trouble with day-to-day activities such as bathing, preparing meals, shopping, managing finances, etc.?: No Are you currently unemployed and looking for a job?: No Are you interested in more education?: No THRIVE Score: 0 AUDIT C Alcohol Use Questionnaire (AUDIT-C) 1. How often do you have a drink containing alcohol?: Never 3. How often do you have six or more drinks on one occasion?: Never Total Score: 0 BONI-7 AMB Questionnaire BONI-7 Date BONI - 7 assessed: 02/08/25 Feeling nervous, anxious, or on edge: 0 = Not at all Not being able to stop or control worryin = Not at all Worrying too much about different things: 0 = Not at all Trouble relaxin = Not at all Being so restless that it is hard to sit still: 0 = Not at all Becoming easily annoyed or irritable: 0 = Not at all Feeling afraid as if something awful might happen: 0 = Not at all Total BONI-7 score (0-4 normal; 5-9 mild; 10-14 moderate; 15-21 severe): 0 Source: Developed by Drs. Mt Guerra, Tameka Cary, Getachew Rey and colleagues, with an educational lissette from [employer]. Physical exam (Primary Care) Vital Signs: Last Vital Signs Temp 98.0 F 02/08/25 15:00 Pulse 66 02/08/25 15:00 Resp 16 02/08/25 15:00 BP 142/70 H 02/08/25 15:00 Pulse Ox 99 02/08/25 15:00 Care Plan Goal for BP management: BP in range BMI result Body Mass Index 25.5 Tobacco/Smoking Status: Tobacco use Status Tobacco use date assessed 02/08/25 02/08/25 15:02 Patient Tobacco Use Status Never used Tobacco 02/08/25 15:13 e-Cigarette/Vaping Use Never Used 02/08/25 15:13 PHQ-9: PHQ-9 Score PHQ-9: Total score 0 02/08/25 15:17 Depression Screening Interpretation: Negative Thrive Assessment: Date of Thrive Assessment Date Thrive assessed 02/08/25 02/08/25 15:02 Advance Care Planning discussion: Exists, not on file Date of discussion: 02/08/25 Who was present: Patient Forms completed: Health Care Proxy Actual minutes spent: 5 Coding Level of Care Code Est Pt Level 4 (66164) Complex EM visit Add On G2211 Diagnoses Atrial fibrillation with RVR I48.91 Psoriatic arthritis L40.50 Additional Codes Vital Signs *Quality* - Advance Care Planning discussion: Exists, not on file ([id number]) Assessment & Plan Assessment & Plan (1) Atrial fibrillation with RVR: Code(s): I48.91 - Unspecified atrial fibrillation Category: Medical Plan: Condition is stable. COntinue medications at same dosage. (2) Psoriatic arthritis: Code(s): L40.50 - Arthropathic psoriasis, unspecified Category: Medical Plan: Condition is stable Plan History of Present Illness The patient is a 79-year-old male presenting with atrial fibrillation and ongoing prostate issues. He is on blood thinners for atrial fibrillation, with recent blood work last conducted in September and upcoming tests planned. He is also managing prostate health issues and has a scheduled PSA test and ultrasound on March 08. The patient notes a history of smoking but has quit many years ago at age 21. The patient's quality of life is affected by age-related macular degeneration, particularly in his left eye, impacting his driving ability. However, he remains active, participating in activities like yard work and grocery shopping, and still manages his banking and finances independently. 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 - Does not drive due to macular degeneration affecting eyesight. - Lives with his ; the two of them manage daily living tasks together. - Engages in yard work and grocery shopping, indicating maintained functional activity. - Manages own banking and financial tasks independently. - History of smoking but quit at age 21. Review of Systems - Cardiovascular: Reports history of atrial fibrillation; denies new cardiac symptoms. - Genitourinary: Reports ongoing issues with prostate; denies acute urinary symptoms. - Ophthalmologic: Reports decreased vision, specifically in the left eye due to macular degeneration. - Neurological: Denies any issues impacting functional independence. - Gastrointestinal: Denies abdominal pain or recent gastrointestinal symptoms. Physical Exam General: Cooperative and healthy appearing Nutritional Appearance: Well nourished Orientation/consciousness: Patient oriented x3 Limitations: No limitations Head: Normal to inspection General: Appearance normal, both eyes and all related structures Neck: Normal visual inspection Chest: Normal palpation of entire chest wall Respiratory: N ormal respiratory effort Neurology: Patient oriented x3, but has macular degeneration in the left eye causing atrophy. Results - Labs: Scheduled PSA test around March 08. - Tests: Ultrasound planned for prostate evaluation on March 08. Plan 1. Atrial Fibrillation - Maintain anticoagulant therapy. - Blood work to be scheduled for further anticoagulation monitoring. 2. Prostate Issues - PSA and ultrasound scheduled on March 08 for ongoing evaluation. 3. Age-Related Macular Degeneration - No alteration in current management; continue adaptive strategies for daily tasks. Discussion Notes During the appointment, we discussed the management plan for the patient's atrial fibrillation, emphasizing the importance of continued anticoagulant therapy and scheduled follow-up blood work to ensure effective anticoagulation levels are maintained. Discussions also covered the upcoming PSA test and ultrasound, and the necessity of these evaluations for monitoring the patient?s prostate health. I confirmed that the patient will follow up with his urologist to review results and make further management decisions. Lastly, we reviewed the functional impact of his macular degeneration and encouraged continued use of adaptive strategies for daily activities. Patient Instructions - Continue taking your prescribed blood thinner. - Attend your scheduled PSA test and ultrasound on March 08. - Follow up with your call center supervisor and urologist as planned. - Call the pharmacy if you need any prescription refills. - Maintain your current activities and use adaptive strategies to manage your vision for daily tasks. Orders: Orders Prostate Specific Antigen Scr Today I48.91 - Unspecified atrial fibrillation, L40.50 - Arthropathic psoriasis, unspecified Complete Blood Count no Diff Today I48.91 - Unspecified atrial fibrillation, L40.50 - Arthropathic psoriasis, unspecified Basic Metabolic Panel Today I48.91 - Unspecified atrial fibrillation, L40.50 - Arthropathic psoriasis, unspecified Liver Panel Today I48.91 - Unspecified atrial fibrillation, L40.50 - Arthropathic psoriasis, unspecified Lipid Panel Today I48.91 - Unspecified atrial fibrillation, L40.50 - Arthropathic psoriasis, unspecified Thyroid Stimulating Hormone Today I48.91 - Unspecified atrial fibrillation, L40.50 - Arthropathic psoriasis, unspecified UA and rflx microscopic Today I48.91 - Unspecified atrial fibrillation, L40.50 - Arthropathic psoriasis, unspecified
== END 2025-02-08 15:34 | disposition home or self-care (01) ==
LOC: HO.HMCHD 14:51
PROVIDERS: PCP Internal Medicine; Visit Provider Internal Medicine
DX: I48.91 Unspecified atrial fibrillation (principal); L40.50 Arthropathic psoriasis, unspecified; Z00.00 Encounter for general adult medical examination without abnormal findings

== ENCOUNTER → 2025-02-08 14:50 | Outpatient (BNVA) | payer MEDICARE, SELFPAY | PROVIDERS: PCP Internal Medicine; Visit Provider Internal Medicine | DX: I48.91 Unspecified atrial fibrillation (principal); L40.50 Arthropathic psoriasis, unspecified; Z79.01 Long term (current) use of anticoagulants | CPT/HCPCS: 96127; 99212 ==

== ENCOUNTER 2025-02-11 08:06 | Outpatient (AMB) | payer MEDICARE, SELFPAY ==
[2025-02-11 08:17] LABS: Prothrombin Time Whole Bld POC 30.4 sec (11.1-13.5); ~PT, ~INR - Anti Coag Clinic 2.5 (0.9-1.1)
--- NOTE | 2025-02-11 08:26 | MHC.OFFVISCO ---
Intake Intake Visit Reasons: Anticoagulation Allergies penicillin V [From Pen-Vee K] Allergy (Mild, Verified 02/11/25 08:10) HIVES Medication List - Last Reconciled 02/11/25 by Loretta Neville RN amiodarone 200 mg PO DAILY atorvastatin 40 mg PO BEDTIME dutasteride (Avodart) 0.5 mg PO DAILY multivitamin 1 tab PO DAILY omeprazole 20 mg PO BID vit C,S-Md-cmfzf-lutein-zeaxan 250-90-40-1 mg (PreserVision AREDS-2) 1 tab PO BID warfarin 2.5 mg See Protocol PO DAILY Nursing Note INR: 2.4 in therapeutic range Medications and supplements reviewed No changes in health, diet, medications, or supplements, Denies any signs and symptoms of bleeding or bruising or clotting. Bleeding, bruising, clotting discussed Nutritional guidance given Dose: KEEP SAME 1.25MG MWF/ 2.5MG X 4 DAYS F/U INR: 4 WEEKS SAME DAY ULTRASOUND Patient verbalizes understanding of instructions given WITH READ BACK Anti-Coag Initial Assessment Social Hx Patient Tobacco Use Status: Never used Tobacco alcohol intake: current Alcohol intake frequency: a few times a week Cardiovascular Hx: CAD, [place] and Arrhythmias (AFIB) Musculoskeletal Hx: Arthritis Blood Disorder Hx: Anemia and Hyperlipidemia GI Hx: Hemorrhoids Neurological Hx: Epilepsy/Seizures (REMOTE HX OF A SEIZURE , OFF DILANTIN) Cancer HX: No Psych. Illness/Depression: No Coding Level of Care Code Est Patient Level 1 Diagnoses Current use of anticoagulant therapy Z79.01 Results AMB INR Fingerstick AMB INR Fingerstick 2.5 Last Edit by Loretta Neville RN on 02/11/25 08:22 MANUAL ENTRY Assessment & Plan Assessment & Plan (1) Current use of anticoagulant therapy: Code(s): Z79.01 - terminal manager (current) use of anticoagulants Category: Medical
== END 2025-02-11 08:28 | disposition home or self-care (01) ==
PROVIDERS: PCP Internal Medicine; Visit Provider Internal Medicine Medical Oncology
DX: Z79.01 Long term (current) use of anticoagulants (principal)

== ENCOUNTER → 2025-02-11 08:06 | Outpatient (BNVA) | payer MEDICARE, SELFPAY | PROVIDERS: PCP Internal Medicine; Visit Provider Internal Medicine Medical Oncology | DX: I48.0 Paroxysmal atrial fibrillation (principal); Z51.81 Encounter for therapeutic drug level monitoring; Z79.01 Long term (current) use of anticoagulants | CPT/HCPCS: 85610; 99211 ==

== ENCOUNTER 2025-02-23 12:52 | Outpatient (AMB) | payer MEDICARE, SELFPAY ==
--- NOTE | 2025-02-23 13:03 | MHC.OFFVIS ---
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 of temporal arteritis. Pt states vision issues in the Left eyedue to macular degeneration, has been getting injections in [place] by of [facility]. They had stated swelling around optic nerve. Had labs but no steroids. 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 He has been seen by his remote ruby on rails developer Dr. Villarreal at [facility]. 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 On the physical exam per Ophthalmology they noticed a chalky white optic nerve in the left eye yesterday. He reports progression of his blurry vision on his left eye and his right eye is fine. Upon workup he denies any significant headache. Lab reports per written report is a CRP of 0.3 and an ESR of 43. The concern is that he may have giant cell arteritis. Of note he is a nonsmoker nondiabetic. He now presents for vascular evaluation. [facility] Medical History Current use of anticoagulant therapy Atrial flutter Psoriatic arthritis Hypovitaminosis D Bilateral hand swelling Inflammatory arthritis Aortic stenosis CAD (coronary artery disease) Paroxysmal atrial fibrillation Epilepsy H/O acute myocardial infarction Surgical History History of colonoscopy (~03/17/18) Stented coronary artery Family History Father Diabetes Arthritis Mother No problems noted. Daughter Arthritis Social History Household Members: Spouse Housing: House Do you presently have visiting nurse or other home services: No Alcohol intake: current Alcohol intake frequency: a few times a week Alcohol type: beer Patient Tobacco Use Status: Never used Tobacco e-Cigarette/Vaping Use: Never Used Second Hand Smoke Exposure: No service: No Current occupational status: retired Current occupational exposures/hazards: No Cognitive needs: No Hearing needs: No Vision needs: Yes (Rx glasses) Review of Systems Const All systems reviewed & are unremarkable except as noted in HPI and below Reports no additional complaints ENT Reports Normal hearing present Card Denies chest pain, Denies chest pain at rest, Denies chest pain with activity and Denies pedal edema Resp Denies cough GI Denies abdominal pain Musc Denies abnormal gait, Denies muscle cramps and Denies radiating pain into limb Skin/Breast Denies skin ulcer and Denies wounds Neuro Reports Normal hearing present and Denies abnormal gait Psych Reports no additional complaints Physical Exam Vital Signs: BMI result Body Mass Index 24.3 Const General: cooperative, healthy appearing and comfortable Orientation/consciousness: oriented to person, oriented to place and oriented to time HEENT Head: Yes normal to inspection Neck Neck: Yes normal visual inspection Carotids: no bruits Chest Chest palpation & inspection: normal inspection of the chest Resp Effort & Inspection: normal respiratory effort and able to speak in complete sentences Auscultation: clear to auscultation bilaterally, no crackles, no rales, no rhonchi and no wheezes Cardio Rate: regular rate Rhythm: regular rhythm Heart sounds: S1 normal heart sound present and S2 normal heart sound present Bruits: no carotid bruits Peripheral pulses: Peripheral pulses 2+ throughout GI Inspection: Yes normal to inspection Skin Wounds: no wounds Hair: normal Neuro General: oriented to person, oriented to place and oriented to time Cranial nerves: Yes CN's II-XII intact bilaterally and Yes Normal hearing present Cognition (Neuro): normal cognition Motor exam (neuro): 5/5 motor strength present throughout Extrem Other: venous exam: No significant superficial varicosities or spider telangiectasias, minimal edema General: No clubbing, No cyanosis and No edema Psych Appearance: grossly normal Mental Status: mental status grossly normal Speech and movement: Normal speech and movement present Assessment & Plan Assessment & Plan (1) Giant cell arteritis: Code(s): M31.6 - Other giant cell arteritis Category: Medical Plan: In short the patient will require left temporal artery biopsy. During the visit, I discussed the likely need for a temporal artery biopsy to clarify the presence of giant cell arteritis, citing its potential impact on his existing eye condition. While traditional symptoms are not present, a biopsy was deemed essential due to the potential risk of vision loss in the affected left eye, in line with his remote ruby on rails developer?s observations. Risks associated with the procedure, such as minor surgical incision and the necessary shaving in the area, were explained, along with the potential benefits of confirming or excluding the diagnosis to guide future treatment. The procedure is tentatively scheduled for to align with the patient's existing appointments and expedite processing based on the urgency of preserving ocular health. Consent was obtained, illustrating the seriousness of potential complications and the efficacy of promptly initiating treatment based on the results. Coding Level of Care Code New Pt Level 4 (65008) Diagnoses Giant cell arteritis M31.6
[2025-02-23 13:04] VITALS: BMI 24.3
== END 2025-02-23 13:56 | disposition home or self-care (01) ==
LOC: HO.HVS 12:53
PROVIDERS: PCP Internal Medicine; Visit Provider Surgery Vascular Surgery
DX: M31.6 Other giant cell arteritis (principal)
CPT/HCPCS: 99204

== ENCOUNTER → 2025-02-23 12:52 | Outpatient (BNVA) | payer MEDICARE, SELFPAY | PROVIDERS: PCP Internal Medicine; Visit Provider Surgery Vascular Surgery | DX: M31.6 Other giant cell arteritis (principal) | CPT/HCPCS: 99202 ==

== ENCOUNTER 2025-02-25 06:06 | Day surgery (SDC) | payer MEDICARE, SELFPAY ==
[2025-02-25] VITALS (11 sets, daily range): BP systolic 141–163; BP diastolic 53–80; PULSE 56–66; RESP 9–39; TEMP 36.2–36.4; O2SAT 96–100; BMI 24.3
[2025-02-25 07:01] LABS: Hematocrit 31.1 % (42.0-52.0); Hemoglobin 9.6 g/dl (14.0-18.0); Mean Corpuscular HGB Conc 30.9 g/dl (31.0-36.0); Mean Corpuscular Hemoglobin 21.3 pg (27.0-33.0); Platelet Count 294 X10*3/uL (160-400); Red Blood Count 4.51 X10*6/uL (4.60-5.80); Red Cell Distribution Width 21.2 % (11.0-16.0); White Blood Count 8.6 X10*3/uL (4.8-10.8)
[2025-02-25 07:06] LABS: INTERNATIONAL NORM RATIO 2.2 (0.9-1.1)
[2025-02-25] MEDS: Lactated Ringers 1,000 ML 50 ML IVCONT (07:06)
[2025-02-25 07:22] LABS: Anion Gap 12 (12-20); Blood Urea Nitrogen 22 mg/dL (9-16); Calcium 9.4 mg/dL (8.4-10.2); Carbon Dioxide 28 mmol/L (22-29); Chloride 108 mmol/L (96-108); Creatinine Clr Calc Pharmacy 47.5; Estimated Glomerular Filt Rate 57; Glucose Random 95 mg/dL (60-115); Potassium 4.6 mmol/L (3.3-5.1); Sodium 143 mmol/L (135-145)
--- NOTE | 2025-02-25 08:23 | MHC.SHP ---
Pre-Procedural Eval Section A - 24 Hr Update-Section A only Date of Service: 02/25/25 The patient is an INPATIENT: No Changes since office visit: Yes Patient answered all questions The patient has been examined within 24 hours of the surgical procedure. The History & Physical has been completed within 30 days and I have reviewed it.: Yes Section B - Complete if H&P > 30 days Chief Complaint: Other giant cell arteritis Allergies: Allergies Allergy/AdvReac Type Severity Reaction Status Date / Time penicillin V [From Pen-Vee K] Allergy Mild HIVES Verified 02/23/25 13:12 Plan I have reviewed the history and physical and performed a pertinent physical examination on my patient. No changes have occurred unless specified. Time Spent With Patient Time: Total time managing care of this patient today ____ minutes.
[2025-02-25] MEDS: Midazolam HCl 2 MG/2 ML VIAL 0.5 MG IVPUSH (08:42)
[2025-02-25] MEDS: fentaNYL citrate/PF 100 MCG/2 ML VIAL 25 MCG IVPUSH (08:42)
--- NOTE | 2025-02-25 09:25 | P.OP_ITS ---
Operative Note Operative Note Date of Service: 02/25/25 Narrative: Operative note by [facility] Preoperative diagnosis: Rule out giant cell arteritis Postoperative diagnosis: Same Procedure: Left temporal artery biopsy Surgeon:Jorge Waldron M.D. Ip Litigation Associate: None Anesthesia: Local with moderate conscious sedation. Total intraservice moderate sedation time was 27 minutes. I monitored the patient's level of consciousness and physiologic status continuously throughout the procedure. Specimens: 1 Drains: None Estimated blood loss: Minimal Indications: 79-year-old gentleman who has been following ophthalmology for vision loss in the left eye had concerns for giant cell arteritis. He now presents for temporal artery biopsy of the left side. The patient has signed the informed consent after reviewing risks, complications, benefits, and alternatives previously discussed with the patient. The patient was given the opportunity to ask any additional questions or voice any concerns. All questions were answered to the patient's satisfaction. Procedure in detail: Left temporal region was prepped and draped in the standard surgical fashion. After conscious sedation was administered over the temporal region we infiltrated local. We made approximately a 5 cm incision just anterior to the year. Got through the skin fascia down to the temporal artery. Using a 3-0 silk tie we ligated the proximal distal end. We cut a proximally a 2 cm segment of temporal artery that was sent off as specimen. Using electrocautery we obtained adequate hemostasis. Deep layer was reapproximated using 3-0 Polysorb superficial layer with running subcuticular 4- 0 Monocryl and Dermabond was used as a sterile dressing. At the end of the case sponge instrument counts were correct. Patient tolerated the procedure well. Returned to recovery with stable vitals. This note is constructed using voice recognition software. While every effort has been made to ensure accuracy, control and recovery special tactics errors may have been included. Thank you for allowing me to participate in the care of your patient. Yours sincerely, Jorge Waldron MD, FACS, R.P.V.I.
== END 2025-02-25 09:55 | disposition home or self-care (01) ==
PROVIDERS: PCP Internal Medicine; Visit Provider Surgery Vascular Surgery
PROC: (CPT 37609; principal; 2025-02-25 08:00)
DX: I70.8 Atherosclerosis of other arteries (principal); I77.89 Other specified disorders of arteries and arterioles; H54.62 Unqualified visual loss, left eye, normal vision right eye; H54.40 Blindness, one eye, unspecified eye; H35.30 Unspecified macular degeneration; H53.8 Other visual disturbances; I48.92 Unspecified atrial flutter; I48.0 Paroxysmal atrial fibrillation; G40.909 Epilepsy, unspecified, not intractable, without status epilepticus; L40.50 Arthropathic psoriasis, unspecified; I25.10 Atherosclerotic heart disease of native coronary artery without angina pectoris; Z95.5 Presence of coronary angioplasty implant and graft; I25.2 Old myocardial infarction; E55.9 Vitamin D deficiency, unspecified; Z79.01 Long term (current) use of anticoagulants; Z88.0 Allergy status to penicillin; Z87.891 Personal history of nicotine dependence
CPT/HCPCS: 37609; 36415; 80048; 85027; 85610; 88305; J2003; J2250; J2795; J3010

== ENCOUNTER → 2025-02-25 06:06 | Outpatient (BNV) | payer MEDICARE, SELFPAY | PROVIDERS: PCP Internal Medicine; Visit Provider Surgery Vascular Surgery | DX: M31.6 Other giant cell arteritis (principal) | CPT/HCPCS: 37609 ==

== ENCOUNTER 2025-03-05 10:34 | Outpatient (AMB) | payer MEDICARE, SELFPAY ==
--- NOTE | 2025-03-05 10:54 | A.OFFVIS_ITS ---
Vital Signs 03/05/25 11:01 Height 5 ft 8 in Weight 166 lb 0.129 oz BMI 25.2 BP 140/64 H Blood Pressure Location Rt brachial Position Sitting Respiration 18 Pulse 64 Pulse Oximetry (%) 98 Oxygen Delivery Method Room Air Intake Visit Reasons: Optic neuritis Intake Note: Patient presents for Optic Neuritis follow up. 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 At that time he was noting improvement on his course of prednisone. He was started on Humira however he only took this for short course and did not follow up because his provider had left the practice and he was unable to get another appointment. Patient followed up with his wool washer 02/18/25 due to worsening visual changes. 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 He denies jaw claudication, headaches or temporal pain or tenderness. He had mildly elevated ESR (43, normal is 40 based on age) and normal CRP 0.3. But given his eye findings he was sent for left temporal artery biopsy which was negative. He was subsequently started on high- dose steroids 60 mg by Ophthalmology out of concern for his symptoms and biopsy negative GCA. Patient here today. Continues to deny headaches, difficulty swallowing/dysphagia, jaw claudication, temporal artery tenderness. Able to get up from a seated position unable to get items from overhead. Does note stiffness to his joints throughout his body. Rheumatologic History: PsA/PsO Initially tried Humira but then was lost to follow up Initial history by Roz Medina: Mr. Subramanian 78-year-old male presents today for evaluation of elevated CRP. He was referred by his primary care provider this referral is based on labs dated 09/23/2023. Has a PMH of hypercholesteremia, elevated liver enzymes, cardiomyopathy. The patient reports that over 8 years ago he was on a regimen of methotrexate and prednisone for 4 year for psoriasis and psoriatic arthritis. He has had good remission until about a year ago when the pain and swelling returned. He has soreness knees, shoulders, and bilateral thumbs which is swollen at this visit. He says at that time he had skin psoriasis and psoriatic nails. He says his PCP reduced his statin from 80 mg to 40 mg in an attempt to address his pains but that did not help. He received his 2nd shingles shot 2 weeks ago. He denies for uveitis, GI and urinary concerns. He complains about not being able to hold things tightly and so they fall out of his hands. Current Rheumatology Medication(s): Prednisone 60mg (per ophthal) [facility] Medical History (Updated 02/25/25 @ 07:00 by Katerina Padilla RN) History of cardioversion Psoriatic arthritis Atrial flutter Hypovitaminosis D Bilateral hand swelling Inflammatory arthritis Aortic stenosis Current use of anticoagulant therapy CAD (coronary artery disease) Paroxysmal atrial fibrillation Epilepsy H/O acute myocardial infarction Surgical History History of colonoscopy (~03/17/18) Stented coronary artery Family History Father Diabetes Arthritis Mother No problems noted. Daughter Arthritis Social History Household Members: Spouse Housing: House Do you presently have visiting nurse or other home services: No Alcohol intake: current Alcohol intake frequency: holidays/special occasions only Alcohol type: beer Patient Tobacco Use Status: Former Tobacco user e-Cigarette/Vaping Use: Never Used Second Hand Smoke Exposure: No service: No Current occupational status: retired Current occupational exposures/hazards: No Cognitive needs: No Hearing needs: No Vision needs: Yes (Rx glasses) Review of Systems Const Details: Review of Systems Constitutional: Denies fever, chills, weight loss ENT: Denies eye pain or eye redness, dental caries, dry mouth GI: Denies nausea, vomiting, diarrhea, abdominal pain, change in BM Pulm: Denies SOB, ANDRADE, hemoptysis, wheezing Cards: Denies chest pain, palpitations Skin: Denies Raynaud's, photosensitivity, VOLUNTEER SERVICES COORDINATOR: Denies headaches, weakness, paresthesias, recurrent falls MSK: as per HPI All other systems reviewed and are unremarkable except noted above Physical Exam Vital Signs: Last Vital Signs Pulse 64 03/05/25 11:01 Resp 18 03/05/25 11:01 BP 140/64 H 03/05/25 11:01 Pulse Ox 98 03/05/25 11:01 Oxygen Delivery Method Room Air 03/05/25 11:01 BMI result Body Mass Index 25.2 Vital signs reviewed Physical Examination CONSTITUITIONAL Patient alert and cooperative. Well appearing and in no apparent painful distress HEENT Conjunctiva and sclera clear. ?Pupils equal round and reactive to light. ?No lymphadenopathy. ? CHEST/RESPIRATORY SYSTEM Normal respiratory effort and able to speak in complete sentences. ?Clear to auscultation bilaterally. ?No crackles, rales, rhonchi, wheezes heard. CARDIAC SYSTEM Regular rate and rhythm. ?S1 and S2 heard no murmurs. ?Radial pulses intact bilaterally MSK Hands: ?Able to make a fist. No synovitis noted to the MCPs, PIPs or DIPs. ?No tenderness to palpation of these joints. No deformities noted. ? Wrists: ?Full range of motion at the wrists without pain. ?No tenderness to palpation or synovitis noted to the wrists. Elbows: Full range of motion without pain. No tenderness, weakness, swelling, increased warmth or erythema. Shoulders: Full range of active range of motion without pain. No tenderness, weakness, swelling, increased warmth or erythema. Knees: ?Full range of motion. ?No tenderness, swelling, increased warmth or erythema.?No effusion or crepitations Ankles: Full range of motion. ?No tenderness, swelling, increased warmth or erythema.? Feet: ?Negative squeeze test. ?No tenderness to palpation or swelling of the MTPs. Tender points:?No tenderness to palpation of the bilateral trapezius, supraspinatus, greater trochanters, anterior costochondral junctions, bilateral gluteal areas, bilateral suboccipital muscle insertions SKIN Onycholysis noted to his nails Small psoriatic patches noted Results Reviewed Results Reviewed: Laboratory Tests 02/25/25 06:55 WBC 8.6 RBC 4.51 L Hgb 9.6 L Hct 31.1 L Plt Count 294 Sodium 143 Potassium 4.6 Chloride 108 Carbon Dioxide 28 BUN 22 H Creatinine 1.22 02/18/25 Anti PR3 antibodies 3.4 H Atypical pANCA 1:160 GENOVEVA 1:160 speckled Assessment & Plan Assessment & Plan (1) Psoriatic arthritis: Code(s): L40.50 - Arthropathic psoriasis, unspecified Category: Medical Plan: #PsO/PsA Patient is a 79-year-old male with 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 Given that he did not have any headache, new visual changes and a negative GCA biopsy I am inclined to believe that his eye symptoms are likely related to his underlying untreated psoriatic arthritis. We will decrease his prednisone 40 mg today and follow up in 2 weeks after he sees Ophthalmology for his MRI results. We will also start patient on methotrexate which will cover his joints, skin as well as his eye disease Plan - Methotrexate 15mg weekly - Folic acid 1 mg daily - Decrease prednisone 40mg daily - RTC 2 weeks (2) Encounter for methotrexate monitoring: Code(s): Z51.81 - Encounter for therapeutic drug level monitoring; Z79.631 - supervisor litharge (current) use of antimetabolite agent Plan: #Long-term Current Use of Methotrexate Discussed with patient the benefits and risks of methotrexate for managing their rheumatic condition Benefits include reduced pain, reduced mortality, maintenance of remission and reduction of flares Risks include oral ulcers, photosensitivity, hepatotoxicity, hematologic toxicity, pneumonitis, flu-like symptoms (especially day after administration), nodulosis, lymphomas ? Limit alcohol and avoid Bactrim ? Monitoring: ?CBC, BMP, LFTs every 3-4 months and hepatitis serologies as needed Plan I spent 42 minutes reviewing the record and labs, reviewing ophthalmology notes, taking a history, examining the patient, discussing the treatment plan, ordering diagnostic work up and documenting in the medical record Orders: Orders C Reactive Protein Today L40.50 - Arthropathic psoriasis, unspecified Medications: New methotrexate sodium 15 mg (6 x 2.5 mg) PO QWEEK 90 days 78 tabs 0RF L40.50 - Arthropathic psoriasis, unspecified folic acid 1 mg PO DAILY 90 tabs 1RF L40.50 - Arthropathic psoriasis, unspecified Coding Level of Care Code Est Pt Level 5 (41071) Complex EM visit Add On G2211 Diagnoses Psoriatic arthritis L40.50 Encounter for methotrexate monitoring Z51.81; Z79.631
[2025-03-05 11:01] VITALS: BP 140/64; PULSE 64; RESP 18; O2SAT 98; BMI 25.2
== END 2025-03-05 11:44 | disposition home or self-care (01) ==
LOC: HO.RHE 10:35
PROVIDERS: PCP Internal Medicine; Visit Provider Student in an Organized Health Care Education/Training Program
DX: L40.50 Arthropathic psoriasis, unspecified (principal); Z51.81 Encounter for therapeutic drug level monitoring; Z79.631 Long term (current) use of antimetabolite agent
CPT/HCPCS: 99215; G2211

== ENCOUNTER → 2025-03-05 10:34 | Outpatient (BNVA) | payer MEDICARE, SELFPAY | PROVIDERS: PCP Internal Medicine; Visit Provider Student in an Organized Health Care Education/Training Program | DX: L40.50 Arthropathic psoriasis, unspecified (principal); Z51.81 Encounter for therapeutic drug level monitoring; Z79.631 Long term (current) use of antimetabolite agent | CPT/HCPCS: 99212 ==

== ENCOUNTER 2025-03-08 14:51 | Outpatient (REF) | payer MEDICARE, SELFPAY ==
--- NOTE | ~2025-03-08 | US_ITS ---
EXAMINATION: US RETROPERITONEAL COMPLETE (RENAL) CLINICAL INFORMATION: Benign prostatic hyperplasia with lower urinary tract symptoms.. COMPARISON: None available. TECHNIQUE: Real-time imaging of the kidneys and bladder. FINDINGS: RIGHT KIDNEY: 10.0 x 5.0 x 4.1 cm (SAG x AP x TRV). The kidney is normal in size, contour, and echogenicity. Renal cortical thickness is normal. No calculi or focal parenchymal lesions. Prominent echogenic striations noted throughout the kidney No hydronephrosis. LEFT KIDNEY: 10.3 x 4.8 x 4.1 cm (SAG x AP x TRV). The kidney is normal in size, contour, and echogenicity. Renal cortical thickness is normal. There are complex anechoic cysts measuring 5.2 x 3.5 x 3.5 cm. There are echogenic striations seen throughout the kidney. No hydronephrosis. BLADDER: Well distended and normal. Bilateral ureteral jets are demonstrated. Prevoid bladder volume is 421.97 mL. Postvoid bladder volume is 77.4 mL. US/US retroperitoneal comp IMPRESSION: Complex bilobed exophytic cyst left kidney. Bilateral echogenic striations seen throughout both kidneys. Normal bilateral ureter jets seen with moderate post void residual volume of 77.4 mL. Electronically signed by: Mario Antoine MD 03/09/2025 07:18 AM EDT
[2025-03-08 15:59] LABS: Hematocrit 31.4 % (42.0-52.0); Hemoglobin 9.7 g/dl (14.0-18.0); Mean Corpuscular HGB Conc 30.9 g/dl (31.0-36.0); Mean Corpuscular Hemoglobin 21.1 pg (27.0-33.0); Mean Corpuscular Volume 68.4 fL (80.0-98.0); Platelet Count 325 X10*3/uL (160-400); Red Blood Count 4.59 X10*6/uL (4.60-5.80); Red Cell Distribution Width 21.4 % (11.0-16.0); White Blood Count 13.9 X10*3/uL (4.8-10.8)
[2025-03-08 16:16] LABS: INTERNATIONAL NORM RATIO 4.2 (0.9-1.1); Prothrombin Time 48.2 SEC (10.9-12.4)
[2025-03-08 16:49] LABS: Alanine Aminotransferase 65 U/L (0-40); Albumin Level 4.4 g/dL (3.5-5.0); Alkaline Phosphatase 90 U/L (39-117); Anion Gap 16 (12-20); Aspartate Amino Transferase 37 U/L (5-37); Bilirubin Direct 0.3 mg/dL (0.0-0.5); Bilirubin Total 0.8 mg/dL (0.0-1.0); Blood Urea Nitrogen 34 mg/dL (9-16); Calcium 9.4 mg/dL (8.4-10.2); Carbon Dioxide 25 mmol/L (22-29); Chloride 102 mmol/L (96-108); Cholesterol 139 mg/dL (<200); Estimated Glomerular Filt Rate 51; Glucose Random 194 mg/dL (60-115); HDL Cholesterol 76 mg/dL (>40); LDL Cholesterol Calculated 47 mg/dL (<100); Potassium 4.5 mmol/L (3.3-5.1); Sodium 138 mmol/L (135-145); Total Protein 7.2 g/dL (6.5-8.0); Triglycerides 82 mg/dL (<150)
[2025-03-08 17:06] LABS: Thyroid Stimulating Hormone 0.31 uIU/mL (0.32-4.0)
[2025-03-08 17:57] LABS: Appearance Urine Clear; Color Urine Yellow; Glucose Urine UA Negative (Negative); Leukocyte Esterase Urine Negative (Negative); Nitrite Urine Negative (Negative); Urine Blood Negative (Negative); Urine Ketones Negative (Negative); Urine Protein Negative (Neg-Trace)
[2025-03-09 15:57] LABS: C Reactive Protein 0.16 mg/dL (< or = 0.50)
== END 2025-03-08 14:52 | disposition home or self-care (01) ==
LOC: HO.US 14:51
PROVIDERS: Nurse Practitioner Family; Student in an Organized Health Care Education/Training Program; PCP Internal Medicine; Visit Provider Urology
DX: N40.1 Benign prostatic hyperplasia with lower urinary tract symptoms (principal); R97.20 Elevated prostate specific antigen [PSA]; I48.0 Paroxysmal atrial fibrillation; I48.91 Unspecified atrial fibrillation; L40.50 Arthropathic psoriasis, unspecified; Z12.5 Encounter for screening for malignant neoplasm of prostate
CPT/HCPCS: 36415; 76770; 80048; 80061; 80076; 81003; 84153; 84443; 85027; 85610; 86140; 99211

== ENCOUNTER 2025-03-08 15:25 | Outpatient (AMB) | payer MEDICARE, SELFPAY ==
[2025-03-08 15:48] LABS: ~PT, ~INR - Anti Coag Clinic 4.1 (0.9-1.1)
--- NOTE | 2025-03-08 15:53 | MHC.OFFVISCO ---
Intake Intake Visit Reasons: Anticoagulation Allergies penicillin V [From Suman-Clarisse Orozco] Allergy (Mild, Verified 03/05/25 10:57) HIVES Medication List - Last Reconciled 03/08/25 by Daily See, JOSE amiodarone 200 mg PO DAILY atorvastatin 40 mg PO BEDTIME dutasteride (Avodart) 0.5 mg PO DAILY folic acid 1 mg PO DAILY methotrexate sodium 15 mg (6 x 2.5 mg) PO QWEEK 90 days multivitamin 1 tab PO DAILY omeprazole 20 mg PO BID vit C,N-Xz-xxwtx-lutein-zeaxan 250-90-40-1 mg (PreserVision AREDS-2) 1 tab PO BID warfarin 2.5 mg See Protocol PO DAILY Nursing Note INR: 4.2?out of therapeutic range of 2-3 Pt started on prednisone 20mg tid and then bid approx 1.5-2 weeks ago for swelling around optic nerve. also started methotrexate for macular degeneration. Both meds raise the INR. Pt did not notify [facility] of new meds. Instructed to let us know when he starts any new meds. Patient status: feels well Diet: no changes Denies any signs and symptoms of bleeding or clotting or unusual bruising Bleeding, bruising, clotting discussed Nutritional guidance given: have a serving of greens today Dose: hold today's dose of 1.25mg then decrease tomorrow's dose to 1.25mg (usual 2.5mg) then 1.25mg/2.5mg/1.25mg/2.5mg/1.25mg. F/U INR Date : 03/15/25?? Patient verbalizing understanding of instructions with read back given. Anti-Coag Initial Assessment Social Hx Patient Tobacco Use Status: Former Tobacco user alcohol intake: current Alcohol intake frequency: holidays/special occasions only Cardiovascular Hx: CAD, CT and Arrhythmias (AFIB) Musculoskeletal Hx: Arthritis Blood Disorder Hx: Anemia and Hyperlipidemia GI Hx: Hemorrhoids Neurological Hx: Epilepsy/Seizures (REMOTE HX OF A SEIZURE 1969', OFF DILANTIN) Cancer HX: No Psych. 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
== END 2025-03-08 16:15 | disposition home or self-care (01) ==
LOC: HO.ACS 15:25
PROVIDERS: PCP Internal Medicine; Visit Provider Internal Medicine Medical Oncology
DX: Z79.01 Long term (current) use of anticoagulants (principal)

== ENCOUNTER → 2025-03-08 15:59 | Outpatient (BNV) | payer MEDICARE, SELFPAY | PROVIDERS: PCP Internal Medicine; Visit Provider Radiology Diagnostic Radiology | DX: N28.1 Cyst of kidney, acquired (principal); R93.429 Abnormal radiologic findings on diagnostic imaging of unspecified kidney | CPT/HCPCS: 76770 ==

== ENCOUNTER 2025-03-15 13:02 | Outpatient (AMB) | payer MEDICARE, SELFPAY ==
[2025-03-15 13:12] LABS: Prothrombin Time Whole Bld POC 30.5 sec (11.1-13.5); ~PT, ~INR - Anti Coag Clinic 2.5 (0.9-1.1)
--- NOTE | 2025-03-15 13:23 | MHC.OFFVISCO ---
Intake Intake Visit Reasons: Anticoagulation Allergies penicillin V [From Pen-Velinden K] Allergy (Mild, Verified 03/15/25 13:05) HIVES Medication List - Last Reconciled 03/15/25 by Loretta Neville RN amiodarone 200 mg PO DAILY atorvastatin 40 mg PO BEDTIME dutasteride (Avodart) 0.5 mg PO DAILY folic acid 1 mg PO DAILY methotrexate sodium 15 mg (6 x 2.5 mg) PO QWEEK 90 days multivitamin 1 tab PO DAILY omeprazole 20 mg PO BID prednisone 20 mg PO BID vit C,M-Fy-lcsdt-lutein-zeaxan 250-90-40-1 mg (PreserVision AREDS-2) 1 tab PO BID warfarin 2.5 mg See Protocol PO DAILY Nursing Note INR: 2.5 in therapeutic range Medications and supplements reviewed Pt remains on methotrexate and Prednisone 20mg po bid Denies any signs and symptoms of bleeding or bruising or clotting. Bleeding, bruising, clotting discussed Nutritional guidance given - keep up weekly greens while on prednisone and methotrexate Dose: keep lower dose for now 1.25mg x 4 days/ 2.5mg mwf this wed decrease dose to 1.25mg prior urology cystscopy F/U INR: 1 week Patient verbalizes understanding of instructions given Anti-Coag Initial Assessment Social Hx Patient Tobacco Use Status: Former Tobacco user alcohol intake: current Alcohol intake frequency: holidays/special occasions only Cardiovascular Hx: CAD, IA and Arrhythmias (AFIB) Musculoskeletal Hx: Arthritis Blood Disorder Hx: Anemia and Hyperlipidemia GI Hx: Hemorrhoids Neurological Hx: Epilepsy/Seizures (REMOTE HX OF A SEIZURE 1969', OFF DILANTIN) Cancer HX: No Psych. Illness/Depression: No Coding Level of Care Code Est Patient Level 1 Diagnoses Current use of anticoagulant therapy Z79.01 Results AMB INR Fingerstick AMB INR Fingerstick 2.5 Last Edit by Loretta Neville RN on 03/15/25 13:12 manual entry Assessment & Plan Assessment & Plan (1) Current use of anticoagulant therapy: Code(s): Z79.01 - senior care (current) use of anticoagulants Category: Medical
== END 2025-03-15 13:28 | disposition home or self-care (01) ==
LOC: HO.ACS 13:02
PROVIDERS: PCP Internal Medicine; Visit Provider Internal Medicine Medical Oncology
DX: Z79.01 Long term (current) use of anticoagulants (principal)

== ENCOUNTER → 2025-03-15 13:02 | Outpatient (BNVA) | payer MEDICARE, SELFPAY | PROVIDERS: PCP Internal Medicine; Visit Provider Internal Medicine Medical Oncology | DX: I48.0 Paroxysmal atrial fibrillation (principal); Z79.01 Long term (current) use of anticoagulants; Z51.81 Encounter for therapeutic drug level monitoring | CPT/HCPCS: 85610; 99211 ==

== ENCOUNTER 2025-03-18 09:17 | Outpatient (AMB) | payer MEDICARE, SELFPAY ==
--- NOTE | 2025-03-18 09:40 | MHC.OFFVIS ---
Intake Visit Reasons: cysto/US/PSA Intake Note: Patient presents for cystoscopy/US/PSA / Renal US 03/08 Total PSA: 3.80 / PSA:3.60 Urology Medications: none Blood Thinner: none Antibiotic Allergies: PCN Lot: [id number] Exp:12/14/26 Shale Miner Blasting Required: No Accompanied by: Self / Same As Patient Allergies penicillin V [From Pen-Vee K] Allergy (Mild, Verified 03/18/25 09:44) HIVES HPI Comments Details: 12/17/24--79-year-old male presenting with elevated Prostate-Specific Antigen (PSA) levels. His PSA --- 7.5 and 6.12 recently. He expresses concern regarding the association of elevated PSA with prostate cancer, benign prostatic hyperplasia, and urinary tract infections. The patient notes a slower urinary stream, without instances of nocturia, and has a history of cardiovascular conditions affecting his treatment options. Current medications include amiodarone, atorvastatin, and warfarin. Urinary Symptoms Review - Slower urinary stream Results - Labs: Elevated PSA ---- from 7.5 to 6.12 - Urinalysis: 1+ blood PFSH Medical History History of cardioversion Psoriatic arthritis Atrial flutter Hypovitaminosis D Bilateral hand swelling Inflammatory arthritis Aortic stenosis Current use of anticoagulant therapy CAD (coronary artery disease) Paroxysmal atrial fibrillation Epilepsy H/O acute myocardial infarction Surgical History History of colonoscopy (~03/17/18) Stented coronary artery Family History Father Diabetes Arthritis Mother No problems noted. Daughter Arthritis Social History Household Members: Spouse Housing: House Do you presently have visiting nurse or other home services: No Alcohol intake: current Alcohol intake frequency: holidays/special occasions only Alcohol type: beer Patient Tobacco Use Status: Former Tobacco user e-Cigarette/Vaping Use: Never Used Second Hand Smoke Exposure: No service: No Current occupational status: retired Current occupational exposures/hazards: No Cognitive needs: No Hearing needs: No Vision needs: Yes (Rx glasses) Office Procedures Cystoscopy Consent Discussed risk and benefit or proposed procedure with the patient. Information consent for procedure given to the patient. Discussed technical aspects, risks, benefits and alternatives in full. Addressed all of the patient's questions and concerns regarding the procedure. The patient demonstrated knowledge and understanding. They wish to proceed with this procedure. Preparation The patient was prepped in the usual manner. A alumni relations officer was present and in the room. Genitalia was prepped with betadine solution in a sterile manner. Lidocaine Jelly 2% was placed into the urethra and 16Fr flexible Olympus cystoscope was inserted into the meatus after adequate lubrication. [id number] DISPOSABLE SCOPE URO-G FLEXIBLE SCOPE Procedure code (CPT) selection complete Office Meds lidocaine HCl 2 % mucosal jelly in applicator Performing Provider: Jose Antonio Hensley MD Performing Location: [facility] Administered by: Marc Kendrick LPN on 03/18/25 09:52 Dose Route Admin Location Dispensed Lot Number Expiration Date [facility] 10 mL intra-urethral 20 mL nitrofurantoin monohydrate/macrocrystals 100 mg capsule Performing Provider: Jose Antonio Hensley MD Performing Location: [facility] Administered by: Marc Kendrick LPN on 03/18/25 09:52 Dose Route Admin Location Dispensed Lot Number Expiration Date NDC [facility] 100 mg PO 1 cap phenazopyridine 200 mg tablet Performing Provider: Jose Antonio Hensley MD Performing Location: [facility] Administered by: Marc Kendrick LPN on 03/18/25 09:52 Dose Route Admin Location Dispensed Lot Number Expiration Date NDC [facility] 200 mg PO 1 tab Results Reviewed Results Reviewed: Date of Service: 03/08/25 Procedure(s): US retroperitoneal comp Accession Number(s): [id number] cc: Jose Antonio Hensley MD; Paxton Childers MD~ EXAMINATION: US RETROPERITONEAL COMPLETE (RENAL) CLINICAL INFORMATION: Benign prostatic hyperplasia with lower urinary tract symptoms.. COMPARISON: None available. TECHNIQUE: Real-time imaging of the kidneys and bladder. FINDINGS: RIGHT KIDNEY: 10.0 x 5.0 x 4.1 cm (SAG x AP x TRV). The kidney is normal in size, contour, and echogenicity. Renal cortical thickness is normal. No calculi or focal parenchymal lesions. Prominent echogenic striations noted throughout the kidney No hydronephrosis. LEFT KIDNEY: 10.3 x 4.8 x 4.1 cm (SAG x AP x TRV). The kidney is normal in size, contour, and echogenicity. Renal cortical thickness is normal. There are complex anechoic cysts measuring 5.2 x 3.5 x 3.5 cm. There are echogenic striations seen throughout the kidney. No hydronephrosis. BLADDER: Well distended and normal. Bilateral ureteral jets are demonstrated. Prevoid bladder volume is 421.97 mL. Postvoid bladder volume is 77.4 mL. US/US retroperitoneal comp IMPRESSION: Complex bilobed exophytic cyst left kidney. Bilateral echogenic striations seen throughout both kidneys. Normal bilateral ureter jets seen with moderate post void residual volume of 77.4 mL. Assessment & Plan Assessment & Plan (1) BPH with elevated PSA and lower urinary tract symptoms: Code(s): N40.1 - Benign prostatic hyperplasia with lower urinary tract symptoms; R97.20 - Elevated prostate specific antigen [PSA] Category: Medical (2) Microscopic hematuria: Code(s): R31.29 - Other microscopic hematuria Category: Medical Plan Plan - Schedule and complete an ultrasound of the prostate, kidneys, and bladder, urine sent for cytology. - Begin taking dutasteride 0.5 mg as prescribed, monitor for any side effects, and report any concerns. - Attend follow-up visit in three months for reassessment of PSA levels and discussion of further treatment options if necessary. - Contact the office if there are issues obtaining the medication due to insurance or pharmacy availability. Orders: Orders AMB Urinalysis Automated 03/18/25 Z13.9 - Encounter for screening, unspecified AMB Cystoscopy 03/18/25 N40.1 - Benign prostatic hyperplasia with lower urinary tract symptoms, R97.20 - Elevated prostate specific antigen [PSA] PSA,Total (Free>4and<10) 6 Months N40.1 - Benign prostatic hyperplasia with lower urinary tract symptoms, R97.20 - Elevated prostate specific antigen [PSA] Scribe Plan - Not visible on output: Patient was informed and verbally consented to the use of an ambient scribe for clinic note documentation during this visit. Coding Diagnoses BPH with elevated PSA and lower urinary tract symptoms N40.1; R97.20 Microscopic hematuria R31.29 CPT Codes Cystoscopy - CPT: 45261-[id number] ([id number])
== END 2025-03-18 10:59 | disposition home or self-care (01) ==
LOC: HO.HUSH 09:17
PROVIDERS: PCP Internal Medicine; Visit Provider Urology
DX: Z13.9 Encounter for screening, unspecified (principal)

== ENCOUNTER → 2025-03-18 09:17 | Outpatient (BNVA) | payer MEDICARE, SELFPAY | PROVIDERS: PCP Internal Medicine; Visit Provider Urology | DX: N40.1 Benign prostatic hyperplasia with lower urinary tract symptoms (principal); R97.20 Elevated prostate specific antigen [PSA]; R31.29 Other microscopic hematuria | CPT/HCPCS: 81003 ==

== ENCOUNTER 2025-03-24 08:55 | Outpatient (AMB) | payer MEDICARE, SELFPAY ==
[2025-03-24 09:03] LABS: ~PT, ~INR - Anti Coag Clinic 3.1 (0.9-1.1)
--- NOTE | 2025-03-24 09:16 | MHC.OFFVISCO ---
Intake Intake Visit Reasons: Anticoagulation Allergies penicillin V (From [employer]) Allergy (Mild, Verified 03/24/25 08:58) HIVES Medication List - Last Reconciled 03/24/25 by Pat Bowers RN amiodarone 200 mg PO DAILY atorvastatin 40 mg PO BEDTIME dutasteride (Avodart) 0.5 mg PO DAILY folic acid 1 mg PO DAILY methotrexate sodium 15 mg (6 x 2.5 mg) PO QWEEK 90 days multivitamin 1 tab PO DAILY omeprazole 20 mg PO BID prednisone 20 mg PO BID 14 days vit C,Z-Mn-iybfm-lutein-zeaxan 250-90-40-1 mg (PreserVision AREDS-2) 1 tab PO BID warfarin 2.5 mg See Protocol PO DAILY Nursing Note PT.STATES THAT HE HAS DECREASED PREDNISONE DOSE TO 20MGM DAILY INSTEAD OF 40MG DUE TO SLEEPLESSNESS AND OTHER SX. HE AGREES TO NOTIFY MD OF THIS CHANGE TODAY. STILL ONMETHOTREXATE. NO CP,SOB OR SX OF BLEEDING. DECREASE WARFARIN DOSE TODAY THEN CONTINUE PRESENT DOSING AND FOLLOW-UP IN 2 WEEKS. GOOD UNDERTANDING OF DOSING INSTR. WILL HAVE DARK GREENS TODAY AND 2-3X WEEKLY. Anti-Coag Initial Assessment Social Hx Patient Tobacco Use Status: Former Tobacco user alcohol intake: current Alcohol intake frequency: holidays/special occasions only Cardiovascular Hx: CAD, [place] and Arrhythmias (AFIB) Musculoskeletal Hx: Arthritis Blood Disorder Hx: Anemia and Hyperlipidemia GI Hx: Hemorrhoids Neurological Hx: Epilepsy/Seizures (REMOTE HX OF A SEIZURE 1969', OFF DILANTIN) Cancer HX: No Psych. 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
== END 2025-03-24 09:20 | disposition home or self-care (01) ==
LOC: HO.ACS 08:55
PROVIDERS: PCP Internal Medicine; Visit Provider Internal Medicine Medical Oncology
DX: Z79.01 Long term (current) use of anticoagulants (principal)

== ENCOUNTER → 2025-03-24 08:55 | Outpatient (BNVA) | payer MEDICARE, SELFPAY | PROVIDERS: PCP Internal Medicine; Visit Provider Internal Medicine Medical Oncology | DX: I48.0 Paroxysmal atrial fibrillation (principal); Z79.01 Long term (current) use of anticoagulants; Z51.81 Encounter for therapeutic drug level monitoring | CPT/HCPCS: 85610; 99211; 99212 ==

== ENCOUNTER 2025-03-24 09:47 | Outpatient (AMB) | payer MEDICARE, SELFPAY ==
[2025-03-24 09:32] VITALS: BP 130/70; PULSE 75; RESP 14; TEMP 36.9; O2SAT 98; BMI 26.3
--- NOTE | 2025-03-24 09:32 | A.OFFPC_ITS ---
Vital Signs 03/24/25 09:32 Height 5 ft 8 in Weight 173 lb BMI 26.3 BP 130/70 Blood Pressure Location Lt brachial Position Sitting Respiration 14 Pulse 75 Pulse Source Pulse Oximeter Temp 98.4 F Temp Source Axillary Pulse Oximetry (%) 98 Oxygen Delivery Method Room Air Intake Visit Reasons: bld work follow up Livestock Buyer Required: No Accompanied by: Self / Same As Patient Allergies penicillin V (From Pen-Vee K) Allergy (Mild, Verified 03/24/25 09:33) HIVES Tobacco use date assessed: 03/24/25 Fall risk assessment: No Falls in past year Last assessed Fall Risk: 03/24/25 Dental Screening Dental Screen Date: 03/24/25 Did you have a dental visit in the last 12 months?: Yes Did you have a dental problem in the last 6 months where you did not have access to dental care?: No [facility] Medical History (Updated 03/24/25 @ 10:26 by Paxton Childers MD) Peripheral neuropathy Anemia History of cardioversion Psoriatic arthritis Atrial flutter Hypovitaminosis D Bilateral hand swelling Inflammatory arthritis Aortic stenosis Current use of anticoagulant therapy CAD (coronary artery disease) Paroxysmal atrial fibrillation Epilepsy H/O acute myocardial infarction Surgical History History of colonoscopy (~03/17/18) Stented coronary artery Family History Father Diabetes Arthritis Mother No problems noted. Daughter Arthritis Social History Household Members: Spouse Housing: House Do you presently have visiting nurse or other home services: No Alcohol intake: current Alcohol intake frequency: holidays/special occasions only Alcohol type: beer Patient Tobacco Use Status: Former Tobacco user e-Cigarette/Vaping Use: Former Use Second Hand Smoke Exposure: No service: No Current occupational status: retired Current occupational exposures/hazards: No Cognitive needs: No Hearing needs: No Vision needs: Yes (Rx glasses) Questionnaire PHQ-9 Over the last 2 weeks, how often have you been bothered by any of the following problems? 1. Little interest or pleasure in doing things: not at all 2. Feeling down, depressed, or hopeless: not at all 3. Trouble falling or staying asleep, or sleeping too much: not at all 4. Feeling tired or having little energy: not at all 5. Poor appetite or overeating: not at all 6. Feeling bad about yourself - or that you are a failure or have let yourself or your family down: not at all 7. Trouble concentrating on things, such as reading the newspaper or watching television: not at all 8. Moving or speaking so slowly that other people could have noticed. Or the opposite - being so fidgety or restless that you have been moving around a lot more than usual: not at all 9. Thoughts that you would be better off or of hurting yourself in some way: not at all Total score: 0 Source: Developed by Drs. Mt Guerra, Tameka Cary, Getachew Rey and colleagues, with an educational lissette from [employer]. Thrive Questionnaire Date Thrive assessed: 03/24/25 I am a: Patient Within the past 12 months, did the food you bought not last and you didn't have the money to get more?: Never true Within the past 12 months, did you worry whether your food would run out before you got money to buy more?: Never true Do you have trouble paying for medicines?: No Do you have trouble getting transportation to medical appointments?: No Do you have trouble paying your heating and electricity bill?: No Do you have trouble taking care of your child, family member or friend?: No Do you have trouble with day-to-day activities such as bathing, preparing meals, shopping, managing finances, etc.?: No Are you currently unemployed and looking for a job?: No Are you interested in more education?: No THRIVE Score: 0 AUDIT C Alcohol Use Questionnaire (AUDIT-C) 1. How often do you have a drink containing alcohol?: Monthly or less 2. How many drinks containing alcohol do you have on a typical day when you are drinking?: 1 or 2 3. How often do you have six or more drinks on one occasion?: Less than monthly Total Score: 2 BONI-7 AMB Questionnaire BONI-7 Date BONI - 7 assessed: 03/24/25 Feeling nervous, anxious, or on edge: 0 = Not at all Not being able to stop or control worryin = Not at all Worrying too much about different things: 0 = Not at all Trouble relaxin = Not at all Being so restless that it is hard to sit still: 0 = Not at all Becoming easily annoyed or irritable: 0 = Not at all Feeling afraid as if something awful might happen: 0 = Not at all Total BONI-7 score (0-4 normal; 5-9 mild; 10-14 moderate; 15-21 severe): 0 Source: Developed by Drs. Mt Guerra, Tameka Cary, Getachew Rey and colleagues, with an educational lissette from [employer]. Physical exam (Primary Care) Vital Signs: Last Vital Signs Temp 98.4 F 03/24/25 09:32 Pulse 75 03/24/25 09:32 Resp 14 03/24/25 09:32 BP 130/70 03/24/25 09:32 Pulse Ox 98 03/24/25 09:32 Oxygen Delivery Method Room Air 03/24/25 09:32 BMI result Body Mass Index 26.3 Tobacco/Smoking Status: Tobacco use Status Tobacco use date assessed 03/24/25 03/24/25 09:34 Patient Tobacco Use Status Former Tobacco user 03/24/25 09:34 e-Cigarette/Vaping Use Former Use 03/24/25 09:55 PHQ-9: PHQ-9 Score PHQ-9: Total score 0 03/24/25 09:55 Thrive Assessment: Date of Thrive Assessment Date Thrive assessed 03/24/25 03/24/25 09:34 Coding Level of Care Code Est Pt Level 4 (53528) Complex EM visit Add On G2211 Diagnoses Anemia D64.9 Peripheral neuropathy G62.9 Assessment & Plan Assessment & Plan (1) Anemia: Code(s): D64.9 - Anemia, unspecified Category: Medical Plan: Blood work revd in detail. Patient has iron deficiency anemia which is progressively worsening. Continues to have active psoriatic arthritis, on Coumadin for AFib which may cause slow bleed. Will discuss the case with rheum MD. Iron supplementation suggested. (2) Peripheral neuropathy: Code(s): G62.9 - Polyneuropathy, unspecified Category: Medical Plan: Neurontin 200 mg a day has been started. Plan History of Present Illness - The patient is a 79-year-old male presenting with iron deficiency anemia. - Hemoglobin levels have decreased from 13.4 a year ago to 9.7. - No noted episodes of bleeding, currently on Coumadin for atrial fibrillation. - Instead of weight loss, weight gain has been reported, attributed to prednisone therapy. - Colonoscopy results were negative for issues. - Reports lower extremity weakness and strange sensations in the feet ascending to the ankles. - Experiences persistent numbness in the feet and an unusual slipper-like sensation when barefoot. - Swelling around the optic nerve was evaluated by a retina specialist without received feedback. - Past psoriatic arthritis has not been actively monitored until recently; methotrexate and prednisone were commenced. - Prostate evaluation noted swelling, with cystoscopy observing a non-hard bladder. Social History Review of Systems - Neurological: Reports weakness in the lower extremities; reports strange sensations and numbness in the feet. - Hematological: Reports anemia confirmed by a decreasing hemoglobin level. - Gastrointestinal: Denies any episodes of bleeding. - Musculoskeletal: Reports past diagnosis of psoriatic arthritis. - Ophthalmologic: Reports swelling around the optic nerve. - Urological: Reports prostate swelling. Physical Exam General: Cooperative and healthy appearing Nutritional Appearance: Well nourished Orientation/consciousness: Patient oriented x3 Limitations: No limitations Head: Normal to inspection General: Appearance normal, both eyes and all related structures Neck: Normal visual inspection Chest: Normal palpation of entire chest wall Respiratory: N ormal respiratory effort Neurology: Patient oriented x3, experiencing weakness in legs and neuropathy in feet, with numbness and a sensation of wearing slippers even when barefoot. Results - Labs: Hemoglobin decreased from 13.4 to 9.7 in one year. - Tests and Diagnostics: Colonoscopy with no noted issues; cystoscopy showed a non-hard bladder; previous optical examinations revealed swelling around the optic nerve. Plan 1. Iron Deficiency Anemia - Begin iron supplementation; monitor hemoglobin. 2. Psoriatic Arthritis - Maintain methotrexate and prednisone regimen; liaise with rheumatology. 3. Atrial Fibrillation - Continue with Coumadin; watch for bleeding issues. 4. Neuropathy - Address neuropathy symptoms; consider treatment options. 5. Swelling Around Optic Nerve - Follow current eye management; monitor vision. 6. Benign Prostatic Hyperplasia - Continue management; observe urinary symptoms. 7. Weakness Of The Lower Extremities - Consider anemia impact; monitor for weakness changes. Discussion Notes During the visit, I explained to the patient that his condition is consistent with iron deficiency anemia potentially worsened by blood-thinning medication for atrial fibrillation. We discussed the initiation of iron supplementation as a cornerstone of his treatment. The importance of ongoing monitoring of hemoglobin levels was emphasized to adjust therapy accordingly. 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 Possible factors contributing to neuropathy and leg weakness were explored, and appropriate referrals and further investigations will be considered if necessary. Based on current symptoms, further ophthalmic assessments may be warranted to manage swelling around the optic nerve and related visual concerns. The patient expressed understanding and consent towards the proposed plans, including lifestyle modifications, and was informed of the importance of compliance for effective management. Patient Instructions - Take prescribed iron supplements regularly as instructed. - Continue methotrexate and prednisone as advised by your flexographic printing press operator. - Keep taking Coumadin for atrial fibrillation and monitor for any signs of bleeding. - Follow up with your orthodontist for any vision changes or concerns. - Report any significant changes in symptoms or new symptoms as soon as they occur. - Remain observant for signs of weakness or changes in sensation in your legs and feet.
== END 2025-03-24 10:21 | disposition home or self-care (01) ==
LOC: HO.HMCHD 09:48
PROVIDERS: PCP Internal Medicine; Visit Provider Internal Medicine
DX: D64.9 Anemia, unspecified (principal); G62.9 Polyneuropathy, unspecified

== ENCOUNTER 2025-04-07 09:36 | Outpatient (AMB) | payer MEDICARE, SELFPAY ==
--- NOTE | 2025-04-07 09:41 | MHC.OFFVISCO ---
Intake Intake Visit Reasons: Anticoagulation Allergies penicillin V (From Farmol-[employer]en [employer]) Allergy (Mild, Verified 04/07/25 09:37) HIVES Medication List - Last Reconciled 04/07/25 by Maura Bean RN amiodarone 200 mg PO DAILY atorvastatin 40 mg PO BEDTIME dutasteride (Avodart) 0.5 mg PO DAILY folic acid 1 mg PO DAILY gabapentin (Neurontin) 300 mg PO BEDTIME methotrexate sodium 15 mg (6 x 2.5 mg) PO QWEEK 90 days multivitamin 1 tab PO DAILY omeprazole 20 mg PO BID prednisone 20 mg PO BID 14 days vit C,J-Zf-wqrxz-lutein-zeaxan 250-90-40-1 mg (PreserVision AREDS-2) 1 tab PO BID warfarin 2.5 mg See Protocol PO DAILY Nursing Note INR: 3.0- in therapeutic range of 2-3 Medications and supplements reviewed- prednisone at 20mg, new med gabapentin- no interaction with warfarin per micromedex No changes in health, diet, medications, or supplements, Denies any signs and symptoms of bleeding or bruising or clotting. Bleeding, bruising, clotting discussed Nutritional guidance given - eat a green today, increase weekly greens Dose: cont reg 2.5mg x 3, 1.25mg x 4 F/U INR: 2 weeks Patient verbalizes understanding of instructions given Anti-Coag Initial Assessment Social Hx Patient Tobacco Use Status: Former Tobacco user alcohol intake: current Alcohol intake frequency: holidays/special occasions only Cardiovascular Hx: CAD, [place] and Arrhythmias (AFIB) Musculoskeletal Hx: Arthritis Blood Disorder Hx: Anemia and Hyperlipidemia GI Hx: Hemorrhoids Neurological Hx: Epilepsy/Seizures (REMOTE HX OF A SEIZURE , OFF DILANTIN) Cancer HX: No Psych. 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
--- OUTSIDE RECORDS SUMMARY | 2025-04-07 09:55 | XMS_ITS | Patient Health Record ---
Author Organization [facility] Address [address] [place] [address] Care Team Providers Care Rubber Goods Repairer Name Role Phone Jose Simon MD Primary Care Provider Unavaila Mt Munson Unavailable [phone] Laazra MOLINA, Fadi Unavailable Unavailable Allergies Allergen (clinical drug ingredient) Drug/Non Drug Allergy documented on EMR Reaction Allergy Type Onset Date Status Penicillin Unknown Drug Allergy Active Reason For Referral No Information Medications Medication SIG (Take, Route, Fr equency, Duration) Notes Start Date End Date Status Aleve once a day/ as neede d for arthritis Active Multivitamin Adults Active Omeprazole 20 MG TAKE ONE CAPSULE BY MOUTH EVERY DAY for 90 Active Phenytoin Active Problems Problem Type SNOMED Code ICD Code Onset Dates Problem Status W/U Status Risk Notes Problem 113692098 Encounter for screening for malignant neoplasm of colon (Z12.11) Active confirmed Problem 121401771 History of adenomatous polyp of colon (Z86.010) Active confirmed Problem 153173310 Gastroesophageal reflux disease with esophagitis (K21.0) Active confirmed Problem 079658930 Gastroesophageal reflux disease without esophagitis (K21.9) Active confirmed Problem 389855570 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 (K22.70) Active confirmed Problem 445111580 Iron deficiency anemia due to chronic blood loss (D50.0) Active confirmed Problem 9214862441964318 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) Active confirmed Plan Of Treatment Future Test Test Name Order Date COLONOSCOPY 07/22/2012 UPPER GI ENDOSCOPY 12/31/2017 COLONOSCOPY 12/31/2017 Insurance Providers Payer Name Payer Address Payer Phone Subscriber Number Group Number Insured Name Patient Relationship to Insured Coverage Start Date Coverage End Date [facility] [address] [place] [place] [phone] [id number] ALEIDA TITUS Self - patient is the insured Medical (General) History Medical History History ICD Code GERD/Crump's Esophagus--EGD's in 2003, 2008, and 2011 Seizure disorder Elevated cholesterol Denies DC,DM,CVA,Lung disease,renal dise ase UGI bleed with melena in 04/07 012-had been on Ibuprofen-EGD at that time negative except duodenitis and Crump's esophagus-biopsies all negative for dysplasia Rheumatoid arthritis Irregular heart rate--wore a 24 hour monitor earlier in 2018--describes no sig. findings from the card tape converter operator Colonoscopy in 08/2012 with small tubular adenomas--diverticulosis, neg colonoscopy in 2003 Surgical History Surgery Date(Month/Year) Back surgery Hernia
[2025-04-07 12:42] LABS: Prothrombin Time Whole Bld POC 35.6 sec (11.1-13.5); ~PT, ~INR - Anti Coag Clinic 3.0 (0.9-1.1)
== END 2025-04-07 09:50 | disposition home or self-care (01) ==
LOC: HO.ACS 09:36
PROVIDERS: PCP Internal Medicine; Visit Provider Internal Medicine Medical Oncology
DX: Z79.01 Long term (current) use of anticoagulants (principal)

== ENCOUNTER → 2025-04-07 09:36 | Outpatient (BNVA) | payer MEDICARE, SELFPAY | PROVIDERS: PCP Internal Medicine; Visit Provider Internal Medicine Medical Oncology | DX: Z79.01 Long term (current) use of anticoagulants (principal) | CPT/HCPCS: 85610; 99211 ==

== ENCOUNTER 2025-04-19 09:43 | Outpatient (AMB) | payer MEDICARE, SELFPAY ==
--- NOTE | 2025-04-19 09:53 | MHC.PC.OV ---
Vital Signs 04/19/25 09:55 04/19/25 10:00 Height 5 ft 8 in Weight 163 lb BMI 24.8 BP 130/58 L Blood Pressure Location Lt brachial Position Sitting Respiration 16 Pulse 74 Pulse Source Pulse Oximeter Temp 98.3 F Temp Source Temporal Artery Scan Pulse Oximetry (%) 96 Oxygen Delivery Method Room Air Intake Visit Reasons: 1 month f/u Oven Builder Required: No Accompanied by: Self / Same As Patient Allergies penicillin V (From edulioVelinden Tinkercad) Allergy (Mild, Verified 04/19/25 09:54) HIVES Tobacco use date assessed: 02/08/25 Dental Screening Dental Screen Date: 02/08/25 [facility] Medical History (Updated 03/24/25 @ 10:26 by Paxton Childers MD) Peripheral neuropathy Anemia History of cardioversion Psoriatic arthritis Atrial flutter Hypovitaminosis D Bilateral hand swelling Inflammatory arthritis Aortic stenosis Current use of anticoagulant therapy CAD (coronary artery disease) Paroxysmal atrial fibrillation Epilepsy H/O acute myocardial infarction Surgical History History of colonoscopy (~03/17/18) Stented coronary artery Family History Father Diabetes Arthritis Mother No problems noted. Daughter Arthritis Social History Household Members: Spouse Housing: House Do you presently have visiting nurse or other home services: No Alcohol intake: current Alcohol intake frequency: holidays/special occasions only Alcohol type: beer Patient Tobacco Use Status: Former Tobacco user e-Cigarette/Vaping Use: Former Use Second Hand Smoke Exposure: No service: No Current occupational status: retired Current occupational exposures/hazards: No Cognitive needs: No Hearing needs: No Vision needs: Yes (Rx glasses) Questionnaire Thrive Questionnaire Date Thrive assessed: 02/08/25 AUDIT C Alcohol Use Questionnaire (AUDIT-C) 1. How often do you have a drink containing alcohol?: 4 or more times a week 2. How many drinks containing alcohol do you have on a typical day when you are drinking?: 1 or 2 Total Score: 4 BONI-7 AMB Questionnaire BONI-7 Date BONI - 7 assessed: 02/08/25 Source: Developed by Drs. Mt L. Tameka Guerra, Getachew Rey and colleagues, with an educational lissette from [employer]. Physical exam (Primary Care) Vital Signs: Last Vital Signs Temp 98.3 F 04/19/25 10:00 Pulse 74 04/19/25 10:00 Resp 16 04/19/25 10:00 BP 130/58 L 04/19/25 10:00 Pulse Ox 96 04/19/25 10:00 Oxygen Delivery Method Room Air 04/19/25 10:00 BMI result Body Mass Index 24.8 Tobacco/Smoking Status: Tobacco use Status Tobacco use date assessed 02/08/25 04/19/25 10:02 Patient Tobacco Use Status Former Tobacco user 04/19/25 10:02 e-Cigarette/Vaping Use Former Use 04/19/25 10:02 Thrive Assessment: Date of Thrive Assessment Date Thrive assessed 02/08/25 04/19/25 10:02 Coding Level of Care Code Est Pt Level 4 (76311) Complex EM visit Add On G2211 Diagnoses Peripheral neuropathy G62.9 Assessment & Plan Assessment & Plan (1) Peripheral neuropathy: Code(s): G62.9 - Polyneuropathy, unspecified Category: Medical Plan: History of Present Illness - The patient is a 79-year-old male presenting with management of anemia and peripheral neuropathy. - Anemia: The patient has experienced a decline in hemoglobin levels over the past six months, with values decreasing from 13 to 9. - He has been taking iron supplements without experiencing constipation or other side effects. - Peripheral neuropathy: The patient reports a sensation of wearing shoes while in bed, affecting the area from the knees down, without pain or burning. - Gabapentin was prescribed but caused dizziness upon waking, which resolved after about an hour. - Aortic valve calcification: The patient has a history of moderate to severe aortic valve calcification with regurgitation, as noted in a previous echocardiogram. 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 Review of Systems - Hematologic: Reports anemia with declining hemoglobin levels. - Neurological: Reports sensation of wearing shoes while in bed, denies pain or burning. - Cardiovascular: Denies chest pain, orthopnea, or syncope. - Ophthalmologic: Reports dry macular degeneration in the right eye, left eye 20/20 vision. Physical Exam General: Cooperative and healthy appearing Nutritional Appearance: Well nourished Orientation/consciousness: Patient oriented x3 Limitations: No limitations Head: Normal to inspection General: Appearance normal, both eyes and all related structures Neck: Normal visual inspection Chest: Normal palpation of entire chest wall Respiratory: N ormal respiratory effort Neurology: Patient oriented x3, positive Romberg test, no changes in handwriting or speech. Results - Echocardiogram: Moderate to severe aortic valve calcification with regurgitation. Plan 1. Anemia - Continue iron supplementation and repeat blood work to monitor hemoglobin levels. 2. Peripheral Neuropathy - Discontinue gabapentin due to dizziness. - Refer to a neurologist for nerve conduction studies. - Initiate vitamin B12 supplementation. 3. Aortic Valve Calcification With Regurgitation - Review echocardiogram results and follow up with machinist outside. 4. Dry Macular Degeneration - Continue current management and follow up with blood bank technologist. Discussion Notes I discussed with the patient the discontinuation of gabapentin due to dizziness and the initiation of vitamin B12 supplementation. I recommended a referral to a neurologist for further evaluation of peripheral neuropathy. We also reviewed the echocardiogram findings and planned for follow-up with a machinist outside. The patient was advised to continue current management for dry macular degeneration and to follow up with an blood bank technologist. Patient Instructions - Stop taking gabapentin immediately. - Start taking vitamin B12 supplements as directed. - Continue taking iron supplements and get blood work done as instructed. - Follow up with a neurologist for nerve conduction studies. - Schedule a follow-up appointment with a machinist outside to review echocardiogram results. - Continue current eye care regimen and follow up with an blood bank technologist. Orders: Orders Complete Blood Count no Diff Today G62.9 - Polyneuropathy, unspecified Vitamin B12 and Folate Today G62.9 - Polyneuropathy, unspecified
[2025-04-19 09:55] VITALS: BMI 24.8
[2025-04-19 10:00] VITALS: BP 130/58; PULSE 74; RESP 16; TEMP 36.8; O2SAT 96
== END 2025-04-19 10:32 | disposition home or self-care (01) ==
LOC: HO.HMCHD 09:43
PROVIDERS: PCP Internal Medicine; Visit Provider Internal Medicine
DX: G62.9 Polyneuropathy, unspecified (principal)

== ENCOUNTER → 2025-04-19 09:43 | Outpatient (BNVA) | payer MEDICARE, SELFPAY | PROVIDERS: PCP Internal Medicine; Visit Provider Internal Medicine | DX: G62.9 Polyneuropathy, unspecified (principal); D64.9 Anemia, unspecified; I35.1 Nonrheumatic aortic (valve) insufficiency; H35.30 Unspecified macular degeneration | CPT/HCPCS: 99212 ==

== ENCOUNTER 2025-04-19 10:45 | Outpatient (REF) | payer MEDICARE, SELFPAY ==
[2025-04-19 13:17] LABS: Hematocrit 30.5 % (42.0-52.0); Hemoglobin 9.5 g/dl (14.0-18.0); Mean Corpuscular HGB Conc 31.1 g/dl (31.0-36.0); Mean Corpuscular Hemoglobin 23.8 pg (27.0-33.0); Mean Corpuscular Volume 76.3 fL (80.0-98.0); NRBC Abs Auto 0.000 X10*3/uL (0.0-0.012); NRBC Pct Auto 0.0 /100WBC (0.0-0.2); Platelet Count 273 X10*3/uL (160-400); Red Blood Count 4.00 X10*6/uL (4.60-5.80); White Blood Count 14.5 X10*3/uL (4.8-10.8)
[2025-04-19 14:06] LABS: Folate > 20.0 ng/mL (> or = 4.0); Vitamin B12 409 pg/mL (200-900)
== END 2025-04-19 10:46 | disposition home or self-care (01) ==
LOC: HO.10HDL 10:45
PROVIDERS: Visit Provider Internal Medicine
DX: G62.9 Polyneuropathy, unspecified (principal)
CPT/HCPCS: 36415; 82607; 82746; 85027

== ENCOUNTER 2025-04-23 08:43 | Outpatient (AMB) | payer MEDICARE, SELFPAY ==
--- OUTSIDE RECORDS SUMMARY | 2025-04-23 08:47 | XMS_ITS | Patient Health Record ---
Author Organization [facility] Address [address] [place] [address] Care Team Providers Care Nca Certified Concierge Name Role Phone Alfred (RETIRED) Jose MOLINA Primary Care Provide r Unavailable Mt Ramirez Unavailable [phone] Lazara MOLINA, Fadi Unavailable Unavailable Allergies Allergen (clinical [...] Problem Status W/U Status Risk Notes Problem 513555936 Encounter for screening for malignant neoplasm of colon (Z12.11) Active confirmed Problem 419329554 History of adenomatous polyp of colon (Z86.010) Active confirmed Problem 759049145 Gastroesophageal reflux disease with esophagitis (K21.0) Active confirmed Problem 707807797 Gastroesophageal reflux disease without esophagitis (K21.9) Active confirmed Problem 940477866 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 (K22.70) Active confirmed Problem 954694565 Iron deficiency anemia due to chronic blood loss (D50.0) Active confirmed Problem 1786255551225489 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) Active confirmed Plan Of Treatment Future Test Test Name Order Date COLONOSCOPY 07/22/2012 UPPER GI ENDOSCOPY 12/31/2017 COLONOSCOPY 12/31/2017 Insurance Providers Payer Name Payer Address Payer Phone Subscriber Number Group Number Insured Name Patient Relationship to Insured Coverage Start Date Coverage End Date [facility] [address] [place] [phone] [id number] TACHO ALEIDA Self - patient is the insured Medical (General) History Medical History History ICD Code GERD/Crump's Esophagus--EGD's in 2003, 2008, and 2011 Seizure disorder Elevated cholesterol Denies OR,DM,CVA,Lung disease,renal dise ase UGI bleed with melena in 04/07 012-had been on Ibuprofen-EGD at that time negative except duodenitis and Crump's esophagus-biopsies all negative for dysplasia Rheumatoid arthritis Irregular heart rate--wore a 24 hour monitor earlier in 2017--describes no sig. findings from the kinesiologist Colonoscopy in 08/2012 with small tubular adenomas--diverticulosis, neg colonoscopy in 2003 Surgical History Surgery Date(Month/Year) Back surgery Hernia
[2025-04-23 09:20] LABS: Prothrombin Time Whole Bld POC 32.0 sec (11.1-13.5); ~PT, ~INR - Anti Coag Clinic 2.7 (0.9-1.1)
--- NOTE | 2025-04-23 09:29 | MHC.OFFVISCO ---
Intake Intake Visit Reasons: Anticoagulation Allergies penicillin V (From [employer]-Velinden K) Allergy (Mild, Verified 04/23/25 09:13) HIVES Medication List - Last Reconciled 04/23/25 by Loretta Neville RN amiodarone 200 mg PO DAILY atorvastatin 80 mg PO BEDTIME dutasteride (Avodart) 0.5 mg PO DAILY folic acid 1 mg PO DAILY gabapentin (Neurontin) 300 mg PO BEDTIME methotrexate sodium 15 mg (6 x 2.5 mg) PO QWEEK 90 days multivitamin 1 tab PO DAILY omeprazole 20 mg PO BID prednisone 10 mg PO ONCE vit C,V-Lo-yrnma-lutein-zeaxan 250-90-40-1 mg (PreserVision AREDS-2) 1 tab PO BID warfarin 2.5 mg See Protocol PO DAILY Nursing Note INR: 2.7 in therapeutic range Medications and supplements reviewed No changes in health, diet, medications, or supplements, Denies any signs and symptoms of bleeding or bruising or clotting. Bleeding, bruising, clotting discussed Nutritional guidance given - eat a mix of fruits and vegetables you enjoy Dose: 2.5mg x 3 days / 1.25mg x 4 days F/U INR: 3 weeks Patient verbalizes understanding of instructions given Anti-Coag Initial Assessment Social Hx Patient Tobacco Use Status: Former Tobacco user alcohol intake: current Alcohol intake frequency: holidays/special occasions only Cardiovascular Hx: CAD, [place] and Arrhythmias (AFIB) Musculoskeletal Hx: Arthritis Blood Disorder Hx: Anemia and Hyperlipidemia GI Hx: Hemorrhoids Neurological Hx: Epilepsy/Seizures (REMOTE HX OF A SEIZURE 1969'S, OFF DILANTIN) Cancer HX: No Psych. 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
== END 2025-04-23 09:36 | disposition home or self-care (01) ==
LOC: HO.ACS 08:43
PROVIDERS: PCP Internal Medicine; Visit Provider Internal Medicine Medical Oncology
DX: Z79.01 Long term (current) use of anticoagulants (principal)

== ENCOUNTER → 2025-04-23 08:43 | Outpatient (BNVA) | payer MEDICARE, SELFPAY | PROVIDERS: PCP Internal Medicine; Visit Provider Internal Medicine Medical Oncology | DX: I48.0 Paroxysmal atrial fibrillation (principal); Z79.01 Long term (current) use of anticoagulants; Z51.81 Encounter for therapeutic drug level monitoring | CPT/HCPCS: 85610; 99211 ==

== ENCOUNTER 2025-05-05 08:48 | Outpatient (REF) | payer MEDICARE, SELFPAY ==
[2025-05-05 10:15] LABS: MANUAL DIFF FLAG NO
[2025-05-05 10:26] LABS: Hematocrit 30.8 % (42.0-52.0); Hemoglobin 9.6 g/dl (14.0-18.0); Imm Gran Abs Auto 0.14 X10*3/uL (0.00-0.03); Imm Gran Pct Auto 1.2 % (0.0-0.4); Lymphocytes Absolute Auto 0.8 X10*3/uL (1.2-4.9); Mean Corpuscular HGB Conc 31.2 g/dl (31.0-36.0); Mean Corpuscular Hemoglobin 24.5 pg (27.0-33.0); Mean Corpuscular Volume 78.6 fL (80.0-98.0); NRBC Abs Auto 0.000 X10*3/uL (0.0-0.012); NRBC Pct Auto 0.0 /100WBC (0.0-0.2); Platelet Count 397 X10*3/uL (160-400); Red Blood Count 3.92 X10*6/uL (4.60-5.80); White Blood Count 11.2 X10*3/uL (4.8-10.8)
[2025-05-05 11:03] LABS: Anion Gap 11 (12-20); Blood Urea Nitrogen 18 mg/dL (9-16); Calcium 8.9 mg/dL (8.4-10.2); Carbon Dioxide 28 mmol/L (22-29); Chloride 106 mmol/L (96-108); Estimated Glomerular Filt Rate 57; Potassium 3.7 mmol/L (3.3-5.1); Sodium 141 mmol/L (135-145)
== END 2025-05-05 08:49 | disposition home or self-care (01) ==
LOC: HO.LAB 08:48
PROVIDERS: PCP Internal Medicine; Visit Provider Internal Medicine Cardiovascular Disease
DX: I48.0 Paroxysmal atrial fibrillation (principal)
CPT/HCPCS: 36415; 80048; 84443; 85025

== ENCOUNTER 2025-05-05 08:48 | Outpatient (AMB) | payer MEDICARE, SELFPAY ==
--- OUTSIDE RECORDS SUMMARY | 2025-05-05 09:08 | XMS_ITS | Patient Health Record ---
Author Organization [facility] Address [address] [place] [address] Care Team Providers Care Field Reporter Name Role Phone Alfred (RETIRED) Jose MOLINA Primary Care Provide r Unavailable Mt Ramirez Unavailable [phone] Lazara MOLINA, Fadi Unavailable Unavailable Allergies Allergen [...] Problem Status W/U Status Risk Notes Problem [id number] Encounter for screening for malignant neoplasm of colon (Z12.11) Active confirmed Problem 743512075 History of adenomatous polyp of colon (Z86.010) Active confirmed Problem 266137260 Gastroesophageal reflux disease with esophagitis (K21.0) Active confirmed Problem 695369787 Gastroesophageal reflux disease without esophagitis (K21.9) Active confirmed Problem 330693555 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 [address] [place] [phone] [id number] TACHO ALEIDA Self - patient is the insured Medical (General) History Medical History History ICD Code GERD/Crump's Esophagus--EGD's in 2003, 2008, and 2011 Seizure disorder Elevated cholesterol Denies NE,DM,CVA,Lung disease,renal dise ase UGI bleed with melena in 04/07 012-had been on Ibuprofen-EGD at that time negative except duodenitis and Crump's esophagus-biopsies all negative for dysplasia Rheumatoid arthritis Irregular heart rate--wore a 24 hour monitor earlier in 2017--describes no sig. 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
--- NOTE | 2025-05-05 10:06 | AM.OFFVISNUR ---
Intake Visit Reasons: ekg ? afib per Dr Stewart Allergies penicillin V (From Suman-Clarisse Orozco) Allergy (Mild, Verified 04/23/25 09:13) HIVES Nursing Note Patient presents for EKG. Patient reports he had been on prednisone for his eye. Reports he has macular degeneration and developed swelling in eye which was pressing on the optic nerve so his opthamologist started him on prednisone. He then saw rheumatology where he was started on Methotrexate weekly and tapered off of prednisone about 6 weeks ago. Patient started with fatigue after about the second weekly dose of methotrexate. Patient reports fatigue to the point where he is having to rest 3 times per day which is unusual for him. He also started to notice fluttery feeling in his chest. Patient denies any other symptoms. Patient reports he did a home covid test because of the fatigue which was negative. Patient reports he is currently taking amiodarone 100mg qd and taking coumadin for which he sees the coumadin clinic. On arrival ZO=859/58 and VI=163. EKG done. 2 EKG images Mcintosh texted to Dr. Stewart by Rox Esparza LPN to advise. Dr. Stewart ordered CBC, TSH and BMP to be done at lab, 48 hour holter monitor to be placed today, and patient allowed to go home. Orders placed and explained this plan to patient. Patient agreeable with plan and will go directly to check in desk at hospital. Patient aware we will call once results have been received. I reviewed symptoms that should prompt patient to go to ER. Patient verbalized good understanding of when to seek ER care. Assessment & Plan Assessment & Plan Orders: Orders TSH reflex Free T4 Today I48.0 - Paroxysmal atrial fibrillation, I48.91 - Unspecified atrial fibrillation Complete Blood Count Auto Diff Today I48.0 - Paroxysmal atrial fibrillation, I48.91 - Unspecified atrial fibrillation Basic Metabolic Panel Today I48.0 - Paroxysmal atrial fibrillation, I48.91 - Unspecified atrial fibrillation ECG holter monitor 48 hour Today I48.0 - Paroxysmal atrial fibrillation, I48.91 - Unspecified atrial fibrillation Coding
== END 2025-05-05 10:05 | disposition home or self-care (01) ==
LOC: HO.HCS 08:49
PROVIDERS: PCP Internal Medicine; Visit Provider Internal Medicine Cardiovascular Disease
DX: I48.91 Unspecified atrial fibrillation (principal); I49.3 Ventricular premature depolarization; I47.10 Supraventricular tachycardia, unspecified
CPT/HCPCS: 93227

== ENCOUNTER → 2025-05-05 10:24 | Outpatient (REF) | payer MEDICARE, SELFPAY ==
--- NOTE | 2025-05-05 10:26 | HM_ITS ---
* Total monitoring time 2 days. * Underlying rhythm is sinus and atrial fibrillation. * Overall atrial fibrillation burden is 26%. Longest 9 hours 15 minutes. Fastest 131/Min. * Frequent supraventricular ectopy with a burden of 17%. * Frequent ventricular ectopy with a burden of about 13%. Rare couplets. No significant runs. * No significant pauses or high-grade AV blocks. * Symptoms in patient diary including tiredness, fatigue, weakness correlate with atrial fibrillation, PVCs. MTDD
== END ==
LOC: HO.CARD 10:24
PROVIDERS: Visit Provider Internal Medicine Cardiovascular Disease
DX: I48.0 Paroxysmal atrial fibrillation (principal)
CPT/HCPCS: 93225

== ENCOUNTER 2025-05-13 09:56 | Outpatient (AMB) | payer MEDICARE, SELFPAY ==
--- NOTE | 2025-05-13 10:18 | MHC.OFFVISCO ---
Intake Intake Visit Reasons: Anticoagulation Allergies penicillin V (From Suman-Clarisse Orozco) Allergy (Mild, Verified 05/13/25 09:58) HIVES Medication List - Last Reconciled 05/13/25 by Loretta Neville RN amiodarone 100 mg PO DAILY atorvastatin 80 mg PO BEDTIME dutasteride (Avodart) 0.5 mg PO DAILY folic acid 3 mg (3 x 1 mg) PO DAILY 90 days gabapentin (Neurontin) 300 mg PO BEDTIME methotrexate sodium 15 mg (6 x 2.5 mg) PO QWEEK 90 days multivitamin 1 tab PO DAILY prednisone 10 mg PO ONCE vit C,S-Er-koudn-lutein-zeaxan 250-90-40-1 mg (PreserVision AREDS-2) 1 tab PO BID warfarin 2.5 mg PO DAILY Nursing Note INR 5.8 out of therapeutic range- pt sent to the lab for validation Medications and supplements reviewed Patient status: eating less during the hot weather, had a few ETOH beverages at a recent show last week, Medications or supplements: methotrexate was decreased Diet: decreased during hot weather - which may Denies any signs and symptoms of bleeding or clotting, he does have bruising on his arms from working outside Bleeding, bruising, clotting discussed Nutritional guidance given: eat greens today Dose: hold warfarin x 2 days/ 1.25mg x 2 days then recheck 05/17/2025 F/U INR Date: 3 days ?? Apply cold compresses to any injury to prevent bruising swelling or bleeding, go To ER with any fall or bump to your head, or any s/sx of bleeding or stroke, rest today Patient verbalizing understanding of instructions given. Call to PCP office no answer will send composed note or reach in May text , Anti-Coag Initial Assessment Social Hx Patient Tobacco Use Status: Former Tobacco user alcohol intake: current Alcohol intake frequency: holidays/special occasions only Cardiovascular Hx: CAD, [place] and Arrhythmias Musculoskeletal Hx: Arthritis Blood Disorder Hx: Anemia and Hyperlipidemia GI Hx: Hemorrhoids Neurological Hx: Epilepsy/Seizures Cancer HX: No Psych. Illness/Depression: No Coding Level of Care Code Est Patient Level 2 Diagnoses Current use of anticoagulant therapy Z79.01 Comment crirical result sent to lab, search for and t/c to PCP to report INR Assessment & Plan Assessment & Plan (1) Current use of anticoagulant therapy: Code(s): Z79. - care home (current) use of anticoagulants Category: Medical Orders: Orders Prothrombin Time INR Today Cristal GARCIA)MD Z79. - care home (current) use of anticoagulants Complete Blood Count no Diff Today Cristal Berry (MARIELENA)MD Z79. 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
[2025-05-13 10:19] LABS: Prothrombin Time Whole Bld POC 69.5 sec (11.1-13.5); ~PT, ~INR - Anti Coag Clinic 5.8 (0.9-1.1)
--- OUTSIDE RECORDS SUMMARY | 2025-05-13 10:24 | XMS_ITS | Patient Health Record ---
Author Organization [facility] Address [address] [place] [address] Care Team Providers Care Technical Sales Representative Name Role Phone Alfred (RETIRED) Jose MOLINA Primary Care Provide r Unavailable Mt Ramirez Unavailable [phone] Lazara MOLINA, Fadi Unavailable Unavailable Allergies Allergen [...] Problem Status W/U Status Risk Notes Problem 056382648 Encounter for screening for malignant neoplasm of colon (Z12.11) Active confirmed Problem 114395661 History of adenomatous polyp of colon (Z86.010) Active confirmed Problem 542677716 Gastroesophageal reflux disease with esophagitis (K21.0) Active confirmed Problem 297032023 Gastroesophageal reflux disease without esophagitis (K21.9) Active confirmed Problem 446219737 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 (K22.70) Active confirmed Problem 187129302 Iron deficiency anemia due to chronic blood loss (D50.0) Active confirmed Problem 0565777315472464 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) Active confirmed Plan Of Treatment Future Test Test Name Order Date COLONOSCOPY 07/22/2012 UPPER GI ENDOSCOPY 12/31/2017 COLONOSCOPY 12/31/2017 Insurance Providers Payer Name Payer Address Payer Phone Subscriber Number Group Number Insured Name Patient Relationship to Insured Coverage Start Date Coverage End Date [facility] [address] [place] [phone] [id number] TACHO ALEIDA Self - patient is the insured Medical (General) History Medical History History ICD Code GERD/Crump's Esophagus--EGD's in 2003, 2008, and 2011 Seizure disorder Elevated cholesterol Denies MA,DM,CVA,Lung disease,renal dise ase UGI bleed with melena in 04/07 012-had been on Ibuprofen-EGD at that time negative except duodenitis and Crump's esophagus-biopsies all negative for dysplasia Rheumatoid arthritis Irregular heart rate--wore a 24 hour monitor earlier in 2017--describes no sig. findings from the manufacturing director Colonoscopy in 08/2012 with small tubular adenomas--diverticulosis, neg colonoscopy in 2003 Surgical History Surgery Date(Month/Year) Back surgery Hernia
== END 2025-05-13 11:55 | disposition home or self-care (01) ==
LOC: HO.ACS 09:56
PROVIDERS: PCP Physician Assistant Medical; Visit Provider Internal Medicine Medical Oncology
DX: Z79.01 Long term (current) use of anticoagulants (principal)

== ENCOUNTER 2025-05-13 09:56 | Outpatient (REF) | payer MEDICARE, SELFPAY ==
[2025-05-13 10:35] LABS: Hematocrit 32.8 % (42.0-52.0); Hemoglobin 10.1 g/dl (14.0-18.0); Mean Corpuscular HGB Conc 30.8 g/dl (31.0-36.0); Mean Corpuscular Hemoglobin 24.7 pg (27.0-33.0); Mean Corpuscular Volume 80.2 fL (80.0-98.0); NRBC Abs Auto 0.000 X10*3/uL (0.0-0.012); NRBC Pct Auto 0.0 /100WBC (0.0-0.2); Platelet Count 439 X10*3/uL (160-400); Red Blood Count 4.09 X10*6/uL (4.60-5.80); White Blood Count 13.1 X10*3/uL (4.8-10.8)
[2025-05-13 10:46] LABS: Prothrombin Time 65.0 SEC (10.9-12.4)
[2025-05-13 10:47] LABS: INTERNATIONAL NORM RATIO 5.7 (0.9-1.1)
== END 2025-05-13 09:57 | disposition home or self-care (01) ==
LOC: HO.LAB 09:56
PROVIDERS: PCP Physician Assistant Medical; Visit Provider Internal Medicine Medical Oncology
DX: Z51.81 Encounter for therapeutic drug level monitoring (principal); Z79.01 Long term (current) use of anticoagulants
CPT/HCPCS: 36415; 85027; 85610; 99211; 99212

== ENCOUNTER 2025-05-18 10:09 | Outpatient (AMB) | payer MEDICARE, SELFPAY ==
[2025-05-18 10:37] LABS: Prothrombin Time Whole Bld POC 20.5 sec (11.1-13.5); ~PT, ~INR - Anti Coag Clinic 1.7 (0.9-1.1)
--- NOTE | 2025-05-18 10:47 | MHC.OFFVISCO ---
Intake Intake Visit Reasons: Anticoagulation Allergies penicillin V (From [employer]-Velinden K) Allergy (Mild, Verified 05/18/25 10:32) HIVES Medication List - Last Reconciled 05/18/25 by Daily See RN amiodarone 100 mg PO DAILY atorvastatin 80 mg PO BEDTIME dutasteride (Avodart) 0.5 mg PO DAILY folic acid 3 mg (3 x 1 mg) PO DAILY 90 days gabapentin (Neurontin) 300 mg PO BEDTIME methotrexate sodium 15 mg (6 x 2.5 mg) PO QWEEK 90 days multivitamin 1 tab PO DAILY vit C,E-Bz-jlxmy-lutein-zeaxan 250-90-40-1 mg (PreserVision AREDS-2) 1 tab PO BID warfarin 2.5 mg See Protocol PO DAILY Nursing Note INR: 1.7 out of therapeutic range of 2-3 Previous INR 5.7 on 05/13/25 Medications and supplements reviewed Patient status: feels well Medications or supplements: no changes Diet: has incorporated extra greens into his diet after last INR of 5.7 Denies any signs and symptoms of bleeding or clotting or unusual bruising Bleeding, bruising, clotting discussed Nutritional guidance given: to balance foods that raise with foods that lower the INR Dose: increase today's dose of 1.25mg to 2.5mg then resume usual dose of 1.25mg X 4 days and 2.5mg X 3 days (M/W/F) F/U INR Date: 2 weeks Patient verbalizing understanding of instructions with read back given. Anti-Coag Initial Assessment Social Hx Patient Tobacco Use Status: Former Tobacco user alcohol intake: current Alcohol intake frequency: holidays/special occasions only Cardiovascular Hx: CAD, [place] and Arrhythmias Musculoskeletal Hx: Arthritis Blood Disorder Hx: Anemia and Hyperlipidemia GI Hx: Hemorrhoids Neurological Hx: Epilepsy/Seizures Cancer HX: No Psych. 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
--- OUTSIDE RECORDS SUMMARY | 2025-05-18 11:09 | XMS_ITS | Patient Health Record ---
Author Organization [facility] Address [address] [place] [address] Care Team Providers Care Auto Collision Repair Instructor Name Role Phone Alfred (RETIRED) Jose MOLINA Primary Care Provide r Unavailable Mt Ramirez Unavailable [phone] Lazara MOLINA, Fadi Unavailable Unavailable Allergies Allergen [...] Problem Status W/U Status Risk Notes Problem 473728014 Encounter for screening for malignant neoplasm of colon (Z12.11) Active confirmed Problem 109274660 History of adenomatous polyp of colon (Z86.010) Active confirmed Problem 148249444 Gastroesophageal reflux disease with esophagitis (K21.0) Active confirmed Problem 404315431 Gastroesophageal reflux disease without esophagitis (K21.9) Active confirmed Problem 862381075 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 (K22.70) Active confirmed Problem 417298672 Iron deficiency anemia due to chronic blood loss (D50.0) Active confirmed Problem [id number] 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) Active confirmed Plan Of Treatment Future Test Test Name Order Date COLONOSCOPY 07/22/2012 UPPER GI ENDOSCOPY 12/31/2017 COLONOSCOPY 12/31/2017 Insurance Providers Payer Name Payer Address Payer Phone Subscriber Number Group Number Insured Name Patient Relationship to Insured Coverage Start Date Coverage End Date [facility] [address] [facility] [phone] [id number] TACHO ALEIDA Self - patient is the insured Medical (General) History Medical History History ICD Code GERD/Crump's Esophagus--EGD's in 2003, 2008, and 2011 Seizure disorder Elevated cholesterol Denies [place],DM,CVA,Lung disease,renal dise ase UGI bleed with melena in 04/07 012-had been on Ibuprofen-EGD at that time negative except duodenitis and Crump's esophagus-biopsies all negative for dysplasia Rheumatoid arthritis Irregular heart rate--wore a 24 hour monitor earlier in 2017--describes no sig. 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
== END 2025-05-18 10:54 | disposition home or self-care (01) ==
LOC: HO.ACS 10:09
PROVIDERS: PCP Physician Assistant Medical; Visit Provider Internal Medicine Medical Oncology
DX: Z79.01 Long term (current) use of anticoagulants (principal)

== ENCOUNTER → 2025-05-18 10:09 | Outpatient (BNVA) | payer MEDICARE, SELFPAY | PROVIDERS: PCP Physician Assistant Medical; Visit Provider Internal Medicine Medical Oncology | DX: Z79.01 Long term (current) use of anticoagulants (principal) | CPT/HCPCS: 85610; 99211 ==

== ENCOUNTER 2025-05-31 09:06 | Outpatient (AMB) | payer MEDICARE, SELFPAY ==
[2025-05-31 09:15] LABS: Prothrombin Time Whole Bld POC 32.0 sec (11.1-13.5); ~PT, ~INR - Anti Coag Clinic 2.7 (0.9-1.1)
--- NOTE | 2025-05-31 09:21 | MHC.OFFVISCO ---
Intake Intake Visit Reasons: Anticoagulation Allergies penicillin V (From Pen-Velinden K) Allergy (Mild, Verified 05/31/25 09:09) HIVES Medication List - Last Reconciled 05/31/25 by Daily See, JOSE amiodarone 100 mg PO DAILY atorvastatin 80 mg PO BEDTIME dutasteride (Avodart) 0.5 mg PO DAILY folic acid 3 mg (3 x 1 mg) PO DAILY 90 days gabapentin (Neurontin) 300 mg PO BEDTIME methotrexate sodium 15 mg (6 x 2.5 mg) PO QWEEK 90 days multivitamin 1 tab PO DAILY vit C,B-Dc-asphg-lutein-zeaxan 250-90-40-1 mg (PreserVision AREDS-2) 1 tab PO BID warfarin 2.5 mg See Protocol PO DAILY Nursing Note INR: 2.7 in therapeutic range of 2-3 Medications and supplements reviewed No changes in health, diet, medications, or supplements, Denies any signs and symptoms of bleeding or bruising or clotting. Bleeding, bruising, clotting discussed Nutritional guidance given Dose: 1.25mg X 4 days and 2.5mg X 3 days (M/W/F) F/U INR: 2 weeks Patient verbalizes understanding of instructions given Anti-Coag Initial Assessment Social Hx Patient Tobacco Use Status: Former Tobacco user alcohol intake: current Alcohol intake frequency: holidays/special occasions only Cardiovascular Hx: CAD, [place] and Arrhythmias Musculoskeletal Hx: Arthritis Blood Disorder Hx: Anemia and Hyperlipidemia GI Hx: Hemorrhoids Neurological Hx: Epilepsy/Seizures Cancer HX: No Psych. Illness/Depression: No Coding Level of Care Code Est Patient Level 1 Diagnoses Current use of anticoagulant therapy Z79.01 Assessment & Plan Assessment & Plan (1) Current use of anticoagulant therapy: Code(s): Z79.01 - terminologist (current) use of anticoagulants Category: Medical
--- OUTSIDE RECORDS SUMMARY | 2025-05-31 09:48 | XMS_ITS | Patient Health Record ---
Author Organization [facility] Address [address] [place] [address] Care Team Providers Care Range Scientist Name Role Phone Alfred (RETIRED) Jose MOLINA Primary Care Provide r Unavailable Mt Ramirez Unavailable [phone] Lazara MOLINA, Fadi Unavailable Unavailable Allergies Allergen [...] Problem Status W/U Status Risk Notes Problem [id number] Encounter for screening for malignant neoplasm of colon (Z12.11) Active confirmed Problem 654259422 History of adenomatous polyp of colon (Z86.010) Active confirmed Problem 443434851 Gastroesophageal reflux disease with esophagitis (K21.0) Active confirmed Problem 217800183 Gastroesophageal reflux disease without esophagitis (K21.9) Active confirmed Problem 053196002 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 (K22.70) Active confirmed Problem 887522637 Iron deficiency anemia due to chronic blood loss (D50.0) Active confirmed Problem 3258270173475460 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) Active confirmed Plan Of Treatment Future Test Test Name Order Date COLONOSCOPY 07/22/2012 UPPER GI ENDOSCOPY 12/31/2017 COLONOSCOPY 12/31/2017 Insurance Providers Payer Name Payer Address Payer Phone Subscriber Number Group Number Insured Name Patient Relationship to Insured Coverage Start Date Coverage End Date [facility] [address] [facility] [place] [phone] [id number] TACHO ALEIDA Self - patient is the insured Medical (General) History Medical History History ICD Code GERD/Crump's Esophagus--EGD's in 2003, 2008, and 2011 Seizure disorder Elevated cholesterol Denies [place],DM,CVA,Lung disease,renal dise ase UGI bleed with melena in 04/07 012-had been on Ibuprofen-EGD at that time negative except duodenitis and Crump's esophagus-biopsies all negative for dysplasia Rheumatoid arthritis Irregular heart rate--wore a 24 hour monitor earlier in 2017--describes no sig. findings from the biochemistry specialist Colonoscopy in 08/2012 with small tubular adenomas--diverticulosis, neg colonoscopy in 2003 Surgical History Surgery Date(Month/Year) Back surgery Hernia
== END 2025-05-31 09:24 | disposition home or self-care (01) ==
LOC: HO.ACS 09:06
PROVIDERS: PCP Physician Assistant Medical; Visit Provider Internal Medicine Medical Oncology
DX: Z79.01 Long term (current) use of anticoagulants (principal)

== ENCOUNTER → 2025-05-31 09:06 | Outpatient (BNVA) | payer MEDICARE, SELFPAY | PROVIDERS: PCP Physician Assistant Medical; Visit Provider Internal Medicine Medical Oncology | DX: I48.0 Paroxysmal atrial fibrillation (principal); Z79.01 Long term (current) use of anticoagulants; Z51.81 Encounter for therapeutic drug level monitoring | CPT/HCPCS: 85610; 99211 ==

== ENCOUNTER 2025-06-14 08:52 | Outpatient (AMB) | payer MEDICARE, SELFPAY ==
[2025-06-14 09:03] LABS: Prothrombin Time Whole Bld POC 27.2 sec (11.1-13.5); ~PT, ~INR - Anti Coag Clinic 2.3 (0.9-1.1)
--- NOTE | 2025-06-14 09:08 | MHC.OFFVISCO ---
Intake Intake Visit Reasons: Anticoagulation Allergies penicillin V (From Pen-Vee K) Allergy (Mild, Verified 05/31/25 09:09) HIVES Nursing Note INR: 2.3 in therapeutic range 2-3 Medications and supplements reviewed No changes in health, diet, medications, or supplements, Denies any signs and symptoms of bleeding or bruising or clotting. Bleeding, bruising, clotting discussed Nutritional guidance given Dose: 1.25mg X 4 days and 2.5mg X 3 days F/U INR: 2 weeks Patient verbalizes understanding of instructions with read back given Anti-Coag Initial Assessment Social Hx Patient Tobacco Use Status: Former Tobacco user alcohol intake: current Alcohol intake frequency: holidays/special occasions only Cardiovascular Hx: CAD, [place] and Arrhythmias Musculoskeletal Hx: Arthritis Blood Disorder Hx: Anemia and Hyperlipidemia GI Hx: Hemorrhoids Neurological Hx: Epilepsy/Seizures Cancer HX: No Psych. 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
--- OUTSIDE RECORDS SUMMARY | 2025-06-14 09:55 | XMS_ITS | Patient Health Record ---
Author Organization [facility] Address [address] [place] [address] Care Team Providers Care Design Printer Balloon Name Role Phone Alfred (RETIRED) Jose MOLINA Primary Care Provide r Unavailable Mt Ramirez Unavailable [phone] Lazara MOLINA, Fadi Unavailable Unavailable Allergies Allergen [...] Problem Status W/U Status Risk Notes Problem 305487681 Encounter for screening for malignant neoplasm of colon (Z12.11) Active confirmed Problem 109059452 History of adenomatous polyp of colon (Z86.010) Active confirmed Problem 043809525 Gastroesophageal reflux disease with esophagitis (K21.0) Active confirmed Problem 607321647 Gastroesophageal reflux disease without esophagitis (K21.9) Active confirmed Problem 123680115 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 (K22.70) Active confirmed Problem 862377541 Iron deficiency anemia due to chronic blood loss (D50.0) Active confirmed Problem 3848739089497635 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) Active confirmed Plan Of Treatment Future Test Test Name Order Date COLONOSCOPY 07/22/2012 UPPER GI ENDOSCOPY 12/31/2017 COLONOSCOPY 12/31/2017 Insurance Providers Payer Name Payer Address Payer Phone Subscriber Number Group Number Insured Name Patient Relationship to Insured Coverage Start Date Coverage End Date [facility] [address] [facility] [place] [phone] [id number] TACHO ALEIDA Self - patient is the insured Medical (General) History Medical History History ICD Code GERD/Crump's Esophagus--EGD's in 2003, 2008, and 2011 Seizure disorder Elevated cholesterol Denies [place],DM,CVA,Lung disease,renal dise ase UGI bleed with melena in 04/07 012-had been on Ibuprofen-EGD at that time negative except duodenitis and Crump's esophagus-biopsies all negative for dysplasia Rheumatoid arthritis Irregular heart rate--wore a 24 hour monitor earlier in 2017--describes no sig. 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
== END 2025-06-14 09:10 | disposition home or self-care (01) ==
LOC: HO.ACS 08:52
PROVIDERS: PCP Physician Assistant Medical; Visit Provider Internal Medicine Medical Oncology
DX: Z79.01 Long term (current) use of anticoagulants (principal)

== ENCOUNTER → 2025-06-14 08:52 | Outpatient (BNVA) | payer MEDICARE, SELFPAY | PROVIDERS: PCP Physician Assistant Medical; Visit Provider Internal Medicine Medical Oncology | DX: I48.0 Paroxysmal atrial fibrillation (principal); Z79.01 Long term (current) use of anticoagulants; Z51.81 Encounter for therapeutic drug level monitoring | CPT/HCPCS: 85610; 99211 ==

== ENCOUNTER 2025-06-29 14:24 | Outpatient (AMB) | payer MEDICARE, SELFPAY ==
[2025-06-29 14:33] LABS: Prothrombin Time Whole Bld POC 27.0 sec (11.1-13.5); ~PT, ~INR - Anti Coag Clinic 2.2 (0.9-1.1)
--- NOTE | 2025-06-29 14:44 | MHC.OFFVISCO ---
Intake Intake Visit Reasons: Anticoagulation Allergies penicillin V (From [employer]) Allergy (Mild, Verified 06/29/25 14:27) HIVES Medication List - Last Reconciled 06/29/25 by Loretta Neville RN amiodarone 100 mg PO DAILY atorvastatin 80 mg PO BEDTIME dutasteride (Avodart) 0.5 mg PO DAILY folic acid 3 mg (3 x 1 mg) PO DAILY 90 days gabapentin (Neurontin) 300 mg PO BEDTIME methotrexate sodium 15 mg (6 x 2.5 mg) PO QWEEK 90 days multivitamin 1 tab PO DAILY vit C,Y-Cl-gidik-lutein-zeaxan 250-90-40-1 mg (PreserVision AREDS-2) 1 tab PO BID warfarin 2.5 mg See Protocol PO DAILY Nursing Note INR: 2.2 in therapeutic range Medications and supplements reviewed No changes in health, diet, medications, or supplements, Denies any signs and symptoms of bleeding or bruising or clotting. Bleeding, bruising, clotting discussed Nutritional guidance given - cont to eat a mix of fruits and vegetables Dose: 2.5mg mwf/ 1.25mg x 4 days F/U INR: 2 weeks Patient verbalizes understanding of instructions given Anti-Coag Initial Assessment Social Hx Patient Tobacco Use Status: Former Tobacco user alcohol intake: current Alcohol intake frequency: holidays/special occasions only Cardiovascular Hx: CAD, [place] and Arrhythmias Musculoskeletal Hx: Arthritis Blood Disorder Hx: Anemia and Hyperlipidemia GI Hx: Hemorrhoids Neurological Hx: Epilepsy/Seizures Cancer HX: No Psych. 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
--- OUTSIDE RECORDS SUMMARY | 2025-06-29 17:40 | XMS_ITS | Patient Health Record ---
Author Organization [facility] Address [address] [place] [address] Care Team Providers Care Evs Tech Name Role Phone Alfred (RETIRED) Jose MOLINA Primary Care Provide r Unavailable Mt Ramirez Unavailable [phone] Lazara MOLINA, Fadi Unavailable Unavailable Allergies Allergen [...] Problem Status W/U Status Risk Notes Problem 137953432 Encounter for screening for malignant neoplasm of colon (Z12.11) Active confirmed Problem 603674634 History of adenomatous polyp of colon (Z86.010) Active confirmed Problem 182735687 Gastroesophageal reflux disease with esophagitis (K21.0) Active confirmed Problem 891522579 Gastroesophageal reflux disease without esophagitis (K21.9) Active confirmed Problem 103730868 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 (K22.70) Active confirmed Problem 025748714 Iron deficiency anemia due to chronic blood loss (D50.0) Active confirmed Problem 3152655164169834 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) Active confirmed Plan Of Treatment Future Test Test Name Order Date COLONOSCOPY 07/22/2012 UPPER GI ENDOSCOPY 12/31/2017 COLONOSCOPY 12/31/2017 Insurance Providers Payer Name Payer Address Payer Phone Subscriber Number Group Number Insured Name Patient Relationship to Insured Coverage Start Date Coverage End Date [facility] [address] [place] [phone] [id number] TACHO ALEIDA Self - patient is the insured Medical (General) History Medical History History ICD Code GERD/Crump's Esophagus--EGD's in 2003, 2008, and 2011 Seizure disorder Elevated cholesterol Denies [place],DM,CVA,Lung disease,renal dise ase UGI bleed with melena in 04/07 012-had been on Ibuprofen-EGD at that time negative except duodenitis and Crump's esophagus-biopsies all negative for dysplasia Rheumatoid arthritis Irregular heart rate--wore a 24 hour monitor earlier in 2017--describes no sig. findings from the graphic design teacher Colonoscopy in 08/2012 with small tubular adenomas--diverticulosis, neg colonoscopy in 2003 Surgical History Surgery Date(Month/Year) Back surgery Hernia
== END 2025-06-29 14:46 | disposition home or self-care (01) ==
LOC: HO.ACS 14:24
PROVIDERS: PCP Physician Assistant Medical; Visit Provider Internal Medicine Medical Oncology
DX: Z79.01 Long term (current) use of anticoagulants (principal)

== ENCOUNTER → 2025-06-29 14:24 | Outpatient (BNVA) | payer MEDICARE, SELFPAY | PROVIDERS: PCP Physician Assistant Medical; Visit Provider Internal Medicine Medical Oncology | DX: I25.10 Atherosclerotic heart disease of native coronary artery without angina pectoris (principal); I35.0 Nonrheumatic aortic (valve) stenosis; Z51.81 Encounter for therapeutic drug level monitoring; I51.7 Cardiomegaly; R94.31 Abnormal electrocardiogram [ECG] [EKG]; I25.2 Old myocardial infarction; Z79.01 Long term (current) use of anticoagulants; Z79.899 Other long term (current) drug therapy | CPT/HCPCS: 85610; 93005; 99211; 99212 ==

== ENCOUNTER 2025-06-29 14:53 | Outpatient (AMB) | payer MEDICARE, SELFPAY ==
[2025-06-29 15:00] VITALS: BP 120/76; PULSE 68; BMI 23.5
--- NOTE | 2025-06-29 15:00 | MHC.OFFVIS ---
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 He has no new cardiac symptoms at current point time. He is doing well. He said he exercises routinely and has no exertional chest pain or shortness of breath. He denies any prolonged palpitation irregular heartbeat. Denies any lightheadedness, syncope. No bleeding issues or neurologic events. No heart failure symptoms. [facility] Medical History Peripheral neuropathy Anemia History of cardioversion Psoriatic arthritis Atrial flutter Hypovitaminosis D Bilateral hand swelling Inflammatory arthritis Aortic stenosis Current use of anticoagulant therapy CAD (coronary artery disease) Paroxysmal atrial fibrillation Epilepsy H/O acute myocardial infarction Surgical History History of colonoscopy (~03/17/18) Stented coronary artery Family History Father Diabetes Arthritis Mother No problems noted. Daughter Arthritis Social History Household Members: Spouse Housing: House Do you presently have visiting nurse or other home services: No Alcohol intake: current Alcohol intake frequency: holidays/special occasions only Alcohol type: beer Patient Tobacco Use Status: Former Tobacco user e-Cigarette/Vaping Use: Former Use Second Hand Smoke Exposure: No service: No Current occupational status: retired Current occupational exposures/hazards: No Cognitive needs: No Hearing needs: No Vision needs: Yes (Rx glasses) Review of Systems Const Denies chills, Denies fatigue, Denies fever(s), Denies frequent falls, Denies weakness, Denies weight gain and Denies weight loss ENT Denies dizziness Card Denies chest pain, Denies leg edema, Denies lightheadedness, Denies palpitations, Denies dyspnea, Denies dyspnea on exertion, Denies orthopnea and Denies other (loss of consciousness) Resp Denies cough, Denies dyspnea and Denies dyspnea on exertion GI Denies hematochezia and Denies change in stool character Musc Denies abnormal gait, Denies muscle weakness, Denies numbness, Denies radiating pain into limb and Denies tingling Neuro Denies abnormal gait, Denies dizziness, Denies frequent falls, Denies numbness, Denies tingling and Denies weakness Endo Denies fatigue and Denies palpitations Physical Exam Vital Signs: Last Vital Signs Pulse 68 06/29/25 15:00 BP 120/76 06/29/25 15:00 BMI result Body Mass Index 23.5 Const General: cooperative, comfortable, no acute distress, alert and awake Nutritional Appearance: average body habitus Orientation/consciousness: patient oriented x3 Limitations: no limitations Neck Neck: Yes trachea midline, Yes supple and Yes no JVD Resp Effort & Inspection: normal respiratory effort Auscultation: clear to auscultation bilaterally Cardio Jugular venous distension: no JVD Palpation: normal PMI Rate: regular rate Rhythm: regular rhythm Heart sounds: S1 normal heart sound present, S2 normal heart sound present, no click, no gallops, Murmur heart sound present systolic and no rubs GI Auscultation: normal bowel sounds Skin General skin exam: no rashes or lesions noted and ecchymosis Neuro General: patient oriented x3 and no focal motor deficits Extrem General: Yes no clubbing, cyanosis or edema Psych Appearance: grossly normal Office Procedures EKG Details: EKG shows normal sinus rhythm with LVH with repolarization abnormality with septal QS pattern [id number], Complete Assessment & Plan Assessment & Plan (1) Paroxysmal atrial fibrillation: Code(s): I48.0 - Paroxysmal atrial fibrillation Category: Medical Plan: Paroxysmal atrial fibrillation without any obvious clinical recurrence at this point time. Doing well on low-dose amiodarone therapy. We discussed about treatment options including pursuing ablation versus continuing amiodarone therapy. Pros and cons of each approach were discussed. He would prefer to continue conservative therapy unless he has recurrent atrial fibrillation episodes. Understand agree. Avoidance of stimulants was discussed. Currently on warfarin therapy for anticoagulation being followed by [facility]. Maintain target INR between 2 and 3. (2) CAD (coronary artery disease): Code(s): I25.10 - Atherosclerotic heart disease of [place] coronary artery without angina pectoris Category: Medical Plan: CAD with prior anterior STEMI. Clinically having no symptoms of angina. Continue current aggressive medical therapy. Continue high-intensity statin therapy with target goal LDL less than 60 mg/dL. Currently on full oral anticoagulation with warfarin and therefore would avoid aspirin therapy to reduce bleeding risk. Continue maintain activity level as tolerated. Advised to call me with any new symptoms. (3) Aortic stenosis: Comment: Mild by echocardiogram, October 2021 Code(s): I35.0 - Nonrheumatic aortic (valve) stenosis Category: Medical Plan: Mild aortic stenosis. Will follow up by echocardiogram in 6 months time. Continue aggressive vascular risk factor modifications above. No interventions required. Follow up in the clinic in 6 months time, sooner PRN. Thank you for allowing me to partake in his care Orders: Orders CA echo transthoracic complete 6 Months I35.0 - Nonrheumatic aortic (valve) stenosis Coding Level of Care Code Est Pt Level 4 (23573) Complex EM visit Add On G2211 Diagnoses Paroxysmal atrial fibrillation I48.0 CAD (coronary artery disease) I25.10 Aortic stenosis I35.0 CPT Codes EKG - CPT: 86651-Dfeirhpibgsxkmqlw, Complete ([id number])
== END 2025-06-29 15:27 | disposition home or self-care (01) ==
LOC: HO.HCS 14:53
PROVIDERS: PCP Internal Medicine; Visit Provider Internal Medicine Cardiovascular Disease
DX: I48.0 Paroxysmal atrial fibrillation (principal); I25.10 Atherosclerotic heart disease of native coronary artery without angina pectoris; I35.0 Nonrheumatic aortic (valve) stenosis
CPT/HCPCS: 93010; 99214; G2211

== ENCOUNTER 2025-07-12 08:15 | Outpatient (AMB) | payer MEDICARE, SELFPAY ==
--- OUTSIDE RECORDS SUMMARY | 2025-07-12 08:32 | XMS_ITS | Patient Health Record ---
Author Organization [facility] Address [address] [place] [address] Care Team Providers Care Television Producer Name Role Phone Alfred (RETIRED) Jose MOLINA Primary Care Provide r Unavailable Mt Ramirez Unavailable [phone] Lazara MOLINA, Fadi Unavailable Unavailable Allergies Allergen [...] Problem Status W/U Status Risk Notes Problem 984024421 Encounter for screening for malignant neoplasm of colon (Z12.11) Active confirmed Problem 686236874 History of adenomatous polyp of colon (Z86.010) Active confirmed Problem 921593621 Gastroesophageal reflux disease with esophagitis (K21.0) Active confirmed Problem 367327611 Gastroesophageal reflux disease without esophagitis (K21.9) Active confirmed Problem 065446149 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 (K22.70) Active confirmed Problem 303765051 Iron deficiency anemia due to chronic blood loss (D50.0) Active confirmed Problem 2989281285030623 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) Active confirmed Plan Of Treatment Future Test Test Name Order Date COLONOSCOPY 07/22/2012 UPPER GI ENDOSCOPY 12/31/2017 COLONOSCOPY 12/31/2017 Insurance Providers Payer Name Payer Address Payer Phone Subscriber Number Group Number Insured Name Patient Relationship to Insured Coverage Start Date Coverage End Date [facility] [address] [place] [phone] [id number] TACHO ALEIDA Self - patient is the insured Medical (General) History Medical History History ICD Code GERD/Crump's Esophagus--EGD's in 2003, 2008, and 2011 Seizure disorder Elevated cholesterol Denies [place],DM,CVA,Lung disease,renal dise ase UGI bleed with melena in 04/07 012-had been on Ibuprofen-EGD at that time negative except duodenitis and Crump's esophagus-biopsies all negative for dysplasia Rheumatoid arthritis Irregular heart rate--wore a 24 hour monitor earlier in 2017--describes no sig. 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
[2025-07-12 08:33] LABS: Prothrombin Time Whole Bld POC 30.3 sec (11.1-13.5); ~PT, ~INR - Anti Coag Clinic 2.5 (0.9-1.1)
--- NOTE | 2025-07-12 08:39 | MHC.OFFVISCO ---
Intake Intake Visit Reasons: Anticoagulation Allergies penicillin V (From Pen-Velinden K) Allergy (Mild, Verified 07/12/25 08:27) HIVES Medication List - Last Reconciled 07/12/25 by Loretta Neville RN amiodarone 100 mg PO DAILY atorvastatin 80 mg PO BEDTIME dutasteride (Avodart) 0.5 mg PO DAILY folic acid 3 mg (3 x 1 mg) PO DAILY 90 days multivitamin 1 tab PO DAILY vit C,L-Yy-ebkeb-lutein-zeaxan 250-90-40-1 mg (PreserVision AREDS-2) 1 tab PO BID warfarin 2.5 mg See Protocol PO DAILY Nursing Note INR: 2.5 in therapeutic range Medications and supplements reviewed No changes in health, diet, medications, or supplements, Denies any signs and symptoms of bleeding or bruising or clotting. Bleeding, bruising, clotting discussed Nutritional guidance given Dose: 2.5MG MWF/ 1.25MG X 4 DAYS F/U INR: 2 WEEKS SAME PCP APPT Patient verbalizes understanding of instructions given Anti-Coag Initial Assessment Social Hx Patient Tobacco Use Status: Former Tobacco user alcohol intake: current Alcohol intake frequency: holidays/special occasions only Cardiovascular Hx: CAD, [place] and Arrhythmias Musculoskeletal Hx: Arthritis Blood Disorder Hx: Anemia and Hyperlipidemia GI Hx: Hemorrhoids Neurological Hx: Epilepsy/Seizures Cancer HX: No Psych. 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
== END 2025-07-12 08:41 | disposition home or self-care (01) ==
LOC: HO.ACS 08:15
PROVIDERS: PCP Physician Assistant Medical; Visit Provider Internal Medicine Medical Oncology
DX: Z79.01 Long term (current) use of anticoagulants (principal)

== ENCOUNTER → 2025-07-12 08:15 | Outpatient (BNVA) | payer MEDICARE, SELFPAY | PROVIDERS: PCP Physician Assistant Medical; Visit Provider Internal Medicine Medical Oncology | DX: I48.0 Paroxysmal atrial fibrillation (principal); Z79.01 Long term (current) use of anticoagulants; Z51.81 Encounter for therapeutic drug level monitoring | CPT/HCPCS: 85610; 99211 ==

== ENCOUNTER 2025-07-26 08:20 | Outpatient (AMB) | payer MEDICARE, SELFPAY ==
--- OUTSIDE RECORDS SUMMARY | 2025-07-26 08:39 | XMS_ITS | Patient Health Record ---
Author Organization [facility] Address [address] [place] [address] Care Team Providers Care Nurse Aide Name Role Phone Alfred (RETIRED) Jose MOLINA Primary Care Provide r Unavailable Mt Ramirez Unavailable [phone] Lazara MOLINA, Fadi Unavailable Unavailable Allergies Allergen [...] MG TAKE ONE CAPSULE BY MOUTH EVERY DAY; Duration: 90 Active Phenytoin Active Problems Problem Type SNOMED Code ICD Code Onset Dates Problem Status W/U Status Risk Notes Problem Screening for malignant neoplasm of colon (124843045) Encounter for screening for malignant neoplasm of colon (Z12.11) Active confirmed Problem History of adenomatous polyp of colon (153985333) History of adenomatous polyp of colon (Z86.010) Active confirmed Problem Gastroesophageal reflux disease with esophagitis (929743704) Gastroesophageal reflux disease with esophagitis (K21.0) Active confirmed Problem Gastroesophageal reflux disease without esophagitis (038258811) Gastroesophageal reflux disease without esophagitis (K21.9) Active confirmed Problem Crump's esophagus (131933062) Barretts esophagus without dysplasia (K22.70) Active confirmed Problem Iron deficiency anemia due to chronic blood loss (322414356) Iron deficiency anemia due to chronic blood loss (D50.0) Active confirmed Problem 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 (6126808965225396) 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 Plan Of Treatment Future Test Test Name Order Date COLONOSCOPY 07/22/2012 UPPER GI ENDOSCOPY 12/31/2017 COLONOSCOPY 12/31/2017 Insurance Providers Payer Name Payer Address Payer Phone Subscriber Number Group Number Insured Name Patient Relationship to Insured Coverage Start Date Coverage End Date [facility] [address] [place] [phone] [id number] ALEIDA TITUS Self - patient is the insured Medical (General) History Medical History History ICD Code GERD/Crump's Esophagus--EGD's in 2003, 2008, and 2011 Seizure disorder Elevated cholesterol Denies CA,DM,CVA,Lung disease,renal dise ase UGI bleed with melena in 04/07 012-had been on Ibuprofen-EGD at that time negative except duodenitis and Crump's esophagus-biopsies all negative for dysplasia Rheumatoid arthritis Irregular heart rate--wore a 24 hour monitor earlier in 2017--describes no sig. 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
[2025-07-26 08:45] LABS: Prothrombin Time Whole Bld POC 17.5 sec (11.1-13.5); ~PT, ~INR - Anti Coag Clinic 1.5 (0.9-1.1)
--- NOTE | 2025-07-26 08:54 | MHC.OFFVISCO ---
Intake Intake Visit Reasons: Anticoagulation Allergies penicillin V (From Suman-Velinden K) Allergy (Mild, Verified 07/26/25 08:38) HIVES Medication List - Last Reconciled 07/26/25 by Loretta Neville RN amiodarone 100 mg PO DAILY atorvastatin 80 mg PO BEDTIME dutasteride (Avodart) 0.5 mg PO DAILY folic acid 3 mg (3 x 1 mg) PO DAILY 90 days multivitamin 1 tab PO DAILY vit C,Y-He-pkeim-lutein-zeaxan 250-90-40-1 mg (PreserVision AREDS-2) 1 tab PO BID warfarin 2.5 mg See Protocol PO DAILY Nursing Note INR 1.5 out of therapeutic range Medications and supplements reviewed Patient status: Pt states he had a busy fun weekend - had less sleep than usual, had GI upset last night- he think he ate some soup that could have been bad - had n/v/d last night.. feeling better this am - possible warfarin was not absorbed or GI virus affected INR He has a PCP appt today Medications or supplements: states he stopped - prostate med on his own Diet: good Denies any signs and symptoms of bleeding or clotting or unusual bruising Bleeding, bruising, clotting discussed Nutritional guidance given: no greens x 3 days Dose: 5mg today 2.5mg now then 2.5mg usual time tonight, then resume usual dose 2.5mg mwf 1.25mg x 4 days F/U INR Date : this saturday07/30/25 ?? Instructed to go to ER with any chest pain or stroke symptoms Patient verbalizing understanding of instructions given. This msg will be sent to PCP with f/u call Anti-Coag Initial Assessment Social Hx Patient Tobacco Use Status: Former Tobacco user alcohol intake: current Alcohol intake frequency: holidays/special occasions only Cardiovascular Hx: CAD, [place] and Arrhythmias Musculoskeletal Hx: Arthritis Blood Disorder Hx: Anemia and Hyperlipidemia GI Hx: Hemorrhoids Neurological Hx: Epilepsy/Seizures Cancer HX: No Psych. 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
== END 2025-07-26 09:01 | disposition home or self-care (01) ==
LOC: HO.ACS 08:20
PROVIDERS: PCP Physician Assistant Medical; Visit Provider Internal Medicine Medical Oncology
DX: Z79.01 Long term (current) use of anticoagulants (principal)

== ENCOUNTER → 2025-07-26 08:20 | Outpatient (BNVA) | payer MEDICARE, SELFPAY | PROVIDERS: PCP Physician Assistant Medical; Visit Provider Internal Medicine Medical Oncology | DX: I35.0 Nonrheumatic aortic (valve) stenosis (principal); I25.10 Atherosclerotic heart disease of native coronary artery without angina pectoris; I48.0 Paroxysmal atrial fibrillation; L40.50 Arthropathic psoriasis, unspecified; H35.30 Unspecified macular degeneration; I10 Essential (primary) hypertension; Z51.81 Encounter for therapeutic drug level monitoring; Z79.01 Long term (current) use of anticoagulants; Z79.899 Other long term (current) drug therapy; Z13.31 Encounter for screening for depression; Z13.39 Encounter for screening examination for other mental health and behavioral disorders | CPT/HCPCS: 85610; 96127; 99211; 99212 ==

== ENCOUNTER 2025-07-26 09:35 | Outpatient (AMB) | payer MEDICARE, SELFPAY ==
[2025-07-26 09:59] VITALS: BP 124/70; PULSE 79; TEMP 36.8; O2SAT 97; BMI 23.8
--- NOTE | 2025-07-26 09:59 | A.OFFPC_ITS ---
Vital Signs 07/26/25 09:59 Height 5 ft 8 in Weight 156 lb 8 oz BMI 23.8 BP 124/70 Blood Pressure Location Rt brachial Position Sitting Pulse 79 Pulse Source Pulse Oximeter Temp 98.2 F Temp Source Temporal Artery Scan Pulse Oximetry (%) 97 Oxygen Delivery Method Room Air Intake Visit Reasons: 3 Month F/U Allergies penicillin V (From Pen-Vee K) Allergy (Mild, Verified 08/20/25 08:20) HIVES Medication List - Last Reconciled 08/23/25 by CÉSAR Santiago amiodarone 100 mg PO DAILY atorvastatin 80 mg PO BEDTIME folic acid 3 mg (3 x 1 mg) PO DAILY 90 days multivitamin 1 tab PO DAILY vit C,Q-Yx-aobuz-lutein-zeaxan 250-90-40-1 mg (PreserVision AREDS-2) 1 tab PO BID warfarin 2.5 mg See Protocol PO DAILY Tobacco use date assessed: 02/08/25 Dental Screening Dental Screen Date: 07/26/25 Did you have a dental visit in the last 12 months?: Yes Did you have a dental problem in the last 6 months where you did not have access to dental care?: No HPI HPI Comments History of Present Illness Details The patient is a 79-year-old male with aortic stenosis, CAD, Afib, Low vitamin D, anemia, neuropathy, macular degeneration and psoriatic arthritis presenting to establish care and for the management of chronic conditions including hypertension, psoriatic arthritis, and dry macular degeneration. Hypertension is well-controlled with regular cardiology follow-ups. The patient is on medications including amiodarone, warfarin, folic acid, and atorvastatin. BP today was 124/70. Psoriatic arthritis is not currently under active treatment due to provider relocation, with no significant symptoms reported. Dry macular degeneration is managed with monthly injections, and the patient had an eye exam a month ago. Neuropathy is present, described as a sensation of wearing slippers when barefoot, with no further neurological evaluation planned. Aortic valve disorder is being monitored by the credit operations processor following an echocardiogram showing moderate to severe involvement. Medical History: - Hypertension - Psoriatic arthritis - Dry macular degeneration - Neuropathy - Aortic valve disorder Medications: - Amiodarone: For arrhythmia management - Warfarin: For anticoagulation - Folic acid: Supplementation - Atorvastatin: For cholesterol manageme nt Patient was informed and verbally consented to the use of an ambient scribe for clinic note documentation during this visit. [facility] Medical History (Updated 08/23/25 @ 02:16 by CÉSAR Santiago) Anemia Aortic stenosis Atrial flutter Bilateral hand swelling CAD (coronary artery disease) Current use of anticoagulant therapy Epilepsy H/O acute myocardial infarction History of cardioversion Hypertension Hypovitaminosis D Inflammatory arthritis Macular degeneration Paroxysmal atrial fibrillation Peripheral neuropathy Psoriatic arthritis Surgical History History of colonoscopy (~03/17/18) Stented coronary artery Family History Father Diabetes Arthritis Mother No problems noted. Daughter Arthritis Social History Household Members: Spouse Housing: House Do you presently have visiting nurse or other home services: No Alcohol intake: current Alcohol intake frequency: holidays/special occasions only Alcohol type: beer Patient Tobacco Use Status: Former Tobacco user e-Cigarette/Vaping Use: Former Use Second Hand Smoke Exposure: No service: No Current occupational status: retired Current occupational exposures/hazards: No Cognitive needs: No Hearing needs: No Vision needs: Yes (Rx glasses) Questionnaire PHQ-9 Over the last 2 weeks, how often have you been bothered by any of the following problems? 1. Little interest or pleasure in doing things: not at all 2. Feeling down, depressed, or hopeless: not at all 3. Trouble falling or staying asleep, or sleeping too much: not at all 4. Feeling tired or having little energy: not at all 5. Poor appetite or overeating: not at all 6. Feeling bad about yourself - or that you are a failure or have let yourself or your family down: not at all 7. Trouble concentrating on things, such as reading the newspaper or watching television: not at all 8. Moving or speaking so slowly that other people could have noticed. Or the opposite - being so fidgety or restless that you have been moving around a lot more than usual: not at all 9. Thoughts that you would be better off or of hurting yourself in some way: not at all Total score: 0 Depression Screening Interpretation: Negative Depression Screening Done: Yes Source: Developed by Drs. Tameka Mendez Kurt Kroenke and colleagues, with an educational lissette from [employer]. Thrive Questionnaire Date Thrive assessed: 07/26/25 I am a: Patient Within the past 12 months, did the food you bought not last and you didn't have the money to get more?: Never true Within the past 12 months, did you worry whether your food would run out before you got money to buy more?: Never true Do you have trouble paying for medicines?: No Do you have trouble getting transportation to medical appointments?: No Do you have trouble paying your heating and electricity bill?: No Do you have trouble taking care of your child, family member or friend?: No Do you have trouble with day-to-day activities such as bathing, preparing meals, shopping, managing finances, etc.?: No Are you currently unemployed and looking for a job?: No Are you interested in more education?: No THRIVE Score: 0 AUDIT C Alcohol Use Questionnaire (AUDIT-C) 1. How often do you have a drink containing alcohol?: Monthly or less 2. How many drinks containing alcohol do you have on a typical day when you are drinking?: 1 or 2 3. How often do you have six or more drinks on one occasion?: Less than monthly Total Score: 2 BONI-7 AMB Questionnaire BONI-7 Date BONI - 7 assessed: 07/26/25 Feeling nervous, anxious, or on edge: 0 = Not at all Not being able to stop or control worryin = Not at all Worrying too much about different things: 0 = Not at all Trouble relaxin = Not at all Being so restless that it is hard to sit still: 0 = Not at all Becoming easily annoyed or irritable: 0 = Not at all Feeling afraid as if something awful might happen: 0 = Not at all Total BONI-7 score (0-4 normal; 5-9 mild; 10-14 moderate; 15-21 severe): 0 Source: Developed by Tameka Katz Kurt Kroenke and colleagues, with an educational lissette from [employer]. Review of Systems Narrative - Cardiovascular: Denies chest pain, dyspnea, or palpitations. - Gastrointestinal: Reports heartburn and diarrhea following consumption of creamy soup. - Neurological: Reports neuropathy in feet, described as sensation of wearing slippers when barefoot. - Musculoskeletal: Denies significant pain or swelling from psoriatic arthritis, reports tenderness with pressure. - Ophthalmologic: Reports vision issues related to dry macular degeneration. Physical exam (Primary Care) Vital Signs: Last Vital Signs Temp 98.2 F 07/26/25 09:59 Pulse 79 07/26/25 09:59 BP 124/70 07/26/25 09:59 Pulse Ox 97 07/26/25 09:59 Oxygen Delivery Method Room Air 07/26/25 09:59 BMI result Body Mass Index 23.8 GENERAL Well developed, Well nourished, in no apparent distress HEENT Head-Normocephalic Eyes- PERRLA, EOMI, Conjuctiva clear, lids WNL Ears- Canals clear, TMs WNL Mouth/Throat-No lesions, no erythema, no exudate Neck- Supple, No lymphadenopathy, thyroid WNL RESPIRATORY Normal I:E, Clear to auscultation CARDIOVASCULAR Regular, rate and rhythm, No murmurs or rubs GASTROINTESTINAL Soft, nontender, normal bowel sounds, no masses MUSCULOSKELETAL Back- nontender Joints- no swelling or deformity NEUROLOGICAL Gait normal PSYCHIATRIC Oriented to person, place and time Mood and affect WNL Appearance WNL Speech WNL Thought processes WNL Tobacco/Smoking Status: Tobacco use Status Tobacco use date assessed 02/08/25 07/26/25 10:04 Patient Tobacco Use Status Former Tobacco user 07/26/25 10:04 e-Cigarette/Vaping Use Former Use 07/26/25 10:04 PHQ-9: PHQ-9 Score PHQ-9: Total score 0 07/26/25 10:04 Depression Screening Interpretation: Negative Thrive Assessment: Date of Thrive Assessment Date Thrive assessed 07/26/25 07/26/25 10:04 Coding Level of Care Code Established Pt Est Pt Level 4 (13325) Established Pt Complex EM visit Add On G2211 Patient Type Established Diagnoses Aortic stenosis I35.0 CAD (coronary artery disease) I25.10 Paroxysmal atrial fibrillation I48.0 Psoriatic arthritis L40.50 Macular degeneration H35.30 Hypertension I10 Time Spent (min) 35 Comment Time spent on chart review, medication reconciliation, H&P, Patient education and orders Assessment & Plan Assessment & Plan (1) Aortic stenosis: Comment: Mild by echocardiogram, October 2021 Code(s): I35.0 - Nonrheumatic aortic (valve) stenosis Category: Medical Plan: The patient has a history of an aortic valve disorder, with a previous echocardiogram indicating moderate to severe involvement. The credit operations processor is currently monitoring the condition. (2) CAD (coronary artery disease): Code(s): I25.10 - Atherosclerotic heart disease of [place] coronary artery without angina pectoris Category: Medical Plan: Patient followed by Cardiology (3) Paroxysmal atrial fibrillation: Code(s): I48.0 - Paroxysmal atrial fibrillation Category: Medical Plan: Patient on Warfarin and followed by cardiology and anticoagulant clinic. (4) Psoriatic arthritis: Code(s): L40.50 - Arthropathic psoriasis, unspecified Category: Medical Plan: Psoriatic arthritis is not currently under active treatment due to provider relocation. The patient reports no significant pain or swelling currently, although there is some tenderness when pressure is applied. (5) Macular degeneration: Code(s): H35.30 - Unspecified macular degeneration Category: Medical Plan: Dry macular degeneration is managed with monthly injections. The patient reports a vision issue, with the last eye exam conducted about a month ago. (6) Hypertension: Comment: BP today was 124/70 Code(s): I10 - Essential (primary) hypertension Category: Medical Plan: Hypertension is well-controlled with regular follow-ups with cardiology. The patient is on amiodarone, warfarin, folic acid, and atorvastatin for cholesterol management. Patient will continue current medications. Will monitor. Patient will follow up in 3 months. Plan During the visit, we discussed the management of the patient's chronic conditions, including hypertension, psoriatic arthritis, dry macular degeneration, neuropathy, and aortic valve disorder. We reviewed the current medication regimen and emphasized the importance of regular follow-ups with cardiology and ophthalmology. The patient was advised to monitor symptoms and report any significant changes, particularly regarding neuropathy and psoriatic arthritis. We also discussed the recent episode of gastrointestinal upset and the potential dietary causes. Follow-up appointments were scheduled to ensure ongoing management and monitoring of the patient's conditions. Patient Instructions: - Continue current medication regimen as prescribed. - Schedule regular follow-ups with cardiology and ophthalmology. - Monitor symptoms of neuropathy and psoriatic arthritis, and report any significant changes. - Avoid consuming foods that may trigger gastrointestinal upset.
== END 2025-07-26 10:38 | disposition home or self-care (01) ==
LOC: HO.HMCHD 09:35
PROVIDERS: Visit Provider Physician Assistant Medical
DX: I35.0 Nonrheumatic aortic (valve) stenosis (principal); I25.10 Atherosclerotic heart disease of native coronary artery without angina pectoris; I48.0 Paroxysmal atrial fibrillation; L40.50 Arthropathic psoriasis, unspecified; H35.30 Unspecified macular degeneration; I10 Essential (primary) hypertension

== ENCOUNTER → 2025-07-30 08:18 | Outpatient (BNVA) | payer MEDICARE, SELFPAY | PROVIDERS: PCP Physician Assistant Medical; Visit Provider Internal Medicine Medical Oncology | DX: I48.0 Paroxysmal atrial fibrillation (principal); Z79.01 Long term (current) use of anticoagulants; Z51.81 Encounter for therapeutic drug level monitoring | CPT/HCPCS: 85610; 99211 ==

== ENCOUNTER 2025-07-30 14:26 | Outpatient (AMB) | payer MEDICARE, SELFPAY ==
[2025-07-30 14:31] LABS: Prothrombin Time Whole Bld POC 19.7 sec (11.1-13.5); ~PT, ~INR - Anti Coag Clinic 1.6 (0.9-1.1)
--- NOTE | 2025-07-30 14:35 | MHC.OFFVISCO ---
Intake Intake Visit Reasons: Anticoagulation Allergies penicillin V (From Pen-Vee K) Allergy (Mild, Verified 07/30/25 08:29) HIVES Medication List - Last Reconciled 07/30/25 by Daily See RN amiodarone 100 mg PO DAILY atorvastatin 80 mg PO BEDTIME folic acid 3 mg (3 x 1 mg) PO DAILY 90 days multivitamin 1 tab PO DAILY vit C,I-Up-rymfv-lutein-zeaxan 250-90-40-1 mg (PreserVision AREDS-2) 1 tab PO BID warfarin 2.5 mg See Protocol PO DAILY Nursing Note INR: 1.6 out of therapeutic range 2-3 Pt denies missed dose Medications and supplements reviewed Patient status: feels well Medications or supplements: no changes Diet: usual diet for pt Denies any signs and symptoms of bleeding or clotting or unusual bruising Bleeding, bruising, clotting discussed Nutritional guidance given: to avoid greens X 2 days Dose: increase today's dose to 5mg (2.5mg) and increase tomorrow's dose to 2.5mg (1.25mg) then resume usual dose of 1.25mg X 4 days and 2.5mg X 3 days F/U INR Date: 1 week?? Patient verbalizing understanding of instructions given. Anti-Coag Initial Assessment Social Hx Patient Tobacco Use Status: Former Tobacco user alcohol intake: current Alcohol intake frequency: holidays/special occasions only Cardiovascular Hx: CAD, [place] and Arrhythmias Musculoskeletal Hx: Arthritis Blood Disorder Hx: Anemia and Hyperlipidemia GI Hx: Hemorrhoids Neurological Hx: Epilepsy/Seizures Cancer HX: No Psych. Illness/Depression: No Coding Level of Care Code Est Patient Level 1 Diagnoses Current use of anticoagulant therapy Z79.01 Results AMB INR Fingerstick AMB INR Fingerstick 1.6 Last Edit by Daily See RN on 07/30/25 14:34 interface delay Assessment & Plan Assessment & Plan (1) Current use of anticoagulant therapy: Code(s): Z79.01 - rodent exterminator (current) use of anticoagulants Category: Medical
--- OUTSIDE RECORDS SUMMARY | 2025-07-30 16:19 | XMS_ITS | Patient Health Record ---
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 Name Role Phone Alfred (RETIRED) Jose MOLINA Primary Care Provide r Unavailable Mt Ramirez Unavailable [phone] Lazara MOLINA, Fadi Unavailable Unavailable Allergies Allergen [...] Problem Screening for malignant neoplasm of colon (592480029) Encounter for screening for malignant neoplasm of colon (Z12.11) Active confirmed Problem History of adenomatous polyp of colon (098342298) History of adenomatous polyp of colon (Z86.010) Active confirmed Problem Gastroesophageal reflux disease with esophagitis (407335401) Gastroesophageal reflux disease with esophagitis (K21.0) Active confirmed Problem Gastroesophageal reflux disease without esophagitis (083798345) Gastroesophageal reflux disease without esophagitis (K21.9) Active confirmed Problem Crump's esophagus (445798150) Barretts esophagus without dysplasia (K22.70) Active confirmed Problem Iron deficiency anemia due to chronic blood loss (780942484) Iron deficiency anemia due to chronic blood loss (D50.0) Active confirmed Problem 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 findings from the circuits engineer Colonoscopy in 08/2012 with small tubular adenomas--diverticulosis, neg colonoscopy in 2003 Surgical History Surgery Date(Month/Year) Back surgery Hernia
== END 2025-07-30 14:44 | disposition home or self-care (01) ==
PROVIDERS: PCP Physician Assistant Medical; Visit Provider Internal Medicine Medical Oncology
DX: Z79.01 Long term (current) use of anticoagulants (principal)

== ENCOUNTER 2025-08-06 08:23 | Outpatient (AMB) | payer MEDICARE, SELFPAY ==
--- OUTSIDE RECORDS SUMMARY | 2025-08-06 08:35 | XMS_ITS | Patient Health Record ---
Author Organization [facility] Address [address] [place] [address] Care Team Providers Care Hog Feeder Name Role Phone Alfred (RETIRED) Jose MOLINA Primary Care Provide r Unavailable Mt Ramirez Unavailable [phone] Lazara MOLINA, Fadi Unavailable Unavailable Allergies Allergen [...] Problem Screening for malignant neoplasm of colon (064662208) Encounter for screening for malignant neoplasm of colon (Z12.11) Active confirmed Problem History of adenomatous polyp of colon (206176416) History of adenomatous polyp of colon (Z86.010) Active confirmed Problem Gastroesophageal reflux disease with esophagitis (877963198) Gastroesophageal reflux disease with esophagitis (K21.0) Active confirmed Problem Gastroesophageal reflux disease without esophagitis (378683334) Gastroesophageal reflux disease without esophagitis (K21.9) Active confirmed Problem Crump's esophagus (374444363) Barretts esophagus without dysplasia (K22.70) Active confirmed Problem Iron deficiency anemia due to chronic blood loss (291351006) Iron deficiency anemia due to chronic blood loss (D50.0) Active confirmed Problem 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 (7954402651151447) 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 Plan Of Treatment Future Test Test Name Order Date COLONOSCOPY 07/22/2012 UPPER GI ENDOSCOPY 12/31/2017 COLONOSCOPY 12/31/2017 Insurance Providers Payer Name Payer Address Payer Phone Subscriber Number Group Number Insured Name Patient Relationship to Insured Coverage Start Date Coverage End Date [facility] [address] [place] [phone] [id number] ALEIDA TITUS Self - patient is the insured Medical (General) History Medical History History ICD Code GERD/Crump's Esophagus--EGD's in 2003, 2008, and 2011 Seizure disorder Elevated cholesterol Denies [place],DM,CVA,Lung disease,renal dise ase UGI bleed with melena in 04/07 012-had been on Ibuprofen-EGD at that time negative except duodenitis and Crump's esophagus-biopsies all negative for dysplasia Rheumatoid arthritis Irregular heart rate--wore a 24 hour monitor earlier in 2017--describes no sig. findings from the car filler Colonoscopy in 08/2012 with small tubular adenomas--diverticulosis, neg colonoscopy in 2003 Surgical History Surgery Date(Month/Year) Back surgery Hernia
--- NOTE | 2025-08-06 08:48 | MHC.OFFVISCO ---
Intake Intake Visit Reasons: Anticoagulation Allergies penicillin V (From Pen-Vee K) Allergy (Mild, Verified 08/06/25 08:40) HIVES Medication List - Last Reconciled 08/06/25 by Loretta Neville RN amiodarone 100 mg PO DAILY atorvastatin 80 mg PO BEDTIME folic acid 3 mg (3 x 1 mg) PO DAILY 90 days multivitamin 1 tab PO DAILY vit C,T-Jh-sggol-lutein-zeaxan 250-90-40-1 mg (PreserVision AREDS-2) 1 tab PO BID warfarin 2.5 mg See Protocol PO DAILY Nursing Note INR: 2.3 in therapeutic range Medications and supplements reviewed No changes in health, diet, medications, or supplements, Denies any signs and symptoms of bleeding or bruising or clotting. Bleeding, bruising, clotting discussed Nutritional guidance given Dose: 2.5MG MWF/ 1.25MG X 4 DAYS F/U INR: 2 WEEKS Patient verbalizes understanding of instructions given Anti-Coag Initial Assessment Social Hx Patient Tobacco Use Status: Former Tobacco user alcohol intake: current Alcohol intake frequency: holidays/special occasions only Cardiovascular Hx: CAD, IA and Arrhythmias Musculoskeletal Hx: Arthritis Blood Disorder Hx: Anemia and Hyperlipidemia GI Hx: Hemorrhoids Neurological Hx: Epilepsy/Seizures Cancer HX: No Psych. Illness/Depression: No Coding Level of Care Code Est Patient Level 1 Diagnoses Current use of anticoagulant therapy Z79.01 Results AMB INR Fingerstick AMB INR Fingerstick 2.3 Last Edit by Loretta Neville RN on 08/06/25 08:47 MANUAL ENTRY Assessment & Plan Assessment & Plan (1) Current use of anticoagulant therapy: Code(s): Z79.01 - roasterman (current) use of anticoagulants Category: Medical
[2025-08-06 10:31] LABS: Prothrombin Time Whole Bld POC 27.3 sec (11.1-13.5); ~PT, ~INR - Anti Coag Clinic 2.3 (0.9-1.1)
== END 2025-08-06 08:52 | disposition home or self-care (01) ==
LOC: HO.ACS 08:23
PROVIDERS: PCP Physician Assistant Medical; Visit Provider Internal Medicine Medical Oncology
DX: Z79.01 Long term (current) use of anticoagulants (principal)

== ENCOUNTER → 2025-08-06 08:23 | Outpatient (BNVA) | payer MEDICARE, SELFPAY | PROVIDERS: PCP Physician Assistant Medical; Visit Provider Internal Medicine Medical Oncology | DX: I48.0 Paroxysmal atrial fibrillation (principal); Z79.01 Long term (current) use of anticoagulants; Z51.81 Encounter for therapeutic drug level monitoring | CPT/HCPCS: 85610; 99211 ==

== ENCOUNTER 2025-08-20 08:13 | Outpatient (AMB) | payer MEDICARE, SELFPAY ==
[2025-08-20 08:26] LABS: Prothrombin Time Whole Bld POC 18.4 sec (11.1-13.5); ~PT, ~INR - Anti Coag Clinic 1.5 (0.9-1.1)
--- NOTE | 2025-08-20 08:38 | MHC.OFFVISCO ---
Intake Intake Visit Reasons: Anticoagulation Allergies penicillin V (From Pen-Vee K) Allergy (Mild, Verified 08/20/25 08:20) HIVES Medication List - Last Reconciled 08/20/25 by Loretta Neville RN amiodarone 100 mg PO DAILY atorvastatin 80 mg PO BEDTIME folic acid 3 mg (3 x 1 mg) PO DAILY 90 days multivitamin 1 tab PO DAILY vit C,P-Bw-asmld-lutein-zeaxan 250-90-40-1 mg (PreserVision AREDS-2) 1 tab PO BID warfarin 2.5 mg See Protocol PO DAILY Nursing Note INR 1.5 out of therapeutic range Medications and supplements reviewed Patient status: well, ate Persian food last night, ran out of preservision >than 1 week, not sure if he is going back on it - he states he is not sure if it is working for him- he was advised to talk to his doctor Medications or supplements: no other changes Diet: good Denies any signs and symptoms of bleeding or clotting or unusual bruising Bleeding, bruising, clotting discussed Nutritional guidance given: avoid greens x 3 days Dose: booster dose today 2.5mg now then 2.5mg usual time tonight(5mg) then increase dose as it has been trending down 2.5mg x 4 days/ 1.25mg mwf next week F/U INR Date: 3 days 08/23/25 same day as PCP appt ( takes [facility] transportation) ?? Patient verbalizing understanding of instructions given. Anti-Coag Initial Assessment Social Hx Patient Tobacco Use Status: Former Tobacco user alcohol intake: current Alcohol intake frequency: holidays/special occasions only Cardiovascular Hx: CAD, [place] and Arrhythmias Musculoskeletal Hx: Arthritis Blood Disorder Hx: Anemia and Hyperlipidemia GI Hx: Hemorrhoids Neurological Hx: Epilepsy/Seizures Cancer HX: No Psych. Illness/Depression: No Coding Level of Care Code Est Patient Level 1 Diagnoses Current use of anticoagulant therapy Z79.01 Assessment & Plan Assessment & Plan (1) Current use of anticoagulant therapy: Code(s): Z79.01 - wood cutter (current) use of anticoagulants Category: Medical
== END 2025-08-20 08:46 | disposition home or self-care (01) ==
LOC: HO.ACS 08:13
PROVIDERS: PCP Physician Assistant Medical; Visit Provider Internal Medicine Medical Oncology
DX: Z79.01 Long term (current) use of anticoagulants (principal)

== ENCOUNTER → 2025-08-20 08:13 | Outpatient (BNVA) | payer MEDICARE, SELFPAY | PROVIDERS: PCP Physician Assistant Medical; Visit Provider Internal Medicine Medical Oncology | DX: Z79.01 Long term (current) use of anticoagulants (principal) | CPT/HCPCS: 85610; 99211 ==

== ENCOUNTER 2025-08-23 08:57 | Outpatient (AMB) | payer MEDICARE, SELFPAY ==
[2025-08-23 09:21] VITALS: BP 122/58; PULSE 68; RESP 16; TEMP 35.9; O2SAT 96; BMI 23.6
--- NOTE | 2025-08-23 09:21 | MHC.PC.OV ---
Vital Signs 08/23/25 09:21 Height 5 ft 8 in Weight 155 lb BMI 23.6 BP 122/58 L Blood Pressure Location Lt brachial Position Sitting Respiration 16 Pulse 68 Pulse Source Pulse Oximeter Temp 96.7 F L Temp Source Temporal Artery Scan Pulse Oximetry (%) 96 Oxygen Delivery Method Room Air Intake Visit Reasons: Annual Accompanied by: Self / Same As Patient Allergies penicillin V (From Pen-Vee K) Allergy (Mild, Verified 08/23/25 09:22) HIVES Medication List - Last Reconciled 08/23/25 by CÉSAR Santiago amiodarone 100 mg PO DAILY atorvastatin 80 mg PO BEDTIME folic acid 3 mg (3 x 1 mg) PO DAILY 90 days multivitamin 1 tab PO DAILY vit C,W-Yi-ieqnz-lutein-zeaxan 250-90-40-1 mg (PreserVision AREDS-2) 1 tab PO BID warfarin 2.5 mg See Protocol PO DAILY Tobacco use date assessed: 08/23/25 Fall risk assessment: No Falls in past year Last assessed Fall Risk: 08/23/25 Dental Screening Dental Screen Date: 08/23/25 Did you have a dental visit in the last 12 months?: Yes Did you have a dental problem in the last 6 months where you did not have access to dental care?: No HPI HPI Comments History of Present Illness Details History of Present Illness The patient is a 79-year-old male with aortic stenosis, CAD, Afib on Warfarin, Low vitamin D, anemia, neuropathy, macular degeneration and psoriatic arthritis presenting for follow up of chronic conditions. He has a history of psoriatic arthritis but reports no recent symptoms. The patient has a history of macular edema, for which he was part of a study and received injections. The underlying cause was thought to be rheumatologic. He later received Iservay injections from a retina specialist, which he felt worsened his condition, and he subsequently discontinued the injections as they were not deemed significantly beneficial. He does not have a current follow-up appointment with an eye doctor. His cardiac history is notable for a calcified aortic valve, diagnosed on a prior echocardiogram. He is followed by a svp business development, with his next appointment scheduled for January. He takes warfarin and his INR is monitored every two weeks, though he notes it has been fluctuating recently. For health maintenance, his cholesterol was checked in April and was normal. He has a urology follow-up scheduled for October. He received his flu vaccine about a month ago and has had four COVID-19 vaccine doses in the past, but reported getting sick from them. Medical History: - Psoriatic arthritis, currently quiescent - Macular edema, previously treated with intraocular injections which were discontinued - Aortic valve calcification - Anemia - History of COVID-19 infection - Adverse reaction to COVID-19 vaccine Medications: - Warfarin Health Maintenance - Follow-up with cardiology is scheduled for January. - Follow-up with urology is scheduled for October. - Influenza vaccine was administered approximately one month ago. - The patient has received four COVID-19 vaccine doses in the past. - INR is monitored every two weeks for warfarin therapy. - Lab work for cholesterol was completed in April with good results Patient was informed and verbally consented to the use of an ambient scribe for clinic note documentation during this visit. [facility] Medical History Hypertension Macular degeneration Peripheral neuropathy Anemia History of cardioversion Psoriatic arthritis Atrial flutter Hypovitaminosis D Bilateral hand swelling Inflammatory arthritis Aortic stenosis Current use of anticoagulant therapy CAD (coronary artery disease) Paroxysmal atrial fibrillation Epilepsy H/O acute myocardial infarction Surgical History History of colonoscopy (~03/17/18) Stented coronary artery Family History Father Diabetes Arthritis Mother No problems noted. Daughter Arthritis Social History Household Members: Spouse Housing: House Do you presently have visiting nurse or other home services: No Alcohol intake: current Alcohol intake frequency: holidays/special occasions only Alcohol type: beer Patient Tobacco Use Status: Former Tobacco user e-Cigarette/Vaping Use: Former Use Second Hand Smoke Exposure: No service: No Current occupational status: retired Current occupational exposures/hazards: No Cognitive needs: No Hearing needs: No Vision needs: Yes (Rx glasses) Questionnaire PHQ-9 Over the last 2 weeks, how often have you been bothered by any of the following problems? 1. Little interest or pleasure in doing things: not at all 2. Feeling down, depressed, or hopeless: not at all 3. Trouble falling or staying asleep, or sleeping too much: not at all 4. Feeling tired or having little energy: not at all 5. Poor appetite or overeating: not at all 6. Feeling bad about yourself - or that you are a failure or have let yourself or your family down: not at all 7. Trouble concentrating on things, such as reading the newspaper or watching television: not at all 8. Moving or speaking so slowly that other people could have noticed. Or the opposite - being so fidgety or restless that you have been moving around a lot more than usual: not at all 9. Thoughts that you would be better off or of hurting yourself in some way: not at all Total score: 0 Depression Screening Interpretation: Negative Depression Screening Done: Yes Source: Developed by Drs. Mt Guerra, Tameka Cary, Getachew Rey and colleagues, with an educational lissette from [employer]. Thrive Questionnaire Date Thrive assessed: 08/23/25 I am a: Patient Within the past 12 months, did the food you bought not last and you didn't have the money to get more?: Never true Within the past 12 months, did you worry whether your food would run out before you got money to buy more?: Never true Do you have trouble paying for medicines?: No Do you have trouble getting transportation to medical appointments?: No Do you have trouble paying your heating and electricity bill?: No Do you have trouble taking care of your child, family member or friend?: No Do you have trouble with day-to-day activities such as bathing, preparing meals, shopping, managing finances, etc.?: No Are you currently unemployed and looking for a job?: No Are you interested in more education?: No THRIVE Score: 0 AUDIT C Alcohol Use Questionnaire (AUDIT-C) 1. How often do you have a drink containing alcohol?: Monthly or less 2. How many drinks containing alcohol do you have on a typical day when you are drinking?: 1 or 2 3. How often do you have six or more drinks on one occasion?: Less than monthly Total Score: 2 BONI-7 AMB Questionnaire BONI-7 Date BONI - 7 assessed: 08/23/25 Feeling nervous, anxious, or on edge: 0 = Not at all Not being able to stop or control worryin = Not at all Worrying too much about different things: 0 = Not at all Trouble relaxin = Not at all Being so restless that it is hard to sit still: 0 = Not at all Becoming easily annoyed or irritable: 0 = Not at all Feeling afraid as if something awful might happen: 0 = Not at all Total BONI-7 score (0-4 normal; 5-9 mild; 10-14 moderate; 15-21 severe): 0 Source: Developed by Drs. Mt Guerra, Tameka Cary, Getachew Rey and colleagues, with an educational lissette from [employer]. Review of Systems Narrative Review of Systems - Constitutional: Reports feeling fine. - Eyes: Reports a history of eye swelling which has since resolved. - Ears: Denies problems with hearing. - Cardiovascular: Denies chest pain. - Respiratory: Denies shortness of breath. - Gastrointestinal: Denies constipation, diarrhea, or heartburn. - Musculoskeletal: Denies any current symptoms from psoriatic arthritis. able to complete ADLs Physical exam (Primary Care) Vital Signs: Last Vital Signs Temp 96.7 F L 08/23/25 09:21 Pulse 68 08/23/25 09:21 Resp 16 08/23/25 09:21 BP 122/58 L 08/23/25 09:21 Pulse Ox 96 08/23/25 09:21 Oxygen Delivery Method Room Air 08/23/25 09:21 BMI result Body Mass Index 23.6 GENERAL Well Developed, Well Nourished, In no acute distress HEENT Head- Normocephalic, atraumatic Eyes- PERRLA, EOMI, Conjuctiva-WNL, Lids-WNL Ears- Canals- Clear, TMs- WNL Nose-Straight, Nares Patent OroPharynx-Mouth WNL, Tongue- no lesions, throat no erythema or exudate Neck- Supple, no lymphadenopathy, thyroid WNL CARDIOVASCULAR Heart- Regular rate and Rhythm without systolic murmur Extremities- No edema RESPIRATORY Normal chest movement, clear to auscultation ABDOMINAL/GI Nondistended, soft, nontender, normal bowel sounds, no masses, no hepatosplenomegaly GENITOURINARY No CVA tenderness BACK Straight, normal ROM, nontender MUSCULOSKELETAL No joint pain, swelling or deformity VASCULAR No JVD, Dorasalis pedis and Posterior Tibialis pulses normal and symmetrical DERMATOLOGY No rashes, no significant skin lesions, skin turgor WNL NEUROLOGICAL Cranial Nerves 11-x11 grossly intact, gait WNL, Coordination WNL, Muscle strength normal and Symmetrical, DTR normal and symmetrical, Light touch sensation intact PSYCHIATRIC Mood and affect WNL, Oriented to person, place and time Tobacco/Smoking Status: Tobacco use Status Tobacco use date assessed 08/23/25 08/23/25 09:22 Patient Tobacco Use Status Former Tobacco user 08/23/25 09:22 e-Cigarette/Vaping Use Former Use 08/23/25 09:22 PHQ-9: PHQ-9 Score PHQ-9: Total score 0 08/23/25 09:31 Depression Screening Interpretation: Negative Thrive Assessment: Date of Thrive Assessment Date Thrive assessed 08/23/25 08/23/25 09:30 Office Procedures Flu Questionnaire Does the patient have a severe egg allergy?: No Does the patient have severe life threatening allergies?: No Does the patient have a fever or illness today?: No Has the patient ever had Guillain-[place] Syndrome?: No Has the patient ever had any past reaction to a flu shot?: No Immunizations Fluarix [id number] (PF) 45 mcg (15 mcg x 3)/0.5 mL IM syringe Performing Provider: CÉSAR Santiago [facility] [place] [facility] Documented (not given) by: Olena Dean CMA on 08/23/25 09:35 Reason Not Given: Received Previously Coding Level of Care Code Established Pt Tele Est Pt Level 4 (79008) Patient Type Established Diagnoses Hypertension I10 Aortic stenosis I35.0 CAD (coronary artery disease) I25.10 Paroxysmal atrial fibrillation I48.0 alf current use of anticoagulants with INR goal of 2.0-3.0 Z79.01 Hypovitaminosis D E55.9 Macular degeneration H35.30 Anemia D64.9 Time Spent (min) 35 Comment Time spent on chart review, H&P, Patient education, orders and follow up Assessment & Plan Assessment & Plan (1) Hypertension: Comment: BP today was 122/58 Code(s): I10 - Essential (primary) hypertension Category: Medical Plan: Controlled. Will get labs. Patient will continue current medications. Will monitor. Patient will follow up on 10/18/25. (2) Aortic stenosis: Comment: Mild by echocardiogram, October 2021 Code(s): I35.0 - Nonrheumatic aortic (valve) stenosis Category: Medical Plan: Patient has follow up with cardiology 10/14/25 (3) CAD (coronary artery disease): Code(s): I25.10 - Atherosclerotic heart disease of mechoopda coronary artery without angina pectoris Category: Medical Plan: Patient has follow up with cardiology 10/14/25 (4) Paroxysmal atrial fibrillation: Code(s): I48.0 - Paroxysmal atrial fibrillation Category: Medical Plan: Patient has follow up with cardiology 10/14/25 (5) alf current use of anticoagulants with INR goal of 2.0-3.0: Code(s): Z79.01 - long term (current) use of anticoagulants Category: Medical Plan: Patient followed by Anticoagulation clinic (6) Hypovitaminosis D: Code(s): E55.9 - Vitamin D deficiency, unspecified Category: Medical Plan: Will check Vitamin D level. Patient to follow up on 10/18/25 or sooner if needed. (7) Macular degeneration: Code(s): H35.30 - Unspecified macular degeneration Category: Medical Plan: Patient advised to continue to see Ophthalmology once a year or as needed. (8) Anemia: Code(s): D64.9 - Anemia, unspecified Category: Medical Plan: Will check Ferritin. Patient to follow up on 10/18/25 or sooner if needed. Plan Plan Patient was informed and verbally consented to the use of an ambient scribe for clinic note documentation during this visit. 1. Annual Physical Examination The patient is seen for a routine examination. Lab work will be ordered to recheck for anemia and assess liver function, kidney function, and iron levels. A PSA level will also be checked. Cholesterol was checked in April and was good, so it will not be repeated at this time. A follow-up appointment will be scheduled for October or November to review the results. 2. Aortic Valve Calcification A slight, mild heart murmur was auscultated, consistent with the patient's known history of a calcified aortic valve noted on a prior echocardiogram. The patient was reassured that this is being monitored by his svp business development, with whom he has a follow-up appointment in January. 3. Long-Term (Current) Use Of Anticoagulants The patient is on warfarin and reports that his INR has been fluctuating recently. He is scheduled for INR monitoring every two weeks and has an appointment for a blood draw today. 4. Psoriatic Arthritis The patient has a history of psoriatic arthritis but is currently asymptomatic and feeling fine. No changes to his management are needed at this time. 5. Immunization Status The patient reported receiving his flu vaccine about a month ago. He has had four prior COVID-19 vaccine doses but reported getting sick from them. It was explained that while an annual COVID-19 vaccine is recommended, the current viral strains are less severe, and pushing for vaccination is less of a concern given his history. Discussion Notes Upon examination, I noted a slight heart murmur, and I explained to the patient that this is a mild sound related to his known calcified aortic valve. I reassured him that his svp business development is monitoring this condition closely. We discussed ordering blood work to re-evaluate for anemia, check his kidney and liver function, and measure his iron level and PSA. We reviewed his immunizations, noting he is up to date on his flu shot. Regarding the COVID-19 vaccine, I acknowledged his prior adverse reaction and explained that while an annual shot is generally recommended, I am less concerned about pushing it now given the less severe nature of current viral strains, though he should still exercise caution around sick individuals due to his heart condition. I informed him that we have a follow-up appointment on 10/18/25 to discuss his lab results.. Patient Instructions - Please go for your blood work today. - I have ordered tests to check for anemia, your kidney and liver function, your iron level, and a PSA test for your prostate. - You can have these tests done at the same time as your routine blood test for your warfarin medication. - Keep your follow-up appointments with your health care law specialist (svp business development) in January and your urologist in October. - Because of your heart condition, please be careful around people who are sick; consider wearing a mask. - We will schedule a follow-up visit here in October or November to discuss your test results. Orders: Orders IRON PROFILE Today D64.9 - Anemia, unspecified, Z00.00 - Encounter for general adult medical examination without abnormal findings PSA, Ultra Sensitive Today N40.1 - Benign prostatic hyperplasia with lower urinary tract symptoms, R97.20 - Elevated prostate specific antigen [PSA], Z00.00 - Encounter for general adult medical examination without abnormal findings Influenza [id number] Immunization Today Z23 - Encounter for immunization Ferritin Today Z00.00 - Encounter for general adult medical examination without abnormal findings Comprehensive Met. Panel Today I10 - Essential (primary) hypertension, Z00.00 - Encounter for general adult medical examination without abnormal findings Vitamin D 25-OH Total Today E55.9 - Vitamin D deficiency, unspecified, Z00.00 - Encounter for general adult medical examination without abnormal findings
== END 2025-08-23 10:53 | disposition home or self-care (01) ==
LOC: HO.HMCHD 08:58
PROVIDERS: PCP Physician Assistant Medical; Visit Provider Physician Assistant Medical
DX: I10 Essential (primary) hypertension (principal); I35.0 Nonrheumatic aortic (valve) stenosis; I25.10 Atherosclerotic heart disease of native coronary artery without angina pectoris; I48.0 Paroxysmal atrial fibrillation; Z79.01 Long term (current) use of anticoagulants; E55.9 Vitamin D deficiency, unspecified; H35.30 Unspecified macular degeneration; D64.9 Anemia, unspecified; Z23 Encounter for immunization

== ENCOUNTER 2025-08-23 08:57 | Outpatient (REF) | payer MEDICARE, SELFPAY ==
[2025-08-23 11:37] LABS: Alanine Aminotransferase 18 U/L (0-40); Albumin Level 4.2 g/dL (3.5-5.0); Alkaline Phosphatase 119 U/L (39-117); Anion Gap 10 (12-20); Aspartate Amino Transferase 31 U/L (5-37); Blood Urea Nitrogen 15 mg/dL (9-16); Calcium 9.3 mg/dL (8.4-10.2); Carbon Dioxide 28 mmol/L (22-29); Chloride 108 mmol/L (96-108); Estimated Glomerular Filt Rate > 60; Iron 123 mcg/dL (45-160); Percent Iron Saturation 45 % (15-50); Potassium 4.3 mmol/L (3.3-5.1); Sodium 142 mmol/L (135-145); Total Iron Binding Capacity 272 mcg/dL (228-428); Total Protein 7.4 g/dL (6.5-8.0); Unsaturated Iron Binding 149 ug/dL
[2025-08-23 11:39] LABS: Ferritin 35 ng/mL (20-250)
[2025-08-26 23:08] LABS: PSA, Ultra Sensitive 4.90 ng/mL
== END 2025-08-23 08:58 | disposition home or self-care (01) ==
LOC: HO.LAB 08:57
PROVIDERS: PCP Physician Assistant Medical; Visit Provider Physician Assistant Medical
DX: E55.9 Vitamin D deficiency, unspecified (principal); D64.9 Anemia, unspecified; R97.20 Elevated prostate specific antigen [PSA]; N40.1 Benign prostatic hyperplasia with lower urinary tract symptoms; I10 Essential (primary) hypertension; Z12.5 Encounter for screening for malignant neoplasm of prostate; Z79.01 Long term (current) use of anticoagulants; I48.0 Paroxysmal atrial fibrillation; Z51.81 Encounter for therapeutic drug level monitoring
CPT/HCPCS: 36415; 80053; 82306; 82728; 83540; 84153; 85610; 90471; 99211; 99212

== ENCOUNTER 2025-08-23 10:18 | Outpatient (AMB) | payer MEDICARE, SELFPAY ==
[2025-08-23 10:42] LABS: Prothrombin Time Whole Bld POC 26.9 sec (11.1-13.5); ~PT, ~INR - Anti Coag Clinic 2.2 (0.9-1.1)
--- NOTE | 2025-08-23 10:50 | MHC.OFFVISCO ---
Intake Intake Visit Reasons: Anticoagulation Allergies penicillin V (From Pen-Vee K) Allergy (Mild, Verified 08/23/25 10:37) HIVES Medication List - Last Reconciled 08/23/25 by Daily See RN amiodarone 100 mg PO DAILY atorvastatin 80 mg PO BEDTIME folic acid 3 mg (3 x 1 mg) PO DAILY 90 days multivitamin 1 tab PO DAILY vit C,T-Mh-rcqvc-lutein-zeaxan 250-90-40-1 mg (PreserVision AREDS-2) 1 tab PO BID warfarin 2.5 mg See Protocol PO DAILY Nursing Note INR: 2..2 in therapeutic range of 2-3 Previously 1.5 on 08/20/25 and reason undetermined at that time but pt reports he found a warfarin tablet left in his pillbox so admits to missing a dose. Medications and supplements reviewed No changes in health, diet, medications, or supplements, Denies any signs and symptoms of bleeding or bruising or clotting. Bleeding, bruising, clotting discussed Nutritional guidance given to avoid greens today and to have a serving of foods that raise the INR. Food list reviewed. Dose: 1.25mg X 4 days and 2.5mg X 3 days (M/W/F) F/U INR: 2 weeks Patient verbalizes understanding of instructions given Anti-Coag Initial Assessment Social Hx Patient Tobacco Use Status: Former Tobacco user alcohol intake: current Alcohol intake frequency: holidays/special occasions only Cardiovascular Hx: CAD, [place] and Arrhythmias Musculoskeletal Hx: Arthritis Blood Disorder Hx: Anemia and Hyperlipidemia GI Hx: Hemorrhoids Neurological Hx: Epilepsy/Seizures Cancer HX: No Psych. 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
--- OUTSIDE RECORDS SUMMARY | 2025-08-23 21:19 | XMS_ITS | Patient Health Record ---
Author Organization [facility] Address [address] [place] [address] Care Team Providers Care Retirement Administrator Name Role Phone Alfred (RETIRED) Jose MOLINA Primary Care Provide r Unavailable Mt Ramirez Unavailable [phone] Lazara MOLINA, Fadi Unavailable Unavailable Allergies Allergen (clinical drug ingredient) Drug/Non Drug Allergy documented on EMR Reaction Allergy Type Onset Date Status Penicillin Unknown Drug Allergy Active Reason For Referral No Information Medications Medication SIG (Take, Route, Frequency, Duration) Notes Start Date End Date Status Aleve once a day/ as neede d for arthritis Active Multivitamin Adults Active Omeprazole 20 MG Capsule Delayed Release TAKE ONE CAPSULE BY MOUTH EVERY DAY; Duration: 90 Active Phenytoin Active Social History Social History Additional Details Category Social Info Options Details Miscellaneous: Marital status: Occupation: He works in the [employer] Section Notes: Nonsmoker; no sig. alcohol Nonsmoker; no sig. alcohol Problems Problem Type SNOMED Code ICD Code Onset Dates Problem Status W/U Status Risk Notes Problem Screening for malignant neoplasm of colon (205936841) Encounter for screening for malignant neoplasm of colon (Z12.11) Active confirmed Problem History of adenomatous polyp of colon (148371321) History of adenomatous polyp of colon (Z86.010) Active confirmed Problem Gastroesophageal reflux disease with esophagitis (286070470) Gastroesophageal reflux disease with esophagitis (K21.0) Active confirmed Problem Gastroesophageal reflux disease without esophagitis (696531701) Gastroesophageal reflux disease without esophagitis (K21.9) Active confirmed Problem Crump's esophagus (293613367) Barretts esophagus without dysplasia (K22.70) Active confirmed Problem Iron deficiency anemia due to chronic blood loss (645979368) Iron deficiency anemia due to chronic blood loss (D50.0) Active confirmed Problem 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 [address] [place] [phone] [id number] ALEIDA TITUS Self - patient is the insured Medical (General) History Medical History History ICD Code GERD/Crump's Esophagus--EGD's in 2003, 2008, and 2011 Seizure disorder Elevated cholesterol Denies [place],DM,CVA,Lung disease,renal dise ase UGI bleed with melena in 04/07 012-had been on Ibuprofen-EGD at that time negative except duodenitis and Crump's esophagus-biopsies all negative for dysplasia Rheumatoid arthritis Irregular heart rate--wore a 24 hour monitor earlier in 2018--describes no sig. findings from the assistant prosecuting attorney Colonoscopy in 08/2012 with small tubular adenomas--diverticulosis, neg colonoscopy in 2003 Surgical History Surgery Date(Month/Year) Back surgery Hernia
== END 2025-08-23 10:55 | disposition home or self-care (01) ==
LOC: HO.ACS 10:18
PROVIDERS: PCP Physician Assistant Medical; Visit Provider Internal Medicine Medical Oncology
DX: Z79.01 Long term (current) use of anticoagulants (principal)

== ENCOUNTER 2025-09-07 10:00 | Outpatient (AMB) | payer MEDICARE, SELFPAY ==
[2025-09-07 10:05] LABS: Prothrombin Time Whole Bld POC 20.5 sec (11.1-13.5); ~PT, ~INR - Anti Coag Clinic 1.7 (0.9-1.1)
--- NOTE | 2025-09-07 10:17 | MHC.OFFVISCO ---
Intake Intake Visit Reasons: Anticoagulation Allergies penicillin V (From Pen-Vee K) Allergy (Mild, Verified 09/07/25 10:00) HIVES Medication List - Last Reconciled 09/07/25 by Loretta Neville RN amiodarone 100 mg PO DAILY atorvastatin 80 mg PO BEDTIME folic acid 3 mg (3 x 1 mg) PO DAILY 90 days multivitamin 1 tab PO DAILY vit C,L-Re-kswsk-lutein-zeaxan 250-90-40-1 mg (PreserVision AREDS-2) 1 tab PO BID warfarin 2.5 mg See Protocol PO DAILY Nursing Note INR 1.7 out of therapeutic range- every other INR is low - increase weekly dose Medications and supplements reviewed Patient status: Well, ate more during the last week, no missed doses, had little more chocolate, experienced heart burn one day and had baking soda x 1. Medications or supplements: no other changes Diet: good Denies any signs and symptoms of bleeding or clotting or unusual bruising Bleeding, bruising, clotting discussed Nutritional guidance given: avoid greens x 3 days then resume usual diet , make sure to include orange and red fruits and vegetables Dose: increase to 2.5mg x 5 days/ 1.25mg x 3 days F/U INR Date: 2 weeks ?? Patient verbalizing understanding of instructions given. Anti-Coag Initial Assessment Social Hx Patient Tobacco Use Status: Former Tobacco user alcohol intake: current Alcohol intake frequency: holidays/special occasions only Cardiovascular Hx: CAD, [place] and Arrhythmias Musculoskeletal Hx: Arthritis Blood Disorder Hx: Anemia and Hyperlipidemia GI Hx: Hemorrhoids Neurological Hx: Epilepsy/Seizures Cancer HX: No Psych. Illness/Depression: No Coding Level of Care Code Est Patient Level 1 Diagnoses Current use of anticoagulant therapy Z79.01 Results AMB INR Fingerstick AMB INR Fingerstick 1.7 Last Edit by Loretta Neville RN on 09/07/25 10:09 MANUAL ENTRY Assessment & Plan Assessment & Plan (1) Current use of anticoagulant therapy: Code(s): Z79.01 - USP (current) use of anticoagulants Category: Medical
== END 2025-09-07 10:20 | disposition home or self-care (01) ==
LOC: HO.ACS 10:00
PROVIDERS: PCP Physician Assistant Medical; Visit Provider Internal Medicine Medical Oncology
DX: Z79.01 Long term (current) use of anticoagulants (principal)

== ENCOUNTER → 2025-09-07 10:00 | Outpatient (BNVA) | payer MEDICARE, SELFPAY | PROVIDERS: PCP Physician Assistant Medical; Visit Provider Internal Medicine Medical Oncology | DX: I48.0 Paroxysmal atrial fibrillation (principal); Z51.81 Encounter for therapeutic drug level monitoring; Z79.01 Long term (current) use of anticoagulants | CPT/HCPCS: 85610; 99211 ==

== ENCOUNTER 2025-09-21 09:03 | Outpatient (AMB) | payer MEDICARE, SELFPAY ==
[2025-09-21 09:36] LABS: Prothrombin Time Whole Bld POC 32.8 sec (11.1-13.5); ~PT, ~INR - Anti Coag Clinic 2.7 (0.9-1.1)
--- NOTE | 2025-09-21 09:37 | MHC.OFFVISCO ---
Intake Intake Visit Reasons: Anticoagulation Allergies penicillin V (From Pen-Velinden K) Allergy (Mild, Verified 09/21/25 09:28) HIVES Medication List - Last Reconciled 09/21/25 by Daily See, JOSE amiodarone 100 mg PO DAILY atorvastatin 80 mg PO BEDTIME folic acid 3 mg (3 x 1 mg) PO DAILY 90 days multivitamin 1 tab PO DAILY vit C,P-Jt-pfcwm-lutein-zeaxan 250-90-40-1 mg (PreserVision AREDS-2) 1 tab PO BID warfarin 2.5 mg See Protocol PO DAILY Nursing Note INR: 2.7 in therapeutic range of 2-3 Medications and supplements reviewed No changes in health, diet, medications, or supplements, Denies any signs and symptoms of bleeding or bruising or clotting. Bleeding, bruising, clotting discussed Nutritional guidance given Dose: 2.5mg X 4 days and 1.25mg X 3 days (M/W/F) F/U INR: 2 weeks Patient verbalizes understanding of instructions given Anti-Coag Initial Assessment Social Hx Patient Tobacco Use Status: Former Tobacco user alcohol intake: current Alcohol intake frequency: holidays/special occasions only Cardiovascular Hx: CAD, [place] and Arrhythmias Musculoskeletal Hx: Arthritis Blood Disorder Hx: Anemia and Hyperlipidemia GI Hx: Hemorrhoids Neurological Hx: Epilepsy/Seizures Cancer HX: No Psych. Illness/Depression: No Coding Level of Care Code Est Patient Level 1 Diagnoses Current use of anticoagulant therapy Z79.01 Assessment & Plan Assessment & Plan (1) Current use of anticoagulant therapy: Code(s): Z79.01 - skilled nursing (current) use of anticoagulants Category: Medical
--- OUTSIDE RECORDS SUMMARY | 2025-09-21 10:15 | XMS_ITS | Patient Health Record ---
Author Organization [facility] Address [address] [place] [address] Care Team Providers Care Shoe Clerk Name Role Phone Alfred (RETIRED) Jose MOLINA Primary Care Provide r Unavailable Mt Ramirez Unavailable [phone] Lazara MOLINA, Fadi Unavailable Unavailable Allergies Allergen [...] Marital status: Occupation: He works in the [employer] Section Notes: Nonsmoker; no sig. alcohol Nonsmoker; no sig. alcohol Problems Problem Type SNOMED Code ICD Code Onset Dates Problem Status W/U Status Risk Notes Problem Screening for malignant neoplasm of colon (630889171) Encounter for screening for malignant neoplasm of colon (Z12.11) Active confirmed Problem History of adenomatous polyp of colon (191289155) History of adenomatous polyp of colon (Z86.010) Active confirmed Problem Gastroesophageal reflux disease with esophagitis (625997680) Gastroesophageal reflux disease with esophagitis (K21.0) Active confirmed Problem Gastroesophageal reflux disease without esophagitis (931779855) Gastroesophageal reflux disease without esophagitis (K21.9) Active confirmed Problem Crump's esophagus (243196764) Barretts esophagus without dysplasia (K22.70) Active confirmed Problem Iron deficiency anemia due to chronic blood loss (869990104) Iron deficiency anemia due to chronic blood loss (D50.0) Active confirmed Problem 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 (8093560869670161) 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 Plan Of Treatment Future Test Test Name Order Date COLONOSCOPY 07/22/2012 UPPER GI ENDOSCOPY 12/31/2017 COLONOSCOPY 12/31/2017 Insurance Providers Payer Name Payer Address Payer Phone Subscriber Number Group Number Insured Name Patient Relationship to Insured Coverage Start Date Coverage End Date [facility] [address] [place] [phone] [id number] ALEIDA TITUS Self - patient is the insured Medical (General) History Medical History History ICD Code GERD/Crump's Esophagus--EGD's in 2003, 2008, and 2011 Seizure disorder Elevated cholesterol Denies [place],DM,CVA,Lung disease,renal dise ase UGI bleed with melena in 04/07 012-had been on Ibuprofen-EGD at that time negative except duodenitis and Crump's esophagus-biopsies all negative for dysplasia Rheumatoid arthritis Irregular heart rate--wore a 24 hour monitor earlier in 2018--describes no sig. findings from the robotype operator Colonoscopy in 08/2012 with small tubular adenomas--diverticulosis, neg colonoscopy in 2003 Surgical History Surgery Date(Month/Year) Back surgery Hernia
== END 2025-09-21 09:45 | disposition home or self-care (01) ==
LOC: HO.ACS 09:03
PROVIDERS: PCP Physician Assistant Medical; Visit Provider Internal Medicine Medical Oncology
DX: Z79.01 Long term (current) use of anticoagulants (principal)

== ENCOUNTER → 2025-09-21 09:03 | Outpatient (BNVA) | payer MEDICARE, SELFPAY | PROVIDERS: PCP Physician Assistant Medical; Visit Provider Internal Medicine Medical Oncology | DX: I48.0 Paroxysmal atrial fibrillation (principal); Z51.81 Encounter for therapeutic drug level monitoring; Z79.01 Long term (current) use of anticoagulants | CPT/HCPCS: 85610; 99211 ==

== ENCOUNTER 2025-10-05 09:10 | Outpatient (AMB) | payer MEDICARE, SELFPAY ==
[2025-10-05 09:19] LABS: Prothrombin Time Whole Bld POC 23.4 sec (11.1-13.5); ~PT, ~INR - Anti Coag Clinic 2.0 (0.9-1.1)
--- NOTE | 2025-10-05 09:21 | MHC.OFFVISCO ---
Intake Intake Visit Reasons: Anticoagulation Allergies penicillin V (From Pen-Velinden K) Allergy (Mild, Verified 10/05/25 09:14) HIVES Medication List - Last Reconciled 10/05/25 by Daily See RN amiodarone 100 mg PO DAILY atorvastatin 80 mg PO BEDTIME folic acid 3 mg (3 x 1 mg) PO DAILY 90 days multivitamin 1 tab PO DAILY vit C,L-Yc-nhruc-lutein-zeaxan 250-90-40-1 mg (PreserVision AREDS-2) 1 tab PO BID warfarin 2.5 mg See Protocol PO DAILY Nursing Note INR: 2.0 in therapeutic range of 2-3 Medications and supplements reviewed No changes in health, diet, medications, or supplements, Denies any signs and symptoms of bleeding or bruising or clotting. Bleeding, bruising, clotting discussed Nutritional guidance given to avoid greens X 2 days and to have a serving of foods that raise the INR. Food list reviewed. Dose: 2.5mg X 4 days and 1.25mg X 3 days (M/W/F) F/U INR: 2 weeks Patient verbalizes understanding of instructions with read back given Anti-Coag Initial Assessment Social Hx Patient Tobacco Use Status: Former Tobacco user alcohol intake: current Alcohol intake frequency: holidays/special occasions only Cardiovascular Hx: CAD, [place] and Arrhythmias Musculoskeletal Hx: Arthritis Blood Disorder Hx: Anemia and Hyperlipidemia GI Hx: Hemorrhoids Neurological Hx: Epilepsy/Seizures Cancer HX: No Psych. Illness/Depression: No Coding Level of Care Code Est Patient Level 1 Diagnoses Current use of anticoagulant therapy Z79.01 Assessment & Plan Assessment & Plan (1) Current use of anticoagulant therapy: Code(s): Z79.01 - electrician second (current) use of anticoagulants Category: Medical
--- OUTSIDE RECORDS SUMMARY | 2025-10-05 11:30 | XMS_ITS | Patient Health Record ---
Author Organization [facility] Address [address] [place] [address] Care Team Providers Care Public Transit Trolley Driver Name Role Phone Alfred (RETIRED) Jose MOLINA Primary Care Provide r Unavailable Mt Ramirez Unavailable [phone] Lazara MOLINA, Fadi Unavailable Unavailable Allergies Allergen [...] Marital status: Occupation: He works in the [employer] Section Notes: Nonsmoker; no sig. alcohol Nonsmoker; no sig. alcohol Problems Problem Type SNOMED Code ICD Code Onset Dates Problem Status W/U Status Risk Notes Problem Screening for malignant neoplasm of colon (106756982) Encounter for screening for malignant neoplasm of colon (Z12.11) Active confirmed Problem History of adenomatous polyp of colon (279329676) History of adenomatous polyp of colon (Z86.010) Active confirmed Problem Gastroesophageal reflux disease with esophagitis (640993039) Gastroesophageal reflux disease with esophagitis (K21.0) Active confirmed Problem Gastroesophageal reflux disease without esophagitis (809587277) Gastroesophageal reflux disease without esophagitis (K21.9) Active confirmed Problem Crump's esophagus (001724828) Barretts esophagus without dysplasia (K22.70) Active confirmed Problem Iron deficiency anemia due to chronic blood loss (595376090) Iron deficiency anemia due to chronic blood loss (D50.0) Active confirmed Problem 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 (0820433702850553) 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 Plan Of Treatment Future Test Test Name Order Date COLONOSCOPY 07/22/2012 UPPER GI ENDOSCOPY 12/31/2017 COLONOSCOPY 12/31/2017 Insurance Providers Payer Name Payer Address Payer Phone Subscriber Number Group Number Insured Name Patient Relationship to Insured Coverage Start Date Coverage End Date [facility] [address] [place] [phone] [id number] ALEIDA TITUS Self - patient is the insured Medical (General) History Medical History History ICD Code GERD/Crump's Esophagus--EGD's in 2003, 2008, and 2011 Seizure disorder Elevated cholesterol Denies [place],DM,CVA,Lung disease,renal dise ase UGI bleed with melena in 04/07 012-had been on Ibuprofen-EGD at that time negative except duodenitis and Crump's esophagus-biopsies all negative for dysplasia Rheumatoid arthritis Irregular heart rate--wore a 24 hour monitor earlier in 2018--describes no sig. findings from the financial planning adviser Colonoscopy in 08/2012 with small tubular adenomas--diverticulosis, neg colonoscopy in 2003 Surgical History Surgery Date(Month/Year) Back surgery Hernia
== END 2025-10-05 09:27 | disposition home or self-care (01) ==
LOC: HO.ACS 09:10
PROVIDERS: PCP Physician Assistant Medical; Visit Provider Internal Medicine Medical Oncology
DX: Z79.01 Long term (current) use of anticoagulants (principal)

== ENCOUNTER → 2025-10-05 09:10 | Outpatient (BNVA) | payer MEDICARE, SELFPAY | PROVIDERS: PCP Physician Assistant Medical; Visit Provider Internal Medicine Medical Oncology | DX: I48.0 Paroxysmal atrial fibrillation (principal); Z51.81 Encounter for therapeutic drug level monitoring; Z79.01 Long term (current) use of anticoagulants | CPT/HCPCS: 85610; 99211 ==